=== PATIENT | female | born 1950 | race Caucasian/White ===

== ENCOUNTER 2020-01-26 09:17 | Emergency (ER) | payer MEDICARE, SELFPAY ==
[2020-01-26] VITALS (7 sets, daily range): BP systolic 154–182; BP diastolic 65–75; PULSE 58–67; RESP 16–18; TEMP 36.4–36.6; O2SAT 98; BMI 29.7
--- NOTE | 2020-01-26 09:57 | ED_ITS ---
HPI - Dizziness General Chief Complaint: Dizziness Stated Complaint: dizzy Time Seen by Provider: 01/26/20 09:57 Source: patient Mode of arrival: ambulatory Limitations: no limitations History of Present Illness MD elicited complaint: dizziness and lightheadedness Onset (ago): week(s) (2) Timing: gradual onset Severity: moderate Description: sense of movement and lightheadedness Context: other (occurs at work when wearing N95) Exacerbating factors: other (states happens at work with her N95) Relieving factors: remaining still and other (taking her mask off) Associated symptoms: nausea and weakness (all over) Related Data Allergies Allergy/AdvReac Type Severity Reaction Status Date / Time influenza virus vaccine, Allergy Severe DIFFICULTY Unverified 10/30/19 15:55 specific BREATHING [Influenza Virus Vacc,Specific] acetaminophen [Percocet] Allergy Unknown Verified 09/16/19 00:00 bee pollen [BEE STINGS] Allergy Unknown ANAPHYLAXIS Unverified 10/30/19 15:55 celecoxib [Celebrex] Allergy Unknown Verified 09/16/19 00:00 doxycycline [DOXYCYCLINE] Allergy Unknown RASH Unverified 10/30/19 15:55 Erythromycin Allergy Unknown Unverified 09/25/19 00:00 erythromycin base Allergy Unknown RASH Unverified 10/30/19 15:55 [ERYTHROMYCIN BASE] fentanyl [FENTANYL] Allergy Unknown NAUSEA & Unverified 10/30/19 15:55 VOMITING Iodinated Contrast Media Allergy Unknown RASH Unverified 10/30/19 15:55 [IV DYE, IODINE CONTAINING] ivp dye Allergy Unknown Unverified 09/25/19 00:00 lisinopril [LISINOPRIL] Allergy Unknown HIVES Unverified 10/30/19 15:55 naproxen [Naprosyn] Allergy Unknown Verified 09/16/19 00:00 oxycodone [Percocet] Allergy Unknown Verified 09/16/19 00:00 Sulfa (Sulfonamide Allergy Unknown Unverified 09/25/19 00:00 Antibiotics) sulfamethoxazole Allergy Unknown RASH Unverified 10/30/19 15:55 [From BACTRIM] trimethoprim [From BACTRIM] Allergy Unknown RASH Unverified 10/30/19 15:55 bee stings Allergy Unknown Uncoded 09/16/19 00:00 bees Allergy Unknown Uncoded 09/25/19 00:00 Doxycycline Calcium Allergy Unknown Uncoded 09/25/19 00:00 flu vaccine Allergy Unknown Uncoded 09/25/19 00:00 From PERCOCET Allergy Unknown HIVES Uncoded 10/30/19 15:55 From TALWIN Allergy Unknown HALLUCINATI Uncoded 10/30/19 15:55 ONS i Allergy Unknown Uncoded 09/16/19 00:00 Talwin Allergy Unknown Uncoded 09/25/19 00:00 Review of Systems Review of Systems: Constitutional : No Fever, No Chills, No Fatigue ENT/Mouth : No sore throat, No Rhinorrhea Eyes: No Eye Pain, No Swelling, No Redness Cardiovascular : No Chest Pain, No SOB, No Dyspnea on Exertion Respiratory : No Cough, No Sputum Gastrointestinal : No Nausea, No Vomiting, No Diarrhea, No abdominal Pain Genitourinary : No Dysuria, No Urinary Frequency, No Hematuria, Musculoskeletal : No joint pain, No Myalgias, No Joint Swelling Skin : No Skin Lesions, No rash Neuro : No Weakness, No Numbness, pos Dizziness, no Headache Psych : No Anxiety/Panic, No Depression Heme/Lymph: No Bruising, No Bleeding,No Lymphadenopathy Endocrine : No Polyuria, No Polydipsia All other systems reviewed and are negative [facility] Past Medical History Attestation statement: The following information was validated with the patient. Medical History Asthma Bladder cancer Blood clot in vein Cataract COPD (chronic obstructive pulmonary disease) Herniated vertebral disc High cholesterol Hypertension Pneumonia Social History Social History (Updated 01/26/20 @ 10:10 by Kacy Mahoney DO) Smoking Status: Current every day smoker Use of substances other than those prescribed or required for medical reasons: No Advance Directives: No Advance Directives Information Provided: Yes Physical Exam Vital Signs: Vital Signs: Last Vital Signs Temp 97.9 F 01/26/20 10:39 Pulse 64 01/26/20 11:14 Resp 16 01/26/20 11:14 BP 154/70 H 01/26/20 11:14 Pulse Ox 98 01/26/20 11:14 Body Mass Index 29.7 Appearance: Alert. Oriented X3. No acute distress. Eyes: Pupils equal, round and reactive to light. ENT: Pharynx normal. Neck: Normal inspection. Neck supple. CVS: Normal heart rate and rhythm. Pulses normal. Respiratory: No respiratory distress. Breath sounds normal. Abdomen: Soft and non-tender. Skin: Skin warm and dry. Normal skin color. Normal skin turgor. Extremities: No lower extremity edema. No calf ttp Neuro: Oriented X 3. No motor deficit. No sensory deficit. no deficits, steady gait Course Course Course Narrative: negative workup at this time stable for DC relates it to her N95 mask MDM - Dizziness MDM Narrative Medical decision making narrative: 69 yo female with HTN (elevated BP today due to not taking her BP medications - will dose now) c/o intermittent dizziness when she wears her N95 at work - unsure if this is related to low O2 or being sensitive to materials in mask - at this time will obtain labs and EKG, ortho VS, CT scan for mass, dispo per results and findings. Lab Data Result diagrams: 01/26/20 10:58 01/26/20 10:58 Labs: Lab Results 01/26/20 01/26/20 01/26/20 Range/Units 10:58 10:58 10:58 WBC 9.3 (4.8-10.8) X10*3/uL RBC 4.86 (4.20-5.50) X10*6/uL Hgb 15.3 (12.0-16.0) g/dl Hct 45.4 (37-47) % MCV 93.4 (80-98) fL MCH 31.5 (27.0-33.0) pg MCHC 33.7 (31.0-35.0) g/dl RDW 13.1 (11.0-16.0) % Plt Count 261 (160-400) X10*3/uL MPV 10.9 (9.4-12.3) fL Immature Gran % (Auto) 0.3 (0.0-0.4) % Neut % (Auto) 56.7 (45-73) % Lymph % (Auto) 30.4 (20-40) % [place] % (Auto) 9.9 (2-11) % Eos % (Auto) 1.5 (0-4) % Baso % (Auto) 1.2 (0-2) % Lymph # (Auto) 2.8 (1.2-4.9) X10*3/uL [place] # (Auto) 0.9 (0.1-1.2) X10*3/uL Eos # (Auto) 0.1 (0.0-0.4) X10*3/uL Baso # (Auto) 0.1 (0.0-0.2) X10*3/uL Abs Immat Gran (auto) 0.03 (0.00-0.03) X10*3/uL Absolute Neuts (auto) 5.3 (2.0-8.3) X10*3/uL Absolute Nucleated RBC 0.000 (0.0-0.012) X10*3/uL Nucleated RBC % (auto) 0.0 (0.0-0.2) /100WBC Hold Blue Top SEE NOTE Sodium 140 (135-145) mmol/L Potassium 4.4 (3.3-5.1) mmol/l Chloride 106 (96-108) mmol/L Carbon Dioxide 26 (22-29) mmol/L Anion Gap 12 (12-20) BUN 12 (9-16) mg/dL Creatinine 0.74 (0.5-1.4) mg/dL Estim Creat Clear Calc 75.5 Estimated GFR > 60 Random Glucose 103 (60-115) mg/dL Calcium 9.2 (8.4-10.2) mg/dL Magnesium 2.4 (1.6-2.6) mg/dL Total Bilirubin 0.6 (0.0-1.0) mg/dL Direct Bilirubin 0.3 (0.0-0.5) mg/dL AST 13 (5-31) U/L ALT 13 (0-31) U/L Alkaline Phosphatase 89 (39-117) U/L Troponin I High Sens (<3.5-17.0) ng/L Total Protein 6.8 (6.5-8.0) g/dL Albumin 3.9 (3.5-5.0) g/dL 01/26/20 Range/Units 10:58 WBC (4.8-10.8) X10*3/uL RBC (4.20-5.50) X10*6/uL Hgb (12.0-16.0) g/dl Hct (37-47) % MCV (80-98) fL MCH (27.0-33.0) pg MCHC (31.0-35.0) g/dl RDW (11.0-16.0) % Plt Count (160-400) X10*3/uL MPV (9.4-12.3) fL Immature Gran % (Auto) (0.0-0.4) % Neut % (Auto) (45-73) % Lymph % (Auto) (20-40) % [place] % (Auto) (2-11) % Eos % (Auto) (0-4) % Baso % (Auto) (0-2) % Lymph # (Auto) (1.2-4.9) X10*3/uL [place] # (Auto) (0.1-1.2) X10*3/uL Eos # (Auto) (0.0-0.4) X10*3/uL Baso # (Auto) (0.0-0.2) X10*3/uL Abs Immat Gran (auto) (0.00-0.03) X10*3/uL Absolute Neuts (auto) (2.0-8.3) X10*3/uL Absolute Nucleated RBC (0.0-0.012) X10*3/uL Nucleated RBC % (auto) (0.0-0.2) /100WBC Hold Blue Top Sodium (135-145) mmol/L Potassium (3.3-5.1) mmol/l Chloride (96-108) mmol/L Carbon Dioxide (22-29) mmol/L Anion Gap (12-20) BUN (9-16) mg/dL Creatinine (0.5-1.4) mg/dL Estim Creat Clear Calc Estimated GFR Random Glucose (60-115) mg/dL Calcium (8.4-10.2) mg/dL Magnesium (1.6-2.6) mg/dL Total Bilirubin (0.0-1.0) mg/dL Direct Bilirubin (0.0-0.5) mg/dL AST (5-31) U/L ALT (0-31) U/L Alkaline Phosphatase (39-117) U/L Troponin I High Sens < 3.5 (<3.5-17.0) ng/L Total Protein (6.5-8.0) g/dL Albumin (3.5-5.0) g/dL ECG Data Attestation: I personally reviewed and interpreted this ECG as follows: ECG interpretation date: 01/26/20 ECG interpretation time: 10:34 Interpretation: Rate: 60 Rhythm: NSR [place]: left Normal P waves. Normal DUTCH. incomplete RBBB ST T wave : normal no LINDA qTC: normal prior studies: no acute ischemia The study has been interpreted contemporaneously by me. . Discharge Plan Discharge Clinical Impression: Dizziness Patient Disposition: Home, Self-Care Instructions: Dizziness (ED) Additional Instructions: return to ED for any worsening symptoms or concerns Referrals: Kashmir Riggins MD [Primary Care Provider] - 2 days (if not better) Stand Alone Forms: Work/School Release
--- NOTE | 2020-01-26 10:04 | ECG_ITS ---
Test Reason : DIZZY Blood Pressure : / mmHG Vent. Rate : 060 BPM Atrial Rate : 060 BPM P-R Int : 142 ms QRS Dur : 092 ms QT Int : 458 ms P-R-T Axes : 063 -35 032 degrees QTc Int : 458 ms Normal sinus rhythm Possible Left atrial enlargement Left axis deviation Incomplete right bundle branch block Abnormal ECG When compared with ECG of 10-OCT-2002 23:56, Vent. rate has decreased BY 38 BPM Incomplete right bundle branch block is now Present QT has lengthened Referred By: Kacy Mahoney Electronically Signed By:Efrain Hood
--- NOTE | 2020-01-26 10:05 | CT_ITS ---
EXAMINATION: CT HEAD WITHOUT CONTRAST CLINICAL INFORMATION: Dizziness. COMPARISON: CT brain dated 04/10/2018. TECHNIQUE: Contiguous axial imaging was performed from the skull base to vertex without intravenous administration of contrast. Multiplanar reformatted images are submitted. This CT examination was performed using dose optimization techniques as appropriate, variously including the following: *Automated exposure control *Adjustment of mA and/or kV according to patient size (this includes techniques or standardized protocols for targeted exams where dose is matched to indication/reason for exam; i.e. extremities or head) *Use of iterative reconstruction technique DLP: 1271 mGy-cm FINDINGS: There is no evidence of acute intracranial hemorrhage or territorial infarction. No abnormal mass effect or midline shift is seen. [place] to white matter differentiation is well preserved. No extra-axial fluid collections are identified. The ventricles are normal in size. There is no abnormal attenuation within the brain parenchyma. The osseous structures and soft tissues are normal. The mastoid air cells and visualized portions of the paranasal sinuses are well aerated. CT/CT head/brain wo con IMPRESSION: No acute intracranial pathology.
--- NOTE | 2020-01-26 10:05 | XR_ITS ---
EXAMINATION: XR CHEST CLINICAL INFORMATION: Dizziness. COMPARISON: Chest 09/16/2019 TECHNIQUE: Frontal view of the chest was obtained. FINDINGS: Lungs are well-expanded with slight increased interstitial markings especially in both lower lobes but no confluent infiltrate or pleural effusion. Heart size and vascularity is normal. No gross bony abnormality. XR/XR chest 1V IMPRESSION: No acute pneumonic process. Minimal increased interstitial markings in both lungs without infiltrate.
[2020-01-26 11:02] LABS: MANUAL DIFF FLAG NO
[2020-01-26 11:06] LABS: Basophils Absolute Auto 0.1 X10*3/uL (0.0-0.2); Basophils Percent Auto 1.2 % (0-2); Eosinophils Absolute Auto 0.1 X10*3/uL (0.0-0.4); Eosinophils Percent Auto 1.5 % (0-4); Hematocrit 45.4 % (37-47); Hemoglobin 15.3 g/dl (12.0-16.0); Imm Gran Abs Auto 0.03 X10*3/uL (0.00-0.03); Imm Gran Pct Auto 0.3 % (0.0-0.4); Lymphocytes Absolute Auto 2.8 X10*3/uL (1.2-4.9); Lymphocytes Percent Auto 30.4 % (20-40); Mean Corpuscular HGB Conc 33.7 g/dl (31.0-35.0); Mean Corpuscular Hemoglobin 31.5 pg (27.0-33.0); Mean Corpuscular Volume 93.4 fL (80-98); Mean Platelet Volume 10.9 fL (9.4-12.3); Monocytes Absolute Auto 0.9 X10*3/uL (0.1-1.2); Monocytes Percent Auto 9.9 % (2-11); Neutrophils Absolute Auto 5.3 X10*3/uL (2.0-8.3); Neutrophils Percent Auto 56.7 % (45-73); Platelet Count 261 X10*3/uL (160-400); Red Blood Count 4.86 X10*6/uL (4.20-5.50); Red Cell Distribution Width 13.1 % (11.0-16.0); White Blood Count 9.3 X10*3/uL (4.8-10.8)
[2020-01-26] MEDS: Valsartan 80 MG TABLET PO (11:11)
[2020-01-26] MEDS: dilTIAZem HCL CD 240 MG CAP.ER.DEG PO (11:11)
[2020-01-26] MEDS: Metoprolol Succinate ER 50 MG TAB.ER.24H PO (11:11)
[2020-01-26 11:41] LABS: Alanine Aminotransferase 13 U/L (0-31); Albumin Level 3.9 g/dL (3.5-5.0); Alkaline Phosphatase 89 U/L (39-117); Anion Gap 12 (12-20); Aspartate Amino Transferase 13 U/L (5-31); Bilirubin Direct 0.3 mg/dL (0.0-0.5); Bilirubin Total 0.6 mg/dL (0.0-1.0); Blood Urea Nitrogen 12 mg/dL (9-16); Calcium 9.2 mg/dL (8.4-10.2); Carbon Dioxide 26 mmol/L (22-29); Chloride 106 mmol/L (96-108); Creatinine Clr Calc Pharmacy 75.5; Estimated Glomerular Filt Rate > 60; Glucose Random 103 mg/dL (60-115); Magnesium 2.4 mg/dL (1.6-2.6); Potassium 4.4 mmol/l (3.3-5.1); Sodium 140 mmol/L (135-145); Total Protein 6.8 g/dL (6.5-8.0)
[2020-01-26 11:48] LABS: Troponin-I High Sensitivity < 3.5 ng/L (<3.5-17.0)
== END 2020-01-26 12:15 | disposition home or self-care (01) ==
PROVIDERS: Emergency Provider Emergency Medicine; PCP Internal Medicine
DX: R42 Dizziness and giddiness (principal); I10 Essential (primary) hypertension; Z85.51 Personal history of malignant neoplasm of bladder; J45.909 Unspecified asthma, uncomplicated
CPT/HCPCS: 36415; 70450; 71045; 80048; 80076; 83735; 84484; 85025; 93005; 99284

== ENCOUNTER → 2020-02-27 10:03 | Outpatient (BNVA) | payer MEDICARE, SELFPAY | PROVIDERS: PCP Internal Medicine; Visit Provider Urology | DX: C67.9 Malignant neoplasm of bladder, unspecified (principal) | CPT/HCPCS: 52000; 81002; 99212 ==

== ENCOUNTER 2020-04-13 11:58 | Outpatient (REF) | payer MEDICARE, SELFPAY ==
--- NOTE | ~2020-04-13 | XR_ITS ---
EXAMINATION: XR HUMERUS, RIGHT CLINICAL INFORMATION: S46.219A - Strain of muscle, fascia and tendon of other part COMPARISON: None TECHNIQUE: AP and lateral views of the right humerus. FINDINGS: There is no fracture or dislocation. The acromioclavicular alignment is normal. There is normal bony mineralization. No destructive process or periostitis. There are mild degenerative changes acromioclavicular joint. Suspect calcific tendinosis adjacent to greater tuberosity partially overlying humeral head on the images. XR/XR humerus RT IMPRESSION: 1. No fracture, dislocation, or destructive process. 2. Probable calcific tendinosis distal superior rotator cuff. 3. Mild degenerative changes acromioclavicular joint.
== END 2020-04-13 11:59 | disposition home or self-care (01) ==
LOC: HO.HMGCX 11:58
PROVIDERS: Visit Provider Nurse Practitioner Family
DX: S46.219A Strain of muscle, fascia and tendon of other parts of biceps, unspecified arm, initial encounter (principal); W19.XXXA Unspecified fall, initial encounter
CPT/HCPCS: 73060

== ENCOUNTER 2020-05-27 09:41 | Outpatient (REF) | payer MEDICARE, SELFPAY ==
[2020-05-28 14:08] LABS: Urine Cytology See Pathology rpt
== END 2020-05-27 09:42 | disposition home or self-care (01) ==
LOC: HO.LNP 09:41
PROVIDERS: Visit Provider Urology
DX: C67.9 Malignant neoplasm of bladder, unspecified (principal)
CPT/HCPCS: 52000; 81002; 88112; 99212

== ENCOUNTER → 2020-09-22 08:55 | Outpatient (BNVA) | payer MEDICARE, SELFPAY | PROVIDERS: Visit Provider Urology | DX: C67.9 Malignant neoplasm of bladder, unspecified (principal) | CPT/HCPCS: 52000; 99212 ==

== ENCOUNTER 2020-11-06 17:01 | Emergency (ER) | payer MEDICARE, SELFPAY ==
[2020-11-06 17:26] VITALS: BP 126/60; PULSE 64; RESP 18; TEMP 36.4; O2SAT 96; BMI 30.2
[2020-11-06 18:03] LABS: Glucose Urine UA NEG (NEG); Leukocyte Esterase Urine NEG (NEG); Nitrite Urine NEG (NEG); Specific Gravity - Urine >= 1.030 (1.005-1.025); UACC Culture Trigger NO; Urine Blood 3+ (NEG); Urine Ketones 5 MG/DL (NEG); Urine Protein 3+ MG/DL (NEG-TRACE)
[2020-11-06 18:08] LABS: Appearance Urine CLOUDY; Color Urine RED
[2020-11-06 18:15] LABS: RBC Urine TNTC /HPF (0); Squamous Epithelial Cell Urine TRACE /LPF; UACC CULT YES
--- NOTE | 2020-11-06 20:04 | ED.FEMALEGU ---
HPI - Female Genitourinary General Chief complaint: Urogenital-Female Stated complaint: Blood in urine Time Seen by Provider: 11/06/20 19:54 Source: patient and old records reviewed Limitations: no limitations History of Present Illness HPI Narrative: Patient with a known history of bladder cancer for which he is due for a resection December 13 of this year, presents with hematuria. She states she had an episode this morning of lower suprapubic cramping followed by passing a clot when she urinated. Hematuria x2 episodes since then. No significant increased flank tenderness. No nausea vomiting. No fevers or chills. No recent history of similar hematuria. She states she did in the past when he was initially diagnosed 2 years ago. She had a cystoscopy earlier this year with her urologist. After that the further surgery was scheduled. She denies feeling weak or dizzy. She is here because she wants to know order H and H is.(patient is an [employer]) Related Data Home Medications Medication Instructions Recorded Confirmed diltiazem HCl 240 mg 240 mg PO DAILY 02/27/20 02/27/20 capsule,extended release 24 hr metoprolol succinate 50 mg 50 mg PO DAILY 02/27/20 02/27/20 tablet,extended release 24 hr valsartan 80 mg tablet 160 mg PO DAILY tab 04/13/20 simvastatin 20 mg tablet 40 mg PO BEDTIME tab 09/22/20 simvastatin 40 mg tablet 40 mg PO BEDTIME 09/22/20 valsartan 160 mg tablet 160 mg PO DAILY 09/22/20 Previous Rx's Medication Instructions Recorded prednisone 20 mg tablet 20 mg PO TID 2 Days #6 tab 09/28/20 amoxicillin 875 mg-potassium 1 tab PO BID #20 tab 09/30/20 clavulanate 125 mg tablet (Augmentin) prednisone 20 mg tablet 20 mg PO .COMPLEX #18 tab 09/30/20 Allergies Allergy/AdvReac Type Severity Reaction Status Date / Time bee pollen [BEE STINGS] Allergy Severe ANAPHYLAXIS Verified 11/06/20 17:26 influenza virus vaccine, Allergy Severe DIFFICULTY Verified 11/06/20 17:26 specific BREATHING [Influenza Virus Vacc,Specific] acetaminophen [Percocet] Allergy Unknown Unknown Verified 11/06/20 17:26 celecoxib [Celebrex] Allergy Unknown Unknown Verified 11/06/20 17:26 doxycycline [DOXYCYCLINE] Allergy Unknown RASH Verified 11/06/20 17:26 Erythromycin Allergy Unknown Unknown Verified 11/06/20 17:26 erythromycin base Allergy Unknown RASH Verified 11/06/20 17:26 [ERYTHROMYCIN BASE] fentanyl [FENTANYL] Allergy Unknown NAUSEA & Verified 11/06/20 17:26 VOMITING Iodinated Contrast Media Allergy Unknown RASH Verified 11/06/20 17:26 [IV DYE, IODINE CONTAINING] ivp dye Allergy Unknown Unknown Verified 11/06/20 17:26 lisinopril [LISINOPRIL] Allergy Unknown HIVES Verified 11/06/20 17:26 naproxen [Naprosyn] Allergy Unknown Unknown Verified 11/06/20 17:26 oxycodone [Percocet] Allergy Unknown Unknown Verified 11/06/20 17:26 Sulfa (Sulfonamide Allergy Unknown Unknown Verified 11/06/20 17:26 Antibiotics) sulfamethoxazole Allergy Unknown RASH Verified 11/06/20 17:26 [From BACTRIM] trimethoprim [From BACTRIM] Allergy Unknown RASH Verified 11/06/20 17:26 Doxycycline Calcium Allergy Unknown Unknown Uncoded 09/22/20 07:53 flu vaccine Allergy Unknown Unknown Uncoded 09/22/20 07:53 From PERCOCET Allergy Unknown HIVES Uncoded 10/30/19 15:55 From TALWIN Allergy Unknown HALLUCINATI Uncoded 10/30/19 15:55 ONS Talwin Allergy Unknown Unknown Uncoded 09/22/20 07:53 Review of Systems Constitutional: Comments: No fevers Cardiovascular: Comments: No chest pain Respiratory: Comments: No cough or dyspnea Gastrointestinal: Comments: Some low abdominal discomfort Genitourinary: Comments: Hematuria without dysuria PMFSH Past Medical History Medical History (Updated 11/06/20 @ 21:05 by Wayne Gómez MD) Asthma Bladder cancer Blood clot in vein Cataract COPD (chronic obstructive pulmonary disease) Herniated vertebral disc High cholesterol Hypertension Kidney stone Lesion of urinary bladder Pneumonia Surgical History History of surgery Social History Social History Patient Tobacco Use Status: Current someday Tobacco user Advance Directives: No Advance Directives Information Provided: Yes Physical Exam Vital Signs: Vital Signs: Last Vital Signs Temp 97.6 F 11/06/20 17:26 Pulse 64 11/06/20 17:26 Resp 18 11/06/20 17:26 BP 126/60 11/06/20 17:26 Pulse Ox 96 11/06/20 17:26 Body Mass Index 30.2 Const: Other: Awake alert no acute distress Resp: Other: Clear and equal bilaterally. Cardio: Other: Regular rate and rhythm without murmurs rubs or gallops GI: Other: Mild suprapubic tenderness Skin: Other: No lacerations, abrasions, ecchymosis Neuro: Other: Awake alert oriented Course Course Course Narrative: Hematuria in setting of known bladder cancer. Rule out UTI. Rule out anemia. 9:03 p.m.. Hemoglobin is stable. Urinalysis shows red cells but no obvious signs of infection MDM - Female Genitourinary Lab Data Result diagrams: 11/06/20 20:23 11/06/20 20:23 Labs: Lab Results 11/06/20 11/06/20 11/06/20 Range/Units 17:41 20:23 20:23 WBC 12.1 H (4.8-10.8) X10*3/uL RBC 4.61 (4.20-5.50) X10*6/uL Hgb 15.2 (12.0-16.0) g/dl Hct 44.2 (37-47) % MCV 95.9 (80-98) fL MCH 33.0 (27.0-33.0) pg MCHC 34.4 (31.0-35.0) g/dl RDW 13.3 (11.0-16.0) % Plt Count 297 (160-400) X10*3/uL MPV 11.0 (9.4-12.3) fL Immature Gran % (Auto) 0.4 (0.0-0.4) % Neut % (Auto) 54.5 (45-73) % Lymph % (Auto) 31.3 (20-40) % [place] % (Auto) 11.1 H (2-11) % Eos % (Auto) 2.0 (0-4) % Baso % (Auto) 0.7 (0-2) % Lymph # (Auto) 3.8 (1.2-4.9) X10*3/uL [place] # (Auto) 1.4 H (0.1-1.2) X10*3/uL Eos # (Auto) 0.2 (0.0-0.4) X10*3/uL Baso # (Auto) 0.1 (0.0-0.2) X10*3/uL Abs Immat Gran (auto) 0.05 H (0.00-0.03) X10*3/uL Absolute Neuts (auto) 6.6 (2.0-8.3) X10*3/uL Absolute Nucleated RBC 0.000 (0.0-0.012) X10*3/uL Nucleated RBC % (auto) 0.0 (0.0-0.2) /100WBC Sodium 143 (135-145) mmol/L Potassium 4.1 (3.3-5.1) mmol/L Chloride 108 (96-108) mmol/L Carbon Dioxide 26 (22-29) mmol/L Anion Gap 13 (12-20) BUN 12 (9-16) mg/dL Creatinine 0.78 (0.5-1.4) mg/dL Estim Creat Clear Calc 71.1 Estimated GFR > 60 Random Glucose 97 (60-115) mg/dL Calcium 9.6 (8.4-10.2) mg/dL Total Bilirubin 0.5 (0.0-1.0) mg/dL AST 16 (5-31) U/L ALT 18 (0-31) U/L Alkaline Phosphatase 91 (39-117) U/L Total Protein 7.0 (6.5-8.0) g/dL Albumin 4.0 (3.5-5.0) g/dL Urine Color RED Urine Appearance CLOUDY Urine pH 6.0 (5.0-8.0) Ur Specific [place] >= 1.030 H (1.005-1.025) Urine Protein 3+ H (NEG-TRACE) MG/DL Urine Glucose (UA) NEG (NEG) MG/DL Urine Ketones 5 (NEG) MG/DL Urine Blood 3+ H (NEG) Urine Nitrite NEG (NEG) Ur Leukocyte Esterase NEG (NEG) Urine RBC TNTC H (0) /HPF Urine WBC 1-4 (0-4) /HPF Ur Squamous Epith Cells TRACE /LPF Urine Bacteria NONE /LPF Discharge Plan Discharge Clinical Impression: Bladder cancer Qualifiers: Bladder location: unspecified site Qualified Code(s): C67.9 - Malignant neoplasm of bladder, unspecified Hematuria Qualifiers: Hematuria type: gross Qualified Code(s): R31.0 - Gross hematuria Patient Disposition: Home, Self-Care Instructions: Hematuria (ED), Bladder Cancer (DC) Additional Instructions: Your hemoglobin today is 15.2. Your hematocrit is 44.2 Urinalysis shows no obvious infection Follow-up with Dr. Reed as planned Prescriptions: No Action prednisone 20 mg tablet 20 mg PO .COMPLEX Qty: 18 RF: 0 amoxicillin-pot clavulanate [Augmentin] 875-125 mg tablet 1 tab PO BID Qty: 20 RF: 0 prednisone 20 mg tablet 20 mg PO TID 2 Days Qty: 6 RF: 0 metoprolol succinate 50 mg tablet extended release 24 hr 50 mg PO DAILY RF: 0 diltiazem HCl 240 mg capsule,extended release 24hr 240 mg PO DAILY RF: 0 valsartan 80 mg tablet 160 mg PO DAILY RF: 0 simvastatin 20 mg tablet 40 mg PO BEDTIME RF: 0 valsartan 160 mg tablet 160 mg PO DAILY RF: 0 simvastatin 40 mg tablet 40 mg PO BEDTIME RF: 0
[2020-11-06 20:29] LABS: MANUAL DIFF FLAG NO
[2020-11-06 20:37] LABS: Basophils Absolute Auto 0.1 X10*3/uL (0.0-0.2); Basophils Percent Auto 0.7 % (0-2); Eosinophils Absolute Auto 0.2 X10*3/uL (0.0-0.4); Hematocrit 44.2 % (37-47); Hemoglobin 15.2 g/dl (12.0-16.0); Imm Gran Abs Auto 0.05 X10*3/uL (0.00-0.03); Imm Gran Pct Auto 0.4 % (0.0-0.4); Lymphocytes Absolute Auto 3.8 X10*3/uL (1.2-4.9); Lymphocytes Percent Auto 31.3 % (20-40); Mean Corpuscular HGB Conc 34.4 g/dl (31.0-35.0); Mean Corpuscular Volume 95.9 fL (80-98); Monocytes Absolute Auto 1.4 X10*3/uL (0.1-1.2); Monocytes Percent Auto 11.1 % (2-11); Neutrophils Absolute Auto 6.6 X10*3/uL (2.0-8.3); Neutrophils Percent Auto 54.5 % (45-73); Platelet Count 297 X10*3/uL (160-400); Red Blood Count 4.61 X10*6/uL (4.20-5.50); Red Cell Distribution Width 13.3 % (11.0-16.0); White Blood Count 12.1 X10*3/uL (4.8-10.8)
[2020-11-06 20:50] LABS: Alanine Aminotransferase 18 U/L (0-31); Alkaline Phosphatase 91 U/L (39-117); Anion Gap 13 (12-20); Aspartate Amino Transferase 16 U/L (5-31); Bilirubin Total 0.5 mg/dL (0.0-1.0); Blood Urea Nitrogen 12 mg/dL (9-16); Calcium 9.6 mg/dL (8.4-10.2); Carbon Dioxide 26 mmol/L (22-29); Chloride 108 mmol/L (96-108); Creatinine Clr Calc Pharmacy 71.1; Estimated Glomerular Filt Rate > 60; Glucose Random 97 mg/dL (60-115); Potassium 4.1 mmol/L (3.3-5.1); Sodium 143 mmol/L (135-145)
== END 2020-11-06 21:25 | disposition home or self-care (01) ==
PROVIDERS: Emergency Provider Emergency Medicine
DX: R31.0 Gross hematuria (principal); C67.9 Malignant neoplasm of bladder, unspecified; F17.200 Nicotine dependence, unspecified, uncomplicated; Z71.6 Tobacco abuse counseling; Z79.899 Other long term (current) drug therapy
CPT/HCPCS: 36415; 80053; 81001; 85025; 87086; 99283

== ENCOUNTER 2020-12-13 08:11 | Day surgery (SDC) | payer MEDICARE, SELFPAY ==
[2020-12-06 15:11] VITALS: BMI 29.7
--- NOTE | 2020-12-10 09:41 | P.CONAN_ITS ---
Documented by User: Edilma Salazar NP 12/10/20 09:43 HPI - Anesthesia Eval Consult details Narrative: 70yo F for TUR Bladder Tumor with Gemcitabine Cardiac cleared at low risk *Multiple Med Allergies PMFSH Active Problems Active Problems: All Active Problems (Updated 12/06/20 @ 15:19 by Carlita Stevens RN) Biceps strain (Acute) Fall (Acute) Bartonella infection (Acute) Contact dermatitis (Acute) Insect bite (Acute) Bladder cancer (Acute) Past Medical History Medical History Asthma Blood clot in vein COPD (chronic obstructive pulmonary disease) COVID-19 vaccine series completed High cholesterol Hx of compression fracture of spine Hypertension Kidney stone Lesion of urinary bladder Lumbar disc herniation Positive PPD, treated Skin cancer Surgical History Surgical History H/O colonoscopy Hx of cataract extraction Hx of cholecystectomy Hx of cystoscopy Hx of dilation and curettage Social History Social History Are you a primary assurance services manager health care to a significant other at home: No Do you presently have visiting nurse or other home services: No Patient Tobacco Use Status: Current everyday Tobacco user Tobacco use type: Cigarette Years Smoked: 35 Use of substances other than those prescribed or required for medical reasons: No Have you been hit, kicked, punched, or otherwise hurt by someone within the past year? If so, by whom?: No Are you DNR?: No Advance Directives Information Provided: Yes (informational brochure mailed) Advance Directives on File: No Recently lost weight without trying: No Eating poorly because of decreased appetite: No Nutrition Risks: No Nutritional Risk Poor oral hygiene: No Meds Allergies Allergy/AdvReac Type Severity Reaction Status Date / Time bee pollen [BEE STINGS] Allergy Severe ANAPHYLAXIS Verified 11/06/20 17:26 influenza virus vaccine, Allergy Severe DIFFICULTY Verified 11/06/20 17:26 specific BREATHING [Influenza Virus Vacc,Specific] celecoxib [Celebrex] Allergy Intermediate vaginal Verified 12/06/20 14:59 bleeding doxycycline [DOXYCYCLINE] Allergy Intermediate RASH Verified 12/06/20 14:46 erythromycin base Allergy Intermediate RASH Verified 12/06/20 14:46 [ERYTHROMYCIN BASE] Iodinated Contrast Media Allergy Intermediate RASH Verified 12/06/20 14:46 [IV DYE, IODINE CONTAINING] lisinopril [LISINOPRIL] Allergy Intermediate HIVES Verified 12/06/20 14:46 pentazocine [From Talwin] Allergy Intermediate Hallucinati Verified 12/06/20 14:46 ons sulfamethoxazole Allergy Intermediate RASH Verified 12/06/20 14:46 [From BACTRIM] trimethoprim [From BACTRIM] Allergy Intermediate RASH Verified 12/06/20 14:46 fentanyl [FENTANYL] AdvReac Intermediate NAUSEA & Verified 12/06/20 14:46 VOMITING naproxen [Naprosyn] AdvReac Intermediate Gastrointestinal Verified 12/06/20 14:59 Upset oxycodone [Percocet] AdvReac Intermediate Gastrointestinal Verified 12/06/20 14:59 Upset Home Medications Medication Instructions Recorded Confirmed Last Taken Type diltiazem HCl 240 mg 240 mg PO DAILY 02/27/20 12/06/20 12/13/20 History capsule,extended release 24 hr metoprolol succinate 50 mg 50 mg PO DAILY 02/27/20 12/06/20 12/13/20 History tablet,extended release 24 hr simvastatin 40 mg tablet 40 mg PO BEDTIME 09/22/20 12/06/20 Unknown History valsartan 160 mg tablet 160 mg PO DAILY 09/22/20 12/06/20 Unknown History Exam Exam Date and Time: December 10, 2020 0941 Height,Weight and Vital Signs: Height 5 ft 5 in Weight 81.193 kg Pertinent Lab Results Pertinent Lab Results: Laboratory Tests 11/06/20 11/06/20 20:23 20:23 WBC 12.1 H Hgb 15.2 Hct 44.2 Plt Count 297 Sodium 143 Potassium 4.1 Chloride 108 Carbon Dioxide 26 BUN 12 Creatinine 0.78 Narrative Narrative: EKG 10/2020 NSR LAD RSR pattern V1 No change from 02/2020 Assessment and Plan Assessment Anesthesia Assessment: Chart Reviewed Documented by User: Della Mireles MD 12/13/20 10:09 [facility] Past Medical History Medical History Asthma Blood clot in vein COPD (chronic obstructive pulmonary disease) COVID-19 vaccine series completed High cholesterol Hx of compression fracture of spine Hypertension Kidney stone Lesion of urinary bladder Lumbar disc herniation Positive PPD, treated Skin cancer Surgical History Surgical History H/O colonoscopy Hx of cataract extraction Hx of cholecystectomy Hx of cystoscopy Hx of dilation and curettage History of Problems with Anesthesia: No Social History Social History Are you a primary assurance services manager health care to a significant other at home: No Do you presently have visiting nurse or other home services: No Patient Tobacco Use Status: Current everyday Tobacco user Tobacco use type: Cigarette Years Smoked: 35 Use of substances other than those prescribed or required for medical reasons: No Have you been hit, kicked, punched, or otherwise hurt by someone within the past year? If so, by whom?: No Are you DNR?: No Advance Directives Information Provided: Yes (informational brochure mailed) Advance Directives on File: No Recently lost weight without trying: No Eating poorly because of decreased appetite: No Nutrition Risks: No Nutritional Risk Poor oral hygiene: No Meds Allergies Allergy/AdvReac Type Severity Reaction Status Date / Time bee pollen [BEE STINGS] Allergy Severe ANAPHYLAXIS Verified 11/06/20 17:26 influenza virus vaccine, Allergy Severe DIFFICULTY Verified 11/06/20 17:26 specific BREATHING [Influenza Virus Vacc,Specific] celecoxib [Celebrex] Allergy Intermediate vaginal Verified 12/06/20 14:59 bleeding doxycycline [DOXYCYCLINE] Allergy Intermediate RASH Verified 12/06/20 14:46 erythromycin base Allergy Intermediate RASH Verified 12/06/20 14:46 [ERYTHROMYCIN BASE] Iodinated Contrast Media Allergy Intermediate RASH Verified 12/06/20 14:46 [IV DYE, IODINE CONTAINING] lisinopril [LISINOPRIL] Allergy Intermediate HIVES Verified 12/06/20 14:46 pentazocine [From Talwin] Allergy Intermediate Hallucinati Verified 12/06/20 14:46 ons sulfamethoxazole Allergy Intermediate RASH Verified 12/06/20 14:46 [From BACTRIM] trimethoprim [From BACTRIM] Allergy Intermediate RASH Verified 12/06/20 14:46 fentanyl [FENTANYL] AdvReac Intermediate NAUSEA & Verified 12/06/20 14:46 VOMITING naproxen [Naprosyn] AdvReac Intermediate Gastrointestinal Verified 12/06/20 14:59 Upset oxycodone [Percocet] AdvReac Intermediate Gastrointestinal Verified 12/06/20 14:59 Upset Home Medications Medication Instructions Recorded Confirmed Last Taken Type diltiazem HCl 240 mg 240 mg PO DAILY 02/27/20 12/06/20 12/13/20 History capsule,extended release 24 hr metoprolol succinate 50 mg 50 mg PO DAILY 02/27/20 12/06/20 12/13/20 History tablet,extended release 24 hr simvastatin 40 mg tablet 40 mg PO BEDTIME 09/22/20 12/06/20 Unknown History valsartan 160 mg tablet 160 mg PO DAILY 09/22/20 12/06/20 Unknown History Exam Airway Mallampati Class: II TM Dist: >3cm Neck ROM: Full Loose/Missing/Broken Teeth: No Heart: RRR Lungs: distant but clear Assessment and Plan Assessment Anesthesia Assessment: Anesthesia Plan Discussed Final Anesthetic Review History of Problems with Anesthesia: No NPO: Yes ASA Class: III Final Preanesthetic Review: Meds/Allgs Chart Reviewed, Consent Obtained/Reviewed and Anes Risks/Benef Reviewed Patient Risk: Intermediate Procedure Risk: Low Anesthetic Plan Anesthetic Plan: GA
[2020-12-13] VITALS (14 sets, daily range): BP systolic 143–210; BP diastolic 61–105; PULSE 59–73; RESP 16–22; TEMP 36.4–36.6; O2SAT 92–99
[2020-12-13] MEDS: Lactated Ringers 1,000 ML 100 ML IVCONT (09:37)
[2020-12-13] MEDS: levoFLOXacin/D5W 500 MG/100 ML PIGGYBACK 100 MG IV (09:44)
--- NOTE | 2020-12-13 10:39 | W.PM.OPN ---
Operative Note Operative Note Date of Service: 12/13/20 Narrative: PreOperative Diagnosis: bladder cancer Post Operative Diagnosis: bladder cancer Procedure: Medium TURBT and Gemcitabine installation Surgeon: Dr Phill Pulido Anesthesia: general Indications for procedure: Recurrent superficial bladder cancer. Seen at cystoscopy. Left bladder neck. Plan for resection and gemcitabine installation. Procedure: After informed consent was verified the patient was brought to the operating room and placed in a supine position. anesthesia was administered per protocol. the patient was placed in a modified dorsal lithotomy position and prepped and draped in a sterile fashion. Safety pause time-out was performed. Antibiotics were confirmed. A 26 Malagasy continuous flow resectoscope was inserted per urethra. The visual obturator was used in order to minimize potential for urethral damage. At entry to the bladder lesion at the left bladder neck was seen. This was resected using the bipolar resectoscope lesion approximately 2 cm. . Second lesion seen posterior midline wall. Small 1 cm lesion resected. Areas of mucosal change seen extending down to the left ureteric orifice. This was fulgurated with great care taken around the ureteric for orifice At the completion of the procedure the bladder was irrigated. The cystoscope was removed. A [address] Ibanez catheter was inserted into the bladder. 10 cc was placed in the balloon. 2 g of gemcitabine in 100 cc of normal saline was instilled into the bladder. The flow from the catheter was left clamped. The inflow to the catheter was attached to a 3 L normal saline bag. The patient Tolerated the procedure well. They were extubated in the operating room and transferred in stable condition to the recovery area. Gemcitabine will remain in the bladder for 1 hour. At the completion of 1 hour the clamp will be removed. The gemcitabine will be allowed to egress to the urine collection bag. The 3 L bag of normal saline will be run at maximum rate through the bladder in order to dilute any residual gemcitabine. The Ibanez catheter will then be removed. Pathology: Bladder tumor Drains: Ibanez catheter with installation
[2020-12-13] MEDS: Acetaminophen 325 MG TABLET 650 MG PO (12:35)
== END 2020-12-13 15:24 | disposition home or self-care (01) ==
PROVIDERS: Visit Provider Urology
PROC: 0TBB8ZZ Excision of Bladder, Via Natural or Artificial Opening Endoscopic (ICD-10-PCS; CPT 52235; principal; 2020-12-13 10:20)
DX: C67.5 Malignant neoplasm of bladder neck (principal); J44.9 Chronic obstructive pulmonary disease, unspecified; I10 Essential (primary) hypertension; Z79.899 Other long term (current) drug therapy; Z88.1 Allergy status to other antibiotic agents; Z88.2 Allergy status to sulfonamides; Z88.7 Allergy status to serum and vaccine; Z88.8 Allergy status to other drugs, medicaments and biological substances; Z91.041 Radiographic dye allergy status; Z90.49 Acquired absence of other specified parts of digestive tract; F17.210 Nicotine dependence, cigarettes, uncomplicated
CPT/HCPCS: 52235; 51720; 88307; J1100; J1956; J2405; J3010; J9201

== ENCOUNTER 2020-12-31 14:32 | Outpatient (REF) | payer MEDICARE, SELFPAY ==
[2020-12-31 16:52] LABS: Urine Cytology See Pathology rpt
== END 2020-12-31 14:33 | disposition home or self-care (01) ==
LOC: HO.LAB 14:32
PROVIDERS: Visit Provider Urology
DX: C67.9 Malignant neoplasm of bladder, unspecified (principal)
CPT/HCPCS: 88112; 99212

== ENCOUNTER 2021-04-06 09:57 | Outpatient (REF) | payer MEDICARE, SELFPAY ==
[2021-04-06 16:18] LABS: Urine Cytology See Pathology rpt
== END 2021-04-06 09:58 | disposition home or self-care (01) ==
LOC: HO.LAB 09:57
PROVIDERS: PCP Internal Medicine; Visit Provider Urology
DX: C67.9 Malignant neoplasm of bladder, unspecified (principal)
CPT/HCPCS: 52000; 88112

== ENCOUNTER → 2021-06-28 10:49 | Outpatient (BNVA) | payer MEDICARE, SELFPAY | PROVIDERS: PCP Internal Medicine; Visit Provider Urology | DX: C67.9 Malignant neoplasm of bladder, unspecified (principal) | CPT/HCPCS: 52000; 99212 ==

== ENCOUNTER 2021-09-29 11:13 | Outpatient (REF) | payer MEDICARE, SELFPAY | END 2021-09-29 11:14 | disposition home or self-care (01) | LOC: HO.LAB 11:13 | PROVIDERS: Visit Provider Urology | DX: C67.9 Malignant neoplasm of bladder, unspecified (principal) | CPT/HCPCS: 52000; 52310 ==

== ENCOUNTER 2022-01-10 15:01 | Outpatient (REF) | payer MEDICARE, SELFPAY ==
[2022-01-10 17:09] LABS: Urine Cytology See Pathology rpt
== END 2022-01-10 15:02 | disposition home or self-care (01) ==
LOC: HO.LAB 15:01
PROVIDERS: Visit Provider Urology
DX: C67.9 Malignant neoplasm of bladder, unspecified (principal)
CPT/HCPCS: 52000; 88112

== ENCOUNTER 2022-05-10 14:02 | Outpatient (REF) | payer MEDICARE, SELFPAY | END 2022-05-10 14:03 | disposition home or self-care (01) | LOC: HO.LAB 14:02 | PROVIDERS: PCP Internal Medicine; Visit Provider Urology | DX: C67.9 Malignant neoplasm of bladder, unspecified (principal); N32.89 Other specified disorders of bladder | CPT/HCPCS: 52000; 99212 ==

== ENCOUNTER 2022-08-18 11:28 | Outpatient (REF) | payer MEDICARE, SELFPAY | END 2022-08-18 11:29 | disposition home or self-care (01) | LOC: HO.HMGCX 11:28 | PROVIDERS: PCP Internal Medicine; Visit Provider Internal Medicine | DX: M25.531 Pain in right wrist (principal) | CPT/HCPCS: 73110 ==

== ENCOUNTER 2022-09-12 11:07 | Outpatient (REF) | payer MEDICARE, SELFPAY ==
[2022-09-12 19:43] LABS: Urine Cytology See Pathology rpt
== END 2022-09-12 11:08 | disposition home or self-care (01) ==
LOC: HO.LAB 11:07
PROVIDERS: Visit Provider Urology
DX: C67.9 Malignant neoplasm of bladder, unspecified (principal); Z13.9 Encounter for screening, unspecified
CPT/HCPCS: 52000; 88112

== ENCOUNTER 2022-09-12 11:07 | Outpatient (AMB) | payer MEDICARE, SELFPAY ==
--- NOTE | 2022-09-12 11:11 | MHC.OFFVIS ---
Intake Intake Visit Reasons: 4M Cysto Intake Note: Patient is present for Cystoscopy Urology Med: None Antibiotic Allergy: Doxycycline, Erythromycin, Sulfa antibiotics Blood Thinner: Aspirin [facility]: [facility] Cystoscope used during Procedure LOT#:[id number] EXP: 07/03/2024 Allergies bee pollen [BEE STINGS] Allergy (Severe, Verified 09/12/22 11:12) ANAPHYLAXIS influenza virus vaccine, specific [Influenza Virus Vacc,Specific] Allergy (Severe, Verified 09/12/22 11:12) DIFFICULTY BREATHING celecoxib [Celebrex] Allergy (Intermediate, Verified 09/12/22 11:12) vaginal bleeding doxycycline [DOXYCYCLINE] Allergy (Intermediate, Verified 09/12/22 11:12) RASH erythromycin base [ERYTHROMYCIN BASE] Allergy (Intermediate, Verified 09/12/22 11:12) RASH Iodinated Contrast Media [IV DYE, IODINE CONTAINING] Allergy (Intermediate, Verified 09/12/22 11:12) RASH lisinopril [LISINOPRIL] Allergy (Intermediate, Verified 09/12/22 11:12) HIVES pentazocine [From Talwin] Allergy (Intermediate, Verified 09/12/22 11:12) Hallucinations sulfamethoxazole [From BACTRIM] Allergy (Intermediate, Verified 09/12/22 11:12) RASH trimethoprim [From BACTRIM] Allergy (Intermediate, Verified 09/12/22 11:12) RASH fentanyl [FENTANYL] Adverse Reaction (Intermediate, Verified 09/12/22 11:12) NAUSEA & VOMITING naproxen [Naprosyn] Adverse Reaction (Intermediate, Verified 09/12/22 11:12) Gastrointestinal Upset oxycodone [Percocet] Adverse Reaction (Intermediate, Verified 09/12/22 11:12) Gastrointestinal Upset HPI HPI Comments History of Present Illness Details Barby is a very pleasant female. She is a patient of Dr. Yanes. She is seen for the following urologic conditions - bladder cancer - bladder trabeculations Four month cystoscopy follow-up Recurrent low-grade bladder cancer at left UO Recommend cystoscopy, bladder biopsy, fulguration with mitomycin-C Bladder cancer low-grade noninvasive June 2019 Diagnosis June 2019 Bladder interventions - TURBT August 2019 low-grade noninvasive, TURBT Dec 2019 low-grade noninvasive, 01/02 low-grade TA Longstanding smoking history 35 pack-years Cystoscopy - 06/02 NAD, 08/02 recurrent lesion, 2 NAD, 5 NAD, 8 NAD, 01/03 Cytology 1 NAD, 4/ atypical, 2/ NAD Adjuvant therapy - 02/01 6 week gemcitabine, 08/03 3 week, 01/03 3 week PFSH Medical History Asthma Blood clot in vein COPD (chronic obstructive pulmonary disease) COVID-19 vaccine series completed High cholesterol Hx of compression fracture of spine Hypertension Kidney stone Lesion of urinary bladder Lumbar disc herniation Positive PPD, treated Skin cancer Surgical History H/O colonoscopy Hx of cataract extraction Hx of cholecystectomy Hx of cystoscopy Hx of dilation and curettage Social History Are you a primary inspector health care facilities to a significant other at home: No Do you presently have visiting nurse or other home services: No Patient Tobacco Use Status: Current everyday Tobacco user Tobacco use type: Cigarette Years Smoked: 35 Review of Systems Const Denies chills and Denies fever(s) Card Reports no additional complaints and Denies syncope Resp Denies cough GI Denies abdominal pain and Denies heartburn Reports as per HPI and Denies change in libido Neuro Denies syncope Psych Denies change in libido Endo Denies change in libido Physical Exam Const General: cooperative, healthy appearing, comfortable and no acute distress Orientation/consciousness: patient oriented x3 HEENT Face and sinus: Yes normal facial exam Mouth: moist mucous membranes Neck Neck: Yes normal visual inspection, Yes full ROM and Yes trachea midline Chest Chest palpation & inspection: normal inspection of the chest Resp Effort & Inspection: normal respiratory effort, able to speak in complete sentences and no respiratory distress GI Inspection: Yes normal to inspection Back/Spine/Pelvis Cervical Spine: normal cervical lordosis Thoracic/Lumbar Spine: thoracic and lumbar spine normal to inspection Skin General skin exam: no rashes or lesions noted Neuro General: patient oriented x3, gait normal, tone normal and moves all extremities Extrem General: Yes normal to inspection and Yes capillary refill normal Office Procedures Cystoscopy Consent Discussed risk and benefit or proposed procedure with the patient. Information consent for procedure given to the patient. Discussed technical aspects, risks, benefits and alternatives in full. Addressed all of the patient's questions and concerns regarding the procedure. The patient demonstrated knowledge and understanding. They wish to proceed with this procedure. Preparation The patient was prepped in the usual manner. A shop service technician was present and in the room. Genitalia was prepped with betadine solution in a sterile manner. Lidocaine Jelly 2% was placed into the urethra and 16Fr flexible Olympus cystoscope was inserted into the meatus after adequate lubrication. Procedure Meatus retracted meatus Urethra normal Bladder examination with retroflexion of cystoscope Bladder Orifices normal shape and position Trigone normal Bladder Capacity medium Trabeculations grade 1/2 Cellule Formation - Diverticulum Formation - Mucosal Erythema - Bladder Tumor superficial recurrence left UO [id number] Procedure code (CPT) selection complete Office Meds lidocaine HCl Performing Provider: Phill Pulido MD Administered by: Charlene Acevedo RN on 09/12/22 11:22 Dose Route Admin Location Lot Number Expiration Date [place] Allergist/Immunologist 10 mL intra-urethral nitrofurantoin monohyd/m-cryst 100 mg Performing Provider: Phill Pulido MD Administered by: Charlene Acevedo RN on 09/12/22 11:22 Dose Route Admin Location Lot Number Expiration Date [facility] Allergist/Immunologist 100 mg PO Results AMB Urinalysis, Automated UA Leukoctes 0 Ally/uL Last Edit by EBEN Hartley on 09/12/22 11:20 UA Nitrite Negative Last Edit by Reina Hayes [facility] on 09/12/22 11:20 UA Urobilinogen 0.2 mg/dL Last Edit by Reina Hayes [facility] on 09/12/22 11:20 UA Protein 15 mg/dL Last Edit by Reina Hayes [facility] on 09/12/22 11:20 UA pH 6.0 Last Edit by Reina Hayes [facility] on 09/12/22 11:20 UA Blood 0 Luis/uL Last Edit by Reina Hayes [facility] on 09/12/22 11:20 UA Specific Reading 1.015 Last Edit by Riena Hayes [facility] on 09/12/22 11:20 UA Ketone Negative Last Edit by Reina Hayes [facility] on 09/12/22 11:20 UA Bilirubin 0 mg/dL Last Edit by EBEN Hartley on 09/12/22 11:20 UA Glucose 0 mg/dL Last Edit by EBEN Hartley on 09/12/22 11:20 Results Reviewed Results Reviewed: Laboratory Last Values Urine pH (Auto) 6.0 09/12/22 11:13 Specific Reading (Auto) 1.015 09/12/22 11:13 Urine Protein (Auto) 15 mg/dL 09/12/22 11:13 Glucose (UA)(Auto) 0 mg/dL 09/12/22 11:13 Urine Ketones (Auto) Negative 09/12/22 11:13 Urine Blood (Auto) 0 Luis/uL 09/12/22 11:13 Urine Nitrite (Auto) Negative 09/12/22 11:13 Urine Bilirubin (Auto) 0 mg/dL 09/12/22 11:13 Urine Urobilinogen (Auto) 0.2 mg/dL 09/12/22 11:13 Leukocyte Esterase (Auto) 0 Ally/uL 09/12/22 11:13 Assessment & Plan Assessment & Plan (1) Bladder cancer: Comment: recurrent superficial November 2019, December 2020 Code(s): C67.9 - Malignant neoplasm of bladder, unspecified Qualifiers: Bladder location: unspecified site Qualified Code(s): C67.9 - Malignant neoplasm of bladder, unspecified Plan Risks, benefits and alternatives to therapy were discussed. These include but are not limited to infection, bleeding, damage to local organs and tissues, need for further interventions. Anesthetic risks regarding cardiac arrhythmia, blood clots, and potential mortality were discussed. The patient understands the typical recovery time and the outpatient nature of the procedure. After consideration of these risks the patient gives full informed consent and they wish to move ahead with the procedure. - cystoscopy, biopsy, fulguration, mitomycin-C - left retrograde Orders: Orders Urine Cytology Today C67.9 - Malignant neoplasm of bladder, unspecified AMB Cystoscopy Today C67.9 - Malignant neoplasm of bladder, unspecified AMB Urinalysis Automated Today Z13.9 - Encounter for screening, unspecified Patient Instructions: Imaging studies, laboratory and physical exam results were discussed and reviewed in detail. No major barriers to patient understanding were identified. An opportunity to ask questions regarding the treatment plan was provided. All questions were answered. The patient expressed understanding and agreement with the above treatment plan. The patient is aware they should contact our office by phone for worsening of their current condition or the appearance of new urologic symptoms. Compliance is encouraged with any medications and followup testing that is ordered. It is a privilege to participate in the urologic care of your patient. If you have any questions or concerns regarding treatment for the above conditions, or other urologic issues, please do not hesitate to contact me. The office telephone contact is [phone]. This note is constructed using voice recognition software. While every effort has been made to ensure accuracy electrical inspector errors may have been included. Yours sincerely, Dr Phill Pulido MD, [facility] - Urology Providers of Expert, Compassionate Care for the Genitourinary System Coding Level of Care Code Est Pt Level 4 (34812) Diagnoses Bladder cancer C67.9 Bladder location: unspecified site CPT Codes Cystoscopy - CPT: [id number] ([id number])
== END 2022-09-12 11:55 | disposition home or self-care (01) ==
PROVIDERS: Visit Provider Urology
DX: C67.9 Malignant neoplasm of bladder, unspecified (principal)
CPT/HCPCS: 52000

== ENCOUNTER 2022-10-12 11:48 | Outpatient (AMB) | payer MEDICARE, SELFPAY ==
--- NOTE | 2022-10-12 11:49 | AM.OFFWIN_ITS ---
Intake Vital Signs 10/12/22 11:50 Height 5 ft 5 in Weight 183 lb BMI 30.4 BP 142/64 H Blood Pressure Location Lt brachial Position Sitting Pulse 80 Pulse Source Pulse Oximeter Temp 99.8 F Temp Source Temporal Artery Scan Pulse Oximetry (%) 95 Oxygen Delivery Method Room Air Intake Visit Reasons: EST/pneumonia?(masked lobby) Intake Note: Pt is here c/o possible pneumonia. Patient Tobacco Use Status: Current everyday Tobacco user Allergies bee pollen [BEE STINGS] Allergy (Severe, Verified 10/12/22 11:52) ANAPHYLAXIS influenza virus vaccine, specific [Influenza Virus Vacc,Specific] Allergy (Severe, Verified 10/12/22 11:52) DIFFICULTY BREATHING celecoxib [Celebrex] Allergy (Intermediate, Verified 10/12/22 11:52) vaginal bleeding doxycycline [DOXYCYCLINE] Allergy (Intermediate, Verified 10/12/22 11:52) RASH erythromycin base [ERYTHROMYCIN BASE] Allergy (Intermediate, Verified 10/12/22 11:52) RASH Iodinated Contrast Media [IV DYE, IODINE CONTAINING] Allergy (Intermediate, Verified 10/12/22 11:52) RASH lisinopril [LISINOPRIL] Allergy (Intermediate, Verified 10/12/22 11:52) HIVES pentazocine [From Talwin] Allergy (Intermediate, Verified 10/12/22 11:52) Hallucinations sulfamethoxazole [From BACTRIM] Allergy (Intermediate, Verified 10/12/22 11:52) RASH trimethoprim [From BACTRIM] Allergy (Intermediate, Verified 10/12/22 11:52) RASH fentanyl [FENTANYL] Adverse Reaction (Intermediate, Verified 10/12/22 11:52) NAUSEA & VOMITING naproxen [Naprosyn] Adverse Reaction (Intermediate, Verified 10/12/22 11:52) Gastrointestinal Upset oxycodone [Percocet] Adverse Reaction (Intermediate, Verified 10/12/22 11:52) Gastrointestinal Upset Do you need a note to return to daycare/school/sports/work: No HPI HPI Comments History of Present Illness Details 72-year-old female that presents for cough congestion fever runny nose. Patient states she was exposed to patient with COVID. She also takes was out at a concert in the rain soaking wet to which developed chest congestion and cough. Cough is nonproductive he has a history of pneumonia and wanted to be Evaluated. FORMERLY [facility], [facility] Medical History Asthma Blood clot in vein COPD (chronic obstructive pulmonary disease) COVID-19 vaccine series completed High cholesterol Hx of compression fracture of spine Hypertension Kidney stone Lesion of urinary bladder Lumbar disc herniation Positive PPD, treated Skin cancer Surgical History H/O colonoscopy Hx of cataract extraction Hx of cholecystectomy Hx of cystoscopy Hx of dilation and curettage Social History Are you a primary medication care manager to a significant other at home: No Do you presently have visiting nurse or other home services: No Patient Tobacco Use Status: Current everyday Tobacco user Tobacco use type: Cigarette Years Smoked: 35 Review of Systems Const All systems reviewed & are unremarkable except as noted in HPI and below Reports body aches, Reports chills, Reports fatigue, Reports fever(s), Denies headache(s) and Denies weakness Eyes Reports no additional complaints ENT Denies headache(s) and Reports nasal congestion Card Reports no additional complaints, Denies chest pain, Denies leg edema and Denies dyspnea Resp Reports chest congestion, Reports cough and Denies dyspnea GI Denies abdominal pain, Denies nausea and Denies vomiting Denies urinary frequency and Denies dysuria Musc Reports no additional complaints Neuro Denies headache(s) and Denies weakness Psych Reports no additional complaints Endo Reports fatigue Physical Exam Vital Signs: Last Vital Signs Temp 99.8 F 10/12/22 11:50 Pulse 80 10/12/22 11:50 BP 142/64 H 10/12/22 11:50 Pulse Ox 95 10/12/22 11:50 Oxygen Delivery Method Room Air 10/12/22 11:50 BMI result Body Mass Index 30.4 Const General: cooperative, no acute distress and alert Orientation/consciousness: patient oriented x3 Limitations: no limitations HEENT Head: Yes normal to inspection Ears: hearing grossly normal bilaterally and external ears normal General nose exam: Normal external nose present Eyes General: appearance normal, both eyes and all related structures Neck Neck: Yes normal visual inspection Chest Chest palpation & inspection: normal inspection of the chest Resp Other: Coarse breath sounds in the bases bilaterally Effort & Inspection: normal respiratory effort, able to speak in complete sentences and no audible wheezes Auscultation: clear to auscultation bilaterally Cardio Rate: regular rate Rhythm: regular rhythm GI Inspection: Yes normal to inspection Palpation (GI): Soft to palpation and nontender Skin General skin exam: no rashes or lesions noted Neuro General: patient oriented x3 Psych Appearance: grossly normal Mental Status: mental status grossly normal Speech and movement: Normal speech and movement present Affect: normal affect Attitude: cooperative Thought process: Normal thought process present Thought content: Normal thought content present Assessment & Plan Assessment & Plan (1) Upper respiratory infection: Code(s): J06.9 - Acute upper respiratory infection, unspecified (2) COVID-19: Code(s): U07.1 - COVID-19 Plan VSS. Exam notable for coarse breath sounds in the bases bilaterally. Exam otherwise unremarkable note above. Patient likely Betancourt COVID-19 versus upper respiratory tract infection. Given Adventitious lung sounds as well as fever will order chest x-rays to evaluate for pneumonia. Orders: Orders XR chest 2V Today R09.89 - Other specified symptoms and signs involving the circulatory and respiratory systems BinaxNOW Covid-19 Ag Today J06.9 - Acute upper respiratory infection, unspecified Coding Level of Care Code Est Pt Level 3 (49615) Diagnoses Upper respiratory infection J06.9 COVID-19 U07.1
[2022-10-12 11:50] VITALS: BP 142/64; PULSE 80; TEMP 37.7; O2SAT 95; BMI 30.4
== END 2022-10-12 12:06 | disposition home or self-care (01) ==
PROVIDERS: PCP Nurse Practitioner Family; Visit Provider Physician Assistant
DX: J06.9 Acute upper respiratory infection, unspecified (principal); U07.1 COVID-19
CPT/HCPCS: 99213

== ENCOUNTER 2022-10-12 12:02 | Outpatient (REF) | payer MEDICARE, SELFPAY ==
--- NOTE | ~2022-10-12 | XR_ITS ---
EXAMINATION: XR CHEST CLINICAL INFORMATION: Other specified symptoms and signs involving the circulatory system COMPARISON: 01/26/2020, 09/16/2019 TECHNIQUE: 2 views of the chest were obtained. FINDINGS: No significant abnormality is noted involving the heart, lungs, mediastinum, bony thorax or soft tissues. XR/XR chest 2V IMPRESSION: Unremarkable examination.
[2022-10-12 12:32] LABS: Binax Internal Control QC Valid; Binax Now Covid-19 Ag Positive (Negative); Binax Performed by: PAULP
== END 2022-10-12 12:03 | disposition home or self-care (01) ==
LOC: HO.HMGCX 12:02
PROVIDERS: PCP Nurse Practitioner Family; Visit Provider Physician Assistant
DX: J06.9 Acute upper respiratory infection, unspecified (principal); R09.89 Other specified symptoms and signs involving the circulatory and respiratory systems
CPT/HCPCS: 71046; 87811; C9803

== ENCOUNTER 2022-11-06 09:35 | Day surgery (SDC) | payer MEDICARE, SELFPAY ==
[2022-11-02 14:39] VITALS: BMI 31.6
--- NOTE | 2022-11-03 12:02 | P.CONAN_ITS ---
Documented by User: Edilma Salazar NP 11/03/22 13:10 HPI - Anesthesia Eval Consult details Narrative: 72yo F for Left Cystoscopy & Bladder Biopsy with mitomycin,with left retrograde Cardiac optimized PMFSH Active Problems Active Problems: All Active Problems (Updated 10/12/22 @ 14:29 by VERONICA Chung) COVID-19 (Acute) Pain in right wrist (Acute) Paronychia of finger (Acute) Bladder trabeculation (Acute) Insect bite (Acute) Contact dermatitis (Acute) Bartonella infection (Acute) Fall (Acute) Biceps strain (Acute) Bladder cancer (Acute) Past Medical History Medical History (Updated 10/12/22 @ 14:29 by VERONICA Chung) COVID-19 vaccine series completed Skin cancer Lumbar disc herniation Hx of compression fracture of spine Positive PPD, treated Kidney stone Lesion of urinary bladder Blood clot in vein COPD (chronic obstructive pulmonary disease) Asthma High cholesterol Hypertension Surgical History Surgical History (Updated 11/02/22 @ 13:58 by Carlita Stevens RN) Hx of dilation and curettage H/O colonoscopy Hx of cataract extraction Hx of cystoscopy Hx of cholecystectomy History of Problems with Anesthesia: No Social History Social History Are you a primary nursing care partner to a significant other at home: No Do you presently have visiting nurse or other home services: No Patient Tobacco Use Status: Current everyday Tobacco user Tobacco use type: Cigarette Cigarette Packs Per Day: 0.5 Cigarettes Per Day: 10.0 Years Smoked: 35 Smoked in Last 30 Days: Yes Use of substances other than those prescribed or required for medical reasons: No Are you DNR?: No Advance Directives: No Advance Directives Information Provided: Yes Meds Allergies Allergy/AdvReac Type Severity Reaction Status Date / Time bee pollen [BEE STINGS] Allergy Severe ANAPHYLAXIS Verified 10/12/22 11:52 influenza virus vaccine, Allergy Severe DIFFICULTY Verified 10/12/22 11:52 specific BREATHING [Influenza Virus Vacc,Specific] celecoxib [Celebrex] Allergy Intermediate vaginal Verified 10/12/22 11:52 bleeding doxycycline [DOXYCYCLINE] Allergy Intermediate RASH Verified 10/12/22 11:52 erythromycin base Allergy Intermediate RASH Verified 10/12/22 11:52 [ERYTHROMYCIN BASE] Iodinated Contrast Media Allergy Intermediate RASH Verified 10/12/22 11:52 [IV DYE, IODINE CONTAINING] lisinopril [LISINOPRIL] Allergy Intermediate HIVES Verified 10/12/22 11:52 pentazocine [From Talwin] Allergy Intermediate Hallucinati Verified 10/12/22 11:52 ons sulfamethoxazole Allergy Intermediate RASH Verified 10/12/22 11:52 [From BACTRIM] trimethoprim [From BACTRIM] Allergy Intermediate RASH Verified 10/12/22 11:52 fentanyl [FENTANYL] AdvReac Intermediate NAUSEA & Verified 10/12/22 11:52 VOMITING naproxen [Naprosyn] AdvReac Intermediate Gastrointestinal Verified 10/12/22 11:52 Upset oxycodone [Percocet] AdvReac Intermediate Gastrointestinal Verified 10/12/22 11:52 Upset Home Medications Medication Instructions Recorded Confirmed Last Taken Type diltiazem HCl 240 mg 240 mg PO DAILY 02/27/20 11/02/22 11/06/22 History capsule,extended release 24 hr metoprolol succinate 50 mg 50 mg PO DAILY 02/27/20 11/02/22 11/06/22 History tablet,extended release 24 hr valsartan 160 mg tablet 160 mg PO DAILY 09/22/20 11/02/22 Unknown History aspirin 81 mg tablet 81 mg PO DAILY 01/17/21 11/02/22 Unknown History cholecalciferol (vitamin D3) 25 25 mcg PO DAILY 01/17/21 11/02/22 Unknown History mcg (1,000 unit) tablet (Vitamin D3) albuterol sulfate 90 mcg/actuation 1 puff inhalation Q4H PRN 08/18/22 11/02/22 Unknown History aerosol inhaler Shortness Of Breath rosuvastatin 40 mg tablet 40 mg PO DAILY 08/18/22 11/02/22 Unknown History Exam Exam Date and Time: November 03, 2022 1202 Height,Weight and Vital Signs: Height 5 ft 4 in Weight 83.461 kg Narrative Narrative: EKG 10/2022 SB @56 Inc RBBB No change from previous ECHO 2021 LV grossly nml in size Mild LVH Nml LV regional wall motion. Nml LVEF 55-60% No significant valve disease PHarm nuc stress 08/2022 No areas of ischemia or infarction Nml LV function Carotid duplex Left 50-69% stenosis Right <50% Assessment and Plan Assessment Anesthesia Assessment: Chart Reviewed Final Anesthetic Review History of Problems with Anesthesia: No Documented by User: Stephon Herrera MD 11/06/22 12:04 PMF Past Medical History Medical History (Updated 10/12/22 @ 14:29 by VERONICA Chung) COVID-19 vaccine series completed Skin cancer Lumbar disc herniation Hx of compression fracture of spine Positive PPD, treated Kidney stone Lesion of urinary bladder Blood clot in vein COPD (chronic obstructive pulmonary disease) Asthma High cholesterol Hypertension Family History Family history of problems with anesthesia: No Surgical History Surgical History (Updated 11/02/22 @ 13:58 by Carlita Stevens RN) Hx of dilation and curettage H/O colonoscopy Hx of cataract extraction Hx of cystoscopy Hx of cholecystectomy History of Problems with Anesthesia: No Social History Social History Are you a primary nursing care partner to a significant other at home: No Do you presently have visiting nurse or other home services: No Patient Tobacco Use Status: Current everyday Tobacco user Tobacco use type: Cigarette Cigarette Packs Per Day: 0.5 Cigarettes Per Day: 10.0 Years Smoked: 35 Smoked in Last 30 Days: Yes Use of substances other than those prescribed or required for medical reasons: No Are you DNR?: No Advance Directives: No Advance Directives Information Provided: Yes Narrative Narrative: In regards to purported fentanyl allergy: The patient told me that she was once given fentanyl for a colonoscopy and had PONV, and was told that she was allergic to fentanyl. Since then she's had fentanyl with no problem. 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 I told her that a true fentanyl allergy has never been reported, and that I would give her a small dose of fentanyl as part of this anesthetic, and she was unlikely to have PONV. She was very OK with that. Meds Allergies Allergy/AdvReac Type Severity Reaction Status Date / Time bee pollen [BEE STINGS] Allergy Severe ANAPHYLAXIS Verified 10/12/22 11:52 influenza virus vaccine, Allergy Severe DIFFICULTY Verified 10/12/22 11:52 specific BREATHING [Influenza Virus Vacc,Specific] celecoxib [Celebrex] Allergy Intermediate vaginal Verified 10/12/22 11:52 bleeding doxycycline [DOXYCYCLINE] Allergy Intermediate RASH Verified 10/12/22 11:52 erythromycin base Allergy Intermediate RASH Verified 10/12/22 11:52 [ERYTHROMYCIN BASE] Iodinated Contrast Media Allergy Intermediate RASH Verified 10/12/22 11:52 [IV DYE, IODINE CONTAINING] lisinopril [LISINOPRIL] Allergy Intermediate HIVES Verified 10/12/22 11:52 pentazocine [From Talwin] Allergy Intermediate Hallucinati Verified 10/12/22 11:52 ons sulfamethoxazole Allergy Intermediate RASH Verified 10/12/22 11:52 [From BACTRIM] trimethoprim [From BACTRIM] Allergy Intermediate RASH Verified 10/12/22 11:52 fentanyl [FENTANYL] AdvReac Intermediate NAUSEA & Verified 10/12/22 11:52 VOMITING naproxen [Naprosyn] AdvReac Intermediate Gastrointestinal Verified 10/12/22 11:52 Upset oxycodone [Percocet] AdvReac Intermediate Gastrointestinal Verified 10/12/22 11:52 Upset Home Medications Medication Instructions Recorded Confirmed Last Taken Type diltiazem HCl 240 mg 240 mg PO DAILY 02/27/20 11/02/22 11/06/22 History capsule,extended release 24 hr metoprolol succinate 50 mg 50 mg PO DAILY 02/27/20 11/02/22 11/06/22 History tablet,extended release 24 hr valsartan 160 mg tablet 160 mg PO DAILY 09/22/20 11/02/22 Unknown History aspirin 81 mg tablet 81 mg PO DAILY 01/17/21 11/02/22 Unknown History cholecalciferol (vitamin D3) 25 25 mcg PO DAILY 01/17/21 11/02/22 Unknown Histo ry mcg (1,000 unit) tablet (Vitamin D3) albuterol sulfate 90 mcg/actuation 1 puff inhalation Q4H PRN 08/18/22 11/02/22 Unknown History aerosol inhaler Shortness Of Breath rosuvastatin 40 mg tablet 40 mg PO DAILY 08/18/22 11/02/22 Unknown History Exam Airway Mallampati Class: I TM Dist: >3cm Neck ROM: Full Loose/Missing/Broken Teeth: No Heart: ok Lungs: ok Assessment and Plan Assessment Anesthesia Assessment: Anesthesia Plan Discussed Final Anesthetic Review Family History of Problems with Anesthesia: No History of Problems with Anesthesia: No NPO: Yes ASA Class: III Final Preanesthetic Review: No Changes in Pt Med Stat, Meds/Allgs Chart Reviewed, Consent Obtained/Reviewed and Anes Risks/Benef Reviewed Patient Risk: Intermediate Procedure Risk: Low Anesthetic Plan Anesthetic Plan: GA and Agree w/ Assess. and Plan Disposition: Standard PACU
[2022-11-06] VITALS (11 sets, daily range): BP systolic 128–155; BP diastolic 54–74; PULSE 52–60; RESP 14–16; TEMP 36.2–36.8; O2SAT 95–97
--- NOTE | ~2022-11-06 | FL_ITS ---
EXAMINATION: XR FLUOROSCOPY WITH IMAGES CLINICAL INFORMATION: Cystoscopy retrograde, left. COMPARISON: CT of the abdomen and pelvis August 2018 TECHNIQUE: Fluoroscopy Supervised By: Dr. Phill Pulido. Fluoroscopy Time: 8.1 seconds. Cumulative Dose: 2.74 mGy. DAP: Not available. Images: 1. FINDINGS: Single image demonstrates contrast opacification of the left renal collecting system and proximal ureter. There is an oval-shaped filling defect in the left UPJ region. Differential would include air bubble and stone. FL/FL guidance in OR IMPRESSION: Fluoroscopy guidance for left retrograde exam
[2022-11-06] MEDS: Lactated Ringers 1,000 ML 100 ML IVCONT (10:27)
--- NOTE | 2022-11-06 11:56 | P.HPSUR_ITS ---
Pre-Procedural Eval Section A Date of Service: 11/06/22 The patient is an INPATIENT: No Changes since office visit: No Cold of Flu in the past 2 weeks, No New Medical Problems, No Changes in Medication and No Patient answered all questions The History & Physical has been completed within 30 days and I have reviewed it.: No Section B Chief Complaint: Malignant neoplasm of bladder, unspecified Details of Present Illness: Prostate with visual bladder cancer, small recurrence of left ureteric orifice Relevant Social History: Tobacco Use Present Medications: see Short Stay Collaborative assessment Medical History: No relevant PMH History of Previous Operations: Relevant previous surgery/procedure and date(s) Allergies: Allergies Allergy/AdvReac Type Severity Reaction Status Date / Time bee pollen [BEE STINGS] Allergy Severe ANAPHYLAXIS Verified 10/12/22 11:52 influenza virus vaccine, Allergy Severe DIFFICULTY Verified 10/12/22 11:52 specific BREATHING [Influenza Virus Vacc,Specific] celecoxib [Celebrex] Allergy Intermediate vaginal Verified 10/12/22 11:52 bleeding doxycycline [DOXYCYCLINE] Allergy Intermediate RASH Verified 10/12/22 11:52 erythromycin base Allergy Intermediate RASH Verified 10/12/22 11:52 [ERYTHROMYCIN BASE] Iodinated Contrast Media Allergy Intermediate RASH Verified 10/12/22 11:52 [IV DYE, IODINE CONTAINING] lisinopril [LISINOPRIL] Allergy Intermediate HIVES Verified 10/12/22 11:52 pentazocine [From Talwin] Allergy Intermediate Hallucinati Verified 10/12/22 11:52 ons sulfamethoxazole Allergy Intermediate RASH Verified 10/12/22 11:52 [From BACTRIM] trimethoprim [From BACTRIM] Allergy Intermediate RASH Verified 10/12/22 11:52 fentanyl [FENTANYL] AdvReac Intermediate NAUSEA & Verified 10/12/22 11:52 VOMITING naproxen [Naprosyn] AdvReac Intermediate Gastrointestinal Verified 10/12/22 11:52 Upset oxycodone [Percocet] AdvReac Intermediate Gastrointestinal Verified 10/12/22 11:52 Upset Review of Systems Sugical H&P ROS: Negative: Constitution, Cardiovascular, Respiratory, Neurological, Psychiatric, Hem-Onc, Allergic/Immunologic, Gastrointestinal, Genitourinary, Musculoskeletal, Integumentary, Endocrine and Eyes/Ears/Nose/Throat Exam Surgical H&P Exam: Normal: HEENT, Normal: Heart, Normal: Lungs, Normal: Ex tremities, Normal: Abdomen, Normal: Skin and Normal: Neurological Plan Diagnosis/Plan: Unchanged (Cystoscopy, left retrograde, left bladder biopsy with fulguration, gemcitabine insulation) I have reviewed the history and physical and performed a pertinent physical examination on my patient. No changes have occurred unless specified. Time Spent With Patient Time: Total time managing care of this patient today ____ minutes.
--- NOTE | 2022-11-06 12:42 | P.OP_ITS ---
Operative Note Operative Note Date of Service: 11/06/22 Narrative: PreOperative Diagnosis: bladder cancer Post Operative Diagnosis: bladder cancer Procedure: cystoscopy, bladder biopsy, fulguration, left retrograde, intrave sical therapy with gemcitabine Surgeon: Dr Phill Pulido Anesthesia: LMA Indications for procedure: Superficial bladder cancer recurrence close to left ureteric orifice. Here for cystoscopy, bladder biopsy. Evaluation. Procedure: After informed consent was verified the patient was brought to the operating room and placed in a supine position. Anesthesia was administered per protocol. The patient was placed in modified dorsal lithotomy position and prepped and draped in a sterile fashion. Safety pause time-out was performed. Antibiotics being given. Cystoscopy was performed. Left ureteric orifice is cannulated and retrograde examination performed. No filling defects seen. Using narrow band imaging the lesion could be seen proximally 1 cm toward the posterior sidewall and superior from the left ureteric orifice. There were some changes in the mucosa extending towards the left ureteric orifice. The lesion was biopsied. The area was fulgurated. Narrow band imaging was used to ensure the extent of operation. Intravesical therapy was performed using gemcitabine. Once the bladder was emptied an [address] Ibanez catheter was placed. 10 cc was placed in the balloon. 2 g of gemcitabine in 100 cc normal saline was placed in the bladder. Dwell time will be 1 hour. At that point bladder will be drained and irrigated with 3 L normal saline before Ibanez catheter removed. The patient tolerated the procedure well. They were extubated in operating room and transferred in stable conditions recovery area. Pathology: Bladder biopsies Drains: Ibanez catheter as above
[2022-11-06] MEDS: ondansetron HCL 4 MG/2 ML VIAL IVPUSH (14:18)
== END 2022-11-06 15:30 | disposition home or self-care (01) ==
PROVIDERS: PCP Nurse Practitioner Family; Visit Provider Urology
PROC: (CPT 52204; principal; 2022-11-06 12:00)
DX: C67.9 Malignant neoplasm of bladder, unspecified (principal); N20.0 Calculus of kidney; J44.9 Chronic obstructive pulmonary disease, unspecified; F17.210 Nicotine dependence, cigarettes, uncomplicated; Z85.828 Personal history of other malignant neoplasm of skin; I10 Essential (primary) hypertension; E78.00 Pure hypercholesterolemia, unspecified; Z79.899 Other long term (current) drug therapy; Z88.1 Allergy status to other antibiotic agents; Z88.2 Allergy status to sulfonamides; Z88.5 Allergy status to narcotic agent; Z88.7 Allergy status to serum and vaccine; Z88.8 Allergy status to other drugs, medicaments and biological substances
CPT/HCPCS: 52204; 51720; 88305; J1956; J2405; J3010; J9280; Q9967

== ENCOUNTER → 2022-11-06 09:35 | Outpatient (BNV) | payer MEDICARE, SELFPAY | PROVIDERS: PCP Nurse Practitioner Family; Visit Provider Urology | DX: C67.9 Malignant neoplasm of bladder, unspecified (principal) | CPT/HCPCS: 52204; 74420 ==

== ENCOUNTER 2022-11-23 11:42 | Outpatient (AMB) | payer MEDICARE, SELFPAY ==
--- NOTE | 2022-11-23 11:42 | A.OFFVIS_ITS ---
Intake Intake Visit Reasons: biopsy results Intake Note: Patient is present for Post Op Urology Med: None Antibiotic Allergy: Doxycycline, Erythromycin, Sulfa antibiotics Blood Thinner: Aspirin [facility]: [facility] Allergies bee pollen [BEE STINGS] Allergy (Severe, Verified 10/12/22 11:52) ANAPHYLAXIS influenza virus vaccine, specific [Influenza Virus Vacc,Specific] Allergy (Severe, Verified 10/12/22 11:52) DIFFICULTY BREATHING celecoxib [Celebrex] Allergy (Intermediate, Verified 10/12/22 11:52) vaginal bleeding doxycycline [DOXYCYCLINE] Allergy (Intermediate, Verified 10/12/22 11:52) RASH erythromycin base [ERYTHROMYCIN BASE] Allergy (Intermediate, Verified 10/12/22 11:52) RASH Iodinated Contrast Media [IV DYE, IODINE CONTAINING] Allergy (Intermediate, Verified 10/12/22 11:52) RASH lisinopril [LISINOPRIL] Allergy (Intermediate, Verified 10/12/22 11:52) HIVES pentazocine [From Talwin] Allergy (Intermediate, Verified 10/12/22 11:52) Hallucinations sulfamethoxazole [From BACTRIM] Allergy (Intermediate, Verified 10/12/22 11:52) RASH trimethoprim [From BACTRIM] Allergy (Intermediate, Verified 10/12/22 11:52) RASH fentanyl [FENTANYL] Adverse Reaction (Intermediate, Verified 10/12/22 11:52) NAUSEA & VOMITING naproxen [Naprosyn] Adverse Reaction (Intermediate, Verified 10/12/22 11:52) Gastrointestinal Upset oxycodone [Percocet] Adverse Reaction (Intermediate, Verified 10/12/22 11:52) Gastrointestinal Upset HPI HPI Comments History of Present Illness Details Barby is a very pleasant female. She is a patient of Dr. Yanes. She is seen for the following urologic conditions - bladder cancer - bladder trabeculations Recent bladder biopsy Confirmed low-grade bladder cancer Continue 3 month follow-up May benefit from 3 week immunotherapy boost at 3 month back Bladder cancer low-grade noninvasive June 2019 Diagnosis June 2019 Bladder interventions - TURBT August 2019 low-grade noninvasive, TURBT Dec 2019 low-grade noninvasive, 01/02 low-grade TA Longstanding smoking history 35 pack-years Cystoscopy - 06/02 NAD, 6 recurrent lesion, 04/05 NAD, 07/03 NAD, 10/03 NAD, 01/03 Cytology 03/04 NAD, 4 atypical, 222 NAD Adjuvant therapy - 02/01 6 week gemcitabine, 08/03 3 week, 01/03 3 week PFSH Medical History (Updated 10/12/22 @ 14:29 by VERONICA Chung) COVID-19 vaccine series completed Skin cancer Lumbar disc herniation Hx of compression fracture of spine Positive PPD, treated Kidney stone Lesion of urinary bladder Blood clot in vein COPD (chronic obstructive pulmonary disease) Asthma High cholesterol Hypertension Surgical History (Updated 11/02/22 @ 13:58 by Carlita Stevens RN) Hx of dilation and curettage H/O colonoscopy Hx of cataract extraction Hx of cystoscopy Hx of cholecystectomy Social History Are you a primary home health caregiver to a significant other at home: No Do you presently have visiting nurse or other home services: No Patient Tobacco Use Status: Current everyday Tobacco user Tobacco use type: Cigarette Cigarette Packs Per Day: 0.5 Cigarettes Per Day: 10.0 Years Smoked: 35 Review of Systems Const Denies chills and Denies fever(s) Card Reports no additional complaints and Denies syncope Resp Denies cough GI Denies abdominal pain and Denies heartburn Reports as per HPI and Denies change in libido Neuro Denies syncope Psych Denies change in libido Endo Denies change in libido Physical Exam Const General: cooperative, healthy appearing, comfortable and no acute distress Orientation/consciousness: patient oriented x3 HEENT Face and sinus: Yes normal facial exam Mouth: moist mucous membranes Neck Neck: Yes normal visual inspection, Yes full ROM and Yes trachea midline Chest Chest palpation & inspection: normal inspection of the chest Resp Effort & Inspection: normal respiratory effort, able to speak in complete sentences and no respiratory distress GI Inspection: Yes normal to inspection Back/Spine/Pelvis Cervical Spine: normal cervical lordosis Thoracic/Lumbar Spine: thoracic and lumbar spine normal to inspection Skin General skin exam: no rashes or lesions noted Neuro General: patient oriented x3, gait normal, tone normal and moves all extremities Extrem General: Yes normal to inspection and Yes capillary refill normal Assessment & Plan Assessment & Plan (1) Bladder cancer: Comment: recurrent superficial November 2019, December 2020 Code(s): C67.9 - Malignant neoplasm of bladder, unspecified Qualifiers: Bladder location: unspecified site Qualified Code(s): C67.9 - Malignant neoplasm of bladder, unspecified Plan Three month follow-up cystoscopy Patient Instructions: Imaging studies, laboratory and physical exam results were discussed and reviewed in detail. No major barriers to patient understanding were identified. An opportunity to ask questions regarding the treatment plan was provided. All questions were answered. The patient expressed understanding and agreement with the above treatment plan. The patient is aware they should contact our office by phone for worsening of their current condition or the appearance of new urologic symptoms. Compliance is encouraged with any medications and followup testing that is ordered. It is a privilege to participate in the urologic care of your patient. If you have any questions or concerns regarding treatment for the above conditions, or other urologic issues, please do not hesitate to contact me. The office telephone contact is [phone]. This note is constructed using voice recognition software. While every effort has been made to ensure accuracy light armored reconnaissance officer errors may have been included. Yours sincerely, Dr Phill Pulido MD, [facility] - Urology Providers of Expert, Compassionate Care for the Genitourinary System Coding Level of Care Code Est Pt Level 3 (81743) Diagnoses Bladder cancer C67.9 Bladder location: unspecified site
== END 2022-11-23 12:29 | disposition home or self-care (01) ==
PROVIDERS: PCP Nurse Practitioner Family; Visit Provider Urology
DX: C67.9 Malignant neoplasm of bladder, unspecified (principal)
CPT/HCPCS: 99213

== ENCOUNTER → 2022-11-23 11:42 | Outpatient (BNVA) | payer MEDICARE, SELFPAY | PROVIDERS: PCP Nurse Practitioner Family; Visit Provider Urology | DX: C67.9 Malignant neoplasm of bladder, unspecified (principal) | CPT/HCPCS: 99212 ==

== ENCOUNTER 2023-03-01 10:51 | Outpatient (AMB) | payer MEDICARE, SELFPAY ==
--- NOTE | 2023-03-01 11:07 | MHC.OFFVIS ---
Intake Intake Visit Reasons: 3m/cysto Intake Note: Patient is Present for Cystoscopy Urology Med: None Antibiotic Allergy: Doxycycline, Erythromycin, Sulfa,Trimethroprim Blood Thinner: Aspirin URO- G Disposable Cystoscope lot: [id number] exp: 06/25/2024 Allergies bee pollen [BEE STINGS] Allergy (Severe, Verified 03/01/23 11:09) ANAPHYLAXIS influenza virus vaccine, specific [Influenza Virus Vacc,Specific] Allergy (Severe, Verified 03/01/23 11:09) DIFFICULTY BREATHING celecoxib [Celebrex] Allergy (Intermediate, Verified 03/01/23 11:09) vaginal bleeding doxycycline [DOXYCYCLINE] Allergy (Intermediate, Verified 03/01/23 11:09) RASH erythromycin base [ERYTHROMYCIN BASE] Allergy (Intermediate, Verified 03/01/23 11:09) RASH Iodinated Contrast Media [IV DYE, IODINE CONTAINING] Allergy (Intermediate, Verified 03/01/23 11:09) RASH lisinopril [LISINOPRIL] Allergy (Intermediate, Verified 03/01/23 11:09) HIVES pentazocine [From Talwin] Allergy (Intermediate, Verified 03/01/23 11:09) Hallucinations sulfamethoxazole [From BACTRIM] Allergy (Intermediate, Verified 03/01/23 11:09) RASH trimethoprim [From BACTRIM] Allergy (Intermediate, Verified 03/01/23 11:09) RASH fentanyl [FENTANYL] Adverse Reaction (Intermediate, Verified 03/01/23 11:09) NAUSEA & VOMITING naproxen [Naprosyn] Adverse Reaction (Intermediate, Verified 03/01/23 11:09) Gastrointestinal Upset oxycodone [Percocet] Adverse Reaction (Intermediate, Verified 03/01/23 11:09) Gastrointestinal Upset HPI HPI Comments History of Present Illness Details Barby is a very pleasant female. She is a patient of Dr. Yanes. She is seen for the following urologic conditions - bladder cancer - bladder trabeculations Three-month follow-up Had mitomycin-C at time of low-grade bladder cancer lesion removal Cystoscopy with chemotherapy changes Three-month follow-up Bladder cancer low-grade noninvasive June 2019 Diagnosis June 2019 Bladder interventions - TURBT August 2019 low-grade noninvasive, TURBT Dec 2019 low-grade noninvasive, 01/02 low-grade TA, 11/04 low grade with [facility] Longstanding smoking history 35 pack-years Cystoscopy - 06/02 NAD, 08/02 recurrent lesion, 2 NAD, 5 NAD, 10/03 NAD, 01/03 Cytology 1 NAD, 4/ atypical, 2/ NAD Adjuvant therapy - 02/01 6 week gemcitabine, 08/03 3 week, 01/03 3 week PFSH Medical History (Updated 10/12/22 @ 14:29 by VERONICA Chung) COVID-19 vaccine series completed Skin cancer Lumbar disc herniation Hx of compression fracture of spine Positive PPD, treated Kidney stone Lesion of urinary bladder Blood clot in vein COPD (chronic obstructive pulmonary disease) Asthma High cholesterol Hypertension Surgical History (Updated 11/02/22 @ 13:58 by Carlita Stevens RN) Hx of dilation and curettage H/O colonoscopy Hx of cataract extraction Hx of cystoscopy Hx of cholecystectomy Social History Are you a primary healthcare administrative assistant to a significant other at home: No Do you presently have visiting nurse or other home services: No Patient Tobacco Use Status: Current everyday Tobacco user Tobacco use type: Cigarette Cigarette Packs Per Day: 0.5 Cigarettes Per Day: 10.0 Years Smoked: 35 Review of Systems Const Denies chills and Denies fever(s) Card Reports no additional complaints and Denies syncope Resp Denies cough GI Denies abdominal pain and Denies heartburn Reports as per HPI and Denies change in libido Neuro Denies syncope Psych Denies change in libido Endo Denies change in libido Physical Exam Const General: cooperative, healthy appearing, comfortable and no acute distress Orientation/consciousness: patient oriented x3 HEENT Face and sinus: Yes normal facial exam Mouth: moist mucous membranes Neck Neck: Yes normal visual inspection, Yes full ROM and Yes trachea midline Chest Chest palpation & inspection: normal inspection of the chest Resp Effort & Inspection: normal respiratory effort, able to speak in complete sentences and no respiratory distress GI Inspection: Yes normal to inspection Back/Spine/Pelvis Cervical Spine: normal cervical lordosis Thoracic/Lumbar Spine: thoracic and lumbar spine normal to inspection Skin General skin exam: no rashes or lesions noted Neuro General: patient oriented x3, gait normal, tone normal and moves all extremities Extrem General: Yes normal to inspection and Yes capillary refill normal Office Procedures Cystoscopy Consent Discussed risk and benefit or proposed procedure with the patient. Information consent for procedure given to the patient. Discussed technical aspects, risks, benefits and alternatives in full. Addressed all of the patient's questions and concerns regarding the procedure. The patient demonstrated knowledge and understanding. They wish to proceed with this procedure. Preparation The patient was prepped in the usual manner. A signalling and communications engineer was present and in the room. Genitalia was prepped with betadine solution in a sterile manner. Lidocaine Jelly 2% was placed into the urethra and 16Fr flexible Olympus cystoscope was inserted into the meatus after adequate lubrication. Procedure Meatus normal position Urethra normal Bladder examination with retroflexion of cystoscope Bladder Orifices normal shape and position Trigone normal Bladder Capacity normal Trabeculations grade 1 Cellule Formation none Diverticulum Formation Mucosal Erythema healing left side bladder Bladder Tumor - [id number] DISPOSABLE SCOPE URO-G FLEXIBLE SCOPE Procedure code (CPT) selection complete Office Meds lidocaine HCl 2 % mucosal jelly in applicator Performing Provider: Phill Pulido MD Performing Location: [facility] [place] [facility] Administered by: Charlene Tesfaye RN on 03/01/23 11:26 Dose Route Admin Location Dispensed Lot Number Expiration Date ND Water Sponger 10 mL intra-urethral 10 mL nitrofurantoin monohydrate/macrocrystals 100 mg capsule Performing Provider: Phill Pulido MD Performing Location: [facility] [place] [facility] Administered by: Charlene Tesfaye RN on 03/01/23 11:26 Dose Route Admin Location Dispensed Lot Number Expiration Date ND Water Sponger 100 mg PO 1 cap naproxen 500 mg tablet Performing Provider: Phill Pulido MD Performing Location: [facility] [place] [facility] Documented (not given) by: Charlene Tesfaye RN on 03/01/23 11:26 Reason Not Given: Patient is Allergic Results AMB Urinalysis, Automated UA Leukoctes 15 Ally/uL Last Edit by EBEN Hartley on 03/01/23 11:22 UA Nitrite Negative Last Edit by EBEN Hartley on 03/01/23 11:22 UA Urobilinogen 0.2 mg/dL Last Edit by EBEN Hartley on 03/01/23 11:22 UA Protein 30 mg/dL Last Edit by EBEN Hartley on 03/01/23 11:22 UA pH 6.0 Last Edit by Reina Hayes RMA on 03/01/23 11:22 UA Blood 10 Luis/uL Last Edit by Reina Hayes RMA on 03/01/23 11:22 UA Specific [place] 1.015 Last Edit by Reina Hayes, RMA on 03/01/23 11:22 UA Ketone Negative Last Edit by Reina Hayes A on 03/01/23 11:22 UA Bilirubin 0 mg/dL Last Edit by Reina Hayes, RMA on 03/01/23 11:22 UA Glucose 0 mg/dL Last Edit by Reina Hayes A on 03/01/23 11:22 Results Reviewed Results Reviewed: Laboratory Last Values Urine pH (Auto) 6.0 03/01/23 11:10 Specific [place] (Auto) 1.015 03/01/23 11:10 Urine Protein (Auto) 30 mg/dL 03/01/23 11:10 Glucose (UA)(Auto) 0 mg/dL 03/01/23 11:10 Urine Ketones (Auto) Negative 03/01/23 11:10 Urine Blood (Auto) 10 Luis/uL 03/01/23 11:10 Urine Nitrite (Auto) Negative 03/01/23 11:10 Urine Bilirubin (Auto) 0 mg/dL 03/01/23 11:10 Urine Urobilinogen (Auto) 0.2 mg/dL 03/01/23 11:10 Leukocyte Esterase (Auto) 15 Ally/uL 03/01/23 11:10 Assessment & Plan Assessment & Plan (1) Bladder cancer: Comment: recurrent superficial November 2019, December 2020 Code(s): C67.9 - Malignant neoplasm of bladder, unspecified Qualifiers: Bladder location: unspecified site Qualified Code(s): C67.9 - Malignant neoplasm of bladder, unspecified Plan Three month follow-up cystoscopy Orders: Orders AMB Urinalysis Automated Today Z13.9 - Encounter for screening, unspecified AMB Cystoscopy Today C67.9 - Malignant neoplasm of bladder, unspecified Urine Cytology Today C67.9 - Malignant neoplasm of bladder, unspecified Patient Instructions: Imaging studies, laboratory and physical exam results were discussed and reviewed in detail. No major barriers to patient understanding were identified. An opportunity to ask questions regarding the treatment plan was provided. All questions were answered. The patient expressed understanding and agreement with the above treatment plan. The patient is aware they should contact our office by phone for worsening of their current condition or the appearance of new urologic symptoms. Compliance is encouraged with any medications and followup testing that is ordered. It is a privilege to participate in the urologic care of your patient. If you have any questions or concerns regarding treatment for the above conditions, or other urologic issues, please do not hesitate to contact me. The office telephone contact is [phone]. This note is constructed using voice recognition software. While every effort has been made to ensure accuracy nursing director errors may have been included. Yours sincerely, Dr Phill Pulido MD, [facility] - Urology Providers of Expert, Compassionate Care for the Genitourinary System Coding Level of Care Code Est Pt Level 3 (13940) Diagnoses Bladder cancer C67.9 Bladder location: unspecified site CPT Codes Cystoscopy - CPT: 04008-[id number] ([id number])
== END 2023-03-01 11:56 | disposition home or self-care (01) ==
PROVIDERS: PCP Nurse Practitioner Family; Visit Provider Urology
DX: C67.9 Malignant neoplasm of bladder, unspecified (principal); Z13.9 Encounter for screening, unspecified
CPT/HCPCS: 52000; 99213

== ENCOUNTER 2023-03-01 10:51 | Outpatient (REF) | payer MEDICARE, SELFPAY ==
[2023-03-01 18:06] LABS: Urine Cytology See Pathology rpt
== END 2023-03-01 10:52 | disposition home or self-care (01) ==
LOC: HO.LAB 10:51
PROVIDERS: PCP Nurse Practitioner Family; Visit Provider Urology
DX: C67.9 Malignant neoplasm of bladder, unspecified (principal)
CPT/HCPCS: 52000; 81003; 88112; 99212

== ENCOUNTER 2023-06-01 10:53 | Outpatient (AMB) | payer MEDICARE, SELFPAY ==
--- NOTE | 2023-06-01 11:01 | MHC.OFFVIS ---
Intake Visit Reasons: Cysto(Confirmed) Intake Note: Patient is Present for Cystoscopy Urology Med: None Antibiotic Allergy: Doxycycline, Erthromycin, Sulfa, Trimethroprime Blood Thinner: Aspirin URO- G Disposable Cystoscope lot: [id number] exp:12/21/2025 Allergies bee pollen [BEE STINGS] Allergy (Severe, Verified 06/01/23 11:05) ANAPHYLAXIS influenza virus vaccine, specific [Influenza Virus Vacc,Specific] Allergy (Severe, Verified 06/01/23 11:05) DIFFICULTY BREATHING celecoxib [Celebrex] Allergy (Intermediate, Verified 06/01/23 11:05) vaginal bleeding doxycycline [DOXYCYCLINE] Allergy (Intermediate, Verified 06/01/23 11:05) RASH erythromycin base [ERYTHROMYCIN BASE] Allergy (Intermediate, Verified 06/01/23 11:05) RASH Iodinated Contrast Media [IV DYE, IODINE CONTAINING] Allergy (Intermediate, Verified 06/01/23 11:05) RASH lisinopril [LISINOPRIL] Allergy (Intermediate, Verified 06/01/23 11:05) HIVES pentazocine [From Talwin] Allergy (Intermediate, Verified 06/01/23 11:05) Hallucinations sulfamethoxazole [From BACTRIM] Allergy (Intermediate, Verified 06/01/23 11:05) RASH trimethoprim [From BACTRIM] Allergy (Intermediate, Verified 06/01/23 11:05) RASH fentanyl [FENTANYL] Adverse Reaction (Intermediate, Verified 06/01/23 11:05) NAUSEA & VOMITING naproxen [Naprosyn] Adverse Reaction (Intermediate, Verified 06/01/23 11:05) Gastrointestinal Upset oxycodone [Percocet] Adverse Reaction (Intermediate, Verified 06/01/23 11:05) Gastrointestinal Upset HPI Comments Details: Barby is a very pleasant female. She is a patient of Dr. Yanes. She is seen for the following urologic conditions - bladder cancer - bladder trabeculations Six-month follow-up Had mitomycin-C at time of low-grade bladder cancer lesion removal Cystoscopy clear Plan three-week boost mitomycin-C with cytarabine Bladder cancer low-grade noninvasive June 2019 Diagnosis June 2019 Bladder interventions - TURBT August 2019 low-grade noninvasive, TURBT Dec 2019 low-grade noninvasive, 01/02 low-grade TA, 11/04 low grade with [facility]MC Longstanding smoking history 35 pack-years Cystoscopy - 06/02 NAD, 6/21 recurrent lesion, 04/05 NAD, 07/03 NAD, 10/03 NAD, 01/03 Cytology 03/04 NAD, 4 atypical, 2 NAD Adjuvant therapy - 02/01 6 week gemcitabine, 08/03 3 week, 01/03 3 week PFSH Medical History (Updated 10/12/22 @ 14:29 by VERONICA Chung) COVID-19 vaccine series completed Skin cancer Lumbar disc herniation Hx of compression fracture of spine Positive PPD, treated Kidney stone Lesion of urinary bladder Blood clot in vein COPD (chronic obstructive pulmonary disease) Asthma High cholesterol Hypertension Surgical History (Updated 11/02/22 @ 13:58 by Carlita Stevens RN) Hx of dilation and curettage H/O colonoscopy Hx of cataract extraction Hx of cystoscopy Hx of cholecystectomy Social History Are you a primary career guidance technician to a significant other at home: No Do you presently have visiting nurse or other home services: No Patient Tobacco Use Status: Current everyday Tobacco user Tobacco use type: Cigarette Cigarette Packs Per Day: 0.5 Cigarettes Per Day: 10.0 Years Smoked: 35 Review of Systems Const Denies chills and Denies fever(s) Card Reports no additional complaints and Denies syncope Resp Denies cough GI Denies abdominal pain and Denies heartburn Reports as per HPI and Denies change in libido Neuro Denies syncope Psych Denies change in libido Endo Denies change in libido Physical Exam Const General: cooperative, healthy appearing, comfortable and no acute distress Orientation/consciousness: patient oriented x3 HEENT Face and sinus: Yes normal facial exam Mouth: moist mucous membranes Neck Neck: Yes normal visual inspection, Yes full ROM and Yes trachea midline Chest Chest palpation & inspection: normal inspection of the chest Resp Effort & Inspection: normal respiratory effort, able to speak in complete sentences and no respiratory distress GI Inspection: Yes normal to inspection Back/Spine/Pelvis Cervical Spine: normal cervical lordosis Thoracic/Lumbar Spine: thoracic and lumbar spine normal to inspection Skin General skin exam: no rashes or lesions noted Neuro General: patient oriented x3, gait normal, tone normal and moves all extremities Extrem General: Yes normal to inspection and Yes capillary refill normal Office Procedures Cystoscopy Consent Discussed risk and benefit or proposed procedure with the patient. Information consent for procedure given to the patient. Discussed technical aspects, risks, benefits and alternatives in full. Addressed all of the patient's questions and concerns regarding the procedure. The patient demonstrated knowledge and understanding. They wish to proceed with this procedure. Preparation The patient was prepped in the usual manner. A delicatessen goods stock clerk was present and in the room. Genitalia was prepped with betadine solution in a sterile manner. Lidocaine Jelly 2% was placed into the urethra and 16Fr flexible Olympus cystoscope was inserted into the meatus after adequate lubrication. Procedure Cystoscopy performed using a disposable Urovue digital 16 Tamazight cystoscope. Meatus small cortical Urethra normal Bladder examination with retroflexion of cystoscope Bladder Orifices normal shape and position Trigone normal Bladder Capacity normal Trabeculations grade 1/2 Cellule Formation none Diverticulum Formation Mucosal Erythema changes from immunotherapy Bladder Tumor scarring [id number] DISPOSABLE SCOPE URO-G FLEXIBLE SCOPE Procedure code (CPT) selection complete Office Meds lidocaine HCl 2 % mucosal jelly in applicator Performing Provider: Phill Pulido MD Performing Location: [facility] Administered by: Charlene Tesfaye RN on 06/01/23 11:22 Dose Route Admin Location Dispensed Lot Number Expiration Date ND Radiation Control Technician 10 mL intra-urethral 10 mL nitrofurantoin monohydrate/macrocrystals 100 mg capsule Performing Provider: Phill Pulido MD Performing Location: [facility] Administered by: Charlene Tesfaye RN on 06/01/23 11:22 Dose Route Admin Location Dispensed Lot Number Expiration Date ND Radiation Control Technician 100 mg PO 1 cap Results AMB Urinalysis, Automated UA Leukoctes 0 Ally/uL Last Edit by EBEN Hartley on 06/01/23 11:19 UA Nitrite Negative Last Edit by EBEN Hartley on 06/01/23 11:19 UA Urobilinogen 0.2 mg/dL Last Edit by EBEN Hartley on 06/01/23 11:19 UA Protein 100 mg/dL Last Edit by EBEN Hartley on 06/01/23 11:19 UA pH 6.0 Last Edit by EBEN Hartley on 06/01/23 11:19 UA Blood 0 Luis/uL Last Edit by EBEN Hartley on 06/01/23 11:19 UA Specific [place] 1.015 Last Edit by JOSELO HartleyA on 06/01/23 11:19 UA Ketone Negative Last Edit by EBEN Hartley on 06/01/23 11:19 UA Bilirubin 0 mg/dL Last Edit by JOSELO HartleyA on 06/01/23 11:19 UA Glucose 0 mg/dL Last Edit by EBEN Hartley on 06/01/23 11:19 Results Reviewed Results Reviewed: Laboratory Last Values Urine pH (Auto) 6.0 06/01/23 11:15 Specific [place] (Auto) 1.015 06/01/23 11:15 Urine Protein (Auto) 100 mg/dL 06/01/23 11:15 Glucose (UA)(Auto) 0 mg/dL 06/01/23 11:15 Urine Ketones (Auto) Negative 06/01/23 11:15 Urine Blood (Auto) 0 Luis/uL 06/01/23 11:15 Urine Nitrite (Auto) Negative 06/01/23 11:15 Urine Bilirubin (Auto) 0 mg/dL 06/01/23 11:15 Urine Urobilinogen (Auto) 0.2 mg/dL 06/01/23 11:15 Leukocyte Esterase (Auto) 0 Ally/uL 06/01/23 11:15 Assessment & Plan Assessment & Plan (1) Bladder trabeculation: Code(s): N32.89 - Other specified disorders of bladder Category: Medical (2) Bladder cancer: Comment: recurrent superficial November 2019, December 2020 Code(s): C67.9 - Malignant neoplasm of bladder, unspecified Category: Medical Qualifiers: Bladder location: unspecified site Qualified Code(s): C67.9 - Malignant neoplasm of bladder, unspecified Plan Plan mitomycin-C with cytarabine 3 boost dose Has had prior therapies and is aware of process Patient Instructions: Imaging studies, laboratory and physical exam results were discussed and reviewed in detail. No major barriers to patient understanding were identified. An opportunity to ask questions regarding the treatment plan was provided. All questions were answered. The patient expressed understanding and agreement with the above treatment plan. The patient is aware they should contact our office by phone for worsening of their current condition or the appearance of new urologic symptoms. Compliance is encouraged with any medications and followup testing that is ordered. It is a privilege to participate in the urologic care of your patient. If you have any questions or concerns regarding treatment for the above conditions, or other urologic issues, please do not hesitate to contact me. The office telephone contact is [phone]. This note is constructed using voice recognition software. While every effort has been made to ensure accuracy store shopper errors may have been included. Yours sincerely, Dr Phill Pulido MD, [facility] - Urology Providers of Expert, Compassionate Care for the Genitourinary System
== END 2023-06-01 11:40 | disposition home or self-care (01) ==
PROVIDERS: PCP Nurse Practitioner Family; Visit Provider Urology
DX: N32.89 Other specified disorders of bladder (principal); C67.9 Malignant neoplasm of bladder, unspecified; Z13.9 Encounter for screening, unspecified
CPT/HCPCS: 52000; 99213

== ENCOUNTER 2023-06-01 10:53 | Outpatient (REF) | payer MEDICARE, SELFPAY ==
[2023-06-01 17:34] LABS: Urine Cytology See Pathology rpt
== END 2023-06-01 10:54 | disposition home or self-care (01) ==
LOC: HO.LAB 10:53
PROVIDERS: PCP Nurse Practitioner Family; Visit Provider Urology
DX: C67.9 Malignant neoplasm of bladder, unspecified (principal); N32.89 Other specified disorders of bladder
CPT/HCPCS: 52000; 81003; 88112; 99212

== ENCOUNTER 2023-06-21 10:52 | Outpatient (AMB) | payer MEDICARE, SELFPAY ==
[2023-06-21 10:56] VITALS: BP 150/90; PULSE 72; TEMP 36.2; O2SAT 97; BMI 33.3
--- NOTE | 2023-06-21 10:56 | AM.OFFWIN_ITS ---
Intake Vital Signs 06/21/23 10:56 Height 5 ft 4 in Weight 194 lb BMI 33.3 BP 150/90 H Blood Pressure Location Lt brachial Position Sitting Pulse 72 Pulse Source Pulse Oximeter Temp 97.1 F Temp Source Temporal Artery Scan Pulse Oximetry (%) 97 Oxygen Delivery Method Room Air Intake Visit Reasons: EST/ sore throat and runny nose(lobby) Intake Note: pt is here today for sore throat and runny nose started sunday Patient Tobacco Use Status: Current everyday Tobacco user Allergies bee pollen [BEE STINGS] Allergy (Severe, Verified 06/21/23 10:59) ANAPHYLAXIS influenza virus vaccine, specific [Influenza Virus Vacc,Specific] Allergy (Severe, Verified 06/21/23 10:59) DIFFICULTY BREATHING celecoxib [Celebrex] Allergy (Intermediate, Verified 06/21/23 10:59) vaginal bleeding doxycycline [DOXYCYCLINE] Allergy (Intermediate, Verified 06/21/23 10:59) RASH erythromycin base [ERYTHROMYCIN BASE] Allergy (Intermediate, Verified 06/21/23 10:59) RASH Iodinated Contrast Media [IV DYE, IODINE CONTAINING] Allergy (Intermediate, Verified 06/21/23 10:59) RASH lisinopril [LISINOPRIL] Allergy (Intermediate, Verified 06/21/23 10:59) HIVES pentazocine [From Talwin] Allergy (Intermediate, Verified 06/21/23 10:59) Hallucinations sulfamethoxazole [From BACTRIM] Allergy (Intermediate, Verified 06/21/23 10:59) RASH trimethoprim [From BACTRIM] Allergy (Intermediate, Verified 06/21/23 10:59) RASH fentanyl [FENTANYL] Adverse Reaction (Intermediate, Verified 06/21/23 10:59) NAUSEA & VOMITING naproxen [Naprosyn] Adverse Reaction (Intermediate, Verified 06/21/23 10:59) Gastrointestinal Upset oxycodone [Percocet] Adverse Reaction (Intermediate, Verified 06/21/23 10:59) Gastrointestinal Upset Do you need a note to return to daycare/school/sports/work: No HPI HPI Comments History of Present Illness Details 73 y/o female patient who presents to [facility] in clinic with c/o URI symptoms x 4 days. Reports coughing at night, body chills and fatigue. [facility] Medical History (Updated 10/12/22 @ 14:29 by VERONICA Chung) COVID-19 vaccine series completed Skin cancer Lumbar disc herniation Hx of compression fracture of spine Positive PPD, treated Kidney stone Lesion of urinary bladder Blood clot in vein COPD (chronic obstructive pulmonary disease) Asthma High cholesterol Hypertension Surgical History (Updated 11/02/22 @ 13:58 by Carlita Stevens, MARTA) Hx of dilation and curettage H/O colonoscopy Hx of cataract extraction Hx of cystoscopy Hx of cholecystectomy Social History Are you a primary client care consultant to a significant other at home: No Do you presently have visiting nurse or other home services: No Patient Tobacco Use Status: Current everyday Tobacco user Tobacco use type: Cigarette Cigarette Packs Per Day: 0.5 Cigarettes Per Day: 10.0 Years Smoked: 35 Review of Systems Const All systems reviewed & are unremarkable except as noted in HPI and below Physical Exam Vital Signs: Last Vital Signs Temp 97.1 F 06/21/23 10:56 Pulse 72 06/21/23 10:56 BP 150/90 H 06/21/23 10:56 Pulse Ox 97 06/21/23 10:56 Oxygen Delivery Method Room Air 06/21/23 10:56 BMI result Body Mass Index 33.3 Const General: comfortable and no acute distress Nutritional Appearance: obese Orientation/consciousness: patient oriented x3 HEENT Head: Yes normocephalic Ears: external ears normal and TM abnormal bulging, erythematous and with fluid behind the TM bilateral; not with effusion, not perforated and not retracted General nose exam: Abnormal mucous membranes and turbinates present boggy and erythematous and Nasal discharge present Face and sinus: Yes sinuses nontender Mouth: moist mucous membranes Throat: Yes posterior oropharynx normal Resp Effort & Inspection: normal respiratory effort, able to speak in complete sentences, no audible wheezes and Actively coughing Auscultation: clear to auscultation bilaterally, no crackles, no rales, no rhonchi and no wheezes Cardio Rate: regular rate Rhythm: regular rhythm Neuro General: patient oriented x3 Results AMB Rapid Strep AMB Rapid Strep Negative Last Edit by Edgar Vargas MA on 06/21/23 11:19 Results Reviewed Results Reviewed: Laboratory Last Values Strep Scn Rapid Clinic Negative 06/21/23 11:18 Assessment & Plan Assessment & Plan (1) Cough in adult: Code(s): R05.9 - Cough, unspecified Plan: - OTC cough remedies - SARs - Chest Xray - Acetaminophen for pain relief. - Rest Orders: Orders XR chest 2V Today R05.9 - Cough, unspecified SARS-CoV2/FLU/RSV Today R05.9 - Cough, unspecified, R09.89 - Other specified symptoms and signs involving the circulatory and respiratory systems Medications: New amoxicillin 500 mg PO BID 20 caps 0RF cough 10 days R05.9 - Cough, unspecified Coding Level of Care Code Est Pt Level 4 (20020) Diagnoses Cough in adult R05.9 Time Spent (min) 20
== END 2023-06-21 12:43 | disposition home or self-care (01) ==
PROVIDERS: PCP Nurse Practitioner Family; Visit Provider Nurse Practitioner Family
DX: R05.9 Cough, unspecified (principal)
CPT/HCPCS: 99214

== ENCOUNTER 2023-06-21 11:16 | Outpatient (REF) | payer MEDICARE, SELFPAY ==
--- NOTE | ~2023-06-21 | XR_ITS ---
EXAMINATION: XR CHEST CLINICAL INFORMATION: Cough, unspecified History of COPD, smoker COMPARISON: Chest 10/12/2022 TECHNIQUE: 2 views of the chest were obtained. 11:25 AM FINDINGS: No significant abnormality is noted involving the heart, lungs, mediastinum, bony thorax or soft tissues. Calcification of the thoracic aorta is indicative of atherosclerotic disease. XR/XR chest 2V IMPRESSION: No acute cardiopulmonary disease.
[2023-06-21 14:05] LABS: Influenza A PCR NEGATIVE (Negative); Influenza B PCR NEGATIVE (Negative); Resp Syncy Virus RNA Qual PCR NEGATIVE (Negative); SARS COV2 PCR INHOUSE NEGATIVE (Negative)
== END 2023-06-21 11:17 | disposition home or self-care (01) ==
LOC: HO.HMGCX 11:16
PROVIDERS: PCP Internal Medicine; Visit Provider Nurse Practitioner Family
DX: R05.9 Cough, unspecified (principal); R09.89 Other specified symptoms and signs involving the circulatory and respiratory systems
CPT/HCPCS: 0241U; 71046

== ENCOUNTER 2023-06-21 11:19 | Outpatient (REF) | payer MEDICARE, SELFPAY | END 2023-06-21 11:20 | disposition home or self-care (01) | LOC: HO.LAB 11:19 | PROVIDERS: Visit Provider Nurse Practitioner Family | DX: Z13.89 Encounter for screening for other disorder (principal) ==

== ENCOUNTER 2023-10-02 10:57 | Outpatient (AMB) | payer MEDICARE, SELFPAY ==
--- NOTE | 2023-10-02 11:22 | A.OFFVIS_ITS ---
Intake Visit Reasons: 4M Cystoscopy(Bladder Ca) Intake Note: Patient is Present for Cystoscopy Urology Med: None Antibiotic Allergy: Doxycycline, Erythromycin,Sulfa, Trimethroprim, Blood Thinner: Aspirin Patient has allergy to Naprosyn URO- G Disposable Cystoscope lot: [id number] exp: 03/29/2026 Last Accompanied by: Self / Same As Patient Allergies bee pollen [BEE STINGS] Allergy (Severe, Verified 10/02/23 11:40) ANAPHYLAXIS influenza virus vaccine, specific [Influenza Virus Vacc,Specific] Allergy (Severe, Verified 10/02/23 11:40) DIFFICULTY BREATHING celecoxib [Celebrex] Allergy (Intermediate, Verified 10/02/23 11:40) vaginal bleeding doxycycline [DOXYCYCLINE] Allergy (Intermediate, Verified 10/02/23 11:40) RASH erythromycin base [ERYTHROMYCIN BASE] Allergy (Intermediate, Verified 10/02/23 11:40) RASH Iodinated Contrast Media [IV DYE, IODINE CONTAINING] Allergy (Intermediate, Verified 10/02/23 11:40) RASH lisinopril [LISINOPRIL] Allergy (Intermediate, Verified 10/02/23 11:40) HIVES pentazocine [From Talwin] Allergy (Intermediate, Verified 10/02/23 11:40) Hallucinations sulfamethoxazole [From BACTRIM] Allergy (Intermediate, Verified 10/02/23 11:40) RASH trimethoprim [From BACTRIM] Allergy (Intermediate, Verified 10/02/23 11:40) RASH fentanyl [FENTANYL] Adverse Reaction (Intermediate, Verified 10/02/23 11:40) NAUSEA & VOMITING naproxen [Naprosyn] Adverse Reaction (Intermediate, Verified 10/02/23 11:40) Gastrointestinal Upset oxycodone [Percocet] Adverse Reaction (Intermediate, Verified 10/02/23 11:40) Gastrointestinal Upset HPI Comments Details: Barby is a very pleasant female. She is a patient of Dr. Yanes. She is seen for the following urologic conditions - bladder cancer - bladder trabeculations Six-month follow-up cystoscopy Completed three-week boost mitomycin with cytarabine Cystoscopy today. Nonhealing area left lower bladder wall. Will review in 4 months. Bladder cancer low-grade noninvasive June 2019 Diagnosis June 2019 Bladder interventions - TURBT August 2019 low-grade noninvasive, TURBT Dec 2019 low-grade noninvasive, 01/02 low-grade TA, 11/04 low grade with [facility]MC Longstanding smoking history 35 pack-years Cystoscopy - 06/02 NAD, 08/02 recurrent lesion, 2 NAD, 07/03 NAD, 10/03 NAD, 01/03 Cytology 1 NAD, 4/ atypical, 2/ NAD Adjuvant therapy - 02/01 6 week gemcitabine, 08/03 3 week, 01/03 3 week, 06/05 3 week boost mitomycin with cytarabine PFSH Medical History COVID-19 vaccine series completed Skin cancer Lumbar disc herniation Hx of compression fracture of spine Positive PPD, treated Kidney stone Lesion of urinary bladder Blood clot in vein COPD (chronic obstructive pulmonary disease) Asthma High cholesterol Hypertension Surgical History Hx of dilation and curettage H/O colonoscopy Hx of cataract extraction Hx of cystoscopy Hx of cholecystectomy Social History Are you a primary medicare compliance auditor to a significant other at home: No Do you presently have visiting nurse or other home services: No Patient Tobacco Use Status: Current everyday Tobacco user Tobacco use type: Cigarette Cigarette Packs Per Day: 0.5 Cigarettes Per Day: 10.0 Years Smoked: 35 Review of Systems Const Denies chills and Denies fever(s) Card Reports no additional complaints and Denies syncope Resp Denies cough GI Denies abdominal pain and Denies heartburn Reports as per HPI and Denies change in libido Neuro Denies syncope Psych Denies change in libido Endo Denies change in libido Physical Exam Const General: cooperative, healthy appearing, comfortable and no acute distress Orientation/consciousness: patient oriented x3 HEENT Face and sinus: Yes normal facial exam Mouth: moist mucous membranes Neck Neck: Yes normal visual inspection, Yes full ROM and Yes trachea midline Chest Chest palpation & inspection: normal inspection of the chest Resp Effort & Inspection: normal respiratory effort, able to speak in complete sentences and no respiratory distress GI Inspection: Yes normal to inspection Back/Spine/Pelvis Cervical Spine: normal cervical lordosis Thoracic/Lumbar Spine: thoracic and lumbar spine normal to inspection Skin General skin exam: no rashes or lesions noted Neuro General: patient oriented x3, gait normal, tone normal and moves all extremities Extrem General: Yes normal to inspection and Yes capillary refill normal Office Procedures Cystoscopy Consent Discussed risk and benefit or proposed procedure with the patient. Information consent for procedure given to the patient. Discussed technical aspects, risks, benefits and alternatives in full. Addressed all of the patient's questions and concerns regarding the procedure. The patient demonstrated knowledge and understanding. They wish to proceed with this procedure. Preparation The patient was prepped in the usual manner. A crushing machine operator was present and in the room. Genitalia was prepped with betadine solution in a sterile manner. Lidocaine Jelly 2% was placed into the urethra and 16Fr flexible Olympus cystoscope was inserted into the meatus after adequate lubrication. Procedure Meatus normal Urethra normal Bladder examination with retroflexion of cystoscope Bladder Orifices normal shape and position Trigone normal Bladder Capacity median Trabeculations grade 1 Cellule Formation none Diverticulum Formation - Mucosal Erythema - Bladder Tumor question of left bladder wall nonhealing area with possible recurrence [id number] DISPOSABLE SCOPE URO-G FLEXIBLE SCOPE Procedure code (CPT) selection complete Office Meds lidocaine HCl 2 % mucosal jelly in applicator Performing Provider: Phill Pulido MD Performing Location: [facility] [place] [facility] Administered by: Sam Santiago LPN on 10/02/23 11:44 Dose Route Admin Location Dispensed Lot Number Expiration Date ND Pack Worker 10 mL intra-urethral 10 mL nitrofurantoin monohydrate/macrocrystals 100 mg capsule Performing Provider: Phill Pulido MD Performing Location: [facility] Administered by: Sam Santiago LPN on 10/02/23 11:44 Dose Route Admin Location Dispensed Lot Number Expiration Date ND Pack Worker 100 mg PO 1 cap Results AMB Urinalysis, Automated UA Leukoctes 70 Ally/uL Last Edit by ESDRAS Beyer on 10/02/23 11:45 UA Nitrite Negative Last Edit by ESDRAS Beyer on 10/02/23 11:45 UA Urobilinogen 0.2 mg/dL Last Edit by ESDRAS Beyer on 10/02/23 11:4 5 UA Protein 30 mg/dL Last Edit by ESDRAS Beyer on 10/02/23 11:45 UA pH 6.0 Last Edit by ESDRAS Beyer on 10/02/23 11:45 UA Blood 25 Luis/uL Last Edit by ESDRAS Beyer on 10/02/23 11:45 UA Specific [place] 1.010 Last Edit by ESDRAS Beyer on 10/02/23 11: 45 UA Ketone Negative Last Edit by ESDRAS Beyer on 10/02/23 11:45 UA Bilirubin 0 mg/dL Last Edit by ESDRAS Beyer on 10/02/23 11:45 UA Glucose 0 mg/dL Last Edit by ESDRAS Beyer on 10/02/23 11:45 Results Reviewed Results Reviewed: Laboratory Last Values Urine pH (Auto) 6.0 10/02/23 11:42 Specific [place] (Auto) 1.010 10/02/23 11:42 Urine Protein (Auto) 30 mg/dL 10/02/23 11:42 Glucose (UA)(Auto) 0 mg/dL 10/02/23 11:42 Urine Ketones (Auto) Negative 10/02/23 11:42 Urine Blood (Auto) 25 Luis/uL 10/02/23 11:42 Urine Nitrite (Auto) Negative 10/02/23 11:42 Urine Bilirubin (Auto) 0 mg/dL 10/02/23 11:42 Urine Urobilinogen (Auto) 0.2 mg/dL 10/02/23 11:42 Leukocyte Esterase (Auto) 70 Ally/uL 10/02/23 11:42 Assessment & Plan Assessment & Plan (1) Bladder trabeculation: Code(s): N32.89 - Other specified disorders of bladder Category: Medical (2) Bladder cancer: Comment: recurrent superficial November 2019, December 2020 Code(s): C67.9 - Malignant neoplasm of bladder, unspecified Category: Medical Qualifiers: Bladder location: unspecified site Qualified Code(s): C67.9 - Malignant neoplasm of bladder, unspecified Plan Four month follow-up cystoscopy Orders: Orders Urine Cytology Today C67.9 - Malignant neoplasm of bladder, unspecified AMB Urinalysis Automated Today Z13.9 - Encounter for screening, unspecified AMB Cystoscopy Today C67.9 - Malignant neoplasm of bladder, unspecified Patient Instructions: Imaging studies, laboratory and physical exam results were discussed and reviewed in detail. No major barriers to patient understanding were identified. An opportunity to ask questions regarding the treatment plan was provided. All questions were answered. The patient expressed understanding and agreement with the above treatment plan. The patient is aware they should contact our office by phone for worsening of their current condition or the appearance of new urologic symptoms. Compliance is encouraged with any medications and followup testing that is ordered. It is a privilege to participate in the urologic care of your patient. If you have any questions or concerns regarding treatment for the above conditions, or other urologic issues, please do not hesitate to contact me. The office telephone contact is [phone]. This note is constructed using voice recognition software. While every effort has been made to ensure accuracy body worker errors may have been included. Yours sincerely, Dr Phill Pulido MD, [facility] - Urology Providers of Expert, Compassionate Care for the Genitourinary System Coding Level of Care Code Est Pt Level 3 (80123) Diagnoses Bladder trabeculation N32.89 Bladder cancer C67.9 Bladder location: unspecified site CPT Codes Cystoscopy - CPT: 38409-[id number] ([id number])
== END 2023-10-02 12:11 | disposition home or self-care (01) ==
PROVIDERS: PCP Nurse Practitioner Family; Visit Provider Urology
DX: N32.89 Other specified disorders of bladder (principal); C67.9 Malignant neoplasm of bladder, unspecified; Z13.9 Encounter for screening, unspecified
CPT/HCPCS: 52000; 99213

== ENCOUNTER 2023-10-02 10:57 | Outpatient (REF) | payer MEDICARE, SELFPAY ==
[2023-10-02 16:38] LABS: Urine Cytology See Pathology rpt
== END 2023-10-02 10:58 | disposition home or self-care (01) ==
LOC: HO.LAB 10:57
PROVIDERS: PCP Nurse Practitioner Family; Visit Provider Urology
DX: C67.9 Malignant neoplasm of bladder, unspecified (principal); N32.89 Other specified disorders of bladder
CPT/HCPCS: 52000; 81003; 88112; 99212

== ENCOUNTER 2023-10-22 15:09 | Outpatient (AMB) | payer MEDICARE, SELFPAY ==
[2023-10-22 15:48] VITALS: BP 152/70; PULSE 63; O2SAT 99; BMI 31.4
--- NOTE | 2023-10-22 15:48 | MHC.OFFVIS ---
Vital Signs 10/22/23 15:48 Height 5 ft 5 in Weight 188 lb 7.924 oz BMI 31.4 BP 152/70 H Blood Pressure Location Rt brachial Position Sitting Pulse 63 Pulse Source Pulse Oximeter Pulse Oximetry (%) 99 Oxygen Delivery Method Room Air Intake Visit Reasons: Abnormal LDCT/SWARTZ Allergies bee pollen [BEE STINGS] Allergy (Severe, Verified 10/22/23 15:52) ANAPHYLAXIS influenza virus vaccine, specific [Influenza Virus Vacc,Specific] Allergy (Severe, Verified 10/22/23 15:52) DIFFICULTY BREATHING celecoxib [Celebrex] Allergy (Intermediate, Verified 10/22/23 15:52) vaginal bleeding doxycycline [DOXYCYCLINE] Allergy (Intermediate, Verified 10/22/23 15:52) RASH erythromycin base [ERYTHROMYCIN BASE] Allergy (Intermediate, Verified 10/22/23 15:52) RASH Iodinated Contrast Media [IV DYE, IODINE CONTAINING] Allergy (Intermediate, Verified 10/22/23 15:52) RASH lisinopril [LISINOPRIL] Allergy (Intermediate, Verified 10/22/23 15:52) HIVES pentazocine [From Talwin] Allergy (Intermediate, Verified 10/22/23 15:52) Hallucinations sulfamethoxazole [From BACTRIM] Allergy (Intermediate, Verified 10/22/23 15:52) RASH trimethoprim [From BACTRIM] Allergy (Intermediate, Verified 10/22/23 15:52) RASH fentanyl [FENTANYL] Adverse Reaction (Intermediate, Verified 10/22/23 15:52) NAUSEA & VOMITING naproxen [Naprosyn] Adverse Reaction (Intermediate, Verified 10/22/23 15:52) Gastrointestinal Upset oxycodone [Percocet] Adverse Reaction (Intermediate, Verified 10/22/23 15:52) Gastrointestinal Upset HPI HPI Abnormal LDCT/SWARTZ: Details: Barby is a pleasant 73 year old female, current smoker 1/2 - 1 ppd smoker, with approximately 30 pack year history, with underlying asthma, emphysema, COPD and h/o bladder cancer, dx 2020, under the care of Dr. Pulido. She was referred for PCP for pulmonary evaluation after LDCT. Patient is a part of lung screening program through [employer] [facility] and last CT 05/05, RADS 2 however revealed traction bronchiectasis and PCP suspicious for evolving ILD/early fibrosis. No images to review today. She reports dyspnea on moderate exertion and occasional productive cough with clear sputum. She denies wheezing or chest tightness. She has been prescribed albuterol however has not used in quite some time. She reports prior h/o TB in the 70s, treated with INH and complete resolution of symptoms. She denies recurrent respiratory infections, although did report having moderate COVID 19 infection last year, recovering at home. She reports paternal aunt, smoker, with h/o lung cancer. 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 [facility] Medical History (Updated 10/22/23 @ 21:30 by Emily Becker NP) COVID-19 vaccine series completed Skin cancer Lumbar disc herniation Hx of compression fracture of spine Positive PPD, treated Kidney stone Lesion of urinary bladder Blood clot in vein COPD (chronic obstructive pulmonary disease) Asthma High cholesterol Hypertension Surgical History Hx of dilation and curettage H/O colonoscopy Hx of cataract extraction Hx of cystoscopy Hx of cholecystectomy Social History Are you a primary pharmacy care coordinator to a significant other at home: No Do you presently have visiting nurse or other home services: No Patient Tobacco Use Status: Current everyday Tobacco user Tobacco use type: Cigarette Cigarette Packs Per Day: 0.5 Cigarettes Per Day: 10.0 Years Smoked: 35 Review of Systems Const Denies chills, Denies excessive sweating, Denies fever(s), Denies headache(s) and Denies night sweats Eyes Denies dry eyes, Denies irritation and Denies itchy eyes ENT Reports Normal hearing present, Denies headache(s), Denies nasal congestion, Denies nasal discharge, Denies post nasal drip and Denies sore throat Card Denies chest pain, Denies chest pain at rest, Denies chest pain with activity, Denies claudication, Denies leg edema, Denies orthopnea and Denies paroxysmal nocturnal dyspnea Resp Denies chest congestion, Denies excessive phlegm production, Denies pain on inspiration, Denies pain with cough, Denies stridor and Denies wheezing Musc Denies myalgias Neuro Reports Normal hearing present and Denies headache(s) Endo Denies excessive sweating Robbin/Lymph Denies lymphadenopathy Aller/Immun Denies itchy eyes, Denies seasonal rhinorrhea and Denies wheezing Physical Exam Vital Signs: Last Vital Signs Pulse 63 10/22/23 15:48 BP 152/70 H 10/22/23 15:48 Pulse Ox 99 10/22/23 15:48 Oxygen Delivery Method Room Air 10/22/23 15:48 BMI result Body Mass Index 31.4 Const General: cooperative, healthy appearing, comfortable, no acute distress, well developed and alert Nutritional Appearance: obese Orientation/consciousness: patient oriented x3 Limitations: no limitations HEENT Head: Yes normal to inspection, Yes normocephalic and Yes atraumatic Ears: hearing grossly normal bilaterally and external ears normal Eyes General: appearance normal, both eyes and all related structures Eyelids: Yes eyelids normal Sclerae: sclerae normal EOM: EOMs intact bilaterally Neck Neck: Yes normal visual inspection and Yes no lymphadenopathy Lymphatic: no lymphadenopathy noted Chest Chest palpation & inspection: normal inspection of the chest Resp Effort & Inspection: normal respiratory effort, able to speak in complete sentences, no audible wheezes, no cough, no stridor, not tachypneic, no tripod positioning and no use of accessory muscles Auscultation: clear to auscultation bilaterally Cardio Jugular venous distension: no JVD Rate: regular rate Rhythm: regular rhythm Skin Other: warm, dry General skin exam: no rashes or lesions noted Neuro General: patient oriented x3 Cranial nerves: Yes Normal hearing present Cognition (Neuro): normal cognition Gait exam (Neuro): Normal gait present Extrem General: Yes normal to inspection, Yes capillary refill normal, Yes no clubbing, cyanosis or edema and Yes no pedal edema Psych Appearance: grossly normal and well kempt Speech and movement: Normal speech and movement present and Clear speech present Affect: normal affect Attitude: cooperative Thought process: Normal thought process present Thought content: Normal thought content present Insight: Good insight present (Psych) Judgement: Good judgement present (Psych) Results Reviewed Results Reviewed: Assessment & Plan Assessment & Plan (1) COPD (chronic obstructive pulmonary disease): Comment: no inhalers or nebulizers Code(s): J44.9 - Chronic obstructive pulmonary disease, unspecified Category: Medical (2) Asthma: Comment: no inhalers or nebulizers Code(s): J45.909 - Unspecified asthma, uncomplicated Category: Medical (3) Bronchiectasis: Code(s): J47.9 - Bronchiectasis, uncomplicated Category: Medical (4) Multiple pulmonary nodules: Code(s): R91.8 - Other nonspecific abnormal finding of lung field Category: Medical (5) Nicotine dependence, cigarettes, uncomplicated: Code(s): F17.210 - Nicotine dependence, cigarettes, uncomplicated Category: Medical Plan Barby presents for pulmonary evaluation after LDCT revealed multiple stable pulmonary nodules and traction bronchiectasis suspicious for ILD. She reports respiratory symptoms are minimal and is not interested in a daily inhaler. Patient with asthma/COPD unclear severity, will send for PFT to assess for degree of obstructive defect and for any restrictive defect suggestive of ILD. Will attempt to obtain prior images of chest CT to assess progression of bronchiectasis and possible fibrosis. Discussed smoking cessation, however patient not interested in quitting at this time. All questions were answered and patient is in agreement of plan. Will follow up to review results or sooner if needed. Orders: Orders PFT pulmonary function test Today J44.9 - Chronic obstructive pulmonary disease, unspecified, J45.909 - Unspecified asthma, uncomplicated Coding Level of Care Code New Pt Level 4 (68271) Diagnoses COPD (chronic obstructive pulmonary disease) J44.9 Asthma J45.909 Bronchiectasis J47.9 Multiple pulmonary nodules R91.8 Nicotine dependence, cigarettes, uncomplicated F17.210
== END 2023-10-22 16:41 | disposition home or self-care (01) ==
PROVIDERS: PCP Nurse Practitioner Family; Referring Provider Nurse Practitioner Family; Visit Provider Nurse Practitioner Family
DX: J44.9 Chronic obstructive pulmonary disease, unspecified (principal); J45.909 Unspecified asthma, uncomplicated; J47.9 Bronchiectasis, uncomplicated; R91.8 Other nonspecific abnormal finding of lung field; F17.210 Nicotine dependence, cigarettes, uncomplicated
CPT/HCPCS: 99204

== ENCOUNTER → 2023-10-22 15:09 | Outpatient (BNVA) | payer MEDICARE, SELFPAY | PROVIDERS: PCP Nurse Practitioner Family; Referring Provider Nurse Practitioner Family; Visit Provider Nurse Practitioner Family | DX: J43.9 Emphysema, unspecified (principal); J47.9 Bronchiectasis, uncomplicated; R91.8 Other nonspecific abnormal finding of lung field; F17.210 Nicotine dependence, cigarettes, uncomplicated | CPT/HCPCS: 99202 ==

== ENCOUNTER 2023-12-04 10:51 | Outpatient (REF) | payer MEDICARE, SELFPAY ==
--- NOTE | 2019-12-04 11:00 | PFT_ITS ---
Flows: FEV1: 86 % of predicted at 1.81 L FVC: 93 % of predicted at 2.74 L FEV1/FVC: 71 % Bronchodilator response: Absent Volumes: Total lung capacity: 99 % of predicted at 4.87 L Residual volume: 110 % of predicted at 2.23 L Slow vital capacity: 93 % of predicted at 2.64 L Expiratory reserve volume: 29 % of predicted at 0.20 L Diffusion capacity: Mildly decreased. Impression: No obstructive or restrictive ventilatory defect. No bronchodilator response. Decreased expiratory reserve volume suggests extrathoracic restriction likely secondary to abdominal obesity. Decreased diffusion capacity suggests emphysema. MTDD
[2023-12-04 11:20] VITALS: PULSE 78; RESP 16; O2SAT 96
== END 2023-12-04 10:52 | disposition home or self-care (01) ==
LOC: HO.RESP 10:51
PROVIDERS: PCP Nurse Practitioner Family; Visit Provider Nurse Practitioner Family
DX: J44.9 Chronic obstructive pulmonary disease, unspecified (principal)
CPT/HCPCS: 94010; 94640; 94727; 94729

== ENCOUNTER 2023-12-24 14:46 | Outpatient (AMB) | payer MEDICARE, SELFPAY ==
[2023-12-24 14:59] VITALS: BP 158/64; PULSE 60; O2SAT 97; BMI 31.5
--- NOTE | 2023-12-24 14:59 | A.OFFVIS_ITS ---
Vital Signs 12/24/23 14:59 Height 5 ft 5 in Weight 189 lb 9.561 oz BMI 31.5 BP 158/64 H Blood Pressure Location Rt brachial Position Sitting Pulse 60 Pulse Source Pulse Oximeter Pulse Oximetry (%) 97 Oxygen Delivery Method Room Air Intake Visit Reasons: Abnormal LDCT/SWARTZ Allergies bee pollen [BEE STINGS] Allergy (Severe, Verified 12/24/23 15:02) ANAPHYLAXIS influenza virus vaccine, specific [Influenza Virus Vacc,Specific] Allergy (Severe, Verified 12/24/23 15:02) DIFFICULTY BREATHING celecoxib [Celebrex] Allergy (Intermediate, Verified 12/24/23 15:02) vaginal bleeding doxycycline [DOXYCYCLINE] Allergy (Intermediate, Verified 12/24/23 15:02) RASH erythromycin base [ERYTHROMYCIN BASE] Allergy (Intermediate, Verified 12/24/23 15:02) RASH Iodinated Contrast Media [IV DYE, IODINE CONTAINING] Allergy (Intermediate, Verified 12/24/23 15:02) RASH lisinopril [LISINOPRIL] Allergy (Intermediate, Verified 12/24/23 15:02) HIVES pentazocine [From Talwin] Allergy (Intermediate, Verified 12/24/23 15:02) Hallucinations sulfamethoxazole [From BACTRIM] Allergy (Intermediate, Verified 12/24/23 15:02) RASH trimethoprim [From BACTRIM] Allergy (Intermediate, Verified 12/24/23 15:02) RASH fentanyl [FENTANYL] Adverse Reaction (Intermediate, Verified 12/24/23 15:02) NAUSEA & VOMITING naproxen [Naprosyn] Adverse Reaction (Intermediate, Verified 12/24/23 15:02) Gastrointestinal Upset oxycodone [Percocet] Adverse Reaction (Intermediate, Verified 12/24/23 15:02) Gastrointestinal Upset HPI HPI Abnormal LDCT/SWARTZ: Details: Barby is a pleasant 73 year old female, current smoker 1/2 - 1 ppd smoker, with approximately 30 pack year history, with underlying asthma, emphysema, COPD and h/o bladder cancer, dx 2019, under the care of Dr. Pulido. She was referred for PCP for pulmonary evaluation after LDCT. Patient is a part of lung screening program through [facility] and last CT 05/05, RADS 2 however revealed traction bronchiectasis and PCP suspicious for evolving ILD/early fibrosis. She will have repeat chest CT scheduled in 04/2024. Today she presents to review PFT results. Since the last visit, she reports minimal dyspnea on exertion. wheezing or cough. She has been infrequently using albuterol MDI. [facility] Medical History (Updated 12/24/23 @ 16:54 by Emily Becker NP) COVID-19 vaccine series completed Skin cancer Lumbar disc herniation Hx of compression fracture of spine Positive PPD, treated Kidney stone Lesion of urinary bladder Blood clot in vein COPD (chronic obstructive pulmonary disease) Asthma High cholesterol Hypertension Surgical History Hx of dilation and curettage H/O colonoscopy Hx of cataract extraction Hx of cystoscopy Hx of cholecystectomy Social History Are you a primary wound care nurse to a significant other at home: No Do you presently have visiting nurse or other home services: No Patient Tobacco Use Status: Current everyday Tobacco user Tobacco use type: Cigarette Cigarette Packs Per Day: 0.5 Cigarettes Per Day: 10.0 Years Smoked: 35 Review of Systems Const Denies chills, Denies excessive sweating, Denies fever(s), Denies headache(s) and Denies night sweats Eyes Denies dry eyes, Denies irritation and Denies itchy eyes ENT Reports Normal hearing present, Denies headache(s), Denies nasal congestion, Denies nasal discharge, Denies post nasal drip and Denies sore throat Card Denies chest pain, Denies chest pain at rest, Denies chest pain with activity, Denies claudication, Denies leg edema, Denies orthopnea and Denies paroxysmal nocturnal dyspnea Resp Denies chest congestion, Denies excessive phlegm production, Denies pain on inspiration, Denies pain with cough, Denies stridor and Denies wheezing Musc Denies myalgias Neuro Reports Normal hearing present and Denies headache(s) Endo Denies excessive sweating Robbin/Lymph Denies lymphadenopathy Aller/Immun Denies itchy eyes, Denies seasonal rhinorrhea and Denies wheezing Physical Exam Vital Signs: Last Vital Signs Pulse 60 12/24/23 14:59 BP 158/64 H 12/24/23 14:59 Pulse Ox 97 12/24/23 14:59 Oxygen Delivery Method Room Air 12/24/23 14:59 BMI result Body Mass Index 31.5 Const General: cooperative, healthy appearing, comfortable, no acute distress, well developed and alert Nutritional Appearance: obese Orientation/consciousness: patient oriented x3 Limitations: no limitations HEENT Head: Yes normal to inspection, Yes normocephalic and Yes atraumatic Ears: hearing grossly normal bilaterally and external ears normal Eyes General: appearance normal, both eyes and all related structures Eyelids: Yes eyelids normal Sclerae: sclerae normal EOM: EOMs intact bilaterally Neck Neck: Yes normal visual inspection and Yes no lymphadenopathy Lymphatic: no lymphadenopathy noted Chest Chest palpation & inspection: normal inspection of the chest Resp Effort & Inspection: normal respiratory effort, able to speak in complete sentences, no audible wheezes, no cough, no stridor, not tachypneic, no tripod positioning and no use of accessory muscles Auscultation: clear to auscultation bilaterally Cardio Jugular venous distension: no JVD Rate: regular rate Rhythm: regular rhythm Skin Other: warm, dry General skin exam: no rashes or lesions noted Neuro General: patient oriented x3 Cranial nerves: Yes Normal hearing present Cognition (Neuro): normal cognition Gait exam (Neuro): Normal gait present Extrem General: Yes normal to inspection, Yes capillary refill normal, Yes no clubbing, cyanosis or edema and Yes no pedal edema Psych Appearance: grossly normal and well kempt Speech and movement: Normal speech and movement present and Clear speech present Affect: normal affect Attitude: cooperative Thought process: Normal thought process present Thought content: Normal thought content present Insight: Good insight present (Psych) Judgement: Good judgement present (Psych) Assessment & Plan Assessment & Plan (1) Asthma: Comment: no inhalers or nebulizers Code(s): J45.909 - Unspecified asthma, uncomplicated Category: Medical (2) Bronchiectasis: Code(s): J47.9 - Bronchiectasis, uncomplicated Category: Medical (3) Multiple pulmonary nodules: Code(s): R91.8 - Other nonspecific abnormal finding of lung field Category: Medical (4) Nicotine dependence, cigarettes, uncomplicated: Code(s): F17.210 - Nicotine dependence, cigarettes, uncomplicated Category: Medical Plan Reviewed PFT which revealed normal spirometry without significant response to bronchodilators. Lung volumes normal. DLCO mildly reduced at 77% suggestive of emphysema. Discussed smoking cessation however patient not ready to quit at this time. She continues to report minimal respiratory symptoms, using albuterol MDI infrequently. Will send refill as prior prescription likely . Will follow up with patient after chest CT in April or sooner if needed. All questions were answered and patient is in agreement of plan. Medications: New albuterol sulfate 90 mcg/actuation 1 puff inhalation Q4H PRN 1 ea 0RF Shortness Of Breath Coding Level of Care Code Est Pt Level 4 (55340) Diagnoses Asthma J45.909 Bronchiectasis J47.9 Multiple pulmonary nodules R91.8 Nicotine dependence, cigarettes, uncomplicated F17.210
== END 2023-12-24 15:39 | disposition home or self-care (01) ==
PROVIDERS: PCP Nurse Practitioner Family; Visit Provider Nurse Practitioner Family
DX: J45.909 Unspecified asthma, uncomplicated (principal); J47.9 Bronchiectasis, uncomplicated; R91.8 Other nonspecific abnormal finding of lung field; F17.210 Nicotine dependence, cigarettes, uncomplicated
CPT/HCPCS: 99214

== ENCOUNTER → 2023-12-24 14:46 | Outpatient (BNVA) | payer MEDICARE, SELFPAY | PROVIDERS: PCP Nurse Practitioner Family; Visit Provider Nurse Practitioner Family | DX: J47.9 Bronchiectasis, uncomplicated (principal); J45.909 Unspecified asthma, uncomplicated; R91.8 Other nonspecific abnormal finding of lung field; F17.210 Nicotine dependence, cigarettes, uncomplicated | CPT/HCPCS: 99212 ==

== ENCOUNTER 2024-02-01 10:48 | Outpatient (AMB) | payer MEDICARE, SELFPAY ==
--- NOTE | 2024-02-01 10:52 | MHC.OFFVIS ---
Intake Visit Reasons: cysto Intake Note: Patient is present for Cystoscopy Urology Medication:NONE Antibiotic Allergy:DOXYCYCLINE,ERYTHROMYCIN,SULFA,BACTRIM,NAPROXEN Blood Thinner:ASPIRIN Lot:[id number] Exp:12/16/26 Osteology Teacher Required: No Allergies bee pollen [BEE STINGS] Allergy (Severe, Verified 02/01/24 10:55) ANAPHYLAXIS influenza virus vaccine, specific [Influenza Virus Vacc,Specific] Allergy (Severe, Verified 02/01/24 10:55) DIFFICULTY BREATHING celecoxib [Celebrex] Allergy (Intermediate, Verified 02/01/24 10:55) vaginal bleeding doxycycline [DOXYCYCLINE] Allergy (Intermediate, Verified 02/01/24 10:55) RASH erythromycin base [ERYTHROMYCIN BASE] Allergy (Intermediate, Verified 02/01/24 10:55) RASH Iodinated Contrast Media [IV DYE, IODINE CONTAINING] Allergy (Intermediate, Verified 02/01/24 10:55) RASH lisinopril [LISINOPRIL] Allergy (Intermediate, Verified 02/01/24 10:55) HIVES pentazocine [From Talwin] Allergy (Intermediate, Verified 02/01/24 10:55) Hallucinations sulfamethoxazole [From BACTRIM] Allergy (Intermediate, Verified 02/01/24 10:55) RASH trimethoprim [From BACTRIM] Allergy (Intermediate, Verified 02/01/24 10:55) RASH fentanyl [FENTANYL] Adverse Reaction (Intermediate, Verified 02/01/24 10:55) NAUSEA & VOMITING naproxen [Naprosyn] Adverse Reaction (Intermediate, Verified 02/01/24 10:55) Gastrointestinal Upset oxycodone [Percocet] Adverse Reaction (Intermediate, Verified 02/01/24 10:55) Gastrointestinal Upset HPI Comments Details: Barby is a very pleasant female. She is a patient of Dr. Yanes. She is seen for the following urologic conditions - bladder cancer - bladder trabeculations Six-month follow-up cystoscopy Cystoscopy today. Fully healed bladder No evidence of lesions Begin regular surveillance Bladder cancer low-grade noninvasive June 2019 Diagnosis June 2019 Bladder interventions - TURBT August 2019 low-grade noninvasive, TURBT Dec 2019 low-grade noninvasive, 11 low-grade TA, 11/04 low grade with MMC Longstanding smoking history 35 pack-years Cystoscopy - 4 NAD, 6 recurrent lesion, 2/ NAD, 5 NAD, 822 NAD, 01/03 Cytology 03/04 NAD, 06/02 atypical, 04/05 NAD Adjuvant therapy - 02/01 6 week gemcitabine, 08/03 3 week, 01/03 3 week, 06/05 3 week boost mitomycin with cytarabine PFSH Medical History (Updated 12/24/23 @ 16:54 by Emily Becker NP) COVID-19 vaccine series completed Skin cancer Lumbar disc herniation Hx of compression fracture of spine Positive PPD, treated Kidney stone Lesion of urinary bladder Blood clot in vein COPD (chronic obstructive pulmonary disease) Asthma High cholesterol Hypertension Surgical History Hx of dilation and curettage H/O colonoscopy Hx of cataract extraction Hx of cystoscopy Hx of cholecystectomy Social History Are you a primary child care assistant to a significant other at home: No Do you presently have visiting nurse or other home services: No Patient Tobacco Use Status: Current everyday Tobacco user Tobacco use type: Cigarette Cigarette Packs Per Day: 0.5 Cigarettes Per Day: 10.0 Years Smoked: 35 Review of Systems Const Denies chills and Denies fever(s) Card Reports no additional complaints and Denies syncope Resp Denies cough GI Denies abdominal pain and Denies heartburn Reports as per HPI and Denies change in libido Neuro Denies syncope Psych Denies change in libido Endo Denies change in libido Physical Exam Const General: cooperative, healthy appearing, comfortable and no acute distress Orientation/consciousness: patient oriented x3 HEENT Face and sinus: Yes normal facial exam Mouth: moist mucous membranes Neck Neck: Yes normal visual inspection, Yes full ROM and Yes trachea midline Chest Chest palpation & inspection: normal inspection of the chest Resp Effort & Inspection: normal respiratory effort, able to speak in complete sentences and no respiratory distress GI Inspection: Yes normal to inspection Back/Spine/Pelvis Cervical Spine: normal cervical lordosis Thoracic/Lumbar Spine: thoracic and lumbar spine normal to inspection Skin General skin exam: no rashes or lesions noted Neuro General: patient oriented x3, gait normal, tone normal and moves all extremities Extrem General: Yes normal to inspection and Yes capillary refill normal Office Procedures Cystoscopy Consent Discussed risk and benefit or proposed procedure with the patient. Information consent for procedure given to the patient. Discussed technical aspects, risks, benefits and alternatives in full. Addressed all of the patient's questions and concerns regarding the procedure. The patient demonstrated knowledge and understanding. They wish to proceed with this procedure. Preparation The patient was prepped in the usual manner. A regulatory affairs consultant was present and in the room. Genitalia was prepped with betadine solution in a sterile manner. Lidocaine Jelly 2% was placed into the urethra and 16Fr flexible Olympus cystoscope was inserted into the meatus after adequate lubrication. Procedure Meatus retraction with vaginal atrophy Urethra normal Bladder examination with retroflexion of cystoscope Bladder Orifices normal shape and position Trigone normal Bladder Capacity medium Trabeculations - Cellule Formation - Diverticulum Formation - Mucosal Erythema - Bladder Tumor - 08610-[id number] DISPOSABLE SCOPE URO-G FLEXIBLE SCOPE Procedure code (CPT) selection complete Office Meds lidocaine HCl 2 % mucosal jelly in applicator Performing Provider: Phill Pulido MD Performing Location: [facility] [place] [facility] Administered by: Phill Pulido MD on 02/01/24 11:32 Dose Route Admin Location Dispensed Lot Number Expiration Date [facility] [employer] Home Delivery Specialist 10 mL intra-urethral 10 mL Results AMB Urinalysis, Automated UA Leukoctes 0 Ally/uL Last Edit by ESDRAS Beyer on 02/01/24 11:06 UA Nitrite Negative Last Edit by ESDRAS Beyer on 02/01/24 11:06 UA Urobilinogen 0.2 mg/dL Last Edit by ESDRAS Beyer on 02/01/24 11:06 UA Protein 30 mg/dL Last Edit by ESDRAS Beyer on 02/01/24 11:06 UA pH 6.0 Last Edit by ESDRAS Beyer on 02/01/24 11:06 UA Blood 25 Luis/uL Last Edit by ESDRAS Beyer on 02/01/24 11:06 UA Specific [place] 1.015 Last Edit by ESDRAS Beyer on 02/01/24 11:06 UA Ketone Negative Last Edit by ESDRAS Beyer on 02/01/24 11:06 UA Bilirubin 0 mg/dL Last Edit by ESDRAS Beyer on 02/01/24 11:06 UA Glucose 0 mg/dL Last Edit by ESDRAS Beyer on 02/01/24 11:06 Results Reviewed Results Reviewed: Laboratory Last Values Urine pH (Auto) 6.0 02/01/24 11:06 Specific [place] (Auto) 1.015 02/01/24 11:06 Urine Protein (Auto) 30 mg/dL 02/01/24 11:06 Glucose (UA)(Auto) 0 mg/dL 02/01/24 11:06 Urine Ketones (Auto) Negative 02/01/24 11:06 Urine Blood (Auto) 25 Luis/uL 02/01/24 11:06 Urine Nitrite (Auto) Negative 02/01/24 11:06 Urine Bilirubin (Auto) 0 mg/dL 02/01/24 11:06 Urine Urobilinogen (Auto) 0.2 mg/dL 02/01/24 11:06 Leukocyte Esterase (Auto) 0 Ally/uL 02/01/24 11:06 Assessment & Plan Assessment & Plan (1) Bladder cancer: Comment: recurrent superficial November 2019, December 2020 Code(s): C67.9 - Malignant neoplasm of bladder, unspecified Category: Medical Qualifiers: Bladder location: unspecified site Qualified Code(s): C67.9 - Malignant neoplasm of bladder, unspecified Plan Four month follow-up check cysto office Orders: Orders AMB Cystoscopy Today C67.9 - Malignant neoplasm of bladder, unspecified AMB Urinalysis Automated Today Z13.9 - Encounter for screening, unspecified Medications: New lidocaine HCl 2% 10 mL intra-urethral ONCE 10 mL 0RF C67.9 - Malignant neoplasm of bladder, unspecified Patient Instructions: Imaging studies, laboratory and physical exam results were discussed and reviewed in detail. No major barriers to patient understanding were identified. An opportunity to ask questions regarding the treatment plan was provided. All questions were answered. The patient expressed understanding and agreement with the above treatment plan. The patient is aware they should contact our office by phone for worsening of their current condition or the appearance of new urologic symptoms. Compliance is encouraged with any medications and followup testing that is ordered. It is a privilege to participate in the urologic care of your patient. If you have any questions or concerns regarding treatment for the above conditions, or other urologic issues, please do not hesitate to contact me. The office telephone contact is [phone]. This note is constructed using voice recognition software. While every effort has been made to ensure accuracy employee benefits specialist errors may have been included. Yours sincerely, Dr Phill Pulido MD, [facility] - Urology Providers of Expert, Compassionate Care for the Genitourinary System Coding Level of Care Code Est Pt Level 3 (24272) Diagnoses Bladder cancer C67.9 Bladder location: unspecified site CPT Codes Cystoscopy - CPT: 32878-[id number] ([id number])
== END 2024-02-01 11:39 | disposition home or self-care (01) ==
PROVIDERS: PCP Nurse Practitioner Family; Visit Provider Urology
DX: C67.9 Malignant neoplasm of bladder, unspecified (principal); Z13.9 Encounter for screening, unspecified
CPT/HCPCS: 52000; 99213

== ENCOUNTER → 2024-02-01 10:48 | Outpatient (BNVA) | payer MEDICARE, SELFPAY | PROVIDERS: PCP Nurse Practitioner Family; Visit Provider Urology | DX: C67.9 Malignant neoplasm of bladder, unspecified (principal) | CPT/HCPCS: 52000; 81003; 99212 ==

== ENCOUNTER 2024-05-26 13:53 | Outpatient (AMB) | payer MEDICARE, SELFPAY ==
--- NOTE | 2024-05-26 12:37 | MHC.OFFVIS ---
Vital Signs 05/26/24 13:58 Height 5 ft 5 in Weight 181 lb 14.102 oz BMI 30.3 BP 136/70 Blood Pressure Location Lt brachial Position Sitting Pulse 68 Pulse Source Pulse Oximeter Pulse Oximetry (%) 95 Oxygen Delivery Method Room Air Intake Visit Reasons: Asthma Basting Puller Required: No Chairman And Chief Executive Officer: Chairman And Chief Executive Officer offered & declined Accompanied by: Self / Same As Patient Allergies bee pollen [BEE STINGS] Allergy (Severe, Verified 05/26/24 14:05) ANAPHYLAXIS influenza virus vaccine, specific [Influenza Virus Vacc,Specific] Allergy (Severe, Verified 05/26/24 14:05) DIFFICULTY BREATHING celecoxib [Celebrex] Allergy (Intermediate, Verified 05/26/24 14:05) vaginal bleeding doxycycline [DOXYCYCLINE] Allergy (Intermediate, Verified 05/26/24 14:05) RASH erythromycin base [ERYTHROMYCIN BASE] Allergy (Intermediate, Verified 05/26/24 14:05) RASH Iodinated Contrast Media [IV DYE, IODINE CONTAINING] Allergy (Intermediate, Verified 05/26/24 14:05) RASH lisinopril [LISINOPRIL] Allergy (Intermediate, Verified 05/26/24 14:05) HIVES pentazocine [From Talwin] Allergy (Intermediate, Verified 05/26/24 14:05) Hallucinations sulfamethoxazole [From BACTRIM] Allergy (Intermediate, Verified 05/26/24 14:05) RASH trimethoprim [From BACTRIM] Allergy (Intermediate, Verified 05/26/24 14:05) RASH fentanyl [FENTANYL] Adverse Reaction (Intermediate, Verified 05/26/24 14:05) NAUSEA & VOMITING naproxen [Naprosyn] Adverse Reaction (Intermediate, Verified 05/26/24 14:05) Gastrointestinal Upset oxycodone [Percocet] Adverse Reaction (Intermediate, Verified 05/26/24 14:05) Gastrointestinal Upset Medication List - Last Reconciled 05/26/24 by Sarah Metz LPN albuterol sulfate 90 mcg/actuation 1 puff inhalation Q4H PRN aspirin 81 mg PO DAILY cholecalciferol (vitamin D3) (Vitamin D3) 25 mcg PO DAILY diltiazem HCl CD 240 mg PO DAILY metformin 1,000 mg PO DAILY metoprolol succinate ER 50 mg PO DAILY rosuvastatin 40 mg PO DAILY valsartan 160 mg PO BID HPI HPI Asthma: Details: Barby is a pleasant 73 year old female, current smoker, with approximately 30 pack year history, with underlying asthma, emphysema, COPD and h/o bladder cancer dx 2019, under the care of Dr. Pulido. Patient is a part of lung screening program through [facility] and chest CT 04/2023, RADS 2 however revealed traction bronchiectasis and PCP suspicious for evolving ILD/early fibrosis. She presents today to review repeat chest CT which was performed at [facility] last month. Unfortunately report and images are not available. Per patient will have repeat CT in one year. She continues to report minimal respiratory symptoms, continues with occasional dyspnea on exertion and intermittent wet cough, infrequently using albuterol MDI. She denies any visits to urgent care or hospitalizations related to respiratort distress. [facility] Medical History (Updated 05/26/24 @ 12:44 by Emily Becker NP) COVID-19 vaccine series completed Skin cancer Lumbar disc herniation Hx of compression fracture of spine Positive PPD, treated Kidney stone Lesion of urinary bladder Blood clot in vein COPD (chronic obstructive pulmonary disease) Asthma High cholesterol Hypertension Surgical History Hx of dilation and curettage H/O colonoscopy Hx of cataract extraction Hx of cystoscopy Hx of cholecystectomy Social History Are you a primary animal caretaker to a significant other at home: No Do you presently have visiting nurse or other home services: No Patient Tobacco Use Status: Current everyday Tobacco user Tobacco use type: Cigarette Cigarette Packs Per Day: 0.5 Cigarettes Per Day: 10.0 Years Smoked: 35 Review of Systems Const Denies chills, Denies excessive sweating, Denies fever(s), Denies headache(s) and Denies night sweats Eyes Denies dry eyes, Denies irritation and Denies itchy eyes ENT Reports Normal hearing present and Denies headache(s) Card Denies chest pain, Denies chest pain at rest, Denies chest pain with activity, Denies claudication, Denies leg edema, Denies orthopnea and Denies paroxysmal nocturnal dyspnea Resp Denies chest congestion, Denies excessive phlegm production, Denies pain on inspiration, Denies pain with cough, Denies stridor and Denies wheezing Musc Denies myalgias Neuro Reports Normal hearing present and Denies headache(s) Endo Denies excessive sweating Robbin/Lymph Denies lymphadenopathy Aller/Immun Denies itchy eyes, Denies seasonal rhinorrhea and Denies wheezing Physical Exam Vital Signs: Last Vital Signs Pulse 68 05/26/24 13:58 BP 136/70 05/26/24 13:58 Pulse Ox 95 05/26/24 13:58 Oxygen Delivery Method Room Air 05/26/24 13:58 BMI result Body Mass Index 30.3 Const General: cooperative, healthy appearing, comfortable, no acute distress, well developed and alert Nutritional Appearance: obese Orientation/consciousness: patient oriented x3 Limitations: no limitations HEENT Head: Yes normal to inspection, Yes normocephalic and Yes atraumatic Ears: hearing grossly normal bilaterally and external ears normal Eyes General: appearance normal, both eyes and all related structures Eyelids: Yes eyelids normal Sclerae: sclerae normal EOM: EOMs intact bilaterally Neck Neck: Yes normal visual inspection and Yes no lymphadenopathy Lymphatic: no lymphadenopathy noted Chest Chest palpation & inspection: normal inspection of the chest Resp Effort & Inspection: normal respiratory effort, able to speak in complete sentences, no audible wheezes, no cough, no stridor, not tachypneic, no tripod positioning and no use of accessory muscles Auscultation: diminished lung sounds Cardio Jugular venous distension: no JVD Rate: regular rate Rhythm: regular rhythm Skin Other: warm, dry General skin exam: no rashes or lesions noted Neuro General: patient oriented x3 Cranial nerves: Yes Normal hearing present Cognition (Neuro): normal cognition Gait exam (Neuro): Normal gait present Extrem General: Yes normal to inspection, Yes capillary refill normal, Yes no clubbing, cyanosis or edema and Yes no pedal edema Psych Appearance: grossly normal and well kempt Speech and movement: Normal speech and movement present and Clear speech present Affect: normal affect Attitude: cooperative Thought process: Normal thought process present Thought content: Normal thought content present Insight: Good insight present (Psych) Judgement: Good judgement present (Psych) Results Reviewed Results Reviewed: Assessment & Plan Assessment & Plan (1) Asthma: Code(s): J45.909 - Unspecified asthma, uncomplicated Category: Medical (2) Bronchiectasis: Code(s): J47.9 - Bronchiectasis, uncomplicated Category: Medical (3) Multiple pulmonary nodules: Code(s): R91.8 - Other nonspecific abnormal finding of lung field Category: Medical (4) Nicotine dependence, cigarettes, uncomplicated: Code(s): F17.210 - Nicotine dependence, cigarettes, uncomplicated Category: Medical Plan Will request images and report from recent chest CT through [facility] lung screening program. At this time, patient feels respiratory symptoms are well controlled and not interested in trialing a daily inhaler. She is aware to call if symptoms worsen. Will follow up with patient after chest CT next year or sooner if needed. All questions were answered and patient is in agreement of plan. Coding Level of Care Code Est Pt Level 3 (51421) Diagnoses Asthma J45.909 Bronchiectasis J47.9 Multiple pulmonary nodules R91.8 Nicotine dependence, cigarettes, uncomplicated F17.210
[2024-05-26 13:58] VITALS: BP 136/70; PULSE 68; O2SAT 95; BMI 30.3
--- OUTSIDE RECORDS SUMMARY | 2024-05-26 16:06 | XMS_ITS ---
Author Organization [address] [place] [address] [place] [phone] Phone Care Team Providers Care See Wheeler Name Role Phone Gabi Plasencia Alfreda BOW MAKER CUSTOM Primary Care Provide r Active Problems Problem Noted Date Diagnosed Date Dyspnea 06/28/2022 Overview (11/08/2023): Last Assessment & Plan: The patient has been experiencing symptoms of exertional dyspnea. She has multiple risk factors for coronary artery disease including: Hypertension, current smoker, hyperlipidemia, and carotid artery stenosis. As such, we need to consider the possibility that her exertional dyspnea is an anginal equivalent. Therefore, further testing is indicated with a stress test. Given the patient's history of osteoarthritis, she will be unlikely to be able to tolerate an exercise protocol. As such, we will refer the patient for a pharmacological nuclear stress test. Venous insufficiency 06/29/2021 Bilateral carotid artery disease (CMS/HCC V24) 0 07/08/2020 Overview (11/08/2023): Last Assessment & Plan: Patient has a history of bilateral carotid artery stenosis. She continues to follow with vascular surgery service and is scheduled for repeat carotid artery duplex prior to her next appointment with vascular surgery in December. She will continue on aspirin and statin as prescribed. Bladder cancer (CMS/HCC V24, CMS/HCC V28) 2020 Overview (11/08/2023): Being followed by [facility] urologist Dr. Sai Castellanos, s/p transurethral resection, papillary urothelial carcinoma COPD (chronic obstructive pu lmonary disease) ([facility] V24, [facility] V28) 03/01/2020 Dizziness 03/01/2020 Overview (11/08/2023): Last Assessment & Plan: The patient has been complaining of episodes of dizziness. She correlates her symptoms to use of a certain mask and face shield while at work. Nevertheless, today she was noted to have a right carotid bruit on the physical examination. As such, will order a carotid artery duplex to evaluate for any significant extracranial carotid artery stenosis that may have contributed to her symptoms. Essential hypertension 03/01/2020 Overview (11/08/2023): Last Assessment & Plan: Patient's blood pressure continues to be elevated. Will increase valsartan to 160 mg BID. She will also continue her current dose of metoprolol and diltiazem. She will continue to monitor her blood pressures at home and notify me of any consistently elevated blood pressures after this change. BMP in 1 week. We also discussed if her blood pressures are not under control, we may need to initiate another antihypertensive medication like hydrochlorothiazide. In the meantime, I will refer her for a renal artery duplex to rule out secondary causes. We discussed that reducing the amount that she is smoking and heart healthy diet can also help her blood pressures. She will continue to work on these lifestyle modifications. I have reviewed with the patient the importance of a heart healthy lifestyle which includes eating a low-fat low-salt diet, getting regular exercise, maintaining a healthy weight, not smoking, and following up with routine medical care. Hematuria 03/01/2020 Low back pain 03/01/2020 Mild intermittent asthma 03/01/2020 Mixed hyperlipidemia 03/01/2020 Overview (11/08/2023): Last Assessment & Plan: Will update a new fasting lipid panel to reassess her lipid control. Her goal LDL is less than 70 given her history. I have reviewed with the patient the importance of a heart healthy lifestyle which includes eating a low-fat low-salt diet, getting regular exercise, maintaining a healthy weight, not smoking, and following up with routine medical care. Osteopenia 03/01/2020 Vitamin D deficiency 03/01/2020 Current Oncology Plans No current plan information found. Past Plans No past plan information found. Radiation Treatments * No radiation treatments are documented for this patient in [facility]. Treatments may have been administered in another system. Lifetime Dose Tracking * Chemical Lifetime Dose Automatic Entry Manual Entr y Radiation (DLP) 173.71 mGy-cm 173.71 mGy-cm 0 mGy-cm CTDIvol 4.83 mGy 4.83 mGy 0 mGy
--- OUTSIDE RECORDS SUMMARY | 2024-05-26 16:06 | XMS_ITS | Continuity of Care Document ---
Author Organization [facility] Address [address] [place] [phone] Phone Care Team Providers Care Test Rider Name Role Phone Peewee COLLINS FACS RVT [...] Providers Copied on Encounter [facility], [address], [place], [id number], [place] tel:[phone] R [facility] No Information 4 Peewee COLLINS FACS MARKT DOROTHY Duenas. [address], [facility] [address], [place]. tel:[phone] Office/Outpt E&M Established 15 Mins [facility], [address] [place] [address] [address], [place], [id number], [place] tel:[phone] CVR - [place] Venous insufficiency (chronic) (peripheral)Ly mphedema, not elsewhere classified 4 Rahul COLLINS, RVT, [facility] [place]. [address], [place] [facility] [place] [place], [id number] , [place]. tel:[phone] Referring Provider: Qamar Vides MD FACS T [facility], [address], [place], [address]. tel:[phone] Office/Outpt E&M Established 15 Mins [facility], [address] [place] [address] [address], [place], [id number], [place] tel:[phone] CVR - [place] Venous insufficiency (chronic) (peripheral)Ly mphedema, not elsewhere classified 3 Peewee COLLINS FACS T [facility] Qamar Duenas. [address], [address], [place], [address], [place]. tel:[phone] Referring Provider: Qamar Vides MD FACS T [facility], [facility], [place], [address]. tel:[phone] Office/Outpt E&M Established 25 Mins [facility], [address] [place] [address] [address], [place], [id number], [place] tel:[phone] CVR - [place] Venous insufficiency (chronic) (peripheral)Lo calized edema 3 Peewee COLLINS FACS T [facility] Qamar Duenas. [address], [address], [place], [address], [place]. tel:[phone] Referring Provider: Qamar Vides MD FACS T [facility], [address], [place], [address]. tel:[phone] Family History Family Member Type Diagnosis Age At Onset No Information Payers Payer name Insurance type Covered constitution party ID Samir gruber(s) [facility] [id number] Social History Type Description Quantity Date Captured [...]
--- OUTSIDE RECORDS SUMMARY | 2024-05-26 16:06 | XMS_ITS | Patient Health Record ---
Author Organization [facility] ([facility] [place] Address [address] [place] [address] Care Team Providers Care Appliance Assembler Name Role Phone Cole Yanes MD Primary Care Provider Nancy Keane Unavailable [phone] Allergies Allergen (clinical drug ingredient) Drug/Non Drug Allergy documented on EMR Reaction Allergy Type Onset Date Status meperidine Demerol vomiting Drug Allergy Active benzalkonium Merthiolate rash Drug Allergy Ac tive Bee Sting Unknown Allergy Active erythromycin Erythromycin rash Drug Allergy A ctive Iodine rash Drug Allergy Active Shellfish (FN) Shellfish-derived Products rash Drug Allergy Active Substance with sulfonamide structure and antibacterial mechanism of action (substance) Sulfa Antibiotics rash Drug Allergy Active Reason For Referral No Information Medications Medication SIG (Take, Route, Frequency, Duration) Notes Start Date End Date Status Simvastatin 40 MG 1 tablet in the even ing Orally Once a day for 30 day(s) Active Valsartan 160 MG 1 tablet Orally Once a day for 30 day(s) Active Cardizem CD 240 MG 1 capsule Orally Onc e a day for 30 day(s) Active Metoprolol Succinate ER 50 MG 1 tablet Orally Once a day for 30 day(s) Active ASA 81 mg Active Vitamin D Active Immunizations Vaccine Route Administration Date Status Comme nts COVID-19 Pfizer BioNTech Vaccine Unknown 12/05/2020 Administered 1st 05/18/2020 2nd 06/08/2020 Social History Tobacco Use: Social History Observation Description Date Details (start date - stop date) Current Smoker 03/15/1986 - NA Tobacco Use/Smoking Question Answer Notes Are you a: current smoker When did you start smoking? 03/15/1986 Additional Findings: Tobacco User Moderate cigar ette smoker (10-19 cigs/day) Alcohol Screen Question Answer Notes Did you have a drink containing alcohol in the p ast year? No Points 0 Interpretation Negative Tobacco use other than smoking: Question Answer Notes Are you an other tobacco user? No Plan Of Treatment No Information Insurance Providers Payer Name Payer Address Payer Phone Subscriber Number Group Number Insured Name Patient Relationship to Insured Coverage Start Date Coverage End Date [employer] [place] [employer] [address] [facility] [address] [place] [address] [id number] Barby Simpson Self - patient is the insured Medical (General) History Medical History History ICD Code Arthritis asthma Back,Hip,and Knee pain CAD (Cholesterol) Cancer Cataracts Gall bladder problems Headaches/Migraines Heart disease High blood pressure Lung disease Poor circulation Sciatica chronic sinusitis Vascular phlebitis (clots) Warts Measles Mumps Chicken pox Shingles 4 herniated discs in back Osteopenia Basal cell carcinoma facial Surgical History Surgery Date(Month/Year) bilateral cataract surgery CA bladder surgery 2x 2018, 12/2020 gall bladder 2012 laser surgery 2014 Hospitalization History Reason Date(Month/Year) six weeks of chimo completed 2020
--- OUTSIDE RECORDS SUMMARY | 2024-05-26 16:06 | XMS_ITS | Clinical Summary ---
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 Name Role Phone Andresshirley Gabi Gant NP Primary Care Provide r Allergies Active Allergy Reactions Criticality Noted Date Comments Sky Inhibitors Swelling High 03/21/2010 Atorvastatin 07/01/2018 Bee Pollen Wheezing 03/15/2018 Benzalkonium Rash Low 07/20/2023 Other reaction(s): Rash Celecoxib Low 03/15/2018 Other Reaction(s): Rash/Dermatitis Doxycycline Hyclate Low 03/15/2018 Other Reaction(s): Rash/Dermatitis Erythromycin 12/23/2008 Fentanyl Low 03/15/2018 Other Reaction(s): Rash/Dermatitis Influenza Virus Vaccines 03/21/2010 Iodinated Contrast Media Low 03/15/2018 Other Reaction(s): Rash/Dermatitis Naproxen Other 03/15/2018 Oxycodone-Acetaminophen Low 03/15/2018 Other Reaction(s): Rash/Dermatitis Pentazocine High 10/13/2022 Other reaction(s): Hallucinations Pentazocine Lactate Hallucinations High 10/13/2022 Rifampin Other 06/23/2020 orange urine and all the side effects Shellfish Containing Products Rash Low 07/20/2023 Sulfamethoxazole-Trimet hoprim Low 12/23/2008 Other Reaction(s): Rash/Dermatitis Medications aspirin 81 mg chewable tablet Take 81 mg by mouth daily. 1 Active cholecalciferol (VITAMIN D-3) 25 mcg (1,000 unit) tablet Take 1,000 Units by mouth daily. 09/14/201 8 Active dilTIAZem CD (CARDIZEM CD) 240 mg 24 hr capsule Take 240 mg by mouth. 3 Active metoprolol succinate (TOPROL-XL) 50 mg 24 hr tablet TAKE ONE TABLET BY MOUTH EVERY DAY 1 Active rosuvastatin (CRESTOR) 40 mg tablet TAKE ONE TABLET BY MOUTH EVERY DAY 3 Active valsartan (DIOVAN) 160 mg tablet Take 1 Tablet by mouth 2 times daily. Active albuterol-budes onide 90-80 mcg/actuation HFA aerosol inhaler Inhale into the lungs. Active polyethylene glycol (Golytely) 236-22.74-6.74 -5.86 gram solution Take 4L by mouth once for one dose. May substitue any PEG. Starting at 6PM the night before your procedure drink 1 8oz glasses at your own pace until you complete half of the gallon. Finish 2nd half of the gallon 5 hours before your procedure. 4000 mL 5 Active bisacodyL (DULCOLAX) 5 mg EC tablet Take 2 tablets by mouth right before beginning bowel prep. See instructions provided by the office 2 tablet 5 Active metFORMIN XR (GLUCOPHAGE-XR) 500 mg 24 hr tablet TAKE 1 TABLET BY MOUTH DAILY WITH DINNER FOR 14 DAYS THEN TAKE 2 TABLETS DAILY WITH DINNER FOR 14 DAYS 5 Active nystatin (MYCOSTATIN) cream APPLY TOPICALLY TWICE DAILY TO TRUNK 3 Active Active Problems Problem Noted Date Diagnosed Date [...] aspirin and statin as prescribed. Bladder cancer ([facility] V24, [facility] V28) 2020 Overview (11/08/2023): Being followed by [facility] urologist Dr. Sai Castellanos, s/p transurethral resection, papillary urothelial carcinoma COPD (chronic obstructive pu lmonary disease) ([facility] V24, [facility] V28) 03/01/2020 Dizziness 03/01/2020 Overview (11/08/2023): Last [...] care. Osteopenia 03/01/2020 Vitamin D deficiency 03/01/2020 Encounters Date Type Department Care Team Description 05/21/2024 Telephone [facility] - [address] [place] [phone] Sheron Vizcaino NP Prior Auth (Valsartan 160MG tablets) 04/21/2024 2:10 PM EDT - 04/21/2024 11:59 PM EDT Hospital Encounter [facility] CT Scan [address] [place] [phone] Encounter for screening for malignant neoplasm of respiratory organs; Nicotine dependence, cigarettes, uncomplicated Discharge Disposition: Home or Self Care 04/01/2024 Telephone Lung Screening Program - [place] [address] [facility] [address] [place] [phone] Manju Corado [place] Appointment 03/17/2024 12:15 PM EST Anesthesia Event [facility] Endoscopy [address] [place] [phone] Jarad Alba DO Gomes, Sheldon B, MD 03/17/2024 11:12 AM EST - 03/17/2024 11:59 PM EST Hospital Encounter [facility] Endoscopy [address] [place] [phone] Greg Anaya DO Korobkov, Vitaliy, DO Special screening for malignant neoplasms, colon Discharge Disposition: Home or Self Care from Last 3 Months Immunizations Name Administration Dates Next Due Pfizer SARS-CoV-2 COVID-19, mRNA, LNP-S, preservative free 06/08/2020,05/18/2020 Surgical History Surgery Date Site/Laterality Comments BLADDER SURGERY PROCEDURE: HISTORICAL BLADDER SURGERY CHOLECYSTECTOMY PROCEDURE: HISTORICAL CHOLECYSTECTOMY Medical History Medical History Date Comments Dizziness 03/01/2020 DX:Dizziness COPD (chronic obstructive pu lmonary disease) ([facility] V24, [facility] V28) 03/01/2020 DX:COPD (chronic o bstructive pulmonary disease) (HCC) Bladder cancer ([facility] V24, [facility] V28) 03/01/2020 DX:Bladder cancer (HCC); COM MENT: Being followed by [facility] urologist Dr. Sai Castellanos, s/p transurethral resection, papillary urothelial carcinoma History of DVT (deep vein thrombosis) 03/01/2020 DX:History of DVT (deep vein thrombosis); COMMENT: Had DVT in her 20s Hematuria 03/01/2020 DX:Hematuria Hyperlipidemia 03/01/2020 DX:Hyperlipidemi a Hypertension 03/01/2020 DX:Hypertension Low back pain 03/01/2020 DX:Low back pain Osteopenia 03/01/2020 DX:Osteopenia Vitamin D deficiency 03/01/2020 DX:Vitamin D deficiency Mild intermittent asthma 03/01/2020 DX:Mild intermittent asthma Family History Medical History Relation Name Comments CABG Father Diabetes Father Hypertension Father Other: Heart Disease Father Dementia Mother Other: AFIB Mother Other: Heart Disease Mother Hypertension Sister Other: Heart Disease Sister Relation Name Status Comments Father Mother Sister Social History Tobacco Use Types Packs/Day Years Used Date Smoking Tobacco: Every Day Cigarettes Smokeless Tobacco: Current Tobacco Cessation:Ready to Q uit: Not Asked; Counseling Given: Not Answered Alcohol Use Standard Drinks/Week Comments No 0 (1 standard drink = 0.6 oz pur e alcohol) Interpersonal Safety Answer Date Record ed Physical Abuse 03/17/2024 Verbal Abuse 03/17/2024 Comments No Sex and Gender Information Value Date Recorded Sex Assigned at Female 03/17/2024 11:08 AM EST Legal Sex Female 11:26 AM EST Gender Identity Female 03/17/2024 11:08 AM EST Sexual Orientation Straight 03/17/2024 11 :08 AM EST Obstetrics History Last Filed Vital Signs Vital Sign Reading Time Taken Comments Blood Pressure 131/58 03/17/2024 12:54 PM EST Pulse 52 03/17/2024 12:54 PM EST Temperature 37.3 ??C (99.1 ??F) 03/17/2024 12:[address] Respiratory Rate 20 03/17/2024 12:54 PM EST Oxygen Saturation 96% 03/17/2024 12:54 PM EST Inhaled Oxygen Concentration - - Weight 82.1 kg (181 lb) 03/07/2024 10:00 AM EST Height 165.1 cm (5' 5 ) 03/07/2024 10:00 AM EST Body Mass Index 30.12 03/07/2024 10:00 AM EST Plan of Treatment Upcoming Encounters Date Type Department Care Team (Late st Contact Info) Description 11/17/2024 9:15 AM EDT Ancillary Procedure [facility] [address] [place] [address] 11/20/2024 10:50 AM EDT Office Visit [facility] [address] [place] [address] [address] [place] [phone] Mamadou Springer MD [address] [place] [address] [address] [place] [address] 01/02/2025 10:30 AM EST Office Visit V[facility] - [place] [address] [place] [address] Ladarius Muro MD [address] [place] [address] Health Maintenance Due Date Last Done Comments Breast Cancer Screening 1950 Diabetes: Annual Foot Exam 1960 Diabetes: Annual Retina Eye Exam 1960 Zoster Vaccines (1 of 2) 1969 Hepatitis B Vaccines (2 of 3 - 19+ 3-dose series) 04/18/2010 03/21/2010 RSV Immunization Adult Patients (1 - Risk 60-74 years 1-dose series) 2010 Depression Screening 01/21/2022 Medicare Annual Wellness Visit 01/21/2022 Osteoporosis Screening (Bone Density Screening) 01/21/2022 Social Influencers of Health Screening 01/21/2022 Diabetes: Annual GFR (Glomerular Filtration Rate) 01/02/2023 01/02/2022, 01/02/2022, 03/16/2021, Additional history exists Hypertension/CHF/CAD Annual BMP Blood Test 01/02/2023 01/02/2022, 01/02/2022, 03/16/2021, Additional history exists Diabetes: Annual Urine Albumin-Creatinine Ratio (uACR) 03/17/2024 Diabetes: Blood Sugar Control Test (HGBA1C) 03/17/2024 01/02/2022 Influenza Vaccine (Season Ended) 2024 Falls Risk Assessment 03/17/2025 03/17/2024 Lung Cancer Screening (Low Dose CT) 04/21/2025 04/21/2024, 04/20/2023, 04/18/2022, Additional history exists Cholesterol Screening (Lipid Panel) 06/07/2026 06/07/2021 DTaP,Tdap,and Td Vaccines (4 - Td or Tdap) 11/29/2032 11/29/2022, 08/15/2007, 03/25/2007 Colorectal Cancer Screening: Colonoscopy 03/17/2034 03/17/2024 Hepatitis C Screening Completed 09/12/2019 Pneumococcal Vaccine: 50+ Years Completed 06/13/2021, 12/03/2019, 10/23/2011 COVID-19 Vaccine Completed 12/28/2023, , 12/05/2020, Additional history exists HIB Vaccines Aged Out No longer eligi ble based on patient's age to complete this topic HPV Vaccines Aged Out No longer eligi ble based on patient's age to complete this topic Hepatitis A Vaccines Aged Out No long er eligible based on patient's age to complete this topic IPV Vaccines Aged Out No longer eligi ble based on patient's age to complete this topic MMR Vaccines Aged Out No longer eligi ble based on patient's age to complete this topic Meningococcal ACWY Vaccine Aged Out N o longer eligible based on patient's age to complete this topic Meningococcal B Vaccine Aged Out No l onger eligible based on patient's age to complete this topic RSV Immunization Patients Under 20 months Aged Out No longer eligible based on patient's age to complete this topic Varicella Vaccines Aged Out No longer eligible based on patient's age to complete this topic Procedures Procedure Name Priority Date/Time Associated Diagnosis Comments CT LUNG SCREENING Routine 04/21/2024 2:2 0 PM EDT Encounter for screening for malignant neoplasm of respiratory organs Nicotine dependence, cigarettes, uncomplicated COLONOSCOPY Routine 03/17/2024 12:33 PM EST Special screening for malignant neoplasms, colon TISSUE EXAM Routine 03/17/2024 12:29 PM EST Special screening for malignant neoplasms, colon HM ANNUAL BMP BLOOD TEST Routine 01/02/2022 HEMOGLOBIN A1C Routine 01/02/2022 LIPID PANEL Routine 06/07/2021 from Last 3 Months or Most Recently Relevant to Health Maintenance Results * CT Lung Screening (04/21/2024 2:20 PM EDT) Anatomical Region Laterality Modality Chest Computed Tomogra phy 04/22/2024 9:37 AM EDT Impressions 04/22/2024 9:50 AM EDT No suspicious mass or nodule. Scattered micronodules can be reexamined at the time of screening in one year. ?? LUNG RADS: Lung-RADS 2: BENIGN S Modifier (Significant or Potentially Significant Findings): None present No suspicious nonpulmonary findings. RECOMMENDATIONS: 12 month screening low dose CT -------- FINAL REPORT -------- Dictated By: Srinivas Devine Dictated Date: 04/22/2024 09:37 ET Assigned Physician: Srinivas Devine Reviewed and Electronically Signed By: Srinivas Devine Signed Date: 04/22/2024 09:50 ET Workstation ID: [id number] Transcribed By: Self Edit Transcribed Date: 04/22/2024 09:37 ET Narrative 04/22/2024 9:50 AM EDT EXAMINATION: CT CHEST WITHOUT CONTRAST LUNG CANCER SCREENING, LOW DOSE CLINICAL INFORMATION: Lung cancer screening. ??Current smoker COMPARISON: Portions of previous 04/19/2023 ?? TECHNIQUE: Multidetector CT. Examination of the chest. Examination of the chest without IV contrast. Reformatting in the coronal and sagittal planes. Device: Lightspeed VCT DLP: 174 mGy-cm CTDI: 4.83 Dose optimization was performed including the use of low-dose iterative reconstruction technique with automatic exposure control based on patient size. Type of contrast: None Volume of IV contrast: None Volume of contrast discarded: 0 mL FINDINGS: LUNG: No abnormality of the trachea or mainstem bronchi. No focal pneumonia. ?? LUNG NODULES: There are no suspicious nodules or masses. There are scattered micronodules. The largest in the posterior left costophrenic sulcus region measures 0.4 cm and is unchanged (211/262). OTHER PULMONARY: ??There are scattered areas of air trapping. MEDIASTINUM: ??There are no enlarged mediastinal or hilar lymph nodes. No suspicious abnormalities of the esophagus. CARDIAC: The heart is not enlarged. No pericardial fluid or thickening ?? There are moderate coronary calcifications. VASCULAR: There is no thoracic aortic aneurysm. The main pulmonary artery is normal caliber. 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 ?? PLEURA: There is no pleural fluid or pneumothorax ?? AXILLA/CHEST WALL: There are no enlarged axillary lymph nodes. No chest wall mass demonstrated ?? VISUALIZED UPPER ABDOMEN: ??No suspicious abnormality on limited assessment of the visualized upper abdomen MUSCULOSKELETAL: No suspicious focal bony lesion demonstrated. Procedure Note Srinivas Devine MD - 04/22/2024 EXAMINATION: CT CHEST WITHOUT CONTRAST LUNG CANCER SCREENING, LOW DOSE CLINICAL INFORMATION: Lung cancer screening. Current smoker COMPARISON: Portions of previous 04/19/2023 TECHNIQUE: Multidetector CT. Examination of the chest. Examination of the chest without IV contrast. Reformatting in the coronal and sagittal planes. Device: Lightspeed VCT DLP: 174 mGy-cm CTDI: 4.83 Dose optimization was performed including the use of low-dose iterativereconstruction technique with automatic exposure control based on patientsize. Type of contrast: None Volume of IV contrast: None Volume of contrast discarded: 0 mL FINDINGS: LUNG: No abnormality of the trachea or mainstem bronchi. No focalpneumonia. LUNG NODULES: There are no suspicious nodules or masses. There are scattered micronodules. The largest in the posterior leftcostophrenic sulcus region measures 0.4 cm and is unchanged (211/262). OTHER PULMONARY: There are scattered areas of air trapping. MEDIASTINUM: There are no enlarged mediastinal or hilar lymph nodes. Nosuspicious abnormalities of the esophagus. CARDIAC: The heart is not enlarged. No pericardial fluid or thickening There are moderate coronary calcifications. VASCULAR: There is no thoracic aortic aneurysm. The main pulmonary arteryis normal caliber. There is a normal variant aberrant right subclavianartery. PLEURA: There is no pleural fluid or pneumothorax AXILLA/CHEST WALL: There are no enlarged axillary lymph nodes. No chestwall mass demonstrated VISUALIZED UPPER ABDOMEN: No suspicious abnormality on limited assessmentof the visualized upper abdomen MUSCULOSKELETAL: No suspicious focal bony lesion demonstrated. IMPRESSION: No suspicious mass or nodule. Scattered micronodules can be reexamined at the time of screening in oneyear. LUNG RADS: Lung-RADS 2: BENIGN S Modifier (Significant or Potentially Significant Findings): Nonepresent No suspicious nonpulmonary findings. RECOMMENDATIONS: 12 month screening low dose [address] -------- FINAL REPORT -------- Dictated By: Srinivas Devine Dictated Date: 04/22/2024 09:37 ET Assigned Physician: Srinivas Devine Reviewed and Electronically Signed By: Srinivas Devine Signed Date: 04/22/2024 09:50 ET Workstation ID: [id number] Transcribed By: Self Edit Transcribed Date: 04/22/2024 09:37 ET Mercy Davis MD [facility] CT PROCEDURES Final Result * COLONOSCOPY Anesthesia - MAC; [facility] ENDOSCOPY (03/17/2024 12:33 PM EST) Anatomical Region Laterality Modality Endoscopy 03/17/2024 12:1 0 PM EST Impressions 03/17/2024 12:35 PM EST - Hemorrhoids found on perianal exam. ? - One 7 mm polyp in the sigmoid colon, removed with a ? cold snare. Resected and retrieved. ? - The examination was otherwise normal on direct and ? retroflexion views. Recommendation: ?- - Discharge patient to home. ? - High fiber diet. ? - Continue present medications. ? - Await pathology results. ? - Repeat colonoscopy for surveillance based on ? pathology results. Narrative 03/17/2024 12:[address] [facility] Patient Name: Barby Simpson Procedure Date: 03/17/2024 12:10 PM Date of : 1950 Age: 73 Gender: Female Note Status: Finalized Attending MD: Greg Anaya DO, [id number] Procedure Date No Time: 03/17/2024 Procedure: ? Colonoscopy Indications: ? Screening for colorectal malignant neoplasm Providers: ? Greg Anaya DO Referring MD: ?Gabi Plasencia NP Medicines: ? Monitored Anesthesia Care Complications: ? No immediate complications. Estimated blood loss: ? Minimal. Estimated Blood Loss: ? Estimated blood loss was minimal. Procedure: ? Pre-Anesthesia Assessment: ? - - Prior to the procedure, a History and Physical was ? performed, and patient medications and allergies were ? reviewed. The patient is competent. The risks and ? benefits of the procedure and the sedation options and ? risks were discussed with the patient. All questions ? were answered and informed consent was obtained. ? Patient identification and proposed procedure were ? verified by the physician, the nurse, the ? anesthesiologist, the paste worker and the lab technician ? in the pre-procedure area in the endoscopy suite. ? Mental Status Examination: alert and oriented. Airway ? Examination: normal oropharyngeal airway and neck ? mobility. Respiratory Examination: clear to ? auscultation. CV Examination: normal. Prophylactic ? Antibiotics: The patient does not require prophylactic ? antibiotics. Prior Anticoagulants: The patient has ? taken no anticoagulant or antiplatelet agents. ASA ? Grade Assessment: II - A patient with severe systemic ? disease. After reviewing the risks and benefits, the ? patient was deemed in satisfactory condition to ? undergo the procedure. The anesthesia plan was to use ? monitored anesthesia care (MAC). Immediately prior to ? administration of medications, the patient was ? re-assessed for adequacy to receive sedatives. The ? heart rate, respiratory rate, oxygen saturations, ? blood pressure, adequacy of pulmonary ventilation, and ? response to care were monitored throughout the ? procedure. The physical status of the patient was ? re-assessed after the procedure. ? After I obtained informed consent, the scope was ? passed under direct vision. Throughout the procedure, ? the patient's blood pressure, pulse, and oxygen ? saturations were monitored continuously. The ? Colonoscope was introduced through the anus and ? advanced to the cecum, identified by appendiceal ? orifice and ileocecal valve. The colonoscopy was ? performed without difficulty. The patient tolerated ? the procedure well. The quality of the bowel ? preparation was good. Findings: ?Hemorrhoids were found on perianal exam. ? A 7 mm polyp was found in the sigmoid colon. The polyp ? was sessile. The polyp was removed with a cold snare. ? Resection and retrieval were complete. Estimated blood ? loss was minimal. ? The exam was otherwise without abnormality on direct ? and retroflexion views. Procedure Code(s): ? --- Professional --- ? 99029, Colonoscopy, flexible; with removal of ? tumor(s), polyp(s), or other lesion(s) by snare ? technique Diagnosis Code(s): ? --- Professional --- ? Z12.11, Encounter for screening for malignant neoplasm ? of colon ? K64.9, Unspecified hemorrhoids ? D12.5, Benign neoplasm of sigmoid colon CPT copyright 2020 [employer]. All rights reserved. The codes documented in this report are preliminary and upon consumer loan specialist review may be revised to meet current compliance requirements. GREG Anaya DO 03/17/2024 12:35:25 PM This report has been signed electronically.Greg Anaya DO Number of Addenda: 0 Note Initiated On: 03/17/2024 12:10 PM Scope Withdrawal Time: 0 hours 8 minutes 21 seconds Scope In: 12:20:23 PM Scope Out: 12:32:43 PM ? Endoscopy Department at [facility] - [address] [place] [address], ? [place] [address] Procedure Note Greg Anaya DO - 03/17/2024 [facility] Patient Name: Barby Simpson Procedure Date: 03/17/2024 12:10 PM Date of : 1950 Age: 73 Gender: Female Note Status: Finalized Attending MD: Greg Anaya DO, [id number] Procedure Date No Time: 03/17/2024 Procedure: Colonoscopy Indications: Screening for colorectal malignant neoplasm Providers: Greg Anaya DO Referring MD: Gabi Plasencia NP Medicines: Monitored Anesthesia Care Complications: No immediate complications. Estimated blood loss: Minimal. Estimated Blood Loss: Estimated blood loss was minimal. Procedure: Pre-Anesthesia Assessment: - - Prior to the procedure, a History and Physicalwas performed, and patient medications and allergieswere reviewed. The patient is competent. The risks and benefits of the procedure and the sedation optionsand risks were discussed with the patient. Allquestions were answered and informed consent was obtained. Patient identification and proposed procedure were verified by the physician, the nurse, the anesthesiologist, the paste worker and thetechnician in the pre-procedure area in the endoscopy suite. Mental Status Examination: alert and oriented.Airway Examination: normal oropharyngeal airway and neck mobility. Respiratory Examination: clear to auscultation. CV Examination: normal. Prophylactic Antibiotics: The patient does not requireprophylactic antibiotics. Prior Anticoagulants: The patient has taken no anticoagulant or antiplatelet agents. ASA Grade Assessment: II - A patient with severesystemic disease. After reviewing the risks and benefits,the patient was deemed in satisfactory condition to undergo the procedure. The anesthesia plan was touse monitored anesthesia care (MAC). Immediately priorto administration of medications, the patient was re-assessed for adequacy to receive sedatives. The heart rate, respiratory rate, oxygen saturations, blood pressure, adequacy of pulmonary ventilation,and response to care were monitored throughout the procedure. The physical status of the patient was re-assessed after the procedure. After I obtained informed consent, the scope was passed under direct vision. Throughout theprocedure, the patient's blood pressure, pulse, and oxygen saturations were monitored continuously. The Colonoscope was introduced through the anus and advanced to the cecum, identified by appendiceal orifice and ileocecal valve. The colonoscopy was performed without difficulty. The patient tolerated the procedure well. The quality of the bowel preparation was good. Findings: Hemorrhoids were found on perianal exam. A 7 mm polyp was found in the sigmoid colon. Thepolyp was sessile. The polyp was removed with a coldsnare. Resection and retrieval were complete. Estimatedblood loss was minimal. The exam was otherwise without abnormality ondirect and retroflexion views. Procedure Code(s): --- Professional --- 42572, Colonoscopy, flexible; with removal of tumor(s), polyp(s), or other lesion(s) by snare technique Diagnosis Code(s): --- Professional --- Z12.11, Encounter for screening for malignantneoplasm of colon K64.9, Unspecified hemorrhoids D12.5, Benign neoplasm of sigmoid colon CPT copyright 2020 [employer]. All rights reserved. The codes documented in this report are preliminary and upon consumer loan specialist reviewmay be revised to meet current compliance requirements. GREG Anaya DO 03/17/2024 12:35:25 PM This report has been signed electronically.Greg Anaya DO Number of Addenda: 0 Note Initiated On: 03/17/2024 12:10 PM Scope Withdrawal Time: 0 hours 8 minutes 21 seconds Scope In: 12:20:23 PM Scope Out: 12:32:43 PM Endoscopy Department at [facility] - [address] [place] [phone] IMPRESSION: - Hemorrhoids found on perianal exam. - One 7 mm polyp in the sigmoid colon, removed witha cold snare. Resected and retrieved. - The examination was otherwise normal on directand retroflexion views. Recommendation: - - Discharge patient to home. - High fiber diet. - Continue present medications. - Await pathology results. - Repeat colonoscopy for surveillance based on pathology results. us Greg Anaya DO GI~PROCEDURE ORDERABLES Final Re sult * Tissue exam (03/17/2024 12:29 PM EST) Final Diagnosis A. Large Intestine, Sigmoid Colon, polyp x1: - Colonic mucosa with hyperplastic changes. - Negative for dysplasia. Note: Additional deeper levels were examined. 03/19/2024 9:18 AM [facility] Gross Description A. Large Intestine, Sigmoid Colon, polyp x1: Labeled polyp x 1 Sig colon . Received in formalin is a soft, plasencia-red, 0.5 cm in greatest diameter polypoid tissue with minimal attached fecal/food debris, which is inked black, wrapped in paper and submitted in toto in one cassette, one piece, one + multiple pieces, multiple levels. TS 03/19/2024 9:18 AM [facility] Disclaimer Unless otherwise specified, all tissue is 10% NB formalin fixed and paraffin embedded. 03/19/2024 9:18 AM [facility] Tissue Sigmoid colon structure / Unknown 03/17/2024 12:29 PM EST 03/17/2024 1:03 PM EST us Greg Anaya DO LAB PATHOLOGY ORDERABLES Final R esult [facility] [address] [place] [address], * Annual BMP Blood Test (01/02/2022) Annual BMP Blood Test Abstracted Historical Provider MD HEALTH MAINTENANCE Final Result * Hemoglobin A1c (01/02/2022) Hemoglobin A1C 0.0 % Comment:No Interpretation Blood Venous blood specimen / Unknown Historical Provider LAB BLOOD ORDERABLES Ce l Result * Lipid panel (06/07/2021) LDL/HDL Ratio 0 Comment:No Interpretation Triglycerides 0 mg/dL Comment:No Interpretation Cholesterol 0 mg/dL Comment:No Interpretation HDL 0 mg/dL Comment:No Interpretation LDL Cholesterol 0 mg/dL Comment:No Interpretation Blood Venous blood specimen / Unknown Historical Provider LAB BLOOD ORDERABLES Ce l Result from Last 3 Months or Most Recently Relevant to Health Maintenance Insurance [facility] MEDICARE ADVANTAGE Care Teams Color Drum Worker Relationship Specialty Start Date End Date Gabi Plasencia NP NPI: [id number] [place] [id number] PCP - General 10/26/22
--- OUTSIDE RECORDS SUMMARY | 2024-05-26 16:06 | XMS_ITS | Data Portability ---
Author Organization [facility] Isaac [facility] [id number] Address [address] [place] [address] Assessment No assessment recorded. Plan of Treatment Reminders Order Date Submit Date Provider Last Modified By Organization Details Last Modified Time Details Appointments None recorded. Lab None recorded. Referral None recorded. Procedures None recorded. Surgeries None recorded. Imaging None recorded. Medication Orders Augmentin 875 mg-125 mg tablet 2022 023 [id number], [address] [place], [address], 13:53:26 Patient TargetsNo targets recorded. Patient Instructions Encounter Date Encounter Id Patient Instructions Last Modified By Organization Details Last Modified Time 03/07/2022 [id number] tooth and gum pain: care instructions [email or web address] Not available 03/07/2022 13:53:41 Reason for Referral None Reported. Problems Name Problem SNOMED Code Status Onset Date Resolution Date Notes Provider Name and Address Organization Details Recorded Time Hyperlipide tyrone 30039060 Active 2022 CHENG us, PA - [facility] 13:13:20 Hypertensiv e disorder 70871588 Active 2022 CHENG CLARK null, PA - [facility] 13:13:44 Chronic obstructive pulmonary disease 33789878 Active 2022 CHENG CLARK null, PA - [facility] 13:13:57 Asthma 835045513 Active 2022 CHENG CLARK null, PA - [facility] 13:14:04 Malignant neoplasm of urinary bladder 763780409 Active 2022 CHENG CLARK null, PA - [facility] 13:14:37 Peripheral vascular disease 679071407 Active 2022 CHENG CLARK null, PA - [facility] 13:14:50 Arthritis 5417269 Active 2022 CHENG CLARK null, PA - [facility] 13:14:55 Tuberculosi s 20507552 Completed 196902/12/1969 CHENG CLARK null, PA - [facility] 13:15:24 Problem Notes None recorded. Procedures Surgical History Date Name Laterality Status Provider Name and Address Organization Details Recorded Time 11/13/19 21 transurethral excision of neoplasm of urinary bladder completed CHENG CLARK PA - [facility] 03/07/2022 13:17:51 cholecystectomy completed CHENG CLARK PA - [facility] 03/07/2022 13:18:05 extraction of cataract completed CHENG CLARK PA - [facility] 03/07/2022 13:18:30 Imaging Results None recorded. Procedure Notes None recorded. Medical Equipment None Reported. Allergies Allergen ID Allergen Name Allergen Category Reaction Reaction Severity Criticality Documentation Date Start Date Code Code System Note Provider Name and Address Organization Details Recorded Time 511267 doxycycli ne Not available rash Not available Not available 03/07/2022 3640 RxNorm CHENG CALRK null, PA - [facility] 13:09:50 859720 erythromy augustine medicatio n rash Not available Not available 03/07/2022 4053 RxNorm CHENG DANGELOEY null, PA - [facility] 13:10:00 691806 Bactrim medicatio n rash Not available Not available 03/07/2022 92527 9 RxNorm CHENG DANGELOEY null, PA - [facility] 13:10:06 344426 lisinopri l medicatio n other Not available Not available 03/07/2022 06993 RxNorm Back pain CHENG DANGELOEY null, PA - [facility] 13:10:23 458611 Celebrex medicatio n other Not available Not available 03/07/2022 33609 7 RxNorm vagin al bleed ing CHENG CLARK null, PA - [facility] 13:10:41 017732 fentanyl medicatio n nausea Not available Not available 03/07/2022 4337 RxNorm CHENG CLARK null, PA - [facility] 13:10:49 650463 oxycodone medicatio n vomiting Not available Not available 03/07/2022 7804 RxNorm CHENG CLARK null, PA - [facility] 13:10:56 373730 honey bee venom medicatio n swelling wheezing Not available Not available Not available 03/07/2022 74733 7 RxNorm CHENG CLARK null, PA - [facility] 13:11:38 040878 Iodinated contrast media (substanc e) medicatio n rash Not available Not available 03/07/2022 16184 2004 SNOMED IVP dye CHENG CLARK null, PA - [facility] 13:12:10 134040 influenza virus vaccine, specific Not available wheezing Not available Not available 03/07/2022 62199 UNK CHENG CLARK null, PA - [facility] 13:12:20 Medications Name Sig Start Date Stop Date Status Note LastModified by Organization Details LastModified Time amoxicillin 500 mg capsule active Not Available Not Available Not Available Augmentin 875 mg-125 mg tablet Take 1 tablet every 12 hours by oral route for 10 days. 2022 active Not Available Not Available Not Avai lable metoprolol succinate ER 50 mg tablet,exte nded release 24 hr TAKE ONE TABLET BY MOUTH EVERY DAY active Not Available Not Available No t Available hydrocodone 5 mg-acetamin ophen 325 mg tablet active Not Available Not Available No t Available diltiazem CD 240 mg capsule,ext ended release 24 hr TAKE ONE CAPSULE BY MOUTH EVERY DAY active Not Available Not Available No t Available prednisone 20 mg tablet 03/07 completed Not Available Not Available Not Available simvastatin 40 mg tablet TAKE ONE TABLET BY MOUTH EVERY DAY AT BEDTIME active Not Available Not Available No t Available nystatin 100,000 unit/gram topical cream APPLY TOPICALLY TWICE DAILY TO TRUNK active Not Available Not Available No t Available levofloxaci n 500 mg tablet 03/07 completed Not Available Not Available Not Available albuterol sulfate HFA 90 mcg/actuati on aerosol inhaler active Not Available Not Available Not Available valsartan 160 mg tablet TAKE ONE TABLET BY MOUTH EVERY DAY active Not Available Not Available No t Available aspirin active Not Available Not Avail able Not Available Vitamin D3 active Not Available Not Av ailable Not Available diclofenac 1 % topical gel APPLY 4 GRAMS TOPICALLY FOUR TIMES A DAY TO LEFT SHOULDER 03/07 completed Not Available Not Available Not Available Vitals Date Recorded Body height Body mass index (BMI) Body weight Pain severity - 0-10 verbal numeric rating [Score] - Reported Respiratory rate Oxygen saturation Oxygen saturation in Arterial blood by Pulse oximetry Heart rate Body temperature Systolic blood pressure Diastolic blood pressure Provider Name and Address Organization Details Last Updated DateTime 162.56 cm 31.6 kg/m2 39574 g 9 18 /min 98 % 98 % 57 /min 97.7 [degF] 144 mm[Hg] 83 mm[Hg] CHENG [facility] 13:19:13 Social History Question Answer Notes LastModified by Organizat ion Details LastModified Time Tobacco Smoking Status Current Every Day Smoker states she quit one week ago [facility] [place] [facility] 03/07/2022 13:16:05 What Is Your Level Of Alcohol Consumption? None Information not available 03/07/2022 How Much Tobacco Do You Smoke? 1 PPD Information not available 03/07/2022 Do You Use Any Illicit Or Recreational Drugs? No [email or web address] Information not available 03/07/2022 Have You Recently Traveled Abroad? No [email or web address] Information not available 03/07/2022 Do You Or Have You Ever Used Any Other Forms Of Tobacco Or Nicotine? No [email or web address] Information not available 03/07/2022 Sex: Unknown Functional Status None recorded. Mental Status None recorded. Family History Relationship Description Onset Age of this Age Resolved Age Notes LastModified by Organization Details LastModified Time Father No current problems or disability Not available 03/07 13:14:42 Mother No current problems or disability [email or web address] Not available 03/07 13:14:42 Medical History No medical history recorded. Gynecological HistoryNo gynecological history recorded. Obstetrics History GPAL:G 0 P 0 0 0 0 Past Encounters Encounter ID Performer Location Encounter Start Date Encounter Closed Date Diagnosis/Indication Diagnosis SNOMED-CT Code Diagnosis ICD10 Code Diagnosis Note [id number] [address] [place] [address] 07/29/2016 12:54:00 07/29/2016 14:05:27 [id number] [address] [place] [address] 12/03/2016 17:29:38 12/03/2016 18:17:30 [id number] [address] [place] [address] 10/14/2015 16:58:58 10/14/2015 17:35:12 [id number] [address] [place] [address] 01/18/2018 15:15:21 01/18/2018 16:22:10 [id number] [address] [place] [address] 11/14/2016 18:30:39 11/14/2016 19:15:48 [id number] [address] [place] [address] 11/25/2016 12:38:26 11/25/2016 13:20:32 [id number] [address] [place] [address] 04/10/2018 13:29:03 04/10/2018 14:26:08 [id number] [address] [place] [address] 11/14/2019 18:51:13 11/14/2019 19:56:47 [id number] [address] [place] [address] 07/18/2016 08:38:29 07/18/2016 09:45:33 [id number] [address] [place] [address] 07/15/2021 17:49:42 07/15/2021 19:43:51 [id number] [address] [place] [address] 11/20/2017 14:31:15 11/20/2017 17:24:50 [id number] [address] [place] [address] 06/20/2016 18:29:51 06/20/2016 19:42:33 [id number] [address] [place] [address] 04/24/2018 09:56:37 04/24/2018 10:32:59 [id number] [address] [place] [address] 12/02/2021 13:07:16 12/02/2021 15:17:01 [id number] [address] [place] [address] 04/03/2015 10:57:23 04/03/2015 12:32:36 [id number] [address] [facility] [place] [address] 07/18/2018 18:08:14 07/18/2018 18:57:09 [id number] [address] [facility] [place] [address] 12/20/2014 13:42:57 12/20/2014 14:47:10 [id number] Bernard Harvey MD [address] [place] [address] 03/07/2022 12:23:43 03/07/2022 14:06:03 Dental abscess 987965479 K04.7 Pain where tooth pulled with swelling. Needs dental follow up. Health Concerns Section Related Observation LastModified by Organization Detai ls LastModified Time None Recorded Concern Status LastModified by Organization Details LastModified Time None Recorded Advance Directives Directive None Recorded Payers Encounter Date Sequence Insurance Name Policy Number Policy Coe Covered Member ID Coe Member ID Guarantor Name 07/18/2018 1 [employer] MED[employer] ADVANTAGE PLAN (MEDICARE REPLACEMENT HMO) [id number] Barby A A Calvin [id number] Barby A Calvin 11/14/2019 1 [employer] MED[employer]VANTAGE PLAN (MEDICARE REPLACEMENT HMO) [id number] 01 Barby A A Calvin [id number] Barby A Calvin 07/15/2021 1 [employer] MED[employer]VANTAGE PLAN (MEDICARE REPLACEMENT HMO) [id number] 01 Barby A A Calvin [id number] Barby A Calvin 12/02/2021 1 [employer] MED[employer] ADVANTAGE PLAN (MEDICARE REPLACEMENT HMO) [id number] 01 Barby A A Calvin [id number] Barby A Calvin 03/07/2022 1 [employer] MED[employer]VANTAGE PLAN (MEDICARE REPLACEMENT HMO) [id number] 01 Barby A A Calvin [id number] Barby A Calvin Notes Date Note Type Note Provider Name and Address Organization Details Recorded Time 03/07/2022 text/html Had tooth pulled , an was put on Amoxicillin pre and post op. Follow up [facility] Dentist Sunday and restarted Amoxicillin which is not making any difference. Pain worsening, facial pain on the left Bernard Harvey MD [address] [place] [address] [place], [address], [place] - [facility] 03/07/2022 13:57:22 OBGyn Episode No OBEpisode recorded.
--- OUTSIDE RECORDS SUMMARY | 2024-05-26 16:06 | XMS_ITS | Encounter Summary ---
Author Organization [facility] Address [address] [place] [address] Care Team Providers Care User Experience Team Lead Name Role Phone Andresshirley Gabijesus Gant ENGINEERING WRITER Primary Care Provide r Reason for Visit * Reason Onset Date Comments Prior Auth 05/21/2024 Valsartan 160MG tablets Encounter Details Date Type Department Care Team (Late st Contact Info) Description 05/21/2024 Telephone [facility] [address] [place] [phone] Sheron Vizcaino NP [address] [place] [address] [address] [place] [address] Prior Auth (Valsartan 160MG tablets) Social History Tobacco Use Types Packs/Day Years Used Date Smoking Tobacco: Every Day Cigarettes Smokeless Tobacco: Current Alcohol Use Standard Drinks/Week Comments No 0 [...] Orientation Straight 03/17/2024 11 :08 AM EST documented as of this encounter Progress Notes * Pamela Tristan - 05/21/2024 12:36 PM EDT Images from the original note were not included. Valsartan 160MG tablets-APPROVED PA Rx #: [id number] Effective Date: 05/21/2024-02/11/2025 * Pamela Tristan - 05/21/2024 10:39 AM EDT Valsartan 160MG tablets-submitted on covermymeds [facility] Rx #: [id number] documented in this encounter Plan of Treatment Upcoming Encounters Date Type Department Care Team (Late st Contact Info) Description 11/17/2024 9:15 AM EDT Ancillary Procedure [facility]iology [facility] [address] [facility] [address] [place] [address] 11/20/2024 10:50 AM EDT Office Visit [facility] [address] [place] [address] [place] [address] GeoMamadou Lorenzana MD [address] [place] [address] [address] [place] [address] 01/02/2025 10:30 AM EST Office Visit Vascular Surgery - [place] [address] [facility] [address] [place] [address] Ladarius Muro MD [address] [facility] [address] [place] [address] documented as of this encounter Visit Diagnoses Not on filedocumented in this encounter Care Teams User Experience Team Lead Relationship Specialty Start Date End Date Gabi Plasencia NP [address] [place] [address] PCP - General 10/26/22 documented as of this encounter
== END 2024-05-26 14:44 | disposition home or self-care (01) ==
LOC: HO.HPS 13:53
PROVIDERS: PCP Nurse Practitioner Family; Visit Provider Nurse Practitioner Family
DX: J45.909 Unspecified asthma, uncomplicated (principal); J47.9 Bronchiectasis, uncomplicated; R91.8 Other nonspecific abnormal finding of lung field; F17.210 Nicotine dependence, cigarettes, uncomplicated
CPT/HCPCS: 99213

== ENCOUNTER → 2024-05-26 13:53 | Outpatient (BNVA) | payer MEDICARE, SELFPAY | PROVIDERS: PCP Nurse Practitioner Family; Visit Provider Nurse Practitioner Family | DX: J45.909 Unspecified asthma, uncomplicated (principal); J47.9 Bronchiectasis, uncomplicated; R91.8 Other nonspecific abnormal finding of lung field; F17.210 Nicotine dependence, cigarettes, uncomplicated | CPT/HCPCS: 99212 ==

== ENCOUNTER 2024-05-31 17:19 | Emergency (ER) | payer MEDICARE, SELFPAY ==
--- NOTE | ~2024-05-31 | CT_ITS ---
CLINICAL HISTORY: dizziness, off balance, mild BAIN CT head without contrast Comparison: None Findings: No intra-axial mass, midline shift, hydrocephalus, or acute hemorrhage. Mild cortical atrophy. Mild nonspecific bilateral supratentorial white matter hypodensities most suggestive of chronic small-vessel ischemic changes. Very small nonacute lacunar infarct in the lateral aspect of the head of the left caudate nucleus. Atherosclerotic vascular disease. There is no sinus or mastoid fluid. The orbits are within normal limits. No acute skull fracture. IMPRESSION: 1. No acute intracranial findings. 2. Nonacute findings as described. This document has been electronically signed by: Daksha Howard MD on 05/31/2024 18:25:36
--- NOTE | ~2024-05-31 | XR_ITS ---
CLINICAL HISTORY: dizziness 1 view chest x-ray Comparison: None Findings: The heart is borderline enlarged. Atherosclerotic vascular disease of aortic arch. No consolidation, significant pleural effusion or pneumothorax. No acute fracture. IMPRESSION: 1. No acute findings. This document has been electronically signed by: Daksha Howard MD on 05/31/2024 18:27:57
--- NOTE | 2024-05-31 17:38 | ECG_ITS ---
Test Reason : DIZY Blood Pressure : */* mmHG Vent. Rate : 58 BPM Atrial Rate : 58 BPM P-R Int : 116 ms QRS Dur : 88 ms QT Int : 464 ms P-R-T Axes : 56 -43 4 degrees QTcB Int : 455 ms Sinus bradycardia Left axis deviation Nonspecific ST abnormality Abnormal ECG When compared with ECG of 26-Jan-2020 10:28, No significant change was found Referred By: Cathy López Electronically Signed By: LYNN SAMANO MD
--- NOTE | 2024-05-31 17:39 | ED_ITS ---
HPI - Dizziness General Chief Complaint: Dizziness Stated Complaint: dizzyness x1week bilateral ear ringing, no sleep Time Seen by Provider: 05/31/24 17:27 Source: patient, RN notes reviewed and old records reviewed Mode of arrival: ambulatory History of Present Illness ED Provider: Cathy López PA-C HPI Narrative: 73-year-old female with a past medical history of skin CA, COPD, asthma, HLD, HTN, presenting to the ED via EMS complaining of intermittent room spinning dizziness x2 weeks worse with position changes and lying flat. Admits to associated bilateral ear ringing, and mild headache. Admits dizziness resolves with sitting still. Denies vision change or loss, blurry/double vision, nausea/vomiting, weakness, numbness, tingling, CP/SOB Related Data Home Medications ?Medication ?Instructions ?Recorded ?Confirmed diltiazem HCl 240 mg 240 mg PO DAILY 02/27/20 05/26/24 capsule,extended release 24 hr metoprolol succinate 50 mg 50 mg PO DAILY 02/27/20 05/26/24 tablet,extended release 24 hr aspirin 81 mg tablet 81 mg PO DAILY 01/17/21 05/26/24 cholecalciferol (vitamin D3) 25 25 mcg PO DAILY 01/17/21 05/26/24 mcg (1,000 unit) tablet (Vitamin D3) rosuvastatin 40 mg tablet 40 mg PO DAILY 08/18/22 05/26/24 valsartan 320 mg tablet 160 mg PO BID 10/22/23 05/26/24 metformin 1,000 mg tablet 1,000 mg PO DAILY 05/26/24 05/26/24 Previous Rx's ?Medication ?Instructions ?Recorded albuterol sulfate 90 mcg/actuation 1 puff inhalation Q4H PRN 12/24/23 aerosol inhaler Shortness Of Breath #1 ea Allergies Allergy/AdvReac Type Severity Reaction Status Date / Time bee pollen [BEE STINGS] Allergy Severe ANAPHYLAXIS Verified 05/31/24 17:46 influenza virus vaccine, Allergy Severe DIFFICULTY Verified 05/31/24 17:46 specific BREATHING [Influenza Virus Vacc,Specific] celecoxib [Celebrex] Allergy Intermediate vaginal Verified 05/31/24 17:46 bleeding doxycycline [DOXYCYCLINE] Allergy Intermediate RASH Verified 05/31/24 17:46 erythromycin base Allergy Intermediate RASH Verified 05/31/24 17:46 [ERYTHROMYCIN BASE] Iodinated Contrast Media Allergy Intermediate RASH Verified 05/31/24 17:46 [IV DYE, IODINE CONTAINING] lisinopril [LISINOPRIL] Allergy Intermediate HIVES Verified 05/31/24 17:46 pentazocine [From Talwin] Allergy Intermediate Hallucinati Verified 05/31/24 17:46 ons sulfamethoxazole Allergy Intermediate RASH Verified 05/31/24 17:46 [From BACTRIM] trimethoprim [From BACTRIM] Allergy Intermediate RASH Verified 05/31/24 17:46 fentanyl [FENTANYL] AdvReac Intermediate NAUSEA & Verified 05/31/24 17:46 VOMITING naproxen [Naprosyn] AdvReac Intermediate Gastrointestinal Verified 05/31/24 17:46 Upset oxycodone [Percocet] AdvReac Intermediate Gastrointestinal Verified 05/31/24 17:46 Upset Review of Systems 2 Review of Systems: Yes all other systems are reviewed and are negative Constitutional: Constitutional: Reports as per HPI Neurologic: Denies Abnormal speech present [facility] Past Medical History Attestation statement: The following information was validated with the patient. Source: old records reviewed Medical History COVID-19 vaccine series completed Skin cancer Lumbar disc herniation Hx of compression fracture of spine Positive PPD, treated Kidney stone Lesion of urinary bladder Blood clot in vein COPD (chronic obstructive pulmonary disease) Asthma High cholesterol Hypertension Surgical History Hx of dilation and curettage H/O colonoscopy Hx of cataract extraction Hx of cystoscopy Hx of cholecystectomy Social History Social History Are you a primary wound care coordinator to a significant other at home: No Do you presently have visiting nurse or other home services: No Patient Tobacco Use Status: Current everyday Tobacco user Tobacco use type: Cigarette Cigarette Packs Per Day: 0.5 Cigarettes Per Day: 10.0 Years Smoked: 35 Smoked in Last 30 Days: Yes Use of substances other than those prescribed or required for medical reasons: No Advance Directives: No Advance Directives Information Provided: No Do you have a plan to hurt others: No Plan Physical Exam 2 Vital Signs: Vital Signs: Last Vital Signs Temp 97.9 F 05/31/24 17:49 Pulse 60 05/31/24 19:09 Resp 18 05/31/24 17:49 BP 165/85 H 05/31/24 19:09 Pulse Ox 97 05/31/24 17:49 O2 Del Method Room Air 05/31/24 17:49 BMI result Body Mass Index 31.9 Const: General: cooperative, healthy appearing, no acute distress, alert and awake Orientation/consciousness: patient oriented x3 Limitations: no limitations HEENT: Head: Yes normal to inspection and Yes atraumatic Ears: hearing grossly normal bilaterally General nose exam: Normal external nose present Face and sinus: Yes normal facial exam Eyes: General: appearance normal, both eyes and all related structures P upils: Equal, round and reactive pupils present EOM: EOMs intact bilaterally Neck: Neck: Yes normal visual inspection and Yes no meningeal signs Resp: Effort & Inspection: normal respiratory effort and no respiratory distress Auscultation: clear to auscultation bilaterally Cardio: Rate: regular rate Heart sounds: S1 normal heart sound present and S2 normal heart sound present GI: Inspection: Yes normal to inspection Palpation (GI): Soft to palpation, nontender, no guarding and not rigid Skin: Rashes: no rashes Wounds: no wounds Neuro: General: patient oriented x3, tone normal, moves all extremities, no meningeal signs, no focal motor deficits and CN's II-XI intact bilaterally C ranial nerves: Yes CN's II-XII intact bilaterally, Yes Equal, round and reactive pupils present and Yes Bilaterally intact EOM present Cognition (Neuro): n ormal cognition Speech: No Abnormal speech present Gait exam (Neuro): O ther gait observations present (Slow steady gait, no ataxia) Motor exam (neuro): 5/5 motor strength present throughout, Pronator motor function not present and no tremor noted Extrem: Other: +bilateral LE edema NIH Stroke Scale Internal: Initial- Upon Arrival Level of Consciousness: Alert Level of Consciousness Questions: Answers both questions correctly Level of Consciousness Commands: Performs both tasks correctly Best Gaze: Normal Visual: No visual loss Facial Palsy: Normal Motor Arm (Right): No drift Motor Arm (Left): No drift Motor Leg (Right): No drift Motor Leg (Left): No drift Limb Ataxia: Absent Sensory: Normal Best Language: No aphasia Dysarthia: Normal Extinction and Inattention: No abnormality Score: 0 Course Course Course Narrative: 1830-- CT head/brain wo IV con IMPRESSION: 1. No acute intracranial findings. 2. Nonacute findings as described. XR chest 1V IMPRESSION: 1. No acute findings >1900--ED care transferred to VERONICA Evans pending remaining labs, UA, SARs, orthostatics and re-evaluation Reevaluation(s) Reevaluation #1: Patient received in sign-out at change of shift pending orthostatics and re- evaluation. The patient's urinalysis does show moderate esterase but no bacteria the patient does not have any urinary symptoms, we will defer to culture. Labs without any concerning findings to explain her symptoms. The patient reports feeling much better after receiving Ativan. Orthostatics negative, we will discharge the patient to follow up with her PCP. She reports that she has an appointment this coming Sunday, 2 days from now Time: 20:39 Medications Administered Discontinued Medications Generic Name Dose Route Start Last Admin Trade Name Freq PRN Reason Stop Dose Admin Lorazepam 1 mg 05/31/24 18:36 05/31/24 19:04 Lorazepam 1 Mg Tablet PO 05/31/24 18:37 1 mg ONCE ONE Administration Meclizine HCl 25 mg 05/31/24 17:37 05/31/24 18:01 Meclizine Hcl 25 Mg Tablet PO 05/31/24 17:38 25 mg ONCE ONE Administration Medical Decision Making Medical Decision Making [facility] Narrative: 73-year-old female with a past medical history of skin CA, COPD, asthma, HLD, HTN, presenting to the ED via EMS complaining of intermittent room spinning dizziness x2 weeks worse with position changes and lying flat. Admits to associated bilateral ear ringing, and mild headache. On exam vital signs stable, NAD, nontoxic appearing, no focal neuro deficits. No ataxia. Ambulating with slow, steady gait. Concern for BPPV vs vertigo vs subacute CVA vs ? mass vs electrolyte abnormalities. Lower suspicion for meningitis/encephalitis, ACS Plan: EKG, labs, UA, CXR, head CT, meclizine, re-evaluate Please refer to course for remaining clinical decision making, interpretation of labs/imaging results, and discussions with consultants and/or family members. Differential Diagnosis Differential Diagnoses: The differential diagnosis associated with the presentation includes As above Admission/Observation Consideration of admission/observation: Escalation of care including admission/observation considered Lab Data [facility] Lab Attestation statement: I reviewed the patient's lab results. 05/31/24 18:15 05/31/24 18:15 Labs: Lab Results 05/31/24 05/31/24 Range/Units 18:15 19:20 WBC 11.7 H (4.8-10.8) X10*3/uL RBC 4.58 (4.20-5.50) X10*6/uL Hgb 14.4 (12.0-16.0) g/dl Hct 41.4 (37.0-47.0) % MCV 90.4 (80.0-98.0) fL MCH 31.4 (27.0-33.0) pg MCHC 34.8 (31.0-35.0) g/dl RDW 14.4 (11.0-16.0) % Plt Count 259 (160-400) X10*3/uL MPV 11.1 (9.4-12.3) fL Immature Gran % (Auto) 0.3 (0.0-0.4) % Neut % (Auto) 50.9 (45-73) % Lymph % (Auto) 35.6 (20-40) % [place] % (Auto) 9.8 (2-11) % Eos % (Auto) 2.5 (0-4) % Baso % (Auto) 0.9 (0-2) % Lymph # (Auto) 4.2 (1.2-4.9) X10*3/uL [place] # (Auto) 1.1 (0.1-1.2) X10*3/uL Eos # (Auto) 0.3 (0.0-0.4) X10*3/uL Baso # (Auto) 0.1 (0.0-0.2) X10*3/uL Abs Immat Gran (auto) 0.03 (0.00-0.03) X10*3/uL Absolute Neuts (auto) 5.9 (2.0-8.3) x10*3/uL Absolute Nucleated RBC 0.000 (0.0-0.012) X10*3/uL Nucleated RBC % (auto) 0.0 (0.0-0.2) /100WBC Sodium 142 (135-145) mmol/L Potassium 3.7 (3.3-5.1) mmol/L Chloride 109 H (96-108) mmol/L Carbon Dioxide 25 (22-29) mmol/L Anion Gap 12 (12-20) BUN 15 (9-16) mg/dL Creatinine 0.78 (0.5-1.4) mg/dL Estim Creat Clear Calc 67.4 Estimated GFR > 60 Random Glucose 86 (60-115) mg/dL Calcium 9.6 (8.4-10.2) mg/dL Magnesium 2.3 (1.6-2.6) mg/dL Total Bilirubin 0.5 (0.0-1.0) mg/dL Direct Bilirubin 0.2 (0.0-0.5) mg/dL AST 29 (5-31) U/L ALT 52 H (0-31) U/L Alkaline Phosphatase 120 H (39-117) U/L Troponin I High Sens 4.2 (<3.5-17.0) ng/L Total Protein 6.7 (6.5-8.0) g/dL Albumin 3.9 (3.5-5.0) g/dL Urine Color Yellow Urine Appearance Clear Urine pH 7.0 (5.0-9.0) Ur Specific [place] 1.010 (1.005-1.025) Urine Protein 30 (1+) H (Neg-Trace) mg/dL Urine Glucose (UA) Negative (Negative) mg/dL Urine Ketones Negative (Negative) mg/dL Urine Blood Trace H (Negative) Urine Nitrite Negative (Negative) Ur Leukocyte Esterase Moderate (2+) H (Negative) Urine RBC 0-2 (0-2) /HPF Urine WBC 21-50 H (0-5) /HPF Ur Squamous Epith Cells 3-5 (0-2) /HPF Urine Bacteria None Seen (None Seen) Hyaline Casts 0-2 (0-2) /LPF Influenza Type A (PCR) NEGATIVE (Negative) Influenza Type B (PCR) NEGATIVE (Negative) RSV RNA Qual (PCR) NEGATIVE (Negative) SARS-CoV-2 RNA (RT-PCR) NEGATIVE (Negative) Independent Interpretation I performed an independent interpretation of an: EKG, Plain X-Ray and CT Scan Radiology Impression Discussion of test interpretation with radiology: I have reviewed the radiologist's reading. Independent Historian Clinical information obtained from an independent historian. History obtained from or confirmed by: EMS External Record Review External record reviewed: Inpatient record, Office record, Outpatient record, Prior outpatient labs, Prior outpatient radiology, Primary care record and Outside ED record Tests considered The following testing was considered but not selected: As above Prescription Management I considered prescription management with: Other Chronic Conditions Patient?s care impacted by: Hypertension and Cancer Social Determinants Patient?s care significantly limited by Social Determinants of Health including: Other Social Determinant of Health Discharge Plan Discharge Clinical Impression: Dizziness Patient Disposition: Home, Self-Care Additional Instructions: Your head CT and chest x-ray are unremarkable Please have close follow up with your primary care doctor You may benefit from an outpatient MRI In addition follow up with Neurology If her symptoms persist or worsen, dizziness becomes more constant, you have chest pain, shortness breath, headache, vision change or loss, or weakness return to the ED Prescriptions: No Action aspirin 81 mg Tablet 81 mg PO DAILY cholecalciferol (vitamin D3) [Vitamin D3] 25 mcg (1,000 unit) Tablet 25 mcg PO DAILY rosuvastatin 40 mg tablet 40 mg PO DAILY metoprolol succinate 50 mg tablet extended release 24 hr 50 mg PO DAILY diltiazem HCl 240 mg capsule,extended release 24hr 240 mg PO DAILY valsartan 320 mg tablet 160 mg PO BID albuterol sulfate 90 mcg/actuation HFA aerosol inhaler 1 puff inhalation Q4H PRN (Reason: Shortness Of Breath) Qty: 1 0RF metformin 1,000 mg tablet 1,000 mg PO DAILY Referrals: [facility] Neuro/Sleep [Provider Group] Marissa Garcia MD [Primary Care Provider] - 5 days Print Language: Tanzanian
[2024-05-31 17:43] VITALS: BP 177/84; BP 181/54; PULSE 60; PULSE 64; RESP 18; TEMP 36.6; O2SAT 100; O2SAT 97; BMI 31.9
[2024-05-31 17:49] VITALS: BP 181/54; PULSE 64; RESP 18; TEMP 36.6; O2SAT 97
--- OUTSIDE RECORDS SUMMARY | 2024-05-31 18:00 | XMS_ITS | Clinical Summary ---
Author Organization [address] [place] [address] [place] [phone] Phone Care Team Providers Care Harvesting Supervisor Name Role Phone Andresshirley Gabi Gant NP [...] aspirin and statin as prescribed. Bladder cancer ([facility] V24, [facility] V28) 2020 Overview (11/08/2023): Being followed by [facility] urologist Dr. Sai Castellanos, s/p transurethral resection, papillary urothelial carcinoma COPD (chronic obstructive pu lmonary disease) ([facility] V24, [facility] V28) 03/01/2020 Dizziness 03/01/2020 Overview [...] Type Department Care Team Description 05/21/2024 Telephone [facility] - [address] [place] [phone] Sheron Vizcaino NP Prior Auth (Valsartan 160MG tablets) 04/21/2024 2:10 PM EDT - 04/21/2024 11:59 PM EDT Hospital Encounter [facility] CT Scan [address] [place] [phone] Encounter for screening for malignant neoplasm of respiratory organs; Nicotine dependence, cigarettes, uncomplicated Discharge Disposition: Home or Self Care 04/01/2024 Telephone Lung Screening Program - [place] [address] [facility] [address] [place] [phone] Manju oCrado [place] Appointment 03/17/2024 12:15 PM EST Anesthesia Event [facility] Endoscopy [address] [place] [phone] Jarad Alba DO Gomes, Sheldon B, MD 03/17/2024 11:12 AM EST - 03/17/2024 11:59 PM EST Hospital Encounter [facility] Endoscopy [address] [place] [phone] Greg Anaya DO Korobkov, Vitaliy, DO Special [...] DX:Dizziness COPD (chronic obstructive pu lmonary disease) ([facility] V[facility], [facility] V28) 03/01/2020 DX:COPD (chronic o bstructive pulmonary disease) (HCC) Bladder cancer ([facility] V24, [facility] V28) 03/01/2020 DX:Bladder cancer (HCC); COM MENT: Being followed by [facility] urologist Dr. Sai Castellanos, s/p transurethral resection, [...] Description 11/17/2024 9:15 AM EDT Ancillary Procedure [facility] Cardiology [facility] [address] [place] [address] 11/20/2024 10:50 AM EDT Office Visit [facility] Cardiology [facility] [address] [place] [address] [address] [place] [address] Mamadou Springer MD [address] [place] [address] [address] [place] [address] 01/02/2025 10:30 AM EST Office Visit Vascular Surgery - [place] [address] [place] [address] Ladarius Muro MD [address] [place] [address] Health Maintenance Due Date Last Done Comments [...] Signed Date: 04/22/2024 09:50 ET Workstation ID: [id number] Transcribed By: Self Edit Transcribed Date: 04/22/2024 [...] Signed Date: 04/22/2024 09:50 ET Workstation ID: [id number] Transcribed By: Self Edit Transcribed Date: 04/22/2024 09:37 ET Mercy Davis MD [facility] [place]ED[place] Final Result * COLONOSCOPY Anesthesia - MAC; [facility] ENDOSCOPY (03/17/2024 12:33 PM EST) Anatomical Region [...] pathology results. Narrative 03/17/2024 12:35 PM EST [facility] GI Patient Name: Barby Simpson Procedure Date: 03/17/2024 12:10 PM Date of : 1950 Age: 73 Gender: Female Note Status: Finalized Attending MD: Greg Anaya DO, [id number] Procedure Date No Time: 03/17/2024 Procedure: ? [...] physician, the nurse, the ? anesthesiologist, the art psychotherapist and the coroner forensic technician ? in the pre-procedure area in [...] Procedure Code(s): ? --- Professional --- ? 71766, Colonoscopy, flexible; with removal of ? tumor(s), polyp(s), or other lesion(s) by snare ? technique Diagnosis Code(s): ? --- Professional --- ? Z12.11, Encounter for screening for malignant neoplasm ? of colon ? K64.9, Unspecified hemorrhoids ? D12.5, Benign neoplasm of sigmoid colon CPT copyright 2020 [employer]. All rights reserved. The codes documented in this report are preliminary and upon restaurant front manager review may be revised to meet current compliance requirements. GREG Anaya DO 03/17/2024 12:35:25 PM This report has been signed electronically.Greg Anaya DO Number of Addenda: 0 Note Initiated On: 03/17/2024 12:10 PM Scope Withdrawal Time: 0 hours 8 minutes 21 seconds Scope In: 12:20:23 PM Scope Out: 12:32:43 PM ? Endoscopy Department at [facility] - [address] [place] [address], ? [place] [address] Procedure Note Greg Anaya DO - 03/17/2024 [facility] GI Patient Name: Barby Simpson Procedure Date: 03/17/2024 12:10 PM Date of : 1950 Age: 73 Gender: Female Note Status: Finalized Attending MD: Greg Anaya DO, [id number] Procedure Date No Time: 03/17/2024 Procedure: Colonoscopy [...] the physician, the nurse, the anesthesiologist, the art psychotherapist and thetechnician in the pre-procedure area in [...] retroflexion views. Procedure Code(s): --- Professional --- 14152, Colonoscopy, flexible; with removal of tumor(s), polyp(s), or other lesion(s) by snare technique Diagnosis Code(s): --- Professional --- Z12.11, Encounter for screening for malignantneoplasm of colon K64.9, Unspecified hemorrhoids D12.5, Benign neoplasm of sigmoid colon CPT copyright 2020 [employer]. All rights reserved. The codes documented in this report are preliminary and upon restaurant front manager reviewmay be revised to meet current compliance requirements. GREG Anaya DO 03/17/2024 12:35:25 PM This report has been signed electronically.Greg Anaya DO Number of Addenda: 0 Note Initiated On: 03/17/2024 12:10 PM Scope Withdrawal Time: 0 hours 8 minutes 21 seconds Scope In: 12:20:23 PM Scope Out: 12:32:43 PM Endoscopy Department at [facility] - [address] [place] [phone] IMPRESSION: - Hemorrhoids found on perianal exam. [...] deeper levels were examined. 03/19/2024 9:18 AM [facility] Gross Description A. Large Intestine, Sigmoid Colon, polyp x1: Labeled polyp x 1 Sig colon . Received in formalin is a soft, plasencia-red, 0.5 cm in greatest diameter polypoid tissue with minimal attached fecal/food debris, which is inked black, wrapped in paper and submitted in toto in one cassette, one piece, one + multiple pieces, multiple levels. TS 03/19/2024 9:18 AM [facility] Disclaimer Unless otherwise specified, all tissue is 10% NB formalin fixed and paraffin embedded. 03/19/2024 9:18 AM [facility] Tissue Sigmoid colon structure / Unknown 03/17/2024 12:29 PM EST 03/17/2024 1:03 PM EST us Greg Anaya DO LAB PATHOLOGY ORDERABLES Final R esult [facility] [address] [place] [address], * Annual BMP Blood Test (01/02/2022) Annual [...] Most Recently Relevant to Health Maintenance Insurance [facility] MEDICARE ADVANTAGE Care Teams Harvesting Supervisor Relationship Specialty Start Date End Date Gabi Plasencia NP NPI: [id number] [place] [id number] PCP - General 10/26/22
--- OUTSIDE RECORDS SUMMARY | 2024-05-31 18:00 | XMS_ITS | Patient Health Record ---
[facility] Address [address] [place] [address] Care Team Providers Care Nurse Name Role Phone Cole Yanes MD Primary Care Provider Nancy Keane Unavailable [phone] Allergies Allergen (clinical drug ingredient) Drug/Non Drug [...] Date [employer] [place] Medicare Advantage [address] [facility] [address] [place] [id number] Barby Simpson Self - patient is the [...]
--- OUTSIDE RECORDS SUMMARY | 2024-05-31 18:00 | XMS_ITS | Data Portability ---
Author Organization VERONICA Isaac [address]ake [address] Address [address] [place] [address] Assessment No assessment recorded. Plan of Treatment Reminders Order Date Submit Date Provider Last Modified By Organization Details Last Modified Time Details Appointments None recorded. Lab None recorded. Referral None recorded. Procedures None recorded. Surgeries None recorded. Imaging None recorded. Medication Orders Augmentin 875 mg-125 mg tablet 2022 023 [facility], [address] [place], [address], 13:53:26 Patient TargetsNo targets recorded. Patient Instructions Encounter Date Encounter Id Patient Instructions Last Modified By Organization Details Last Modified Time 03/07/2022 [id number] tooth and gum pain: care instructions [email or web address] Not available 03/07/2022 13:53:41 Reason for Referral None Reported. Problems Name Problem SNOMED Code Status Onset Date Resolution Date Notes Provider Name and Address Organization Details Recorded Time Hyperlipide tyrone 84222417 Active 2022 CHENG us, PA - [facility] 13:13:20 Hypertensiv e disorder 84291580 Active 2022 CHENG CLARK null, PA - [facility] 13:13:44 Chronic obstructive pulmonary disease 39537410 Active 2022 CHENG CLARK null, PA - [facility] 13:13:57 Asthma 532189799 Active 2022 CEHNG CLARK null, PA - [facility] 13:14:04 Malignant neoplasm of urinary bladder 903780881 Active 2022 CHENG CLARK null, PA - [facility] 13:14:37 Peripheral vascular disease 271058381 Active 2022 CHENG CLARK null, PA - [facility] 13:14:50 Arthritis 7506842 Active 2022 CHENG CLARK null, PA - [facility] 13:14:55 Tuberculosi s 96427529 Completed 196902/12/1969 CHENG CLARK null, PA - [...] Name and Address Organization Details Recorded Time 899618 doxycycli ne Not available rash Not available Not available 03/07/2022 3640 RxNorm CHENG CLARK null, PA - [facility] 13:09:50 729321 erythromy augustine medicatio n rash Not available Not available 03/07/2022 4053 RxNorm CHENG DANGELOEY null, PA - [facility] 13:10:00 067291 Bactrim medicatio n rash Not available Not available 03/07/2022 59419 9 RxNorm CHENG DANGELOEY null, PA - [facility] 13:10:06 046146 lisinopri l medicatio n other Not available Not available 03/07/2022 55890 RxNorm Back pain CHENG DANGELOEY null, PA - [facility] 13:10:23 087732 Celebrex medicatio n other Not available Not available 03/07/2022 13573 7 RxNorm vagin al bleed ing CHENG CLARK null, PA - [facility] 13:10:41 906146 fentanyl medicatio n nausea Not available Not available 03/07/2022 4337 RxNorm CHENG CLARK null, PA - [facility] 13:10:49 426184 oxycodone medicatio n vomiting Not available Not available 03/07/2022 7804 RxNorm CHENG CLARK null, PA - [facility] 13:10:56 173028 honey bee venom medicatio n swelling wheezing Not available Not available Not available 03/07/2022 11483 7 RxNorm CHENG CLARK null, PA - [facility] 13:11:38 514401 Iodinated contrast media (substanc e) medicatio n rash Not available Not available 03/07/2022 06934 2004 SNOMED IVP dye CHENG CLARK null, PA - [facility] 13:12:10 506828 influenza virus vaccine, specific Not available wheezing Not available Not available 03/07/2022 69051 UNK CHENG CLARK null, [facility] - [facility] [...] Last Updated DateTime 162.56 cm 31.6 kg/m2 37562 g 9 18 /min 98 % 98 % 57 /min 97.7 [degF] 144 mm[Hg] 83 mm[Hg] CHENG V[employer] [employer] 13:19:13 Social History Question Answer Notes LastModified by Organizat ion Details LastModified Time Tobacco Smoking Status Current Every Day Smoker states she quit one week ago VERONICA [facility] [email or web address] 03/07/2022 13:16:05 What Is Your Level Of Alcohol Consumption? None [email or web address] Information not available 03/07/2022 How Much Tobacco Do You Smoke? 1 PPD [email or web address] Information not available 03/07/2022 Do You Use Any Illicit Or Recreational Drugs? No [email or web address] Information not available 03/07/2022 Have You Recently Traveled Abroad? No Information not available 03/07/2022 Do You Or Have You Ever Used Any Other Forms Of Tobacco Or Nicotine? No [email or web address] Information not available 03/07/2022 Sex: Unknown Functional Status None recorded. Mental Status None recorded. Family History Relationship Description Onset Age of this Age Resolved Age Notes LastModified by Organization Details LastModified Time Father No current problems or disability [email or web address] Not available 03/07 13:14:42 Mother No current problems or disability [email or web address] Not available 03/07 13:14:42 Medical History No medical history recorded. Gynecological HistoryNo gynecological history recorded. Obstetrics History GPAL:G 0 P 0 0 0 0 Past Encounters Encounter ID Performer Location Encounter Start Date Encounter Closed Date Diagnosis/Indication Diagnosis SNOMED-CT Code Diagnosis ICD10 Code Diagnosis Note [id number] [address] [facility] [place] [address] 07/29/2016 12:54:00 07/29/2016 14:05:27 [id number] [address] [place] [address] 12/03/2016 17:29:38 12/03/2016 18:17:30 [id number] [address] [place] [address] 10/14/2015 16:58:58 10/14/2015 17:35:12 [id number] [address] [place] [address] 01/18/2018 15:15:21 01/18/2018 16:22:10 [id number] [address] [place] [address] 11/14/2016 18:30:39 11/14/2016 19:15:48 [id number] [address] [place] [address] 11/25/2016 12:38:26 11/25/2016 13:20:32 [id number] [address] [place] [address] 04/10/2018 13:29:03 04/10/2018 14:26:08 [id number] [address] [place] [address] 11/14/2019 18:51:13 11/14/2019 19:56:47 [id number] [address] [place] [address] 07/18/2016 08:38:29 07/18/2016 09:45:33 [id number] [address] [facility] [place] [address] 07/15/2021 17:49:42 07/15/2021 19:43:51 [id number] [address] [place] [address] 11/20/2017 14:31:15 11/20/2017 17:24:50 [id number] [address] [facility] [place] [address] 06/20/2016 18:29:51 06/20/2016 19:42:33 [id number] [address] [place] [address] 04/24/2018 09:56:37 04/24/2018 10:32:59 [id number] [address] [place] [address] 12/02/2021 13:07:16 12/02/2021 15:17:01 [id number] [address] [place] [address] 04/03/2015 10:57:23 04/03/2015 12:32:36 [id number] [address] [facility] [place] [address] 07/18/2018 18:08:14 07/18/2018 18:57:09 [id number] [address] [facility] [place] [address] 12/20/2014 13:42:57 12/20/2014 14:47:10 [id number] Bernard Harvey [place] [address] [facility] [place] [address] 03/07/2022 12:23:43 03/07/2022 14:06:03 Dental abscess [id number] K04.7 Pain where tooth pulled with swelling. [...] - MEDICARE ADVANTAGE PLAN (MEDICARE REPLACEMENT HMO) [id number] 01 Barby A A Calvin [id number] Barby A Calvin 11/14/2019 1 [employer] [place] - MEDICARE ADVANTAGE PLAN (MEDICARE REPLACEMENT HMO) [id number] 01 Barby A A Calvin [id number] Barby A Calvin 07/15/2021 1 [facility] [place] - MEDICARE ADVANTAGE PLAN (MEDICARE REPLACEMENT HMO) [id number] 01 Barby A A Calvin [id number] Barby A Aclvin 12/02/2021 1 [facility] [place] - MEDICARE ADVANTAGE PLAN (MEDICARE REPLACEMENT HMO) [id number] 01 Barby A A Calvin [id number] Barby A Calvin 03/07/2022 1 [facility] [place] - MEDICARE ADVANTAGE PLAN (MEDICARE REPLACEMENT HMO) [id number] 01 Barby A A Calvin [id number] Barby A Calvin Notes Date Note Type Note Provider Name and Address Organization Details Recorded Time 03/07/2022 text/html Had tooth pulled , an was put on Amoxicillin pre and post op. Follow [facility] Dentist Sunday and restarted Amoxicillin which is not making any difference. Pain worsening, facial pain on the left Bernard Harvey MD [address] [place] [address] [place], [address], [place] - [facility] 03/07/2022 13:57:22 OBGyn Episode No OBEpisode recorded.
--- OUTSIDE RECORDS SUMMARY | 2024-05-31 18:00 | XMS_ITS | Continuity of Care Document ---
Author Organization [facility] Address [address] [place] [address] Phone Care Team Providers Care Java J2Ee Software Engineer Name Role Phone Peewee COLLINS FACS RVT [...] Providers Copied on Encounter [facility], [address], [place], [id number], [place] tel:[phone] R [facility] No Information 4 Peewee COLLINS FACS MARKT DOROTHY Duenas. [address] [facility] [address] [facility] [address], [facility] [address], [place]. tel:[phone] Office/Outpt E&M Established 15 Mins [facility], [address] [place] [address] [address], [place], [id number], [place] tel:[phone] CV[place] - [place] - [place] Venous insufficiency (chronic) (peripheral)Ly mphedema, not elsewhere classified 4 Rahul COLLINS, RVT, [facility] Hern[place]. [address], [address], [facility] [place] [place], [id number] , [place]. tel:[phone] Referring Provider: Qamar Vides MD FACS T [facility], [address], [place], [address]. tel:[phone] Office/Outpt E&M Established 15 Mins [facility], [address] [place] [address] [address], [place], [id number], [place] tel:[phone] CVR - [place] Venous insufficiency (chronic) (peripheral)Ly mphedema, not elsewhere classified 3 Peewee COLLINS FACS T [facility] Qamar Duenas. [address], [address], [place], [address], [place]. tel:[phone] Referring Provider: Qamar Vides MD FACS T [facility], [facility] [address], [place], [address]. tel:[phone] Office/Outpt E&M Established 25 Mins [facility], [address] [place] [address] [address], [place], [id number], [place] tel:[phone] CVR - [place] - [place] Venous insufficiency (chronic) (peripheral)Lo calized edema 3 Peewee COLLINS FACS T [facility] Qamar Duenas. [address], [address], [place], [address], [place]. tel:[phone] Referring Provider: Qamar Vides MD FACS T [facility], [address], [place], [address]. tel:[phone] Family History Family Member Type Diagnosis Age At Onset No Information Payers Payer name Insurance type Covered republican ID Samir gruber(s) [facility] [id number] Social History Type Description Quantity Date Captured Comments Sex Female Smoking Status No Information Chief Complaint And Reason For Visit No Information Reason For Referral Reason For Referral No Information Plan Of Treatment Date Type Action Status Goal Diet education completed Goal Tobacco cessation counseling completed Goal Tobacco cessation counseling completed Goal Tobacco cessation counseling completed Referral Ordered: Weight management: Referral to physician timeframe: 3 Months (related to Body mass index (BMI) 31.0-31.9, adult) ordered History Of Present Illness Encounter Date Complaint History Of Prese nt Illness No Information Functional Status Date Functional Assessmen t No Information Instructions Date Instruction Additional Infor mation Lifestyle education Related to B radha mass index (BMI) 31.0-31.9, adult Giving Encouragement to exercise Related to Body mass index (BMI) 31.0-31.9, adult Diet education Related to Body mass index (BMI) 31.0-31.9, adult Patient education booklet given Related to Venous insufficiency (chronic) (peripheral) Compression stocking usage as conservative measure Related to Venous insufficiency (chronic) (peripheral) Patient education booklet given Related to Venous Insufficiency (Chronic / Peripheral) Continue compression stocking us e Related to Venous Insufficiency (Chronic / Peripheral) Assessments Type Assessment Date No Information Patient Care Teams Name Effective Dates (start - stop) Status Members No Information
--- OUTSIDE RECORDS SUMMARY | 2024-05-31 18:00 | XMS_ITS ---
Author Organization [address] [place] [address] [place] [address] Phone Care Team Providers Care Drop Forge Hand Name Role Phone Gabi Plasencia Alfreda [facility] Primary Care Provide r Active Problems Problem [...] V28) 2020 Overview (11/08/2023): Being followed by [facility] urologist Dr. Sai Castellanos, s/p transurethral resection, papillary urothelial carcinoma COPD (chronic obstructive pu lmonary disease) ([facility] V24, [facility] V28) 03/01/2020 Dizziness 03/01/2020 Overview [...] treatments are documented for this patient in [facility]. Treatments may have been administered in another system. Lifetime Dose Tracking * Chemical Lifetime Dose Automatic Entry Manual Entr y Radiation (DLP) 173.71 mGy-cm 173.71 mGy-cm 0 mGy-cm CTDIvol 4.83 mGy 4.83 mGy 0 mGy
[2024-05-31] MEDS: Meclizine HCl 25 MG TABLET PO (18:01)
[2024-05-31 18:28] LABS: MANUAL DIFF FLAG NO
[2024-05-31 18:29] LABS: Basophils Absolute Auto 0.1 X10*3/uL (0.0-0.2); Basophils Percent Auto 0.9 % (0-2); Eosinophils Absolute Auto 0.3 X10*3/uL (0.0-0.4); Eosinophils Percent Auto 2.5 % (0-4); Hematocrit 41.4 % (37.0-47.0); Hemoglobin 14.4 g/dl (12.0-16.0); Imm Gran Abs Auto 0.03 X10*3/uL (0.00-0.03); Imm Gran Pct Auto 0.3 % (0.0-0.4); Lymphocytes Absolute Auto 4.2 X10*3/uL (1.2-4.9); Lymphocytes Percent Auto 35.6 % (20-40); Mean Corpuscular HGB Conc 34.8 g/dl (31.0-35.0); Mean Corpuscular Hemoglobin 31.4 pg (27.0-33.0); Mean Corpuscular Volume 90.4 fL (80.0-98.0); Mean Platelet Volume 11.1 fL (9.4-12.3); Monocytes Absolute Auto 1.1 X10*3/uL (0.1-1.2); Monocytes Percent Auto 9.8 % (2-11); Neutrophils Absolute Auto 5.9 x10*3/uL (2.0-8.3); Neutrophils Percent Auto 50.9 % (45-73); Platelet Count 259 X10*3/uL (160-400); Red Blood Count 4.58 X10*6/uL (4.20-5.50); Red Cell Distribution Width 14.4 % (11.0-16.0); White Blood Count 11.7 X10*3/uL (4.8-10.8)
[2024-05-31 18:45] LABS: Alanine Aminotransferase 52 U/L (0-31); Albumin Level 3.9 g/dL (3.5-5.0); Alkaline Phosphatase 120 U/L (39-117); Anion Gap 12 (12-20); Aspartate Amino Transferase 29 U/L (5-31); Bilirubin Direct 0.2 mg/dL (0.0-0.5); Bilirubin Total 0.5 mg/dL (0.0-1.0); Blood Urea Nitrogen 15 mg/dL (9-16); Calcium 9.6 mg/dL (8.4-10.2); Carbon Dioxide 25 mmol/L (22-29); Chloride 109 mmol/L (96-108); Creatinine Clr Calc Pharmacy 67.4; Estimated Glomerular Filt Rate > 60; Glucose Random 86 mg/dL (60-115); Magnesium 2.3 mg/dL (1.6-2.6); Potassium 3.7 mmol/L (3.3-5.1); Sodium 142 mmol/L (135-145); Total Protein 6.7 g/dL (6.5-8.0)
[2024-05-31 18:54] LABS: Troponin-I High Sensitivity 4.2 ng/L (<3.5-17.0)
[2024-05-31] MEDS: LORazepam 1 MG TABLET PO (19:04)
[2024-05-31 19:06] VITALS: BP 151/64; PULSE 57
[2024-05-31 19:07] VITALS: BP 166/64; PULSE 59
[2024-05-31 19:09] VITALS: BP 165/85; PULSE 60
[2024-05-31 19:09] LABS: Influenza A PCR NEGATIVE (Negative); Influenza B PCR NEGATIVE (Negative); Resp Syncy Virus RNA Qual PCR NEGATIVE (Negative); SARS COV2 PCR INHOUSE NEGATIVE (Negative)
[2024-05-31 19:35] LABS: Appearance Urine Clear; Color Urine Yellow; Glucose Urine UA Negative (Negative); Leukocyte Esterase Urine Moderate (2+) (Negative); Nitrite Urine Negative (Negative); UMIC TRIGGER UACC YES; Urine Blood Trace (Negative); Urine Ketones Negative (Negative); Urine Protein 30 (1+) mg/dL (Neg-Trace)
[2024-05-31 19:37] LABS: Bacteria Urine None Seen (None Seen); Hyaline Casts Urine 0-2 /LPF (0-2); RBC Urine 0-2 /HPF (0-2); UACC Culture Trigger YES; WBC Urine 21-50 /HPF (0-5)
[2024-05-31 20:41] VITALS: BP 139/61; PULSE 60; RESP 14; TEMP 36.8; O2SAT 95
== END 2024-05-31 20:51 | disposition home or self-care (01) ==
PROVIDERS: Physician Assistant; Emergency Provider Internal Medicine; PCP Internal Medicine
DX: R42 Dizziness and giddiness (principal); R51.9 Headache, unspecified; J44.9 Chronic obstructive pulmonary disease, unspecified; I10 Essential (primary) hypertension; Z79.899 Other long term (current) drug therapy; Z03.818 Encounter for observation for suspected exposure to other biological agents ruled out
CPT/HCPCS: 0241U; 70450; 71045; 80048; 80076; 81001; 83735; 84484; 85025; 87086; 93005; 99284; 99285

== ENCOUNTER → 2024-05-31 17:37 | Outpatient (BNV) | payer MEDICARE, SELFPAY | PROVIDERS: Emergency Provider Internal Medicine; PCP Internal Medicine; Visit Provider Specialist | DX: R42 Dizziness and giddiness (principal) | CPT/HCPCS: 70450; 71045 ==

== ENCOUNTER → 2024-05-31 17:38 | Outpatient (BNV) | payer MEDICARE, SELFPAY | PROVIDERS: Emergency Provider Internal Medicine; PCP Internal Medicine; Visit Provider Internal Medicine Cardiovascular Disease | DX: R00.1 Bradycardia, unspecified (principal) | CPT/HCPCS: 93010 ==

== ENCOUNTER 2024-06-03 10:48 | Outpatient (AMB) | payer MEDICARE, SELFPAY ==
--- NOTE | 2024-06-03 11:02 | MHC.OFFVIS ---
Intake Visit Reasons: cysto Intake Note: Barby 74 yr old female presents today for a cystoscopy exam. Allergies bee pollen [BEE STINGS] Allergy (Severe, Verified 06/03/24 11:04) ANAPHYLAXIS influenza virus vaccine, specific [Influenza Virus Vacc,Specific] Allergy (Severe, Verified 06/03/24 11:04) DIFFICULTY BREATHING celecoxib [Celebrex] Allergy (Intermediate, Verified 06/03/24 11:04) vaginal bleeding doxycycline [DOXYCYCLINE] Allergy (Intermediate, Verified 06/03/24 11:04) RASH erythromycin base [ERYTHROMYCIN BASE] Allergy (Intermediate, Verified 06/03/24 11:04) RASH Iodinated Contrast Media [IV DYE, IODINE CONTAINING] Allergy (Intermediate, Verified 06/03/24 11:04) RASH lisinopril [LISINOPRIL] Allergy (Intermediate, Verified 06/03/24 11:04) HIVES pentazocine [From Talwin] Allergy (Intermediate, Verified 06/03/24 11:04) Hallucinations sulfamethoxazole [From BACTRIM] Allergy (Intermediate, Verified 06/03/24 11:04) RASH trimethoprim [From BACTRIM] Allergy (Intermediate, Verified 06/03/24 11:04) RASH fentanyl [FENTANYL] Adverse Reaction (Intermediate, Verified 06/03/24 11:04) NAUSEA & VOMITING naproxen [Naprosyn] Adverse Reaction (Intermediate, Verified 06/03/24 11:04) Gastrointestinal Upset oxycodone [Percocet] Adverse Reaction (Intermediate, Verified 06/03/24 11:04) Gastrointestinal Upset HPI Comments Details: Barby is a very pleasant female. She is a patient of Dr. Yanes. She is seen for the following urologic conditions - bladder cancer - bladder trabeculations Six-month follow-up cystoscopy Will continue for 5 years Recent diagnosis with diabetes Failed to tolerate metformin Bladder cancer low-grade noninvasive June 2019, December 2019, December 2020, October 2022 Diagnosis June 2019 Bladder interventions - TURBT August 2019 low-grade noninvasive, TURBT Dec 2019 low-grade noninvasive, 01/02 low-grade TA, 11/04 low grade with [facility] Longstanding smoking history 35 pack-years Cystoscopy - 4 NAD, 6 recurrent lesion, 2 NAD, 5 NAD, 10/03 NAD, 01/03 Cytology 1 NAD, 4/21 atypical, 04/05 NAD, 824 NAD Adjuvant therapy - 02/01 6 week gemcitabine, 08/03 3 week, 01/03 3 week, 08/05 3 week boost mitomycin with cytarabine PFSH Medical History COVID-19 vaccine series completed Skin cancer Lumbar disc herniation Hx of compression fracture of spine Positive PPD, treated Kidney stone Lesion of urinary bladder Blood clot in vein COPD (chronic obstructive pulmonary disease) Asthma High cholesterol Hypertension Surgical History Hx of dilation and curettage H/O colonoscopy Hx of cataract extraction Hx of cystoscopy Hx of cholecystectomy Social History Are you a primary child care centre manager to a significant other at home: No Do you presently have visiting nurse or other home services: No Patient Tobacco Use Status: Current everyday Tobacco user Tobacco use type: Cigarette Cigarette Packs Per Day: 0.5 Cigarettes Per Day: 10.0 Years Smoked: 35 Review of Systems Const Denies chills and Denies fever(s) Card Reports no additional complaints and Denies syncope Resp Denies cough GI Denies abdominal pain and Denies heartburn Reports as per HPI and Denies change in libido Neuro Denies syncope Psych Denies change in libido Endo Denies change in libido Physical Exam Const General: cooperative, healthy appearing, comfortable and no acute distress Orientation/consciousness: patient oriented x3 HEENT Face and sinus: Yes normal facial exam Mouth: moist mucous membranes Neck Neck: Yes normal visual inspection, Yes full ROM and Yes trachea midline Chest Chest palpation & inspection: normal inspection of the chest Resp Effort & Inspection: normal respiratory effort, able to speak in complete sentences and no respiratory distress GI Inspection: Yes normal to inspection Back/Spine/Pelvis Cervical Spine: normal cervical lordosis Thoracic/Lumbar Spine: thoracic and lumbar spine normal to inspection Skin General skin exam: no rashes or lesions noted Neuro General: patient oriented x3, gait normal, tone normal and moves all extremities Extrem General: Yes normal to inspection and Yes capillary refill normal Office Procedures Cystoscopy Consent Discussed risk and benefit or proposed procedure with the patient. Information consent for procedure given to the patient. Discussed technical aspects, risks, benefits and alternatives in full. Addressed all of the patient's questions and concerns regarding the procedure. The patient demonstrated knowledge and understanding. They wish to proceed with this procedure. Preparation The patient was prepped in the usual manner. A business analytics faculty member was present and in the room. Genitalia was prepped with betadine solution in a sterile manner. Lidocaine Jelly 2% was placed into the urethra and 16Fr flexible Olympus cystoscope was inserted into the meatus after adequate lubrication. Procedure Meatus normal Urethra normal Bladder examination with retroflexion of cystoscope Bladder Orifices normal shape and position Trigone mild metaplasia Bladder Capacity normal Trabeculations grade 1 Cellule Formation - Diverticulum Formation - Mucosal Erythema changes consistent topical therapy Bladder Tumor - 73699-Tnczsvncwm DISPOSABLE SCOPE URO-G FLEXIBLE SCOPE Procedure code (CPT) selection complete Office Meds lidocaine HCl 2 % mucosal jelly in applicator Performing Provider: Phill Pulido MD Performing Location: [facility] Administered by: Sam Santiago LPN on 06/03/24 11:43 Dose Route Admin Location Dispensed Lot Number Expiration Date [facility] [employer] 10 mL intra-urethral 10 mL nitrofurantoin monohydrate/macrocrystals 100 mg capsule Performing Provider: Phill Pulido MD Performing Location: [facility] Administered by: Sam Santiago LPN on 06/03/24 11:43 Dose Route Admin Location Dispensed Lot Number Expiration Date [facility] [employer] 100 mg PO 1 cap Results AMB Urinalysis, Automated UA Leukoctes 0 Ally/uL Last Edit by ESDRAS Cohen on 06/03/24 11:26 UA Nitrite Negative Last Edit by ESDRAS Cohen on 06/03/24 11:26 UA Urobilinogen 0.2 mg/dL Last Edit by ESDRAS Cohen on 06/03/24 11:26 UA Protein 300 mg/dL Last Edit by ESDRAS Cohen on 06/03/24 11:26 UA pH 6.0 Last Edit by ESDRAS Cohen on 06/03/24 11:26 UA Blood 80 Luis/uL Last Edit by ESDRAS Cohen on 06/03/24 11:26 UA Specific [place] 1.025 Last Edit by ESDRAS Cohen on 06/03/24 11:26 UA Ketone Last Edit by ESDRAS Cohen on 06/03/24 11:26 UA Bilirubin 0 mg/dL Last Edit by ESDRAS Cohen on 06/03/24 11:26 UA Glucose 0 mg/dL Last Edit by ESDRAS Cohen on 06/03/24 11:26 Results Reviewed Results Reviewed: Laboratory Last Values Urine pH (Auto) 6.0 06/03/24 11:23 Specific [place] (Auto) 1.025 06/03/24 11:23 Urine Protein (Auto) 300 mg/dL 06/03/24 11:23 Glucose (UA)(Auto) 0 mg/dL 06/03/24 11:23 Urine Blood (Auto) 80 Luis/uL 06/03/24 11:23 Urine Nitrite (Auto) Negative 06/03/24 11:23 Urine Bilirubin (Auto) 0 mg/dL 06/03/24 11:23 Urine Urobilinogen (Auto) 0.2 mg/dL 06/03/24 11:23 Leukocyte Esterase (Auto) 0 Ally/uL 06/03/24 11:23 Assessment & Plan Assessment & Plan (1) Bladder cancer: Comment: recurrent superficial November 2019, December 2020 Code(s): C67.9 - Malignant neoplasm of bladder, unspecified Category: Medical Qualifiers: Bladder location: unspecified site Qualified Code(s): C67.9 - Malignant neoplasm of bladder, unspecified Plan Six-month check cysto Orders: Orders AMB Urinalysis Automated Today C67.9 - Malignant neoplasm of bladder, unspecified AMB Cystoscopy Today C67.9 - Malignant neoplasm of bladder, unspecified Patient Instructions: This note is constructed using voice recognition software. While every effort has been made to ensure accuracy screw down errors may have been included. Imaging studies, laboratory and physical exam results were discussed and reviewed in detail. No major barriers to patient understanding were identified. An opportunity to ask questions regarding the treatment plan was provided. All questions were answered. The patient expressed understanding and agreement with the above treatment plan. The patient is aware they should contact our office by phone for worsening of their current condition or the appearance of new urologic symptoms. Compliance is encouraged with any medications and followup testing that is ordered. It is a privilege to participate in the urologic care of your patient. If you have any questions or concerns regarding treatment for the above conditions, or other urologic issues, please do not hesitate to contact me. The office telephone contact is [phone]. Sincerely, Dr Phill Pulido MD, [facility] Compassionate Specialist Care for the Genitourinary System Coding Level of Care Code Est Pt Level 3 (28381) Complex EM visit Add On G2211 Diagnoses Bladder cancer C67.9 Bladder location: unspecified site CPT Codes Cystoscopy - CPT: 95828-Tzzpcjiqtl ([id number])
--- OUTSIDE RECORDS SUMMARY | 2024-06-03 12:48 | XMS_ITS ---
Author Organization [address] [place] [address] [place] [phone] Phone Care Team Providers Care Diaper Folder Name Role Phone Gabi Plasencia Alfreda SYSTEM CONSULTANT Primary Care Provide r Active Problems Problem [...] V28) 2020 Overview (11/08/2023): Being followed by [facility] urologist Dr. Sai Castellanos, s/p transurethral resection, papillary urothelial carcinoma COPD (chronic obstructive pu lmonary disease) ([facility] V24, [facility] V28) 03/01/2020 Dizziness 03/01/2020 Overview [...] treatments are documented for this patient in [facility]. Treatments may have been administered in another system. Lifetime Dose Tracking * Chemical Lifetime Dose Automatic Entry Manual Entr y Radiation (DLP) 173.71 mGy-cm 173.71 mGy-cm 0 mGy-cm CTDIvol 4.83 mGy 4.83 mGy 0 mGy
--- OUTSIDE RECORDS SUMMARY | 2024-06-03 12:48 | XMS_ITS | Data Portability ---
Author Organization VERONICA Isaac jake [address] Address [address] [place] [address] Assessment No assessment recorded. Plan of Treatment Reminders Order Date Submit Date Provider Last Modified By Organization Details Last Modified Time Details Appointments None recorded. Lab None recorded. Referral None recorded. Procedures None recorded. Surgeries None recorded. Imaging None recorded. Medication Orders Augmentin 875 mg-125 mg tablet 2022 023 [facility], [address] [place], [address], 13:53:26 Patient TargetsNo targets recorded. Patient Instructions Encounter Date Encounter Id Patient Instructions Last Modified By Organization Details Last Modified Time 03/07/2022 [id number] tooth and gum pain: care instructions [email or web address] Not available 03/07/2022 13:53:41 Reason for Referral None Reported. Problems Name Problem SNOMED Code Status Onset Date Resolution Date Notes Provider Name and Address Organization Details Recorded Time Hyperlipide tyrone 09057699 Active 2022 CHENG us, PA - [facility] 13:13:20 Hypertensiv e disorder 17736918 Active 2022 CHENG CLARK null, PA - [facility] 13:13:44 Chronic obstructive pulmonary disease 33035663 Active 2022 CHENG CLARK null, PA - [facility] 13:13:57 Asthma 108143073 Active 2022 CHENG CLARK null, PA - [facility] 13:14:04 Malignant neoplasm of urinary bladder 683861553 Active 2022 CHENG CLARK null, PA - [facility] 13:14:37 Peripheral vascular disease 404633049 Active 2022 CHENG CLARK null, PA - [facility] 13:14:50 Arthritis 6239027 Active 2022 CHENG CLARK null, PA - [facility] 13:14:55 Tuberculosi s 66197629 Completed 196902/12/1969 CHENG CLARK null, PA - [...] Name and Address Organization Details Recorded Time 074209 doxycycli ne Not available rash Not available Not available 03/07/2022 3640 RxNorm CHENG CLARK null, PA - [facility] 13:09:50 689031 erythromy augustine medicatio n rash Not available Not available 03/07/2022 4053 RxNorm CHENG DANGELOEY null, PA - [facility] 3 13:10:00 303463 Bactrim medicatio n rash Not available Not available 03/07/2022 47957 9 RxNorm CHENG DANGELOEY null, PA - [facility] 13:10:06 061632 lisinopri l medicatio n other Not available Not available 03/07/2022 61168 RxNorm Back pain CHENG DANGELOEY null, PA - [facility] 13:10:23 321070 Celebrex medicatio n other Not available Not available 03/07/2022 14092 7 RxNorm vagin al bleed ing CHENG CLARK null, PA - [facility] 13:10:41 873423 fentanyl medicatio n nausea Not available Not available 03/07/2022 4337 RxNorm CHENG CLARK null, PA - [facility] 13:10:49 338406 oxycodone medicatio n vomiting Not available Not available 03/07/2022 7804 RxNorm CHENG CLARK null, PA - [facility] 13:10:56 779194 honey bee venom medicatio n swelling wheezing Not available Not available Not available 03/07/2022 76382 7 RxNorm CHENG CLARK null, PA - [facility] 3 13:11:38 233727 Iodinated contrast media (substanc e) medicatio n rash Not available Not available 03/07/2022 06013 2004 SNOMED IVP dye CHENG CLARK null, PA - [facility] 13:12:10 839025 influenza virus vaccine, specific Not available wheezing Not available Not available 03/07/2022 20631 UNK CHENG CLARK null, [facility] - [facility] [...] Last Updated DateTime 162.56 cm 31.6 kg/m2 47045 g 9 18 /min 98 % 98 % 57 /min 97.7 [degF] 144 mm[Hg] 83 mm[Hg] CHENG [employer] 13:19:13 Social History Question Answer Notes LastModified by Organizat ion Details LastModified Time Tobacco Smoking Status Current Every Day Smoker states she quit one week ago VERONICA Hannon [employer] 03/07/2022 13:16:05 What Is Your Level Of Alcohol Consumption? None [email or web address] Information not available 03/07/2022 How Much Tobacco Do You Smoke? 1 PPD [email or web address] Information not available 03/07/2022 Do You Use Any Illicit Or Recreational Drugs? No [email or web address] Information not available 03/07/2022 Have You Recently Traveled Abroad? No Information not available 03/07/2022 Do You Or Have You Ever Used Any Other Forms Of Tobacco Or Nicotine? No [email or web address] Information not available 03/07/2022 Sex: Unknown Functional Status None recorded. Mental Status None recorded. Family History Relationship Description Onset Age of this Age Resolved Age Notes LastModified by Organization Details LastModified Time Father No current problems or disability [email or web address] Not available 03/07 13:14:42 Mother No current problems or disability [email or web address] Not available 03/07 13:14:42 Medical History No medical history recorded. Gynecological HistoryNo gynecological history recorded. Obstetrics History GPAL:G 0 P 0 0 0 0 Past Encounters Encounter ID Performer Location Encounter Start Date Encounter Closed Date Diagnosis/Indication Diagnosis SNOMED-CT Code Diagnosis ICD10 Code Diagnosis Note [id number] [address] [facility] [place] [address] 07/29/2016 12:54:00 07/29/2016 14:05:27 [id number] [address] [place] [address] 12/03/2016 17:29:38 12/03/2016 18:17:30 [id number] [address] [place] [address] 10/14/2015 16:58:58 10/14/2015 17:35:12 [id number] [address] [place] [address] 01/18/2018 15:15:21 01/18/2018 16:22:10 [id number] [address] [place] [address] 11/14/2016 18:30:39 11/14/2016 19:15:48 [id number] [address] [place] [address] 11/25/2016 12:38:26 11/25/2016 13:20:32 [id number] [address] [place] [address] 04/10/2018 13:29:03 04/10/2018 14:26:08 [id number] [address] [place] [address] 11/14/2019 18:51:13 11/14/2019 19:56:47 [id number] [address] [place] [address] 07/18/2016 08:38:29 07/18/2016 09:45:33 [id number] [address] [facility] [place] [address] 07/15/2021 17:49:42 07/15/2021 19:43:51 [id number] [address] [place] [address] 11/20/2017 14:31:15 11/20/2017 17:24:50 [id number] [address] [facility] [place] [address] 06/20/2016 18:29:51 06/20/2016 19:42:33 [id number] [address] [place] [address] 04/24/2018 09:56:37 04/24/2018 10:32:59 [id number] [address] [place] [address] 12/02/2021 13:07:16 12/02/2021 15:17:01 [id number] [address] [place] [address] 04/03/2015 10:57:23 04/03/2015 12:32:36 [id number] [address] [facility] [place] [address] 07/18/2018 18:08:14 07/18/2018 18:57:09 [id number] [address] [facility] [place] [address] 12/20/2014 13:42:57 12/20/2014 14:47:10 [id number] Bernard Harvey [place] [address] [facility] [place] [address] 03/07/2022 12:23:43 03/07/2022 14:06:03 Dental abscess [id number] K04.7 Pain where tooth pulled with swelling. [...] - MEDICARE ADVANTAGE PLAN (MEDICARE REPLACEMENT HMO) [id number] 01 Barby A A Calvin [id number] Barby A Calvin 11/14/2019 1 [employer] [place] - MEDICARE ADVANTAGE PLAN (MEDICARE REPLACEMENT HMO) [id number] 01 Barby A A Calvin [id number] Barby A Calvin 07/15/2021 1 [employer] [place] - MEDICARE ADVANTAGE PLAN (MEDICARE REPLACEMENT HMO) [id number] 01 Barby A A Calvin [id number] Barby A Calvin 12/02/2021 1 [employer] [place] - MEDICARE ADVANTAGE PLAN (MEDICARE REPLACEMENT HMO) [id number] 01 Barby A A Calvin [id number] Barby A Calvin 03/07/2022 1 [employer] [place] - MEDICARE ADVANTAGE PLAN (MEDICARE REPLACEMENT HMO) [id number] 01 Barby A A Calvin [id number] Barby A Calvin Notes Date Note Type Note Provider Name and Address Organization Details Recorded Time 03/07/2022 text/html Had tooth pulled , an was put on Amoxicillin pre and post op. Follow up [facility] Dentist Sunday and restarted Amoxicillin which is not making any difference. Pain worsening, facial pain on the left Bernard Harvey MD [address] [place] [address] [place], [address], PA - [facility] 03/07/2022 13:57:22 OBGyn Episode No OBEpisode recorded.
--- OUTSIDE RECORDS SUMMARY | 2024-06-03 12:49 | XMS_ITS | Continuity of Care Document ---
Author Organization [facility] Address [address] [place] [address] Phone Care Team Providers Care Marine Steward Name Role Phone Peewee COLLINS FACS RVT [...] Providers Copied on Encounter [facility], [address], [place], [id number], [place] tel:[phone] R [facility] No Information 4 Peewee COLLINS FACS MARKT DOROTHY Duenas. [address], [facility] [address], [place]. tel:[phone] Office/Outpt E&M Established 15 Mins [facility], [address] [place] [address] [address], [place], [id number], [place] tel:[phone] CV[place] - [place] Venous insufficiency (chronic) (peripheral)Ly mphedema, not elsewhere classified 4 Rahul COLLINS, RVT, [facility] [place]. [address], [address], [facility] [place], [id number] , [place]. tel:[phone] Referring Provider: Qamar Vides MD FACS T [facility], [address], [place], [address]. tel:[phone] Office/Outpt E&M Established 15 Mins [facility], [address] [place] [address] [address], [place], [id number], [place] tel:[phone] CVR - [place] Venous insufficiency (chronic) (peripheral)Ly mphedema, not elsewhere classified 3 Peewee COLLINS FACS T [facility] Qamar Duenas. [address], [address], [place], [address], [place]. tel:[phone] Referring Provider: Qamar Vides MD FACS T [facility], [facility] [facility] [address], [place], [address]. tel:[phone] Office/Outpt E&M Established 25 Mins [facility], [address] [place] [address] [address], [place], [id number], [place] tel:[phone] CVR - [place] Venous insufficiency (chronic) (peripheral)Lo calized edema 3 Peewee COLLINS FACS T [facility] Qamar Duenas. [address], [address], [place], [address], [place]. tel:[phone] Referring Provider: Qamar Vides MD FACS T [facility], [address], [place], [address]. tel:[phone] Family History Family Member Type Diagnosis Age At Onset No Information Payers Payer name Insurance type Covered alliance party ID Samir gruber(s) [facility] [id number] Social History Type Description Quantity Date Captured [...]
--- OUTSIDE RECORDS SUMMARY | 2024-06-03 12:49 | XMS_ITS | Clinical Summary ---
Author Organization [address] [place] [address] [place] [phone] Phone Care Team Providers Care Voltage Regulator Assembler Name Role Phone Andresshirley Gabi Gant NP [...] aspirin and statin as prescribed. Bladder cancer ([facility] V24, [facility] V28) 2020 Overview (11/08/2023): Being followed by [facility] urologist Dr. Sai Castellanos, s/p transurethral resection, papillary urothelial carcinoma COPD (chronic obstructive pu lmonary disease) ([facility] V24, [facility] V28) 03/01/2020 Dizziness 03/01/2020 Overview (11/08/2023): [...] Type Department Care Team Description 05/21/2024 Telephone [facility] - [address] [place] [phone] Sheron Vizcaino NP Prior Auth (Valsartan 160MG tablets) 04/21/2024 2:10 PM EDT - 04/21/2024 11:59 PM EDT Hospital Encounter [facility] CT Scan [address] [place] [address] Encounter for screening for malignant neoplasm of respiratory organs; Nicotine dependence, cigarettes, uncomplicated Discharge Disposition: Home or Self Care 04/01/2024 Telephone Lung Screening Program - [place] [address] [address] [place] [address] Manju Corado [place] Appointment 03/17/2024 12:15 PM EST Anesthesia Event [facility] Endoscopy [address] [place] [phone] Jarad Alba DO Gomes, Sheldon B, MD 03/17/2024 11:12 AM EST - 03/17/2024 11:59 PM EST Hospital Encounter [facility] Endoscopy [address] [place] [phone] Greg Anaya DO Korobkov, Vitaliy, DO Special [...] DX:Dizziness COPD (chronic obstructive pu lmonary disease) ([facility] V24, [facility] V28) 03/01/2020 DX:COPD (chronic o bstructive pulmonary disease) (HCC) Bladder cancer ([facility] V24, [facility] V28) 03/01/2020 DX:Bladder cancer (HCC); COM MENT: Being followed by [facility] urologist Dr. Sai Castellanos, s/p transurethral [...] Description 11/17/2024 9:15 AM EDT Ancillary Procedure [facility] Cardiology [facility] [address] [place] [address] 11/20/2024 10:50 AM EDT Office Visit [facility] Cardiology [facility] [address] [place] [address] [address] [place] [address] Mamadou Springer MD [address] [place] [address] [address] [place] [address] 01/02/2025 10:30 AM EST Office Visit Vascular Surgery - [place] [address] [place] [address] Ladarius Muro MD [address] [place] [address] Health Maintenance Due Date Last Done Comments [...] Blood Sugar Control Test (HGBA1C) 03/17/2024 01/02/2022 COVID-19 Vaccine (6 - Pfizer risk season) 2024 12/28/2023, 05/08/2022, 12/05/2020, Additional history exists Influenza Vaccine (Season Ended) 2024 Falls Risk Assessment 03/17/2025 03/17/2024 Lung Cancer Screening (Low Dose CT) 04/21/2025 04/21/2024, 04/20/2023, 04/18/2022, Additional history exists Cholesterol Screening (Lipid Panel) 06/07/2026 06/07/2021 DTaP,Tdap,and Td Vaccines (4 - Td or Tdap) 11/29/2032 11/29/2022, 08/15/2007, 03/25/2007 Colorectal Cancer Screening: Colonoscopy 03/17/2034 03/17/2024 Hepatitis C Screening Completed 09/12/2019 Pneumococcal Vaccine: 50+ Years Completed 06/13/2021, 12/03/2019, 10/23/2011 HIB Vaccines Aged Out No longer eligi [...] Signed Date: 04/22/2024 09:50 ET Workstation ID: [id number] Transcribed By: Self Edit Transcribed Date: 04/22/2024 [...] Signed Date: 04/22/2024 09:50 ET Workstation ID: [id number] Transcribed By: Self Edit Transcribed Date: 04/22/2024 09:37 ET Mercy Davis MD [facility] CT PROCEDURES Final Result * COLONOSCOPY Anesthesia - MAC; [facility] ENDOSCOPY (03/17/2024 12:33 PM EST) [...] pathology results. Narrative 03/17/2024 12:35 PM EST [facility] GI Patient Name: Barby Simpson Procedure Date: 03/17/2024 12:10 PM Date of : 1950 Age: 73 Gender: Female Note Status: Finalized Attending MD: Greg Anaya DO, [id number] Procedure Date No Time: 03/17/2024 Procedure: ? [...] physician, the nurse, the ? anesthesiologist, the customer sales specialist and the on call pharmacy technician ? in the pre-procedure area in [...] Procedure Code(s): ? --- Professional --- ? 67312, Colonoscopy, flexible; with removal of ? tumor(s), polyp(s), or other lesion(s) by snare ? technique Diagnosis Code(s): ? --- Professional --- ? Z12.11, Encounter for screening for malignant neoplasm ? of colon ? K64.9, Unspecified hemorrhoids ? D12.5, Benign neoplasm of sigmoid colon CPT copyright 2020 [employer]. All rights reserved. The codes documented in this report are preliminary and upon garage laborer review may be revised to meet current compliance requirements. GREG Anaya DO 03/17/2024 12:35:25 PM This report has been signed electronically.Greg Anaya DO Number of Addenda: 0 Note Initiated On: 03/17/2024 12:10 PM Scope Withdrawal Time: 0 hours 8 minutes 21 seconds Scope In: 12:20:23 PM Scope Out: 12:32:43 PM ? Endoscopy Department at [facility] - [address] [place] [address], ? [place] [address] Procedure Note Greg Anaya DO - 03/17/2024 [facility] GI Patient Name: Barby Simpson Procedure Date: 03/17/2024 12:10 PM Date of : 1950 Age: 73 Gender: Female Note Status: Finalized Attending MD: Greg Anaya DO, [id number] Procedure Date No Time: 03/17/2024 Procedure: Colonoscopy [...] the physician, the nurse, the anesthesiologist, the customer sales specialist and thetechnician in the pre-procedure area in [...] retroflexion views. Procedure Code(s): --- Professional --- 68491, Colonoscopy, flexible; with removal of tumor(s), polyp(s), or other lesion(s) by snare technique Diagnosis Code(s): --- Professional --- Z12.11, Encounter for screening for malignantneoplasm of colon K64.9, Unspecified hemorrhoids D12.5, Benign neoplasm of sigmoid colon CPT copyright 2020 [employer]. All rights reserved. The codes documented in this report are preliminary and upon garage laborer reviewmay be revised to meet current compliance requirements. GREG Anaya DO 03/17/2024 12:35:25 PM This report has been signed electronically.Greg Anaya DO Number of Addenda: 0 Note Initiated On: 03/17/2024 12:10 PM Scope Withdrawal Time: 0 hours 8 minutes 21 seconds Scope In: 12:20:23 PM Scope Out: 12:32:43 PM Endoscopy Department at [facility] - [address] [place] [address] IMPRESSION: - Hemorrhoids found on perianal exam. - One 7 mm polyp in the sigmoid colon, removed witha cold snare. Resected and retrieved. - The examination was otherwise normal on directand retroflexion views. Recommendation: - - Discharge patient to home. - High fiber diet. - Continue present medications. - Await pathology results. - Repeat colonoscopy for surveillance based on pathology results. Greg Anaya DO GI~PROCEDURE ORDERABLES Final Re sult * Tissue exam (03/17/2024 12:29 PM EST) Final Diagnosis A. Large Intestine, Sigmoid Colon, polyp x1: - Colonic mucosa with hyperplastic changes. - Negative for dysplasia. Note: Additional deeper levels were examined. 03/19/2024 9:[address] [facility] Gross Description A. Large Intestine, Sigmoid Colon, polyp x1: Labeled polyp x 1 Sig colon . Received in formalin is a soft, plasencia-red, 0.5 cm in greatest diameter polypoid tissue with minimal attached fecal/food debris, which is inked black, wrapped in paper and submitted in toto in one cassette, one piece, one + multiple pieces, multiple levels. TS 03/19/2024 9:[address] [facility] Disclaimer Unless otherwise specified, all tissue is 10% NB formalin fixed and paraffin embedded. 03/19/2024 9:[address] [facility] Tissue Sigmoid colon structure / Unknown 03/17/2024 12:29 PM EST 03/17/2024 1:03 PM EST Greg Anaya DO LAB PATHOLOGY ORDERABLES Final R esult [facility] [address] [place] [address], * Annual BMP Blood Test (01/02/2022) Annual BMP Blood Test Abstracted Historical Provider MD HEALTH MAINTENANCE Final Result * Hemoglobin A1c (01/02/2022) Hemoglobin A1C 0.0 % Comment:No Interpretation Blood Venous blood specimen / Unknown Historical Provider MD LAB BLOOD ORDERABLES Ce l Result * Lipid panel (06/07/2021) LDL/HDL Ratio 0 Comment:No Interpretation Triglycerides 0 mg/dL Comment:No Interpretation Cholesterol 0 mg/dL Comment:No Interpretation HDL 0 mg/dL Comment:No Interpretation LDL Cholesterol 0 mg/dL Comment:No Interpretation Blood Venous blood specimen / Unknown Historical Provider MD LAB BLOOD ORDERABLES Ce l Result from Last 3 Months or Most Recently Relevant to Health Maintenance Insurance [facility] MEDICARE ADVANTAGE Care Teams Voltage Regulator Assembler Relationship Specialty Start Date End Date Gabi Plasencia NP [address] [place] [id number] PCP - General 10/26/22
--- OUTSIDE RECORDS SUMMARY | 2024-06-03 12:49 | XMS_ITS | Patient Health Record ---
Author Organization [facility] [place] Address [address] [place] [address] Care Team Providers Care Manager Presentation Name Role Phone Cole Yanes MD Primary Care Provider Nancy Keane Unavailable [phone] Allergies Allergen (clinical drug ingredient) Drug/Non Drug [...] Date [place] Medicare Advantage [address] [facility] [address] [place] [id number] Barby Simpson Self - patient is the [...]
== END 2024-06-03 11:57 | disposition home or self-care (01) ==
LOC: HO.HUSH 10:49
PROVIDERS: PCP Nurse Practitioner Family; Visit Provider Urology
DX: C67.9 Malignant neoplasm of bladder, unspecified (principal)
CPT/HCPCS: 52000; 99213; G2211

== ENCOUNTER → 2024-06-03 10:48 | Outpatient (BNVA) | payer MEDICARE, SELFPAY | PROVIDERS: PCP Nurse Practitioner Family; Visit Provider Urology | DX: C67.9 Malignant neoplasm of bladder, unspecified (principal) | CPT/HCPCS: 52000; 81003; 99212 ==

== ENCOUNTER 2024-08-06 09:47 | Outpatient (AMB) | payer MEDICARE, SELFPAY ==
--- NOTE | 2024-08-06 09:49 | MHC.OFFVIS ---
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: No Accompanied by: Self / Same As Patient Allergies bee pollen (BEE STINGS) Allergy (Severe, Verified 08/06/24 09:53) ANAPHYLAXIS influenza virus vaccine, specific (Influenza Virus Vacc,Specific) Allergy (Severe, Verified 08/06/24 09:53) DIFFICULTY BREATHING celecoxib (Celebrex) Allergy (Intermediate, Verified 08/06/24 09:53) vaginal bleeding doxycycline (DOXYCYCLINE) Allergy (Intermediate, Verified 08/06/24 09:53) RASH erythromycin base (ERYTHROMYCIN BASE) Allergy (Intermediate, Verified 08/06/24 09:53) RASH Iodinated Contrast Media (IV DYE, IODINE CONTAINING) Allergy (Intermediate, Verified 08/06/24 09:53) RASH lisinopril (LISINOPRIL) Allergy (Intermediate, Verified 08/06/24 09:53) HIVES pentazocine (From Talwin) Allergy (Intermediate, Verified 08/06/24 09:53) Hallucinations sulfamethoxazole (From BACTRIM) Allergy (Intermediate, Verified 08/06/24 09:53) RASH trimethoprim (From BACTRIM) Allergy (Intermediate, Verified 08/06/24 09:53) RASH fentanyl (FENTANYL) Adverse Reaction (Intermediate, Verified 08/06/24 09:53) NAUSEA & VOMITING naproxen (Naprosyn) Adverse Reaction (Intermediate, Verified 08/06/24 09:53) Gastrointestinal Upset oxycodone (Percocet) Adverse Reaction (Intermediate, Verified 08/06/24 09:53) Gastrointestinal Upset HPI Comments Details: 08/06/2024 the patient is here for sick visit. The patient is a 74 year woman with a known history of COPD who apparently was in her usual state health until the beginning of July when she was exposed to sick contact during the consult. She started developing a fever fatigue cough and body aches. Although she decided to stay home and rest. She opted on not seeking medical advice at that point. However, her symptoms have been getting worse. She had been getting more chest tightness and coughing. Moderate severity. Feels like she has a headache and sinus congestion as well. She has been using her respiratory inhalers on home with only minimal response. Today she has significant rhonchi and wheezing on exam. The patient was given a nebulizer. She will start levofloxacin since she has multiple allergies and also start a low prednisone taper since she has adverse reactions to high doses of prednisone. She should follow-up with Pulmonary the next few weeks. If he is no better she also go for an x-ray. I did put the order in. [facility] Medical History COVID-19 vaccine series completed Skin cancer Lumbar disc herniation Hx of compression fracture of spine Positive PPD, treated Kidney stone Lesion of urinary bladder Blood clot in vein COPD (chronic obstructive pulmonary disease) Asthma High cholesterol Hypertension Surgical History Hx of dilation and curettage H/O colonoscopy Hx of cataract extraction Hx of cystoscopy Hx of cholecystectomy Social History Are you a primary managed care coordinator to a significant other at home: No Do you presently have visiting nurse or other home services: No Patient Tobacco Use Status: Current everyday Tobacco user Tobacco use type: Cigarette Cigarette Packs Per Day: 0.5 Cigarettes Per Day: 10.0 Years Smoked: 35 Review of Systems Const Denies chills, Denies excessive sweating, Reports fatigue, Denies fever(s), Denies headache(s) and Denies night sweats Eyes Denies dry eyes, Denies irritation and Denies itchy eyes ENT Reports Normal hearing present and Denies headache(s) Card Denies chest pain, Denies chest pain at rest, Denies chest pain with activity, Denies claudication, Denies leg edema, Reports dyspnea on exertion, Denies orthopnea and Denies paroxysmal nocturnal dyspnea Resp Reports chest congestion, Reports cough, Denies excessive phlegm production, Denies pain on inspiration, Denies pain with cough, Reports dyspnea on exertion, Denies stridor and Reports wheezing Musc Denies myalgias Neuro Reports Normal hearing present and Denies headache(s) Endo Denies excessive sweating and Reports fatigue Robbin/Lymph Denies lymphadenopathy Aller/Immun Denies itchy eyes, Denies seasonal rhinorrhea and Reports wheezing Physical Exam Vital Signs: Last Vital Signs Pulse 68 08/06/24 09:50 BP 132/60 08/06/24 09:50 Pulse Ox 94 08/06/24 09:50 Oxygen Delivery Method Room Air 08/06/24 09:50 BMI result Body Mass Index 30.6 Const General: comfortable Orientation/consciousness: patient oriented x3 HEENT Head: Yes normal to inspection, Yes normocephalic and Yes atraumatic Eyes General: appearance normal, both eyes and all related structures Neck Neck: Yes normal visual inspection and Yes no lymphadenopathy Lymphatic: no lymphadenopathy noted Chest Chest palpation & inspection: normal inspection of the chest Resp Effort & Inspection: normal respiratory effort and prolonged expiratory phase Auscultation: rhonchi, wheezes and diminished lung sounds Cardio Jugular venous distension: no JVD Rate: regular rate Rhythm: regular rhythm Skin Other: warm, dry General skin exam: no rashes or lesions noted Neuro General: patient oriented x3 Cranial nerves: Yes Normal hearing present Cognition (Neuro): normal cognition Gait exam (Neuro): Normal gait present Extrem General: Yes normal to inspection, Yes capillary refill normal, Yes no clubbing, cyanosis or edema and Yes no pedal edema Psych Appearance: grossly normal and well kempt Speech and movement: Normal speech and movement present and Clear speech present Affect: normal affect Attitude: cooperative Thought process: Normal thought process present Thought content: Normal thought content present Insight: Good insight present (Psych) Judgement: Good judgement present (Psych) Assessment & Plan Assessment & Plan (1) COPD (chronic obstructive pulmonary disease): Code(s): J44.9 - Chronic obstructive pulmonary disease, unspecified Category: Medical Qualifiers: COPD type: COPD with acute lower respiratory infection Qualified Code(s): J44.0 - Chronic obstructive pulmonary disease with (acute) lower respiratory infection Plan provided a nebulizer for albuterol BID start Levaquin start low dose prednisone PASHA as needed CXR if no better F/U 2-3 weeks Orders: Orders XR chest 2V Today J44.9 - Chronic obstructive pulmonary disease, unspecified Medications: New levofloxacin 500 mg PO DAILY 7 tabs 0RF 7 days albuterol sulfate 2.5 mg (3 mL) inhalation BID 180 mL 11RF 30 days prednisone PO daily; Take 2 tabs daily x 5 days, then 1 tab daily x 5 days 15 tabs 0RF 10 days Coding Level of Care Code Est Pt Level 4 (40272) Diagnoses Chronic obstructive pulmonary disease with acute lower respiratory infection J44.0 COPD type: COPD with acute lower respiratory infection Time Spent (min) 16
[2024-08-06 09:50] VITALS: BP 132/60; PULSE 68; O2SAT 94; BMI 30.6
== END 2024-08-06 10:15 | disposition home or self-care (01) ==
LOC: HO.HPS 09:47
PROVIDERS: PCP Nurse Practitioner Family; Visit Provider Hospitalist
DX: J44.0 Chronic obstructive pulmonary disease with (acute) lower respiratory infection (principal)
CPT/HCPCS: 99214

== ENCOUNTER → 2024-08-06 09:47 | Outpatient (BNVA) | payer MEDICARE, SELFPAY | PROVIDERS: PCP Nurse Practitioner Family; Visit Provider Hospitalist | DX: R05.3 Chronic cough (principal); R06.2 Wheezing; J44.0 Chronic obstructive pulmonary disease with (acute) lower respiratory infection; F17.210 Nicotine dependence, cigarettes, uncomplicated | CPT/HCPCS: 99212 ==

== ENCOUNTER 2024-08-18 13:55 | Outpatient (AMB) | payer MEDICARE, SELFPAY ==
--- OUTSIDE RECORDS SUMMARY | 2023-03-23 11:51 | XMS_ITS | Continuity of Care Document ---
Author Organization [facility] Address [address] [place] [address] Phone Care Team Providers Care Skull Chopper Name Role Phone Peewee COLLINS FACS RVT Qamar DE LA CRUZ Unavailable Unavailable Allergies, Adverse Reactions, Alerts Substance Reaction Status Criticality OXYCODONE HCL Active No Information acetaminophen Active No Information trimethoprim Active No Information sulfamethoxazole Active No Informat ion Medications Medication Instructions Dosage Effective Dates (start - stop) Status Comments amlodipine besylate (bulk) 100 % powder - Active diltiazem ER 240 mg capsule,24 hr,extended release - Active simvastatin 40 mg tablet - A ctive Procedures Procedure Date Office/Outpt E&M Established 15 Mins Feb Surgical Stockings CVR Reveal Knee High 20-30 Office/Outpt E&M Established 15 Mins Aug Office/Outpt E&M Established 25 Mins Feb Advance Directives Directive Yes / No Effective Date File Name No Information Encounters Encounter Description Practice Location Reason(s) For Visit Diagnoses Date Provider Providers Copied on Encounter [facility], [address], [place], [id number], [place] tel:[phone] R [facility] No Information 4 Peewee COLLINS FACS MARKT DOROTHY Duenas. [address], [facility] [address], [place]. tel:[phone] Office/Outpt E&M Established 15 Mins [facility], [address] [place] [address] [address], [place], [id number], [place] tel:[phone] CVR - [place] Venous insufficiency (chronic) (peripheral)Ly mphedema, not elsewhere classified 4 Rahul COLLINS, RVT, [facility] Hernan. [address], [facility] [place], [id number] , [place]. tel:[phone] Referring Provider: Qamar Vides MD FACS T [facility], [address], [facility] [place], [address]. tel:[phone] Office/Outpt E&M Established 15 Mins [facility], [address] [place] [address] [address], [place], [id number], [place] tel:[phone] CVR - [place] Venous insufficiency (chronic) (peripheral)Ly mphedema, not elsewhere classified 3 Peewee COLLINS FACS T [facility] Qamar Duenas. [address], [address], [place], [address], [place]. tel:[phone] Referring Provider: Qamar Vides MD FACS T [facility], [facility], [place], [address]. tel:[phone] Office/Outpt E&M Established 25 Mins [facility], [address] [place] [address] [address], [place], [id number], [place] tel:[phone] CVR - [place] Venous insufficiency (chronic) (peripheral)Lo calized edema 3 Peewee COLLINS FACS T [facility] Qamar Duenas. [address], [address], [place], [address], [place]. tel:[phone] Referring Provider: Qamar Vides MD FACS T [facility], [address], [place], [address]. tel:[phone] Family History Family Member Type Diagnosis Age At Onset No Information Payers Payer name Insurance type Covered libertarian ID Samir gruber(s) [facility] [id number] Social History Type Description Quantity Date Captured Comments Sex Female Smoking Status No Information Chief Complaint And Reason For Visit No Information Reason For Referral Reason For Referral No Information Plan Of Treatment Date Type Action Status Goal Tobacco cessation counseling completed Goal Diet education completed Goal Tobacco cessation counseling completed Goal Tobacco cessation counseling completed Referral Ordered: Weight management: Referral to physician timeframe: 3 Months (related to Body mass index (BMI) 31.0-31.9, adult) ordered History Of Present Illness Encounter Date Complaint History Of Prese nt Illness No Information Functional Status Date Functional Assessmen t No Information Instructions Date Instruction Additional Infor mation Compression stocking usage as conservative measure Related to Venous insufficiency (chronic) (peripheral) Patient education booklet given Related to Venous insufficiency (chronic) (peripheral) Diet education Related to Body mass index (BMI) 31.0-31.9, adult Giving Encouragement to exercise Related to Body mass index (BMI) 31.0-31.9, adult Lifestyle education Related to B radha mass index (BMI) 31.0-31.9, adult Continue compression stocking us e Related to Venous Insufficiency (Chronic / Peripheral) Patient education booklet given Related to Venous Insufficiency (Chronic / Peripheral) Assessments Type Assessment Date No Information Patient Care Teams Name Effective Dates (start - stop) Status Members No Information
--- NOTE | 2024-08-18 14:03 | A.OFFVIS_ITS ---
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: No Allergies bee pollen (BEE STINGS) Allergy (Severe, Verified 08/18/24 14:08) ANAPHYLAXIS influenza virus vaccine, specific (Influenza Virus Vacc,Specific) Allergy (Severe, Verified 08/18/24 14:08) DIFFICULTY BREATHING celecoxib (Celebrex) Allergy (Intermediate, Verified 08/18/24 14:08) vaginal bleeding doxycycline (DOXYCYCLINE) Allergy (Intermediate, Verified 08/18/24 14:08) RASH erythromycin base (ERYTHROMYCIN BASE) Allergy (Intermediate, Verified 08/18/24 14:08) RASH Iodinated Contrast Media (IV DYE, IODINE CONTAINING) Allergy (Intermediate, Verified 08/18/24 14:08) RASH lisinopril (LISINOPRIL) Allergy (Intermediate, Verified 08/18/24 14:08) HIVES pentazocine (From Talwin) Allergy (Intermediate, Verified 08/18/24 14:08) Hallucinations sulfamethoxazole (From BACTRIM) Allergy (Intermediate, Verified 08/18/24 14:08) RASH trimethoprim (From BACTRIM) Allergy (Intermediate, Verified 08/18/24 14:08) RASH fentanyl (FENTANYL) Adverse Reaction (Intermediate, Verified 08/18/24 14:08) NAUSEA & VOMITING naproxen (Naprosyn) Adverse Reaction (Intermediate, Verified 08/18/24 14:08) Gastrointestinal Upset oxycodone (Percocet) Adverse Reaction (Intermediate, Verified 08/18/24 14:08) Gastrointestinal Upset HPI HPI Asthma/Follow Up Sick Visit (08/06): Details: Barby is a pleasant 74 year old female, current smoker, with approximately 30 pack year history, with underlying asthma, emphysema, COPD and h/o bladder cancer dx 2019, under the care of Dr. Pulido. Patient is a part of lung screening program through [facility] and chest CT 04/2023, RADS 2 however revealed traction bronchiectasis and PCP suspicious for evolving ILD/early fibrosis. Repeat chest CT 04/2024 reportedly unremarkable, with annual LDCT to be scheduled 04/2025. Since the last visit, she was seen by Dr. Waller for an acute visit treated with prednisone and Levaquin with complete resolution of symptoms. Today she presents for close follow-up. She currently denies any respiratory symptoms and has been doing quite well since completing antibiotics and prednisone. She did know only taking prednisone 20 mg x 5 days, prescription was for 20 mg x 5 days 10 mg x 5 days. [facility] Medical History COVID-19 vaccine series completed Skin cancer Lumbar disc herniation Hx of compression fracture of spine Positive PPD, treated Kidney stone Lesion of urinary bladder Blood clot in vein COPD (chronic obstructive pulmonary disease) Asthma High cholesterol Hypertension Surgical History Hx of dilation and curettage H/O colonoscopy Hx of cataract extraction Hx of cystoscopy Hx of cholecystectomy Social History Are you a primary managed care analyst to a significant other at home: No Do you presently have visiting nurse or other home services: No Patient Tobacco Use Status: Current everyday Tobacco user Tobacco use type: Cigarette Cigarette Packs Per Day: 0.5 Cigarettes Per Day: 10.0 Years Smoked: 35 Review of Systems Const Denies chills, Denies excessive sweating, Denies fever(s), Denies headache(s) and Denies night sweats Eyes Denies dry eyes, Denies irritation and Denies itchy eyes ENT Reports Normal hearing present and Denies headache(s) Card Denies chest pain, Denies chest pain at rest, Denies chest pain with activity, Denies claudication, Denies leg edema, Denies orthopnea and Denies paroxysmal nocturnal dyspnea Resp Denies chest congestion, Denies excessive phlegm production, Denies pain on inspiration, Denies pain with cough, Denies stridor and Denies wheezing Musc Denies myalgias Neuro Reports Normal hearing present and Denies headache(s) Endo Denies excessive sweating Robbin/Lymph Denies lymphadenopathy Aller/Immun Denies itchy eyes, Denies seasonal rhinorrhea and Denies wheezing Physical Exam Vital Signs: Last Vital Signs Pulse 70 08/18/24 14:04 BP 130/68 08/18/24 14:04 Pulse Ox 96 08/18/24 14:04 Oxygen Delivery Method Room Air 08/18/24 14:04 BMI result Body Mass Index 30.8 Const General: cooperative, healthy appearing, comfortable, no acute distress, well developed and alert Nutritional Appearance: obese Orientation/consciousness: patient oriented x3 Limitations: no limitations HEENT Head: Yes normal to inspection, Yes normocephalic and Yes atraumatic Ears: hearing grossly normal bilaterally and external ears normal Eyes General: appearance normal, both eyes and all related structures Eyelids: Yes eyelids normal Sclerae: sclerae normal EOM: EOMs intact bilaterally Neck Neck: Yes normal visual inspection and Yes no lymphadenopathy Lymphatic: no lymphadenopathy noted Chest Chest palpation & inspection: normal inspection of the chest Resp Effort & Inspection: normal respiratory effort, able to speak in complete sentences, no audible wheezes, no cough, no stridor, not tachypneic, no tripod positioning and no use of accessory muscles Auscultation: diminished lung sounds Cardio Jugular venous distension: no JVD Rate: regular rate Rhythm: regular rhythm Skin Other: warm, dry General skin exam: no rashes or lesions noted Neuro General: patient oriented x3 Cranial nerves: Yes Normal hearing present Cognition (Neuro): normal cognition Gait exam (Neuro): Normal gait present Extrem General: Yes normal to inspection, Yes capillary refill normal, Yes no clubbing, cyanosis or edema and Yes no pedal edema Psych Appearance: grossly normal and well kempt Speech and movement: Normal speech and movement present and Clear speech present Affect: normal affect Attitude: cooperative Thought process: Normal thought process present Thought content: Normal thought content present Insight: Good insight present (Psych) Judgement: Good judgement present (Psych) Assessment & Plan Assessment & Plan (1) Asthma: Code(s): J45.909 - Unspecified asthma, uncomplicated Category: Medical (2) Bronchiectasis: Code(s): J47.9 - Bronchiectasis, uncomplicated Category: Medical (3) Multiple pulmonary nodules: Code(s): R91.8 - Other nonspecific abnormal finding of lung field Category: Medical (4) Nicotine dependence, cigarettes, uncomplicated: Code(s): F17.210 - Nicotine dependence, cigarettes, uncomplicated Category: Medical Plan At this time Barby reports complete resolution of bronchitic symptoms after being treated with Levaquin and prednisone. She is aware to call if new symptoms develop. Will follow-up after she has low-dose CT scan through [facility] which is to be scheduled for April 2025. All questions were answered and patient is in agreement of plan. Coding Level of Care Code Est Pt Level 3 (09011) Diagnoses Asthma J45.909 Bronchiectasis J47.9 Multiple pulmonary nodules R91.8 Nicotine dependence, cigarettes, uncomplicated F17.210
[2024-08-18 14:04] VITALS: BP 130/68; PULSE 70; O2SAT 96; BMI 30.8
--- OUTSIDE RECORDS SUMMARY | 2024-08-18 14:22 | XMS_ITS | Data Portability ---
Author Organization VERONICA Isaac [facility] [id number] Address [address] [place] [address] Assessment No assessment recorded. Plan of Treatment Reminders Order Date Submit Date Provider Last Modified By Organization Details Last Modified Time Details Appointments None recorded. Lab None recorded. Referral None recorded. Procedures None recorded. Surgeries None recorded. Imaging None recorded. Medication Orders Augmentin 875 mg-125 mg tablet 2022 023 [facility] [id number], [address] [place], [address], 13:53:26 Patient TargetsNo targets recorded. Patient Instructions Encounter Date Encounter Id Patient Instructions Last Modified By Organization Details Last Modified Time 03/07/2022 [id number] tooth and gum pain: care instructions [email or web address] Not available 03/07/2022 13:53:41 Reason for Referral None Reported. Problems Name Problem SNOMED Code Status Onset Date Resolution Date Notes Provider Name and Address Organization Details Recorded Time Hyperlipide tyrone 34468411 Active 2022 CHENG us, PA - [facility] 13:13:20 Hypertensiv e disorder 72778854 Active 2022 CHENG CLARK null, PA - [facility] 13:13:44 Chronic obstructive pulmonary disease 33752017 Active 2022 CHENG us, PA - [facility] 13:13:57 Asthma 423091201 Active 2022 CHENG us, PA - [facility] 13:14:04 Malignant neoplasm of urinary bladder 119657788 Active 2022 CHENG DANGELOEY null, PA - [facility] 3 13:14:37 Peripheral vascular disease 208987885 Active 2022 CHENGJULITA CLARK null, PA - [facility] 3 13:14:50 Arthritis 3846325 Active 2022 CHENGJULITA CLARK null, PA - [facility] 3 13:14:55 Tuberculosi s 11006856 Completed 196902/12/1969 CHENG CLARK null, PA - [facility] 3 13:15:24 Problem Notes None recorded. Procedures Surgical History Date Name Laterality Status Provider Name and Address Organization Details Recorded Time 11/13/19 21 transurethral excision of neoplasm of urinary bladder completed CHENG CLARK PA - [facility] 03/07/2022 13:17:51 cholecystectomy completed [facility] - [facility] 03/07/2022 13:18:05 extraction of cataract completed [facility] - [facility] 03/07/2022 13:18:30 Imaging Results None recorded. Procedure Notes None recorded. Medical Equipment None Reported. Allergies Allergen ID Allergen Name Allergen Category Reaction Reaction Severity Criticality Documentation Date Start Date Code Code System Note Provider Name and Address Organization Details Recorded Time 527872 doxycycli ne Not available rash Not available Not available 03/07/2022 3640 RxNorm CHENG CLARK null, PA - [facility] 3 13:09:50 725095 erythromy augustine medicatio n rash Not available Not available 03/07/2022 4053 RxNorm CHENG CLARK null, PA - [facility] 3 13:10:00 170479 Bactrim medicatio n rash Not available Not available 03/07/2022 81773 9 RxNorm CHENG CLARK null, PA - [facility] 3 13:10:06 910218 lisinopri l medicatio n other Not available Not available 03/07/2022 56152 RxNorm Back pain CHENG CLARK null, PA - [facility] 13:10:23 773340 Celebrex medicatio n other Not available Not available 03/07/2022 76689 7 RxNorm vagin al bleed ing CHENG CLARK null, PA - [facility] 3 13:10:41 797927 fentanyl medicatio n nausea Not available Not available 03/07/2022 4337 RxNorm CHENG CLARK null, PA - [facility] 13:10:49 435372 oxycodone medicatio n vomiting Not available Not available 03/07/2022 7804 RxNorm CHENG CLARK null, PA - [facility] 3 13:10:56 496418 honey bee venom medicatio n swelling wheezing Not available Not available Not available 03/07/2022 49266 7 RxNorm CHENG CLARK null, PA - [facility] 3 13:11:38 892193 Iodinated contrast media (substanc e) medicatio n rash Not available Not available 03/07/2022 57430 2004 SNOMED IVP dye CHENG CLARK null, PA - [facility] 3 13:12:10 930524 influenza virus vaccine, specific Not available wheezing Not available Not available 03/07/2022 51784 UNK [facility]ENG CLARK null, [facility] - [facility] [...] height Body mass index (BMI) Body weight Respiratory rate Oxygen saturation Oxygen saturation in Arterial blood by Pulse oximetry Heart rate Body temperature Systolic And Diastolic Provider Name and Address Organization Details Last Updated DateTime 162.56 cm 31.6 kg/m2 41278 g 18 /min 98 % 98 % 57 /min 97.7 [degF] 144/83 mm[Hg] CHENG [facility] 13:19:13 Social History Question Answer Notes LastModified by [employer] Details LastModified Time Tobacco Smoking Status Current Every Day Smoker states she quit one week ago VERONICA [facility] [employer] [facility] 03/07/2022 13:16:05 How Much Tobacco Do You Smoke? 1 PPD [email or web address] Information not available 03/07/2022 Have You Recently Traveled Abroad? No [email or web address] Information not available 03/07/2022 Sex: Unknown Functional Status Question Answer Note LastModified by [employer] Details LastModified Time Do you use any illicit or recreational drugs? No [email or web address] Information not available 03/07/2022 Do you or have you ever used any other forms of tobacco or nicotine? No [email or web address] Information not available 03/07/2022 What is your level of alcohol consumption? None Information not available 03/07/2022 Mental Status None recorded. Family History Relationship Description Onset Age of this Age Resolved Age Notes LastModified by Organization Details LastModified Time Father No current problems or disability [email or web address] Not available 03/07 13:14:42 Mother No current problems or disability [email or web address] Not available 03/07 13:14:42 Medical History No medical history recorded. Gynecological HistoryNo gynecological history recorded. Obstetrics History GPAL:G 0 P 0 0 0 0 Past Encounters Encounter ID Performer Location Encounter Start Date Encounter Closed Date Diagnosis/Indication Diagnosis SNOMED-CT Code Diagnosis ICD10 Code Diagnosis Note [id number] [address] [place] [address] 07/29/2016 12:54:00 07/29/2016 14:05:27 [id number] [address] [place] [address] 12/03/2016 17:29:38 12/03/2016 18:17:30 [id number] [address] [place] [address] 10/14/2015 16:58:58 10/14/2015 17:35:12 [id number] [address] [place] [address] 01/18/2018 15:15:21 01/18/2018 16:22:10 [id number] [address] [place] [address] 11/14/2016 18:30:39 11/14/2016 19:15:48 [id number] [address] [place] [address] 11/25/2016 12:38:26 11/25/2016 13:20:32 [id number] [address] [place] [address] 04/10/2018 13:29:03 04/10/2018 14:26:08 [id number] [address] [place] [address] 11/14/2019 18:51:13 11/14/2019 19:56:47 [id number] [address] [place] [address] 07/18/2016 08:38:29 07/18/2016 09:45:33 [id number] [address] [place] [address] 07/15/2021 17:49:42 07/15/2021 19:43:51 [id number] [address] [place] [address] 11/20/2017 14:31:15 11/20/2017 17:24:50 [id number] [address] [place] [address] 06/20/2016 18:29:51 06/20/2016 19:42:33 [id number] [address] [place] [address] 04/24/2018 09:56:37 04/24/2018 10:32:59 [id number] [address] [place] [address] 12/02/2021 13:07:16 12/02/2021 15:17:01 [id number] [address] [place] [address] 04/03/2015 10:57:23 04/03/2015 12:32:36 [id number] [address] [place] [address] 07/18/2018 18:08:14 07/18/2018 18:57:09 [id number] [address] [place] [address] 12/20/2014 13:42:57 12/20/2014 14:47:10 [id number] Bernard Harvey MD [address] [place] [address] 03/07/2022 12:23:43 03/07/2022 14:06:03 Dental abscess [id number] K04.7 Pain where tooth pulled with swelling. Needs dental follow up. Health Concerns Section Related Observation LastModified by Organization Detai ls LastModified Time None Recorded Concern Status LastModified by Organization Details LastModified Time None Recorded Advance Directives Directive None Recorded Payers Insurance Date Sequence Insurance Name Policy Number Policy Coe Covered Member ID Coe Member ID Guarantor Name 03/30/[address] [facility] - MEDICARE ADVANTAGE PLAN (MEDICARE REPLACEMENT HMO) [id number] Barby Simpson [id number] Barby Garcia Calvin 03/07/2022 [facility] - SPECIALITY CLAIMS (MEDICARE DME REGION A) Barby Garcia Calvin [id number] Barby Gracia Calvin Notes Date Note Type Note Provider Name and Address Organization Details Recorded Time 03/07/2022 text/html Had tooth pulled , an was put on Amoxicillin pre and post op. Follow up wt Dentist Sunday and restarted Amoxicillin which is not making any difference. Pain worsening, facial pain on the left Bernard Harvey MD [facility] [place], [address], [place] - [facility] 03/07/2022 13:57:22 OBGyn Episode No OBEpisode recorded.
--- OUTSIDE RECORDS SUMMARY | 2024-08-18 14:22 | XMS_ITS | Patient Health Record ---
[facility] [place] Address [address] [address] Care Team Providers Care Body Sander Name Role Phone Cole Yanes MD Primary Care Provider Nancy Keane Unavailable [phone] Allergies Allergen (clinical drug ingredient) Drug/Non Drug Allergy documented on EMR Reaction Allergy Type Onset Date Status meperidine Demerol vomiting Drug Allergy Active Merthiolate rash Drug Allergy Activ e Bee Sting Unknown Allergy Active erythromycin Erythromycin [...] in the even ing Orally Once a day; Duration: 30 day(s) Active Valsartan 160 MG 1 tablet Orally Once a day; Duration: 30 day(s) Active Cardizem CD 240 MG 1 capsule Orally Onc e a day; Duration: 30 day(s) Active Metoprolol Succinate ER 50 MG 1 tablet Orally Once a day; Duration: 30 day(s) Active ASA 81 mg Active [...] Date [employer] [place] [employer] [address] [facility] [address] [place] [address] [phone] Barby Simpson Self - patient is the [...]
--- OUTSIDE RECORDS SUMMARY | 2024-08-18 14:22 | XMS_ITS ---
Author Organization [address] [place] [address] [place] [phone] Phone Care Team Providers Care Management Accountant Name Role Phone Gabi Plasencia Alfreda SPANISH MEDICAL INTERPRETER Primary Care Provide r Active Problems Problem [...] V28) 2020 Overview (11/08/2023): Being followed by [facility] urologist Dr. Sai Castellanos, s/p transurethral resection, papillary urothelial carcinoma COPD (chronic obstructive pu lmonary disease) ([facility] V24, [facility] V28) 03/01/2020 Dizziness 03/01/2020 Overview (11/08/2023): [...] treatments are documented for this patient in [facility]. Treatments may have been administered in another system. Lifetime Dose Tracking * Chemical Lifetime Dose Automatic Entry Manual Entr y Radiation (DLP) 173.71 mGy-cm 173.71 mGy-cm 0 mGy-cm CTDIvol 4.83 mGy 4.83 mGy 0 mGy
== END 2024-08-18 14:26 | disposition home or self-care (01) ==
PROVIDERS: PCP Nurse Practitioner Family; Visit Provider Nurse Practitioner Family
DX: J45.909 Unspecified asthma, uncomplicated (principal); J47.9 Bronchiectasis, uncomplicated; R91.8 Other nonspecific abnormal finding of lung field; F17.210 Nicotine dependence, cigarettes, uncomplicated
CPT/HCPCS: 99213

== ENCOUNTER → 2024-08-18 13:55 | Outpatient (BNVA) | payer MEDICARE, SELFPAY | PROVIDERS: PCP Nurse Practitioner Family; Visit Provider Nurse Practitioner Family | DX: J45.909 Unspecified asthma, uncomplicated (principal); J47.9 Bronchiectasis, uncomplicated; R91.8 Other nonspecific abnormal finding of lung field; F17.210 Nicotine dependence, cigarettes, uncomplicated | CPT/HCPCS: 99212 ==

== ENCOUNTER 2024-09-01 14:30 | Outpatient (AMB) | payer MEDICARE, SELFPAY ==
--- OUTSIDE RECORDS SUMMARY | 2023-03-23 11:51 | XMS_ITS | Continuity of Care Document ---
Author Organization [facility] Address [address] [place] [address] Phone Care Team Providers Care Manager Of Procurement Name Role Phone Peewee COLLINS FACS RVT [...] Providers Copied on Encounter [facility], [address], [place], [id number], [place] tel:[phone] R [facility] No Information 4 Peewee COLLINS FACS MARKT DOROTHY Duenas. [address], [facility] [address], [place]. tel:[phone] Office/Outpt E&M Established 15 Mins [facility], [address] [place] [address] [address], [place], [id number], [place] tel:[phone] CVR - [place] Venous insufficiency (chronic) (peripheral)Ly mphedema, not elsewhere classified 4 Rahul COLLINS, RVT, [facility] Hernan. [address], [facility] [place], [id number] , [place]. tel:[phone] Referring Provider: Qamar Vides MD FACS T [facility], [address], [place], [address]. tel:[phone] Office/Outpt E&M Established 15 Mins [facility], [address] [place] [address] [address], [place], [id number], [place] tel:[phone] CVR - [place] Venous insufficiency (chronic) (peripheral)Ly mphedema, not elsewhere classified 3 Peewee COLLINS FACS T [facility] Qamar Duenas. [address], [address], [place], [address], [place]. tel:[phone] Referring Provider: Qamar Vides MD FACS T [facility], [facility], [place], [address]. tel:[phone] Office/Outpt E&M Established 25 Mins [facility], [address] [place] [address] [address], [place], [id number], [place] tel:[phone] CVR - [place] Venous insufficiency (chronic) (peripheral)Lo calized edema 3 Peewee COLLINS FACS T [facility] Qamar Duenas. [address], [place], [address], [place]. tel:[phone] Referring Provider: Qamar Vides MD FACS T [facility], [address], [place], [address]. tel:[phone] Family History Family Member Type Diagnosis Age At Onset No Information Payers Payer name Insurance type Covered alliance party ID Samir gruber(s) [facility] [id number] Social History Type Description Quantity Date Captured [...]
[2024-09-01 15:19] VITALS: BP 152/64; PULSE 56; TEMP 36.8; O2SAT 96; BMI 30.7
--- NOTE | 2024-09-01 15:19 | MHC.OFFWIV ---
Intake Vital Signs 09/01/24 15:19 Height 5 ft 4 in Weight 179 lb BMI 30.7 BP 152/64 H Blood Pressure Location Lt brachial Position Sitting Pulse 56 Pulse Source Pulse Oximeter Temp 98.2 F Temp Source Oral Pulse Oximetry (%) 96 Oxygen Delivery Method Room Air Intake Visit Reasons: EP ? pneumonia Patient Tobacco Use Status: Current everyday Tobacco user Claims Configuration Analyst Required: No Allergies bee pollen (BEE STINGS) Allergy (Severe, Verified 09/01/24 15:25) ANAPHYLAXIS influenza virus vaccine, specific (Influenza Virus Vacc,Specific) Allergy (Severe, Verified 09/01/24 15:25) DIFFICULTY BREATHING celecoxib (Celebrex) Allergy (Intermediate, Verified 09/01/24 15:25) vaginal bleeding doxycycline (DOXYCYCLINE) Allergy (Intermediate, Verified 09/01/24 15:25) RASH erythromycin base (ERYTHROMYCIN BASE) Allergy (Intermediate, Verified 09/01/24 15:25) RASH Iodinated Contrast Media (IV DYE, IODINE CONTAINING) Allergy (Intermediate, Verified 09/01/24 15:25) RASH lisinopril (LISINOPRIL) Allergy (Intermediate, Verified 09/01/24 15:25) HIVES pentazocine (From Talwin) Allergy (Intermediate, Verified 09/01/24 15:25) Hallucinations sulfamethoxazole (From BACTRIM) Allergy (Intermediate, Verified 09/01/24 15:25) RASH trimethoprim (From BACTRIM) Allergy (Intermediate, Verified 09/01/24 15:25) RASH fentanyl (FENTANYL) Adverse Reaction (Intermediate, Verified 09/01/24 15:25) NAUSEA & VOMITING naproxen (Naprosyn) Adverse Reaction (Intermediate, Verified 09/01/24 15:25) Gastrointestinal Upset oxycodone (Percocet) Adverse Reaction (Intermediate, Verified 09/01/24 15:25) Gastrointestinal Upset Do you need a note to return to daycare/school/sports/work: No HPI HPI Comments History of Present Illness Details History - The patient is a 74-year-old female presenting with a recurrence of respiratory symptoms including cough and sinus issues, suspecting unresolved bronchitis or sinusitis. - In July, she contracted COVID-19, followed by influenza, and developed bronchitis, treated with Levaquin, prednisone, and nebulizer treatments. - Symptoms have recurred recently, including a nagging cough and sinus drainage, with clear sputum from the chest and yellowish-green nasal discharge. - She reports sinus tenderness and wheezing when lying down, but no fever or shortness of breath. - Concerned about possible walking pneumonia or sinus infection due to weather changes. - She denies fever or chills, CP, SOB, abd pain, n/v/d. - She continues to have congestion and yellow drainage. She has sinus pressure in the face. - She was wondering if she needed a chest x-ray. Physical Exam General: Cooperative, healthy appearing, comfortable and no acute distress Orientation/consciousness: Patient oriented x3 Limitations: No limitations Head: Normal to inspection Ears: Hearing grossly normal bilaterally, external ears normal and TM's normal bilaterally Nose: Normal external nose present, normal nares present, and no nasal discharge present. Face and sinus: Sinuses tender to palpation. Mouth: Normal oral and palatal mucosa present and moist mucous membranes noted. Throat: Tonsils normal. Uvula is midline. Posterior oropharynx with erythema and no exudates. Eyes: Appearance normal, both eyes and all related structures Neck: Normal visual inspection, full ROM. No lymphadenopathy noted. Respiratory: Clear to auscultation bilaterally. Normal respiratory effort, able to speak in complete sentences. No respiratory distress, not tachypneic, no tripod positioning and no use of accessory muscles. Wheezing noted when lying down. Cardiovascular: Regular rate and rhythm. Normal S1 and S2 Skin: No rashes or lesions noted Patient was informed and verbally consented to the use of an ambient scribe for clinic note documentation during this visit [facility] Medical History COVID-19 vaccine series completed Skin cancer Lumbar disc herniation Hx of compression fracture of spine Positive PPD, treated Kidney stone Lesion of urinary bladder Blood clot in vein COPD (chronic obstructive pulmonary disease) Asthma High cholesterol Hypertension Surgical History Hx of dilation and curettage H/O colonoscopy Hx of cataract extraction Hx of cystoscopy Hx of cholecystectomy Social History Are you a primary ambulatory care coordinator to a significant other at home: No Do you presently have visiting nurse or other home services: No Patient Tobacco Use Status: Current everyday Tobacco user Tobacco use type: Cigarette Cigarette Packs Per Day: 0.5 Cigarettes Per Day: 10.0 Years Smoked: 35 Review of Systems Const All systems reviewed & are unremarkable except as noted in HPI and below Physical Exam Vital Signs: Last Vital Signs Temp 98.2 F 09/01/24 15:19 Pulse 56 09/01/24 15:19 BP 152/64 H 09/01/24 15:19 Pulse Ox 96 09/01/24 15:19 Oxygen Delivery Method Room Air 09/01/24 15:19 BMI result Body Mass Index 30.7 Assessment & Plan Assessment & Plan (1) Cough with congestion of paranasal sinus: Code(s): R05.8 - Other specified cough; R09.81 - Nasal congestion Plan Most likely sinusitis vs URI vs bronchitis vs viral illness Plan - Steam showers - tylenol or motrin as needed - Tessalon perles as needed for cough - Start Augmentin for 7 days for suspected sinusitis. - Use cough medicine to manage symptoms. - Monitor symptoms and consider further evaluation if no improvement, including potential imaging if necessary. - VSS, pt well appearing Medications: New amoxicillin-pot clavulanate 875-125 mg 1 tab PO Q12H 14 tabs 0RF benzonatate 100 mg PO bid-tid PRN 21 caps 0RF Cough 7 days Coding Level of Care Code Est Pt Level 3 (62930) Diagnoses Cough with congestion of paranasal sinus R05.8; R09.81
--- OUTSIDE RECORDS SUMMARY | 2024-09-01 15:21 | XMS_ITS | Patient Health Record ---
Author Organization [facility] [place] Address [address] [place] [address] Care Team Providers Care Sample Carrier Name Role Phone Cole Yanes MD Primary Care Provider Nancy Keane Unavailable [phone] Allergies Allergen (clinical drug ingredient) Drug/Non Drug [...] Date [employer] [place] [employer] [address] [facility] [address] [place] [address] [phone] Barby Simpson Self - patient is the [...]
--- OUTSIDE RECORDS SUMMARY | 2024-09-01 15:21 | XMS_ITS ---
Author Organization [address] [place] [address] [place] [phone] Phone Care Team Providers Care Museum Guide Name Role Phone Gabi Plasencia Alfreda MOTORIZED SQUAD CAPTAIN Primary Care Provide r Active Problems Problem [...] V28) 2020 Overview (11/08/2023): Being followed by [facility] urologist Dr. Sai Castellanos, s/p transurethral resection, papillary urothelial carcinoma COPD (chronic obstructive pu lmonary disease) ([facility] V24, [facility] V28) 03/01/2020 Dizziness 03/01/2020 Overview (11/08/2023): [...] treatments are documented for this patient in [facility]. Treatments may have been administered in another system. Lifetime Dose Tracking * Chemical Lifetime Dose Automatic Entry Manual Entr y Radiation (DLP) 173.71 mGy-cm 173.71 mGy-cm 0 mGy-cm CTDIvol 4.83 mGy 4.83 mGy 0 mGy
--- OUTSIDE RECORDS SUMMARY | 2024-09-01 15:21 | XMS_ITS | Clinical Summary ---
Author Organization [facility] Address [address] [place] [id number] Phone Care Team Providers Care Panel Sewer Name Role Phone Teddy Kebede MD Unavailable Mamadou Springer MD Unavailable [phone] Phill Pulido MD Unavailable [phone] Gabi Plasencia [facility] Primary Care Provid er Patel Galvan Unavailable [phone] Emily Becker NP Unavailable [phone] Marvel Levine MD Unavailable Allergies Active Allergy Reactions Criticality Noted Date Comments Sulfamethoxazole-Tri methoprim Rash Low 03/15/2018 Bee Pollen Unknown 07/20/2023 Bee Pollens Anaphylaxis,Wheezing High 03/15/2018 Benzalkonium Rash Low 07/20/2023 Celecoxib Rash,Bleeding High 03/15/2018 Vaginal bleeding Doxycycline Hyclate Rash Low 03/15/2018 Erythromycin Rash Low 10/13/2022 Fentanyl Rash,Nausea and/or Vomiting Low 03/15/2018 Influenza Virus Vaccines Shortness Of Breath High 03/15/2018 Iodinated Contrast Media Rash Low 03/15/2018 Iodine Rash Low 07/20/2023 Atorvastatin 07/01/2018 Lisinopril Hives 03/15/2018 Metformin Dizziness 06/30/2024 Naproxen GI Upset 03/15/2018 Oxycodone Vomiting 06/02/2024 Pentazocine High 10/13/2022 Other reaction(s): Hallucinations Oxycodone-Acetaminop hen Rash,GI Upset Low 03/15/2018 Rifampin Other (See Comments) 06/23/2020 orange urine and all the side effects Shellfish Containing Products Rash Low 07/20/2023 Sulfa (Sulfonamide Antibiotics) Rash Low 07/20/2023 Pentazocine Lactate Hallucinations High 10/13/2022 Medications aspirin 81 MG EC tablet Take 81 mg by mouth daily. Active cholecalciferol (VITAMIN D3) 1,000 unit tablet Take 1 tablet (1,000 Units total) by mouth daily. 360 tablet 9 Active albuterol 90 mcg/actuation inhaler Inhale 2 puffs into the lungs every 6 (six) hours as needed for wheezing or shortness of breath/dyspnea . 1 Inhaler 9 Active rosuvastatin (CRESTOR) 40 MG tablet Take 1 tablet by mouth every morning. 3 Active metoprolol succinate (TOPROL-XL) 50 MG 24 hr tabletIndications :Primary hypertension take one tablet by mouth every day 90 tablet 3 4 Active dilTIAZem (CARDIZEM CD) 240 MG 24 hr capsuleIndication s:Benign essential hypertension TAKE ONE CAPSULE BY MOUTH EVERY MORNING 90 capsule 3 4 Active valsartan (DIOVAN) 160 MG tablet Take 1 tablet by mouth 2 (two) times a day. Active nystatin (NYSTOP) powderIndications :Candidal intertrigo Apply topically 2 (two) times a day as needed (for rash in abdominal and/or breast folds). 60 g 2 5 Active Active Problems Problem Noted Date Diagnosed Date Bradycardia 2024 Assessment & Plan (2024 7:55 AM EDT): Mildly bradycardic w/ HR 50-60bpm in-office today. Recent dizziness/lightheadedness reported. - If sx persist, mobile telemetry/Holter monitor may be considered to further assess heart rate fluctuations. - Recently with some weight loss, dosage of metoprolol may ultimately need to be decreased, no changes made today. Dizziness 06/02/2024 Assessment & Plan (2024 7:41 AM EDT): [place] [facility] [place]/o dizziness. Head CT and chest x-ray were negative. She describes continued lightheadedness and balance impairment, sometimes having to hold onto the marshall to avoid falling. - The cause of her dizziness remains unclear but a medication side effect is suspected as the onset was shortly after beginning metformin for her T2DM. Prior to that her BP medication was also increased and she has also lost some weight (~10lbs) so hypotension or bradycardia also seem possible. - Metformin will be discontinued today and she will complete labs to re-assess her blood sugar as well as r/o low B12 and anemia. If blood work results are normal and there is no change in symptoms, a brain MRI will be considered. - If no improvement in symptoms within a week, patient will schedule an appointment with her second class welder to discuss changes to her antihypertensive regimen. Tinnitus of both ears 06/02/2024 Assessment & Plan (2024 7:59 AM EDT): Tinnitus could be a result of underlying hearing loss, although no significant changes have been reported. - Patient will monitor symptoms and report any changes in hearing. Hair loss 06/02/2024 Assessment & Plan (2024 7:47 AM EDT): C/o general hair thinning/excessive shedding. Hair loss could be related to recent weight loss or stress, but may also be indicative of low B12 levels, possibly caused by new rx metformin. - Labs ordered to screen for anemia and thyroid dysfunction. Low vitamin B12 level 06/02/2024 Assessment & Plan (2024 7:48 AM EDT): B12 level was slightly below the ideal range in 2021, but not severely deficient. Recent dizziness and hair loss. - A B12 test and CBC will be ordered today to rule out deficiencies or anemia. - Patient will monitor symptoms and report any changes. Left leg pain 06/02/2024 Assessment & Plan (2024 7:58 AM EDT): C/o redness, pain and tenderness isolated to the left calf. Redness has moved from the front to the back of the leg. Not warm, no current evidence infection/cellulitis. Underlying venous insufficiency. - An ultrasound of the leg will be ordered r/o DVT. Traction bronchiectasis 07/20/2023 Assessment & Plan (08/01/2023 6:47 PM EDT): Recent LDCT also noted a stable subtle region of groundglass opacity in the RUL and traction bronchiectasis and mucus plugging in the RML.These are consistent with her extensive smoking history and known emphysema but are also suggestive of early/mild pulmonary fibrosis or interstitial lung disease. She minimizes the severity but her partner reports she has been becoming increasingly SOB with activity. Will refer to pulmonology for consideration of bronchoscopy and other management. Pain in joint of right shoulder 01/18/2023 Assessment & Plan (01/23/2024 12:58 PM EST): She plans to schedule an appointment for a cortisone shot in her right shoulder, as she can feel her 2-year rosey is up and she is starting to feel pain. She did see them last year but had a cortisone injection in her thumb/wrist area as that was more pressing than her shoulder at the time. She will follow up with [facility] for this treatment. Assessment & Plan (02/18/2023 9:50 PM EST): Chronic right shoulder pain. Followed by orthopedics, has an apt next week for a cortisone injection in her right shoulder. Arthritis tends to be worse in the cold weather. History of COVID-19 11/29/2022 Assessment & Plan (11/29/2022 1:44 PM EDT): Hx of COVID in Nov 2021 and again in Sep 2022. No residual symptoms. Class 1 obesity with body ma ss index (BMI) of 30.0 to 30.9 in adult 11/29/2022 Assessment & Plan (02/18/2023 9:47 PM EST): Weight stable, BMI 30.36. Continue efforts re: healthy, balanced diet and regular exercise. Assessment & Plan (12/20/2022 9:05 PM EST): BMI 31.75, continue efforts re: healthy, balanced diet and regular exercise. Dyspnea 06/28/2022 Overview (01/23/2024): Last Assessment & Plan: The patient has [...] patient for a pharmacological nuclear stress test. Peripheral vascular disease 03/07/2022 Type 2 diabetes mellitus 01/09/2022 Assessment & Plan (2024 7:57 AM EDT): Borderline controlled T2DM, A1c 7.0. Previously diet controlled, started metformin in Feb 2024. She has not felt well since increasing to 1000mg dose. C/o adverse effects including headache, dizziness, and bowel irregularities. - Patient will discontinue metformin for now and monitor symptoms. If blood sugar remains elevated, re-starting 500mg dose only or alternative medication may be considered. - Continue dietary efforts, limit simple carbs and avoid concentrated sweets. Assessment & Plan (08/01/2023 6:11 PM EDT): Her A1c level was recorded as 6.1, placing her in the prediabetic range. Laboratory tests, including cholesterol, A1c, vitamin D, and metabolic panel, will be conducted before her well visit in 6 months. Continue dietary efforts, limit simple carbs and avoid concentrated sweets. Assessment & Plan (02/18/2023 9:43 PM EST): Stable, A1c 6.1 w/ random glucose 157. Continue dietary efforts, limit simple carbs and avoid concentrated sweets. Assessment & Plan (01/09/2022 8:54 PM EST): A1c decreased over last year. Continue healthy diet and regular physical activity Venous insufficiency 06/29/2021 Bilateral carotid artery disease 07/08/2020 11/29/2022 Hiatal hernia 06/27/2020 Overview (06/27/2020): Seen on 2020 screening LDCT [facility] Multiple nodules of lung 06/27/2020 Overview (06/27/2020): Stable on 2020 LDCT [facility] Assessment & Plan (01/23/2024 1:02 PM EST): Most recent LDCT screening reviewed (04/19/2023): LungRads2. Stable small pulmonary nodules bilaterally. Repeat screening recommended in 1 year. Assessment & Plan (08/01/2023 6:32 PM EDT): Most recent LDCT screening reviewed (04/19/2023): LungRads2. Stable small pulmonary nodules bilaterally. Repeat screening recommended in 1 year. Osteopenia 03/01/2020 Overview (11/29/2022): DXA 01/2020 [place] Assessment & Plan (01/23/2024 12:57 PM EST): Stable osteopenia in the hip/femoral neck per most recent bone density scan. Given her low risk of fracture, pharmacological intervention is not deemed necessary at this juncture. A follow-up bone density test will be considered in approximately 2 to 3 years. Continue regular weightbearing activity, good dietary intake of calcium and vitamin d supplements. Assessment & Plan (08/01/2023 6:05 PM EDT): Recent bone density scan reviewed, normal bone density in the lumbar spine but osteopenia in the hip/femoral neck. Given her low risk of fracture, pharmacological intervention is not deemed necessary at this juncture. A follow-up bone density test will be considered in approximately 2 to 3 years. Continue regular weightbearing activity, good dietary intake of calcium and vitamin d supplements. Assessment & Plan (02/18/2023 9:38 PM EST): Hx osteopenia, has D[place] done [place]/2020 [place] [facility] Discussed repeat bone density scan, pt in agreement. Continue regular weightbearing activity, good dietary intake of calcium and vitamin d supplements. Assessment & Plan (12/20/2022 9:05 PM EST): Per DXA 01/2020 [place]. Continue regular weightbearing activity. Malignant neoplasm of urinary bladder 03/01/2020 Overview (11/29/2022): Dr. Phill Pulido, cystoscopy clear March 2021 Being followed by [facility] urologist Dr. Sai Castellanos, s/p transurethral resection, papillary urothelial carcinoma Assessment & Plan (08/01/2023 5:58 PM EDT): Dx June 2019. S/p TURBT August and Dec 2019 which revealed low-grade noninvasive. Had a recurrent lesion July 2020 then s/p TURBT Dec 2020 revealed low-grade Ta. Treated with 3 rounds of chemotherapy (gemcitabine) 01/2021 - 12/2021. Monitoring cystoscopies since then have been negative until recently per pt report - now bladder with boggy appearance. Bladder trabeculation has been noted on previous screenings. Plan for 3 more rounds of chemotherapy. Most recent urology records not available for review. Followed by [facility] [place] (Dr Pulido). Chronic obstructive pulmonary disease 03/01/2020 11/29/2022 Overview (08/01/2023): >>OVERVIEW FOR PULMONARY EMPHYSEMA WRITTEN ON 06/27/2020 7:53 PM BY VICK ROY CNP Seen on 2020 LDCT [facility] Assessment & Plan (01/23/2024 1:01 PM EST): COPD w/ asthma overlap. Does have some chronic mild SWARTZ but denies any recent changes in her activity tolerance. Followed by [facility] [place], she does report completing updated LFT's recently. LDCT screens UTD. Assessment & Plan (08/01/2023 6:31 PM EDT): >>ASSESSMENT AND PLAN FOR PULMONARY EMPHYSEMA WRITTEN ON 01/09/2022 8:55 PM BY VICK ROY CNP Await LDCT. Lung function improved with recover from Covid infection Assessment & Plan (08/01/2023 6:16 PM EDT): Her partner is reporting increased activity intolerance/needing to stop and rest climbing the stairs etc. She was advised to utilize her albuterol inhaler as needed. If requiring her rescue inhaler often, a maintenance inhaler may be considered. Red flags/ED precautions discussed. Assessment & Plan (08/01/2023 6:31 PM EDT): >>ASSESSMENT AND PLAN FOR COPD (CHRONIC OBSTRUCTIVE PULMONARY DISEASE) WRITTEN ON 02/18/2023 9:47 PM BY GABI PLASENCIA CNP COPD w/ asthma overlap, continues to smoke. >>ASSESSMENT AND PLAN FOR PULMONARY EMPHYSEMA WRITTEN ON 02/18/2023 9:48 PM BY GABI PLASENCIA CNP Continues smoking. LDCT yearly, last study 04/18/2022 showing emphysematous changes and unchanged small pulmonary nodules. Assessment & Plan (08/01/2023 6:31 PM EDT): >>ASSESSMENT AND PLAN FOR COPD (CHRONIC OBSTRUCTIVE PULMONARY DISEASE) WRITTEN ON 12/20/2022 9:02 PM BY GABI PLASENCIA CNP COPD w/ asthma overlap, continues to smoke. >>ASSESSMENT AND PLAN FOR PULMONARY EMPHYSEMA WRITTEN ON 12/20/2022 9:04 PM BY GABI PLASENCIA CNP Continues smoking. LDCT yearly, last study 04/18/2022 showing emphysematous changes and unchanged small pulmonary nodules. Low back pain 03/01/2020 11/29/2022 History of DVT (deep vein thrombosis) 03/01/2020 11/29/2022 Overview (11/29/2022): Had DVT in her 20s Cigarette smoker 08/14/2019 Assessment & Plan (01/23/2024 12:59 PM EST): She continues to smoke, consuming up to a pack and a half per day, which she attributes to stress and anxiety. She was made aware of potential health risks associated with smoking as well as options for aiding in smoking cessation. NRT is helpful but not covered by insurance and cost prohibitive. Will continue to follow up regarding this at subsequent visits. Continue annual LDCT screening. Total of between 3-10 minutes spent on smoking cessation counseling. She expresses a desire to reduce her smoking habit but feels overwhelmed by various concerns. She is advised to take slow, deep breaths before lighting a cigarette to manage stress. Assessment & Plan (08/01/2023 6:03 PM EDT): Current 1 PPD smoker. Trying to cut back but has not had lasting success. She was made aware of potential health risks associated with smoking as well as options for aiding in smoking cessation. NRT is helpful but not covered by insurance and cost prohibitive. Will continue to follow up regarding this at subsequent visits. Continue annual LDCT screening. Total of between 3-10 minutes spent on smoking cessation counseling. Assessment & Plan (01/18/2023 12:04 PM EST): Current 1 PPD smoker. Trying to cut back but not doing well - under increased stress recently with her sister. She was made aware of potential health risks associated with smoking as well as options for aiding in smoking cessation. Will continue to follow up regarding this at subsequent visits. Continue annual LDCT screening. Total of between 3-10 minutes spent on smoking cessation counseling. Assessment & Plan (12/20/2022 9:06 PM EST): Current 1 PPD smoker. Patient is pre-contemplative about smoking cessation. She was made aware of potential health risks associated with smoking as well as options for aiding in smoking cessation. Will continue to follow up regarding this at subsequent visits. Continue annual LDCT screening. Total of between 3-10 minutes spent on smoking cessation counseling. Assessment & Plan (01/09/2022 8:53 PM EST): Not ready to quit. Plan LDCT. Mild intermittent asthma 07/01/2018 Assessment & Plan (01/23/2024 12:57 PM EST): COPD w/ asthma overlap, continues to smoke. Triggered by URI and allergies, known sensitivity to mold. Denies any recent flares/exacerbations. Not on any maintenance inhalers, has not needed her rescue inhaler. Followed [place] [facility] [place]. Assessment & Plan (08/01/2023 6:16 PM EDT): COPD w/ asthma overlap, continues to smoke. Triggered by URI and allergies, known sensitivity to mold. Assessment & Plan (02/18/2023 9:48 PM EST): Stable, well controlled with rare use of rescue inhaler only. Triggered by URI and allergies, known sensitivity to mold. Assessment & Plan (11/29/2022 1:36 PM EDT): Stable, well controlled with rare use of rescue inhaler only. Triggered by URI and allergies, known sensitivity to mold. Essential hypertension 03/15/2018 Overview (01/23/2024): Last Assessment & Plan: The patient has a history of hypertension. Blood pressure today was noted to be elevated. We will increase the valsartan to 160 mg orally daily. Last Assessment & Plan: Patient's blood pressure [...] and following up with routine medical care. Assessment & Plan (2024 7:52 AM EDT): Stable, BP at goal <130/80. Continues on valsartan, diltiazem and metoprolol. Mildly bradycardic today and c/o dizziness. - Medication doses were last adjusted about 6 months ago. Followed by [facility] cardiology. - If no improvement with d/c metformin and normal lab results, she will schedule sooner f/u with cardiology. Assessment & Plan (08/01/2023 6:17 PM EDT): Stable, BP near goal <130/80. Continues on valsartan, diltiazem and metoprolol. Doses recently adjusted by cardiology. Tolerating well w/o dizziness or cough. Recent BMP w/ normal electrolytes and stable kidney fx (Cr 1.0 and GFR 64).DM visit q6 mos. Assessment & Plan (02/18/2023 9:51 PM EST): Stable, BP just at goal <130/80. Continues on valsartan, diltiazem and metoprolol. Tolerating well w/o dizziness or cough. Recent BMP w/ normal electrolytes and stable kidney fx (Cr 1.0 and GFR 64). Followed by cardiology annually. DM visit q6 mos, f/u sooner PRN. Assessment & Plan (12/20/2022 9:01 PM EST): Stable, BP at goal <130/80. Managed on valsartan and diltiazem. Followed by [facility] cardiology Assessment & Plan (01/09/2022 8:56 PM EST): Well-managed on current medication regimen Mixed hyperlipidemia 03/15/2018 Overview (01/23/2024): Last Assessment & Plan: The patient has a history of hyperlipidemia. The patient is currently on simvastatin 20 mg orally daily. We will order a new lipid panel to evaluate the patient's current lipid control and determine if any adjustment are needed in the lipid lowering therapy. Last Assessment & Plan: Will update a new fasting lipid panel to reassess her lipid control. Her goal LDL is less than 70 given her history. I have reviewed with the patient the importance of a heart healthy lifestyle which includes eating a low-fat low-salt diet, getting regular exercise, maintaining a healthy weight, not smoking, and following up with routine medical care. Assessment & Plan (01/23/2024 12:56 PM EST): Stable, LDL has been at goal <100. She was switched from simvastatin to rosuvastatin (Crestor) some time ago. She will continue with her current medication regimen. Assessment & Plan (08/01/2023 6:17 PM EDT): Stable, managed on simvastatin. Continues ASA 81 mg daily. Most recent LDL has been at goal <100. Assessment & Plan (02/18/2023 9:46 PM EST): Stable, managed on simvastatin. Continues ASA 81 mg daily. Most recent LDL earlier this year 67, at goal <100. Assessment & Plan (12/20/2022 9:01 PM EST): Stable, managed on simvastatin. Continues ASA 81 mg daily. Assessment & Plan (01/09/2022 8:55 PM EST): Continue simvastatin. Vitamin D deficiency 03/15/2018 Assessment & Plan (01/23/2024 1:01 PM EST): Osteopenic, on vitamin d supplement which is adequate. Continue regular weightbearing exercise and intake of at least 1200mg of calcium daily. Assessment & Plan (02/18/2023 9:41 PM EST): Osteopenic, on vitamin d supplement which is adequate - recent vitamin d level 39.1. Assessment & Plan (12/20/2022 9:05 PM EST): Osteopenic, on vitamin d supplement. Resolved Problems Problem Noted Date Diagnosed Date Resolved Date Preop cardiovascular exam 10/26/2022 Overview (01/23/2024): Last Assessment & Plan: Patient's cardiac problems are optimized on current medical therapy. Patient's activity level represents greater than 4 METS. Patient does not require any further testing at this time. Using the CONTEH cardiac risk assessment patient is at a 0.2% risk for perioperative myocardial infarction or cardiac arrest. Patient is at acceptable risk for the proposed surgical procedure. He recently completed a pharmacological nuclear stress test in August 2022 which showed no areas of ischemia or infarction. For most patients taking aspirin monotherapy, we recommend that they hold such therapy five to seven days before surgery and that aspirin not be started before noncardiac surgery in those not taking aspirin. Patients with an indication for long-term aspirin usage who have their aspirin held prior to surgery should have their aspirin re-started when the perioperative risk of major bleeding has passed. History of bladder cancer 09/06/2018 Overview (07/12/2020): Resected 2019 Encounters Date Type Department Care Team Description 08/21/2024 Orders Only [facility] [address] [place] [address] Provider, MD Jennifer 06/30/2024 11:30 AM EDT Office Visit [facility] [address] [place] [address] Gabi Plasencia CNP Type 2 diabetes mellitus without complication, without long-term current use of insulin (Primary Dx); Low vitamin B12 level; Candidal intertrigo 06/02/2024 9:59 AM EDT - 06/02/2024 11:59 PM EDT Hospital Encounter [facility] [address] [place] [address] [address] [place] [address] Gabi Plasencia CNP Discharge Disposition: Home or Self Care 06/02/2024 9:58 AM EDT Hospital Encounter [facility] - [address] [place] [address] Gabi Plasencia CNP Discharge Disposition: Home or Self Care 06/02/2024 9:30 AM EDT Office Visit [facility] [address] [place] [address] [place] [address] Gabi Plasencia CNP Dizziness (Primary Dx); Type 2 diabetes mellitus with hyperglycemia, without long-term current use of insulin; Hair loss; Tinnitus of both ears; Low vitamin B12 level; Essential hypertension; Left leg pain; Bradycardia 06/02/2024 Orders Only [facility] [address] [place] [address] Provider, MD Jennifer from Last 3 Months Immunizations Immunization Administration Dates Next Due COVID-19 (Pre-12/04) Pfizer Vaccine, mRNA, PF ,05/18/2020 DTaP 03/25/2007 Hepatitis B Adult 03/21/2010 Pneumococcal conjugate PCV13 12/03/2019 Pneumococcal conjugate, PCV 7 10/23/2011 Pneumococcal polysaccharide PPSV23 06/13/2021, Td (adult),2 Lf Tetanus Toxoid, PF, Adsorbed ,08/15/2007 Family History Medical History Relation Comments Diabetes Father Heart disease Father Dementia Mother Heart disease Mother Heart disease Sister Relation Status Comments Father Mother Sister Social History Tobacco Use Types Packs/Day Years Used Date Smoking Tobacco: Every Day Cigarettes 1 55.5 Started: 03/15/1969 Smokeless Tobacco: Never Tobacco Cessation:Ready to Q uit: Not Asked; Counseling Given: Not Answered Comments:1 PPD, sometimes more Alcohol Use Standard Drinks/Week Comments No 0 (1 standard drink = 0.6 oz pur e alcohol) Child or Family Care Answer Date Record ed Do you have problems with on e of the following making it difficult for you to work, study, or receive health care? No 01/23/2024 Education Answer Date Recorded Are you interested in more education? Not on molly e 06/09/2022 Are you concerned about learning? Not on file 06/09/2022 No 06/09/2022 No 06/09/2022 Food Answer Date Recorded Within the past 6 months we worried whether our food would run out before we got money to buy more. Never True 01/23/2024 Within the past 6 months the food we bought just didn't last and we didn't have enough money to get more. Never True Residential Stability Answer Date Recor ded What is your housing situation today? I have siri arora 01/23/2024 How many times have you move d in the past 12 months? Zero (I did not move) 01/23/2024 Paying for Meds Answer Date Recorded Do you have trouble paying for medicines? No 01/23/2024 Paying Utility Bills Answer Date Record ed Do you have trouble paying your heating or elect ricity bill? No 01/23/2024 Transportation Answer Date Recorded Has the lack of transportati on kept you from medical appointments or from getting medications? No 01/23/2024 Digital Access Answer Date Recorded Yes 01/23/2024 Yes 01/23/2024 Do you have reliable internet access at home? No 01/23/2024 Do you have a device (e.g., phone, tablet, computer) with a working camera? Yes 01/23/2024 Intimate Partner Violence Answer Date R ecorded Denied Basic Needs Not on file 01/23/2024 In the past 12 months have y ou been in a relationship with a person who hurts, threatens, or tries to control you? No 01/23/2024 Worried food would run out Not on file 01/22 In the past 12 months have y ou been in a relationship with a person who hurts, threatens, or tries to control you? No 01/23/2024 Comments No Sex and Gender Information Value Date Recorded Sex Assigned at Female 06/23/2021 7:14 PM EDT Legal Sex Female 11:26 AM EST Gender Identity Female 06/23/2021 7:14 PM EDT Sexual Orientation Straight 06/23/2021 7: 14 PM EDT Last Filed Vital Signs Vital Sign Reading Time Taken Comments Blood Pressure 128/80 06/30/2024 11:56 AM EDT Pulse 55 06/30/2024 11:56 AM EDT Temperature 37 C (98.6 F) 07/20/2023 10:58 AM EDT Respiratory Rate 16 01/09/2022 9:50 AM EST Oxygen Saturation 100% 06/30/2024 11:56 AM EDT Inhaled Oxygen Concentration - - Weight 83 kg (183 lb) 06/30/2024 11:56 AM EDT Height 164 cm (5' 4.57 ) 01/18/2023 11:05 AM EST Body Mass Index 30.86 01/18/2023 11:05 AM EST Plan of Treatment Upcoming Encounters Date Type Department Care Team (Late st Contact Info) Description 01/29/2025 8:30 AM EST Office Visit [facility] [address] [place] [address] Gabi Plasencia, ENVIRONMENTAL HEALTH AND SAFETY LEADER [address] [place], [place] [address] [email or web address] Health Maintenance Due Date Last Done Comments ZOSTER VACCINES (1 of 2) 1969 COLOGUARD 06/04/1995 FIT TEST 06/04/1995 FOBT 06/04/1995 SIGMOIDOSCOPY 06/04/1995 VIRTUAL COLONOSCOPY 06/04/1995 RSV VACCINE (1 - Risk 60-74 years 1-dose series) 2010 DIABETIC EYE EXAM 02/27/2024 COVID-19 VACCINE ( season) 2024 12/28/2023, 05/08/2022, 12/05/2020, Additional history exists HEMOGLOBIN A1C 12/02/2024 06/02/2024, 04/2023, 01/11/2023, Additional history exists BLOOD PRESSURE 12/31/2024 06/30/2024 DEPRESSION SCREENING 01/22/2025 01/23/2024 FOLLOW UP BONE DENSITY TESTING 04/09/2025 04/09/2023, 02/05/2020, 01/01/2017 LUNG CANCER SCREENING (LDCT Only) 04/21/2025 04/21/2024, 04/19/2023, 04/17/2022, Additional history exists CREATININE LEVEL 06/02/2025 06/02/2024, 04/2023, 01/11/2023, Additional history exists POTASSIUM LEVEL 06/02/2025 06/02/2024, 1204/2023, 01/11/2023, Additional history exists SMOKING Hx and SMOKELESS TOBACCO SCREENING 2025 2024 MAMMOGRAM 08/20/2026 08/20/2024, 01/12, 07/24/2023, Additional history exists Adult Td,Tdap Booster 11/29/2032 11/29/2022, 008 COLONOSCOPY 03/17/2034 03/17/2024, 07/14, 08/01/2013 COLORECTAL CANCER SCREENING 03/17/2034 HEPATITIS C SCREENING Completed 09/12/2019 PNEUMOCOCCAL VACCINES (50+ years) Completed 06/13/2021, 12/03/2019, 10/23/2011 OSTEOPOROSIS SCREENING INITIAL (ONE-TIME) Completed 04/09/2023, 02/05/2020, 01/01/2017 HEPATITIS A VACCINES Aged Out No long er eligible based on patient's age to complete this topic HIB VACCINES Aged Out No longer eligi ble based on patient's age to complete this topic MENINGOCOCCAL VACCINES (ACWY) Aged Out No longer eligible based on patient's age to complete this topic MENINGOCOCCAL VACCINES (B) Aged Out N o longer eligible based on patient's age to complete this topic Medical Devices Not on file Procedures Procedure Name Priority Date/Time Associated Diagnosis Comments HM MAMMOGRAPHY Routine 08/20/2024 1:34 PM EDT US LOWER EXTREMITY VEINS DUPLEX (LEFT) Urgent/patient waiting 06/02/2024 11:11 AM EDT Left leg pain 25-OH VITAMIN D Routine 06/02/2024 10:01 AM EDT Osteopenia of neck of femur, unspecified laterality LIPID PANEL Routine 06/02/2024 10:01 AM EDT Mixed hyperlipidemia COMPREHENSIVE METABOLIC PANEL Routine 06/02/2024 10:01 AM EDT Primary hypertension Mixed hyperlipidemia Prediabetes C-PEPTIDE Routine 06/02/2024 10:01 AM EDT Type 2 diabetes mellitus without complication, without long-term current use of insulin VITAMIN B12 Routine 06/02/2024 10:01 AM EDT Dizziness HEMOGLOBIN A1C Routine 06/02/2024 10:01 AM EDT Type 2 diabetes mellitus with hyperglycemia, without long-term current use of insulin TSH WITH REFLEX Routine 06/02/2024 10:01 AM EDT Dizziness Hair loss CBC Routine 06/02/2024 10:01 AM EDT Hair loss COLONOSCOPY FOR RESULT ENTRY ONLY Routine 03/17/2024 LDCT PROCEDURE FOR RESULT ENTRY ONLY Routine 04/19/2023 3:36 PM EST BD DXA SCREENING Routine 04/09/2023 10:31 AM EST Osteopenia, unspecified location HEPATITIS C ANTIBODY, QUALITATIVE Routine 09/12/2019 8:21 AM EDT Exposure to blood or body fluid from Last 3 Months or Most Recently Relevant to Health Maintenance Results * MAMMOGRAPHY FOR RESULT ENTRY ONLY (08/20/2024 1:34 PM EDT) us Historical Provider HEALTH MAINTENANCE Edited Result - Final * US Lower Extremity Veins Duplex (Left) (06/02/2024 11:11 AM EDT) Anatomical Region Laterality Modality Hip Left, Thigh Left, Knee L eft, Leg Left, Ankle Left, Foot Left Ultrasound 06/02/2024 11:2 7 AM EDT Impressions 06/02/2024 11:28 AM EDT * No evidence of deep or superficial venous thrombosis in the visualized veins of the left lower extremity. Narrative 06/02/2024 11:28 AM EDT US LOWER EXTREMITY VEINS DUPLEX (LEFT) Referring clinician's provided indication for this examination in Epic: Left Leg Pain TECHNIQUE: Lower extremity venous ultrasound with color and spectral Doppler. COMPARISON: FINDINGS: Exam Quality: Technically adequate exam demonstrates: Left lower extremity: Common femoral vein: Normal compressibility and flow characteristics. Femoral vein: Normal compressibility and flow characteristics. Proximal profunda femoral vein: Normal compressibility. Popliteal vein: Normal compressibility and flow characteristics. Posterior tibial veins: Normal compressibility. Peroneal veins: Normal compressibility. Gastrocnemius: Normal compressibility. Great saphenous vein: Normal compressibility at the saphenofemoral junction. Contralateral common femoral vein: Normal compressibility. Procedure Note Wilbur Keenan MBBS - 06/02/2024 US LOWER EXTREMITY VEINS DUPLEX (LEFT) Referring clinician's provided indication for this examination in Epic:Left Leg Pain TECHNIQUE: Lower extremity venous ultrasound with color and spectralDoppler. COMPARISON: FINDINGS: Exam Quality: Technically adequate exam demonstrates: Left lower extremity: Common femoral vein: Normal compressibility and flow characteristics. Femoral vein: Normal compressibility and flow characteristics. Proximal profunda femoral vein: Normal compressibility. Popliteal vein: Normal compressibility and flow characteristics. Posterior tibial veins: Normal compressibility. Peroneal veins: Normal compressibility. Gastrocnemius: Normal compressibility. Great saphenous vein: Normal compressibility at the saphenofemoraljunction. Contralateral common femoral vein: Normal compressibility. IMPRESSION: * No evidence of deep or superficial venous thrombosis in the visualizedveins of the left lower extremity. Gabi Plasencia ENVIRONMENTAL HEALTH AND SAFETY LEADER CV US VASCULAR Ce l Result * (ABNORMAL) Comprehensive metabolic panel (06/02/2024 10:01 AM EDT) SODIUM 141 133 - 146 mmol/L [facility] POTASSIUM 4.2 3.3 - 5.1 mmol/L [facility] CHLORIDE 105 96 - 108 mmol/L [facility] CO2 26 21 - 35 mmol/L [facility] BUN 13 6 - 19 mg/dL [facility] CREATININE 0.90 0.5 - 1.5 mg/dL [facility] GLUCOSE 123(H) 70 - 99 mg/dL [facility] ALBUMIN 4.3 3.9 - 4.8 g/dL [facility] TOTAL PROTEIN 7.3 6.5 - 8.0 g/dL [facility] CALCIUM 9.9 8.4 - 10.3 mg/dL [facility] ALKALINE PHOSPHATASE 128(H) 39 - 117 U/L [facility] TOTAL BILIRUBIN 0.5 0.0 - 1.2 mg/dL [facility] AST 24 0 - 37 U/L [facility] ALT 36 0 - 40 U/L [facility] GLOBULIN 3.0 1 - 4.8 g/dL [facility] EGFR 68 >59 mL/min/1.7 3m2 [facility] Comment:Estimated glomerular filtration rate calculated using the CKD-EPI refit equation. ANION GAP 14 10 - 20 mmol/L [facility] Blood 06/02/2024 10:0 1 AM EDT 06/02/2024 10:09 AM EDT Gabi [facility] LAB BLOOD ORDERABLES Final Result [address] [address] * TSH with reflex (06/02/2024 10:01 AM EDT) TSH 1.37 0.27 - 4.20 uIU/mL [facility] Blood 06/02/2024 10:0 1 AM EDT 06/02/2024 10:09 AM EDT [facility] Final Result Performing Organization Address City/[facility]/ZIP Co de Phone Number [address] [address] * 25-OH vitamin D (06/02/2024 10:01 AM EDT) 25 OH VIT D (TOTAL) 48 30 - 60 ng/mL [facility] Blood 06/02/2024 10:0 1 AM EDT 06/02/2024 10:09 AM EDT [facility] Final Result Performing Organization Address City/[facility]/ZIP Co de Phone Number [address] [address] * C-peptide (06/02/2024 10:01 AM EDT) C-PEPTIDE 4.4 1.1 - 4.4 ng/mL [facility] Comment: (NOTE) ADDITIONAL INFORMATION Reference interval applies to fasting patients. Blood 06/02/2024 10:0 1 AM EDT 06/02/2024 10:09 AM EDT Gabi Plasencia [facility] LAB BLOOD ORDERABLES Final Result [facility] [address] [place] [address] * (ABNORMAL) CBC (06/02/2024 10:01 AM EDT) WBC 12.59(H) 4.00 - 11.00 K/uL [facility] RBC 4.68 4.00 - 5.20 M/uL [facility] HGB 14.6 12.0 - 16.0 g/dL [facility] HCT 43.9 36.0 - 46.0 % [facility] PLT 259 150 - 450 K/uL [facility] MCV 93.8 80.0 - 100.0 fL [facility] MCH 31.2(H) 27.0 - 31.0 pg [facility] MCHC 33.3 32.0 - 36.0 g/dL [facility] RDW 14.6(H) 11.5 - 14.5 % [facility] MPV 11.8 8.4 - 12.0 fL [facility] NRBC 0.00 0.00 /100 WBCs [facility] ABSOLUTE NRBC 0.00 0.00 K/uL [facility] Blood 06/02/2024 10:0 1 AM EDT 06/02/2024 10:09 AM EDT [facility] Final Result Performing Organization Address City/[facility]/ZIP Co de Phone Number [address] [address] * (ABNORMAL) Hemoglobin A1c (06/02/2024 10:01 AM EDT) HEMOGLOBIN A1C 5.9(H) 4.3 - 5.8 % [facility] Blood 06/02/2024 10:0 1 AM EDT 06/02/2024 10:09 AM EDT Gabi [facility] LAB BLOOD ORDERABLES Final Result [address] [address] * Vitamin B12 (06/02/2024 10:01 AM EDT) Pathologist [facility] VITAMIN B12 347 232 - 1,245 pg/mL [facility] Blood 06/02/2024 10:0 1 AM EDT 06/02/2024 10:09 AM EDT [facility] LAB BLOOD ORDERABLES Final Result [address] [address] * (ABNORMAL) Lipid panel (06/02/2024 10:01 AM EDT) HDL 49 mg/dL [facility] Comment: Interpretation <40 mg/dL: Low HDL cholesterol (major risk factor for CHD) Greater than or equal to 60 mg/dL: High HDL cholesterol ( negative risk factor for CHD) HDL - cholesterol is affected by a number of factors, e.g. smoking, excerise, hormones, sex and age. CHOLESTEROL 128 0 - 240 mg/dL [facility] TRIGLYCERIDES 128 30 - 160 mg/dL [facility] LDL 53 50 - 129 mg/dL [facility] Comment: LDL levels in terms of risk for coronary heart disease: <100 mg/dL: Optimal 100-129 mg/dL: Near or above optimal 130-159 mg/dL: Borderline high 160-189 mg/dL: High >190 mg/dL: Very High CARDIAC RISK RATIO 2.6(L) 3.3 - 4.4 [facility] Blood 06/02/2024 10:0 1 AM EDT 06/02/2024 10:10 AM EDT Gabi Plasencia CNP LAB BLOOD ORDERABLES Final Result Performing Organization Address City/[facility]/ZIP Co de Phone Number [address] [address] * COLONOSCOPY FOR RESULT ENTRY ONLY (03/17/2024) Colonoscopy 10 yr recall Jennifer Olsen MD HEALTH MAINTENANCE Final Result * LDCT PROCEDURE FOR RESULT ENTRY ONLY (04/19/2023 3:36 PM EST) Mercy Davis MD HEALTH MAINTENANCE Final Res ult * DXA Screening (04/09/2023 10:31 AM EST) Anatomical Region Laterality Modality Bone Density Bone Density Gabi Plasencia CNP IMG BD BONE DENSITY DEXA Final Result * Hepatitis C antibody, qualitative (09/12/2019 8:21 AM EDT) HCV NON-REACTIV E NON-REACTI VE [facility] Blood 09/12/2019 8:21 AM EDT 09/12/2019 8:25 AM EDT Kashmir Riggins MD LAB BLOOD ORDERABLES Final Resul t [address] [address] from Last 3 Months or Most Recently Relevant to Health Maintenance Insurance [employer]AC[employer] Member Subscriber Plan / Payer (Ef fective 2018-Present) Name:Barby Simpson Relation to Subscriber:Self Name:Barby Simpson Payer ID:Not on file Type:Medicare Address: [place] [id number] [employer] [place] [employer] H[employer] REPLACEMENT [employer] [place] [employer] REPLACEMENT Care Teams Panel Sewer Relationship Specialty Start Date End Date Gabi Plasencia CNP [address] [place] [address], [address] [place] [address] PCP - General Family Medicine 09/27/22 Teddy Kebede MD Obstetrics and Gynecology 12/03/19 Mamadou Springer MD [address] [place] [address] Dr Crandall [address] [place] [address] [facility] 06/23/20 Phill Pulido MD [address] [place] [address] Urology 10/12/20 Patel Galvan PA [address] [place] [address] [place] [address] Physician Network Operations Project Manager Dermatology 01/23/24 Emily Becker NP [address] [place] [address] [place] [address] Nurse Practitioner Pulmonary Disease 01/23/24 Marvel Levine MD [address] [place] [address] [address] [place] [address] Gastroenterology 01/23/24 Additional Source Comments The information contained in this document represents components of the legal health record. It is not the complete legal health record.[facility]
--- OUTSIDE RECORDS SUMMARY | 2024-09-01 15:21 | XMS_ITS | Data Portability ---
Author Organization [facility]ONICA [facility] [address] Address [address] [place] [address] Assessment No assessment recorded. Plan of Treatment Reminders Order Date Submit Date Provider Last Modified By Organization Details Last Modified Time Details Appointments None recorded. Lab None recorded. Referral None recorded. Procedures None recorded. Surgeries None recorded. Imaging None recorded. Medication Orders Augmentin 875 mg-125 mg tablet 2022 023 [id number], [address] [place], [address], 13:53:26 Patient TargetsNo targets recorded. Patient Instructions Encounter Date Encounter Id Patient Instructions Last Modified By Organization Details Last Modified Time 03/07/2022 [id number] tooth and gum pain: care instructions [email or web address] Not available 03/07/2022 13:53:41 Reason for Referral None Reported. Problems Name Problem SNOMED Code Status Onset Date Resolution Date Notes Provider Name and Address Organization Details Recorded Time Tuberculosi s 16695249 Completed 196902/12/1969 CHENG us PA - [facility] 13:15:24 Hyperlipide tyrone 05055081 Active 2022 CHENG us, PA - [facility] 13:13:20 Hypertensiv e disorder 73307690 Active 2022 CHENG us, PA - [facility] 13:13:44 Chronic obstructive pulmonary disease 50283866 Active 2022 CHENG us PA - [facility] 13:13:57 Asthma 644074074 Active 2022 CHENG us, PA - [facility] 3 13:14:04 Malignant neoplasm of urinary bladder 269197799 Active 2022 CHENGJULITA CLARK null, PA - [facility] 3 13:14:37 Peripheral vascular disease 317926517 Active 2022 CHENGJULITA CLARK null, PA - [facility] 3 13:14:50 Arthritis 7906726 Active 2022 CHENG CLARK null, PA - [facility] 3 13:14:55 Problem Notes None recorded. Procedures Surgical History [...] Name and Address Organization Details Recorded Time 634846 doxycycli ne Not available rash Not available Not available 03/07/2022 3640 RxNorm CHENG us, PA - [facility] 3 13:09:50 940957 erythromy augustine medicatio n rash Not available Not available 03/07/2022 4053 RxNorm CHENG DANGELOEY null, PA - [facility] 3 13:10:00 918279 Bactrim medicatio n rash Not available Not available 03/07/2022 23402 9 RxNorm CHENG CLARK null, PA - [facility] 3 13:10:06 724022 lisinopri l medicatio n other Not available Not available 03/07/2022 02046 RxNorm Back pain CHENG CLARK null, PA - [facility] 3 13:10:23 926039 Celebrex medicatio n other Not available Not available 03/07/2022 14411 7 RxNorm vagin al bleed ing CHENG CLARK null, PA - [facility] 3 13:10:41 760903 fentanyl medicatio n nausea Not available Not available 03/07/2022 4337 RxNorm CHENG CLARK null, PA - [facility] 3 13:10:49 430649 oxycodone medicatio n vomiting Not available Not available 03/07/2022 7804 RxNorm CHENG CLARK null, PA - [facility] 3 13:10:56 980821 honey bee venom medicatio n swelling wheezing Not available Not available Not available 03/07/2022 17992 7 RxNorm CHENG CLARK null, PA - [facility] 3 13:11:38 487239 Iodinated contrast media (substanc e) medicatio n rash Not available Not available 03/07/2022 60502 2004 SNOMED IVP dye CHENG CLARK null, PA - [facility] 3 13:12:10 640608 influenza virus vaccine, specific Not available wheezing Not available Not available 03/07/2022 07713 UNK [facility]ENG CLARK null, [facility] - [facility] [...] Last Updated DateTime 162.56 cm 31.6 kg/m2 41691 g 18 /min 98 % 98 % 57 /min 97.7 [degF] 144/83 mm[Hg] CHENG [employer] 13:19:13 Social History Question Answer Notes LastModified by [employer] Details LastModified Time Tobacco Smoking Status Current Every Day Smoker states she quit one week ago VERONICA Hannon [employer] 03/07/2022 13:16:05 How Much Tobacco Do You Smoke? 1 PPD [email or web address] Information not available 03/07/2022 Have You Recently Traveled Abroad? No [email or web address] Information not available 03/07/2022 Sex: Unknown Functional Status Question Answer Note LastModified by [employer] Details LastModified Time Do you use any illicit or recreational drugs? No [email or web address] Information not available 03/07/2022 Do you or have you ever used any other forms of tobacco or nicotine? No [email or web address] Information not available 03/07/2022 What is your level of alcohol consumption? None [email or web address] Information not available 03/07/2022 Mental Status None recorded. Family History Relationship Description Onset Age of this Age Resolved Age Notes LastModified by Organization Details LastModified Time Father No current problems or disability [email or web address] Not available 03/07 13:14:42 Mother No current problems or disability Not available 03/07 13:14:42 Medical History No medical history recorded. Gynecological HistoryNo gynecological history recorded. Obstetrics History GPAL:G 0 P 0 0 0 0 Past Encounters Encounter ID Performer Location Encounter Start Date Encounter Closed Date Diagnosis/Indication Diagnosis SNOMED-CT Code Diagnosis ICD10 Code Diagnosis Note [id number] [address] [place] [address] 07/29/2016 12:54:00 07/29/2016 14:05:27 [id number] [address] [place] [address] 12/03/2016 17:29:38 12/03/2016 18:17:30 [id number] [address] [place] [address] 10/14/2015 16:58:58 10/14/2015 17:35:12 [id number] [address] [place] [address] 01/18/2018 15:15:21 01/18/2018 16:22:10 [id number] [address] [place] [address] 11/14/2016 18:30:39 11/14/2016 19:15:48 [id number] [address] [place] [address] 11/25/2016 12:38:26 11/25/2016 13:20:32 [id number] [address] [place] [address] 04/10/2018 13:29:03 04/10/2018 14:26:08 [id number] [address] [place] [address] 11/14/2019 18:51:13 11/14/2019 19:56:47 [id number] [address] [place] [address] 07/18/2016 08:38:29 07/18/2016 09:45:33 [id number] [address] [place] [address] 07/15/2021 17:49:42 07/15/2021 19:43:51 [id number] [address] [place] [address] 11/20/2017 14:31:15 11/20/2017 17:24:50 [id number] [address] [place] [address] 06/20/2016 18:29:51 06/20/2016 19:42:33 [id number] [address] [place] [address] 04/24/2018 09:56:37 04/24/2018 10:32:59 [id number] [address] [place] [address] 12/02/2021 13:07:16 12/02/2021 15:17:01 [id number] [address] [place] [address] 04/03/2015 10:57:23 04/03/2015 12:32:36 [id number] [address] [place] [address] 07/18/2018 18:08:14 07/18/2018 18:57:09 [id number] [address] [place] [address] 12/20/2014 13:42:57 12/20/2014 14:47:10 [id number] Bernard Harvey MD [address] [place] [address] 03/07/2022 12:23:43 03/07/2022 14:06:03 Dental abscess [id number] K04.7 Pain where tooth pulled with swelling. Needs dental follow up. Health Concerns Section Related Observation LastModified by Organization Detai ls LastModified Time None Recorded Concern Status LastModified by Organization Details LastModified Time None Recorded Advance Directives Directive None Recorded Payers Insurance Date Sequence Insurance Name Policy Number Policy Coe Covered Member ID Coe Member ID Guarantor Name 03/30/2022 1 [facility] - MEDICARE ADVANTAGE PLAN (MEDICARE REPLACEMENT HMO) [id number] Barby Simpson [id number] Barby Garcia Calvin 03/07/2022 [employer] - SPECIALITY CLAIMS (MEDICARE DME REGION A) Barby Garcia Calvin [id number] Barby Garcia Calvin Notes Date Note Type Note Provider Name and Address Organization Details Recorded Time 03/07/2022 text/html Had tooth pulled , an was put on Amoxicillin pre and post op. Follow up wt Dentist Sunday and restarted Amoxicillin which is not making any difference. Pain worsening, facial pain on the left Bernard Harvey MD [facility] [place], [address], [place] - [facility] 03/07/2022 13:57:22 OBGyn Episode No OBEpisode recorded.
== END 2024-09-01 16:21 | disposition home or self-care (01) ==
PROVIDERS: PCP Nurse Practitioner Family; Visit Provider Physician Assistant Medical
DX: R05.8 Other specified cough (principal); R09.81 Nasal congestion

== ENCOUNTER → 2024-09-01 14:30 | Outpatient (BNVA) | payer MEDICARE, SELFPAY | PROVIDERS: PCP Nurse Practitioner Family; Visit Provider Physician Assistant Medical | DX: R05.8 Other specified cough (principal); R09.81 Nasal congestion | CPT/HCPCS: 99212 ==

== ENCOUNTER 2024-09-19 14:46 | Outpatient (REF) | payer MEDICARE, SELFPAY ==
[2024-09-20 12:49] LABS: Bacterial Vaginosis PCR NEGATIVE (Negative); Candida Group PCR NOT DETECTED (Not Detect); Candida glab krusei PCR NOT DETECTED (Not Detect); Trichomonas vaginalis PCR NOT DETECTED (Not Detect)
== END 2024-09-19 14:47 | disposition home or self-care (01) ==
LOC: HO.LAB 14:46
PROVIDERS: PCP Nurse Practitioner Family; Visit Provider Physician Assistant
DX: N76.0 Acute vaginitis (principal); F17.210 Nicotine dependence, cigarettes, uncomplicated
CPT/HCPCS: 81515; 99212

== ENCOUNTER 2024-09-19 14:46 | Outpatient (AMB) | payer MEDICARE, SELFPAY ==
--- OUTSIDE RECORDS SUMMARY | 2024-09-19 14:49 | XMS_ITS | Clinical Summary ---
Author Organization [address] [place] [address] [place] [phone] Phone Care Team Providers Care Completions Manager Name Role Phone Andresshirley Gabi Gant NP [...] TABLET BY MOUTH EVERY DAY 1 Active albuterol-budes onide 90-80 mcg/actuation HFA aerosol [...] TOPICALLY TWICE DAILY TO TRUNK 3 Active rosuvastatin (CRESTOR) 40 mg tablet TAKE ONE TABLET BY MOUTH EVERY DAY 90 tablet 1 5 Active valsartan (DIOVAN) 160 mg tablet TAKE ONE TABLET BY MOUTH TWICE A DAY 180 tablet 1 5 Active Active Problems Problem Noted Date [...] aspirin and statin as prescribed. Bladder cancer ([facility] V24, [facility] V28) 2020 Overview (11/08/2023): Being followed by [facility] urologist Dr. Sai Castellanos, s/p transurethral resection, papillary urothelial carcinoma COPD (chronic obstructive pu lmonary disease) ([facility] V24, [facility] V28) 03/01/2020 Dizziness 03/01/2020 Overview (11/08/2023): [...] care. Osteopenia 03/01/2020 Vitamin D deficiency 03/01/2020 Immunizations Name Administration Dates Next Due Pfizer SARS-CoV-2 COVID-19, mRNA, LNP-S, preservative free 06/08/2020,05/18/2020 Surgical History Surgery Date Site/Laterality Comments BLADDER SURGERY PROCEDURE: HISTORICAL BLADDER SURGERY CHOLECYSTECTOMY PROCEDURE: HISTORICAL CHOLECYSTECTOMY Medical History Medical History Date Comments Dizziness 03/01/2020 DX:Dizziness COPD (chronic obstructive pu lmonary disease) ([facility] V24, [facility] V28) 03/01/2020 DX:COPD (chronic o bstructive pulmonary disease) ([facility]) Bladder cancer ([facility] V24, [facility] V28) 03/01/2020 DX:Bladder cancer (HCC); COM MENT: Being followed by [facility] urologist Dr. Sai Castellanos, s/p transurethral [...] 52 03/17/2024 12:54 PM EST Temperature 37.3 C (99.1 F) 03/17/2024 12:34 PM EST Respiratory Rate 20 03/17/2024 12:54 PM EST [...] Description 11/17/2024 9:15 AM EDT Ancillary Procedure [facility] [address] [facility] [address] [place] [phone] 11/20/2024 10:50 AM EDT Office Visit [facility] - [facility] [address] [facility] [address] [place] [phone] Mamadou Springer MD [address] [place] [address] 01/02/2025 10:30 AM EST Office Visit Vascular Surgery - [place] [address] [place] [phone] Ladarius Muro MD [address] [address] Health Maintenance Due Date Last Done Comments Breast Cancer Screening 1950 Diabetes: Annual Foot Exam 1960 Diabetes: Annual Retina Eye Exam 1960 Zoster Vaccines (1 of 2) 1969 Hepatitis B Vaccines (2 of 3 - 19+ 3-dose series) 04/18/2010 03/21/2010 RSV Immunization Adult Patients (1 - Risk 60-74 years 1-dose series) 2010 Medicare Annual Wellness Visit 01/21/2022 Osteoporosis Screening (Bone Density Screening) 01/21/2022 Social Influencers of Health Screening 01/21/2022 Diabetes: Annual GFR (Glomerular Filtration Rate) 01/02/2023 01/02/2022, 01/02/2022, 03/16/2021, Additional history exists Hypertension/CHF/CAD Annual BMP Blood Test 01/02/2023 01/02/2022, 01/02/2022, 03/16/2021, Additional history exists Depression Screening 02/13/2024 Diabetes: Annual Urine Albumin-Creatinine Ratio (uACR) 03/17/2024 Diabetes: Blood Sugar Control Test (HGBA1C) 03/17/2024 01/02/2022 COVID-19 Vaccine (6 - Pfizer risk 2023- season) 2024 12/28/2023, 05/08/2022, 12/05/2020, Additional history exists Influenza Vaccine (#1) 2024 Falls Risk Assessment 03/17/2025 03/17/2024 Lung [...] the time of screening in one year. LUNG RADS: Lung-RADS 2: BENIGN S Modifier (Significant or Potentially Significant Findings): None present No suspicious nonpulmonary findings. RECOMMENDATIONS: [address] low dose [address] -------- FINAL REPORT -------- Dictated By: Srinivas Devine Dictated Date: 04/22/2024 09:37 ET Assigned Physician: Srinivas Devine Reviewed and Electronically Signed By: Srinivas Devine Signed Date: 04/22/2024 09:50 ET Workstation ID: [id number] Transcribed By: Self Edit Transcribed Date: 04/22/2024 09:37 ET Narrative 04/22/2024 9:50 AM EDT EXAMINATION: CT CHEST WITHOUT CONTRAST LUNG CANCER SCREENING, LOW DOSE CLINICAL INFORMATION: Lung cancer screening. Current smoker COMPARISON: Portions of previous 04/19/2023 TECHNIQUE: Multidetector CT. Examination of the chest. Examination of the chest without IV contrast. Reformatting in the coronal and sagittal planes. Device: [employer] VCT DLP: 174 mGy-cm CTDI: 4.83 Dose optimization was performed including the use of low-dose iterative reconstruction technique with automatic exposure control based on patient size. Type of contrast: None Volume of IV contrast: None Volume of contrast discarded: 0 mL FINDINGS: LUNG: No abnormality of the trachea or mainstem bronchi. No focal pneumonia. LUNG NODULES: There are no suspicious nodules [...] a normal variant aberrant right subclavian artery. PLEURA: There is no pleural fluid or pneumothorax AXILLA/CHEST WALL: There are no enlarged axillary lymph nodes. No chest wall mass demonstrated VISUALIZED UPPER ABDOMEN: No suspicious abnormality on limited assessment of the [...] in the coronal and sagittal planes. Device: Ellipticpeed VCT DLP: 174 mGy-cm CTDI: 4.83 Dose [...] Signed Date: 04/22/2024 09:50 ET Workstation ID: [id number] Transcribed By: Self Edit Transcribed Date: 04/22/2024 09:37 ET Mercy Davis MD [facility] [place] CT PROCEDURES Final Result * COLONOSCOPY Anesthesia - MAC; [facility] ENDOSCOPY (03/17/2024 12:33 PM EST) Anatomical Region Laterality Modality Endoscopy 03/17/2024 12:1 0 PM EST Impressions 03/17/2024 12:35 PM EST - Hemorrhoids found on perianal exam. - One 7 mm polyp in the sigmoid colon, removed with a cold snare. Resected and retrieved. - The examination was otherwise normal on direct and retroflexion views. Recommendation: - - Discharge patient to home. - High fiber diet. - Continue present medications. - Await pathology results. - Repeat colonoscopy for surveillance based on pathology results. Narrative 03/17/2024 12:35 PM EST [facility] GI Patient Name: Barby Simpson Procedure Date: 03/17/2024 12:10 PM Date of : 1950 Age: 73 Gender: Female Note Status: Finalized Attending MD: Greg Anaya DO, [id number] Procedure Date No Time: 03/17/2024 Procedure: Colonoscopy Indications: Screening for colorectal malignant neoplasm Providers: Greg Anaya DO Referring MD: Gabi Plasencia NP Medicines: Monitored Anesthesia Care Complications: No immediate complications. Estimated blood loss: Minimal. Estimated Blood Loss: Estimated blood loss was minimal. Procedure: Pre-Anesthesia Assessment: - - Prior to the procedure, a History and Physical was performed, and patient medications and allergies were reviewed. The patient is competent. The risks and benefits of the procedure and the sedation options and risks were discussed with the patient. All questions were answered and informed consent was obtained. Patient identification and proposed procedure were verified by the physician, the nurse, the anesthesiologist, the oil dipper and the aerial survey technician in the pre-procedure area in the endoscopy suite. Mental Status Examination: alert and oriented. Airway Examination: normal oropharyngeal airway and neck mobility. Respiratory Examination: clear to auscultation. CV Examination: normal. Prophylactic Antibiotics: The patient does not require prophylactic antibiotics. Prior Anticoagulants: The patient has taken no anticoagulant or antiplatelet agents. ASA Grade Assessment: II - A patient with severe systemic disease. After reviewing the risks and benefits, the patient was deemed in satisfactory condition to undergo the procedure. The anesthesia plan was to use monitored anesthesia care (MAC). Immediately prior to administration of medications, the patient was re-assessed for adequacy to receive sedatives. The heart rate, respiratory rate, oxygen saturations, blood pressure, adequacy of pulmonary ventilation, and response to care were monitored throughout the procedure. The physical status of the patient was re-assessed after the procedure. After I obtained informed consent, the scope was passed under direct vision. Throughout the procedure, the patient's blood pressure, pulse, and oxygen [...] found in the sigmoid colon. The polyp was sessile. The polyp was removed with a cold snare. Resection and retrieval were complete. Estimated blood loss was minimal. The exam was otherwise without abnormality on direct and retroflexion views. Procedure Code(s): --- Professional --- 64347, Colonoscopy, flexible; with removal of tumor(s), polyp(s), or other lesion(s) by snare technique Diagnosis Code(s): --- Professional --- Z12.11, Encounter for screening for malignant neoplasm of colon K64.9, Unspecified hemorrhoids D12.5, Benign neoplasm of sigmoid colon CPT copyright 2020 [employer]. All rights reserved. The codes documented in this report are preliminary and upon park keeper review may be revised to meet current compliance requirements. GREG Anaya DO 03/17/2024 12:35:25 PM This report has been signed electronically.Greg Anaya DO Number of Addenda: 0 Note Initiated On: 03/17/2024 12:10 PM Scope Withdrawal Time: 0 hours 8 minutes 21 seconds Scope In: 12:20:23 PM Scope Out: 12:32:43 PM Endoscopy Department at [facility] - [address] [place] [phone] Procedure Note Greg Anaya DO - 03/17/2024 [facility] GI Patient Name: Barby Simpson Procedure Date: 03/17/2024 12:10 PM Date of : 1950 Age: 73 Gender: Female Note Status: Finalized Attending MD: Greg Anaya DO, [id number] Procedure Date No Time: 03/17/2024 Procedure: Colonoscopy [...] the physician, the nurse, the anesthesiologist, the oil dipper and thetechnician in the pre-procedure area in [...] retroflexion views. Procedure Code(s): --- Professional --- 21317, Colonoscopy, flexible; with removal of tumor(s), polyp(s), or other lesion(s) by snare technique Diagnosis Code(s): --- Professional --- Z12.11, Encounter for screening for malignantneoplasm of colon K64.9, Unspecified hemorrhoids D12.5, Benign neoplasm of sigmoid colon CPT copyright 2020 [employer]. All rights reserved. The codes documented in this report are preliminary and upon park keeper reviewmay be revised to meet current compliance requirements. GREG Anaya DO 03/17/2024 12:35:25 PM This report has been signed electronically.Greg Anaya DO Number of Addenda: 0 Note Initiated On: 03/17/2024 12:10 PM Scope Withdrawal Time: 0 hours 8 minutes 21 seconds Scope In: 12:20:23 PM Scope Out: 12:32:43 PM Endoscopy Department at [address] [phone] IMPRESSION: - Hemorrhoids found on perianal exam. - One 7 mm polyp in the sigmoid colon, removed witha cold snare. Resected and retrieved. - The examination was otherwise normal on directand retroflexion views. Recommendation: - - Discharge patient to home. - High fiber diet. - Continue present medications. - Await pathology results. - Repeat colonoscopy for surveillance based on pathology results. Result [facility] Greg Anaya DO GI~PROCEDURE ORDERABLES Final Re sult * Annual BMP Blood Test (01/02/2022) Pathologist [facility] Annual BMP Blood Test Abstracted Historical Provider HEALTH MAINTENANCE Final Result * Hemoglobin A1c (01/02/2022) Pathologist [facility] Hemoglobin A1C 0.0 % Comment:No Interpretation Blood Venous blood specimen / Unknown Historical Provider LAB BLOOD ORDERABLES Ce l Result * Lipid panel (06/07/2021) LDL/HDL Ratio 0 Comment:No Interpretation Triglycerides 0 mg/dL Comment:No Interpretation Cholesterol 0 mg/dL Comment:No Interpretation HDL 0 mg/dL Comment:No Interpretation LDL Cholesterol 0 mg/dL Comment:No Interpretation Blood Venous blood specimen / Unknown us Historical Provider LAB BLOOD ORDERABLES Ce l Result from Last 3 Months or Most Recently Relevant to Health Maintenance Insurance [employer] Care Teams Completions Manager Relationship Specialty Start Date End Date Gabi Plasencia NP [address] [place] [id number] PCP - General 10/26/22
--- OUTSIDE RECORDS SUMMARY | 2024-09-19 14:49 | XMS_ITS | Clinical Summary ---
Author Organization Located Within [facility] Address [address] [place] [id number] Phone Care Team Providers Care Glazier Artist Name Role Phone Teddy Kebede MD Unavailable Mamadou Springer MD Unavailable [phone] Phill Pulido MD Unavailable Gabi Plasencia [facility] Primary Care Provid er Patel Galvan Unavailable [phone] Emily Becker NP Unavailable Marvel Levine MD Unavailable Allergies Active Allergy [...] Active Problems Problem Noted Date Diagnosed Date Mass of lower outer quadrant of right breast Candidal intertrigo 06/30/2024 Assessment & Plan (09/09/2024 1:06 PM EDT): Reports itching and rash in abdominal and breast folds. - Rx provided for nystatin, prefers powder to cream. Bradycardia 2024 Assessment & Plan (2024 7:55 [...] 7:41 AM EDT): Recent ED visit at [facility] c/o dizziness. Head CT and chest x-ray [...] patient will schedule an appointment with her torque tester to discuss changes to her antihypertensive regimen. [...] vitamin B12 level 06/02/2024 Assessment & Plan (09/09/2024 1:06 PM EDT): Recent CBC neg for anemia but B12 level sub-optimal <400. She will consider starting a B12 supplement OTC. Unclear if at all contributory to her recent dizziness, weakness and fatigue - all improved with d/c metformin. Assessment & Plan (2024 7:48 AM EDT): [...] the time. She will follow up with [facility] for this treatment. Assessment [...] 30.9 in adult 11/29/2022 Assessment & Plan (09/09/2024 1:07 PM EDT): Weight stable, BMI 30.86. Continue efforts re: healthy, balanced diet and regular exercise. Assessment & Plan (02/18/2023 9:47 PM EST): [...] 2 diabetes mellitus 01/09/2022 Assessment & Plan (09/09/2024 1:01 PM EDT): Stable, controlled T2DM, A1c 5.9. Previously diet controlled, started metformin in Feb 2024 due to A1c up to 7.0, stopped last month d/t headache, dizziness, and bowel irregularities which have all resolved with medication d/c. - A1c has improved but this was likely due to metformin. Medication options were discussed but ultimately deferred in favor of continued blood sugar monitoring. - Continue dietary efforts, limit simple carbs and avoid concentrated sweets. Assessment & Plan (2024 7:57 AM EDT): [...] Overview (06/27/2020): Seen on 2020 screening LDCT [facility] Multiple nodules of lung 06/27/2020 Overview (06/27/2020): Stable on 2020 LDCT [facility]. Assessment & Plan (01/23/2024 1:02 PM EST): Most recent LDCT screening reviewed (04/19/2023): LungRads2. Stable small pulmonary nodules bilaterally. Repeat screening recommended in 1 year. Assessment & Plan (08/01/2023 6:32 PM EDT): Most recent LDCT screening reviewed (04/19/2023): LungRads2. Stable small pulmonary nodules bilaterally. Repeat screening recommended in 1 year. Osteopenia 03/01/2020 Overview (11/29/2022): DXA 01/2020 [place] Assessment & Plan (01/23/2024 12:57 PM EST): [...] Hx osteopenia, has DXA done 01/2020 at [facility]. Discussed repeat bone density scan, pt in agreement. Continue regular weightbearing activity, good dietary intake of calcium and vitamin d supplements. Assessment & Plan (12/20/2022 9:05 PM EST): Per DXA 01/2020 [place]. Continue regular weightbearing activity. Malignant neoplasm of urinary bladder 03/01/2020 Overview (11/29/2022): Dr. Phill Pulido, cystoscopy clear March 2021 Being followed by [facility] urologist Dr. Sai Castellanos, s/p [...] records not available for review. Followed by [facility] urology (Dr Pulido). Chronic obstructive pulmonary disease 03/01/2020 11/29/2022 Overview (08/01/2023): >>OVERVIEW FOR PULMONARY EMPHYSEMA WRITTEN ON 06/27/2020 7:53 PM BY VICK ROY CNP Seen on 2020 LDCT [facility] Assessment & Plan (01/23/2024 1:01 PM EST): COPD w/ asthma overlap. Does have some chronic mild SWARTZ but denies any recent changes in her activity tolerance. Followed by [facility] pulmonology, she does report completing updated LFT's [...] not needed her rescue inhaler. Followed by [facility] pulmonology. Assessment & Plan (08/01/2023 6:16 PM [...] with routine medical care. Assessment & Plan (09/09/2024 1:05 PM EDT): Stable, BP at goal <130/80. Continues on valsartan, diltiazem and metoprolol. Dizziness and weakness have resolved with d/c metformin. - Followed by [facility] cardiology. Assessment & Plan (2024 7:52 AM EDT): Stable, BP at goal <130/80. Continues on valsartan, diltiazem and metoprolol. Mildly bradycardic today and c/o dizziness. - Medication doses were last adjusted about 6 months ago. Followed by [facility] cardiology. - If no improvement with d/c [...] Managed on valsartan and diltiazem. Followed by [facility] cardiology Assessment & Plan (01/09/2022 8:56 PM [...] Encounters Date Type Department Care Team Description 09/19/[address] [place] [address] Gabi Plasencia CNP PA 09/18/2024 Orders Only [address] [place] [address] Gabi Plasencia CNP Mass of lower outer quadrant of right breast 09/09/[address] [place] [address] Lucho Mccormick RN Results 08/21/2024 Orders Only [address] [place] [address] Provider, MD Jennifer Mass of lower outer quadrant of right breast (Primary Dx) 06/30/2024 11:30 AM EDT Office Visit [address] [place] [address] [place] [address] Gabi Plasencia CNP Type 2 diabetes mellitus without complication, without long-term current use of insulin (Primary Dx); Low vitamin B12 level; Candidal intertrigo; Class 1 obesity due to excess calories with serious comorbidity and body mass index (BMI) of 30.0 to 30.9 in adult; Essential hypertension from Last 3 Months Immunizations Immunization Administration [...] your housing situation today? I have siri sing 01/23/2024 How many times have you move [...] EST Office Visit [facility] [address] [place] [address] [place] [address] Gabi Plasencia, ALIZA [address] [facility], [address] [place] [address] [email or web address] Health Maintenance Due Date Last Done Comments ZOSTER VACCINES (1 of 2) 1969 COLOGUARD 06/04/1995 FIT TEST 06/04/1995 FOBT 06/04/1995 SIGMOIDOSCOPY 06/04/1995 VIRTUAL COLONOSCOPY 06/04/1995 RSV VACCINE (1 - Risk 60-74 years 1-dose series) 2010 DIABETIC EYE EXAM 02/27/2024 COVID-19 VACCINE ( season) 2024 12/28/2023, 05/08/2022, 12/05/2020, Additional history exists HEMOGLOBIN A1C 12/02/2024 06/02/2024, 12/0 04/2023, 01/11/2023, Additional history exists BLOOD PRESSURE 12/31/2024 06/30/2024 DEPRESSION SCREENING 01/22/2025 01/23/2024 FOLLOW UP BONE DENSITY TESTING 04/09/2025 04/09/2023, 02/05/2020, 01/01/2017 LUNG CANCER SCREENING (LDCT Only) 04/21/2025 04/21/2024, 04/19/2023, 04/17/2022, Additional history exists CREATININE LEVEL 06/02/2025 06/02/2024, 04/2023, 01/11/2023, Additional history exists POTASSIUM LEVEL 06/02/2025 06/02/2024, 12/0 04/2023, 01/11/2023, Additional history exists SMOKING Hx and SMOKELESS TOBACCO SCREENING 2025 2024 MAMMOGRAM 08/20/2026 08/20/2024, 1202/2023, 07/24/2023, Additional history exists Adult Td,Tdap Booster [...] Procedure Name Priority Date/Time Associated Diagnosis Comments BI LONG-TERM BIOPSY OF BREAST (RIGHT) Routine 09/18/2024 3:07 PM EDT Mass of lower outer quadrant of right breast HM MAMMOGRAPHY Routine 08/20/2024 1:34 PM EDT HEMOGLOBIN A1C Routine 06/02/2024 10:01 AM EDT Type 2 diabetes mellitus with hyperglycemia, without long-term current use of insulin COMPREHENSIVE METABOLIC PANEL Routine 06/02/2024 10:01 AM EDT Primary hypertension Mixed hyperlipidemia Prediabetes HM COLONOSCOPY FOR RESULT ENTRY ONLY Routine 03/17/2024 HM LDCT PROCEDURE FOR RESULT ENTRY ONLY Routine 04/19/2023 3:36 PM EST BD DXA SCREENING Routine 04/09/2023 10:3 1 AM EST Osteopenia, unspecified location HEPATITIS C ANTIBODY, QUALITATIVE Routine 09/12/2019 8:21 AM EDT Exposure to blood or body fluid from Last 3 Months or Most Recently Relevant to Health Maintenance Results * LONG-TERM Biopsy of Breast (Right) (09/18/2024 3:07 PM EDT) Anatomical Region Laterality Modality Breast Right, Breast Bilateral Right B reast Procedure Gabi Plasencia CNP IMG BI IRP GUIDED ADELITA BUCHANAN PROC Final Result * MAMMOGRAPHY FOR RESULT ENTRY ONLY (08/20/2024 1:34 PM EDT) Historical Provider HEALTH MAINTENANCE Edited Result - Final * (ABNORMAL) Comprehensive metabolic panel (06/02/2024 10:01 AM EDT) SODIUM 141 133 - 146 mmol/L [facility] POTASSIUM 4.2 3.3 - 5.1 mmol/L [facility] CHLORIDE 105 96 - 108 mmol/L [facility] CO2 26 21 - 35 mmol/L [facility] BUN 13 6 - 19 mg/dL [facility] CREATININE 0.90 0.5 - 1.5 mg/dL [facility] GLUCOSE 123(H) 70 - 99 mg/dL [facility] ALBUMIN 4.3 3.9 - 4.8 g/dL [facility] TOTAL PROTEIN 7.3 6.5 - 8.0 g/dL [facility] CALCIUM 9.9 8.4 - 10.3 mg/dL [facility] ALKALINE PHOSPHATASE 128(H) 39 - 117 U/L [facility] TOTAL BILIRUBIN 0.5 0.0 - 1.2 mg/dL [facility] AST 24 0 - 37 U/L [facility] ALT 36 0 - 40 U/L [facility] GLOBULIN 3.0 1 - 4.8 g/dL [facility] EGFR 68 >59 mL/min/1.7 3m2 [facility] Comment:Estimated glomerular filtration rate calculated using the CKD-EPI refit equation. ANION GAP 14 10 - 20 mmol/L [facility] Blood 06/02/2024 10:0 1 AM EDT 06/02/2024 10:09 AM EDT Gabi Gant [facility] LAB BLOOD ORDERABLES Final Result Performing Organization Address City/[facility]/ZIP Co de Phone Number [address] [address] * (ABNORMAL) Hemoglobin A1c (06/02/2024 10:01 AM EDT) HEMOGLOBIN A1C 5.9(H) 4.3 - 5.8 % [facility] Blood 06/02/2024 10:0 1 AM EDT 06/02/2024 10:09 AM EDT Gabi [facility] LAB BLOOD ORDERABLES Final Result [address] [address] * COLONOSCOPY FOR RESULT ENTRY ONLY (03/17/2024) Colonoscopy 10 yr recall us Jennifer Olsen MD HEALTH MAINTENANCE Final Result * LDCT PROCEDURE FOR RESULT ENTRY ONLY (04/19/2023 3:36 PM EST) us Mercy Davis MD HEALTH MAINTENANCE Final Res ult * DXA Screening (04/09/2023 10:31 AM EST) Anatomical Region Laterality Modality Bone Density Bone Density us Gabi Plasencia SCREED PERSON IMG BD BONE DENSITY DEXA Final Result * Hepatitis C antibody, qualitative (09/12/2019 8:21 AM EDT) HCV NON-REACTIV E NON-REACTI VE [facility] Blood 09/12/2019 8:21 AM EDT 09/12/2019 8:25 AM EDT us Kashmir Riggins MD LAB BLOOD ORDERABLES Final Resul t [facility] [address] [place] [address] from Last 3 Months or Most Recently Relevant to Health Maintenance Insurance [employer] HMO REPLACEMENT MEDICARE HMO REPLACEMENT MEDICARE HMO REPLACEMENT MEDICARE HMO REPLACEMENT MEDICARE HMO REPLACEMENT [employer] [place] [employer] H[employer] REPLACEMENT Care Teams Glazier Artist Relationship Specialty Start Date End Date Gabi Plasencia CNP [address] [place] [address], [address] [place] [address] [email or web address] PCP - General Family Medicine 09/27/22 Teddy Kebede MD Obstetrics and Gynecology 12/03/19 Mamadou Springer MD [address] [place] [address] [place] [address] Teacher Of The Emotionally Disturbed Cardiology 06/23/20 Phill Pulido MD [address] [place] [address] Urology 10/12/20 Patel Galvan PA [address] [place] [address] [place] [address] Physician [place] Operator Dermatology 01/23/24 Emily Becker NP [address] [place] [address] [place] [address] Nurse Practitioner Pulmonary Disease 01/23/24 Marvel Levine MD [address] [place] [address] Gastroenterology 01/23/24 Additional Source Comments The information contained in this document represents components of the legal health record. It is not the complete legal health record.Located Within [facility]
--- OUTSIDE RECORDS SUMMARY | 2024-09-19 14:49 | XMS_ITS | Patient Health Record ---
Author Organization [facility] [place] Address [address] [place] [address] Care Team Providers Care Diesel Motor Mechanic Name Role Phone Cole Yanes MD Primary Care Provider Nancy Keane Unavailable [phone] Allergies Allergen (clinical drug ingredient) Drug/Non Drug [...] Date [employer] [place] Medicare Advantage [facility] [address] [facility] [place] [address] [phone] Barby Simpson Self - patient is the [...]
[2024-09-19 14:58] VITALS: BP 134/72; PULSE 66; TEMP 36.8; O2SAT 97; BMI 30.7
--- NOTE | 2024-09-19 14:58 | AM.OFFWIN_ITS ---
Intake Vital Signs 09/19/24 14:58 Height 5 ft 4 in Weight 179 lb BMI 30.7 BP 134/72 Blood Pressure Location Rt brachial Position Sitting Pulse 66 Pulse Source Pulse Oximeter Temp 98.2 F Temp Source Oral Pulse Oximetry (%) 97 Oxygen Delivery Method Room Air Intake Visit Reasons: EP Yeast infection? Patient Tobacco Use Status: Current everyday Tobacco user Pensions Retirement Plan Specialist Required: No Is last menstrual period known: No Post menopausal: Yes Patient : No Allergies bee pollen (BEE STINGS) Allergy (Severe, Verified 09/19/24 15:07) ANAPHYLAXIS influenza virus vaccine, specific (Influenza Virus Vacc,Specific) Allergy (Severe, Verified 09/19/24 15:07) DIFFICULTY BREATHING celecoxib (Celebrex) Allergy (Intermediate, Verified 09/19/24 15:07) vaginal bleeding doxycycline (DOXYCYCLINE) Allergy (Intermediate, Verified 09/19/24 15:07) RASH erythromycin base (ERYTHROMYCIN BASE) Allergy (Intermediate, Verified 09/19/24 15:07) RASH Iodinated Contrast Media (IV DYE, IODINE CONTAINING) Allergy (Intermediate, Verified 09/19/24 15:07) RASH lisinopril (LISINOPRIL) Allergy (Intermediate, Verified 09/19/24 15:07) HIVES pentazocine (From Talwin) Allergy (Intermediate, Verified 09/19/24 15:07) Hallucinations sulfamethoxazole (From BACTRIM) Allergy (Intermediate, Verified 09/19/24 15:07) RASH trimethoprim (From BACTRIM) Allergy (Intermediate, Verified 09/19/24 15:07) RASH fentanyl (FENTANYL) Adverse Reaction (Intermediate, Verified 09/19/24 15:07) NAUSEA & VOMITING naproxen (Naprosyn) Adverse Reaction (Intermediate, Verified 09/19/24 15:07) Gastrointestinal Upset oxycodone (Percocet) Adverse Reaction (Intermediate, Verified 09/19/24 15:07) Gastrointestinal Upset Do you need a note to return to daycare/school/sports/work: No HPI HPI Comments History of Present Illness Details This is a 74-year-old female presenting for evaluation of vaginal discharge and irritation. Patient was seen for management of bronchitis approximately 2 weeks ago when was placed on 7 days of Augmentin. Patient states approximately 4 days ago she developed vaginal itching and a white vaginal discharge. Patient used Monistat 3 day OTC and states that her discharge has improved however she still has significant vaginal itching. She denies having any fevers, chills, abdominal pain, dysuria or urinary frequency. [facility] Medical History COVID-19 vaccine series completed Skin cancer Lumbar disc herniation Hx of compression fracture of spine Positive PPD, treated Kidney stone Lesion of urinary bladder Blood clot in vein COPD (chronic obstructive pulmonary disease) Asthma High cholesterol Hypertension Surgical History Hx of dilation and curettage H/O colonoscopy Hx of cataract extraction Hx of cystoscopy Hx of cholecystectomy Social History Are you a primary managed care specialist to a significant other at home: No Do you presently have visiting nurse or other home services: No Patient Tobacco Use Status: Current everyday Tobacco user Tobacco use type: Cigarette Cigarette Packs Per Day: 0.5 Cigarettes Per Day: 10.0 Years Smoked: 35 Patient : No Review of Systems Const All systems reviewed & are unremarkable except as noted in HPI and below Denies chills, Denies fatigue and Denies fever(s) GI Denies abdominal pain and Denies nausea Reports as per HPI, Denies dysuria, Reports vaginal discharge and Reports vaginal pruritus Musc Reports no additional complaints Skin/Breast Reports system reviewed and no additional complaints, except as documented Neuro Reports no additional complaints Psych Reports no additional complaints Endo Denies fatigue Robbin/Lymph Reports no additional complaints Aller/Immun Reports no additional complaints Physical Exam Vital Signs: Last Vital Signs Temp 98.2 F 09/19/24 14:58 Pulse 66 09/19/24 14:58 BP 134/72 09/19/24 14:58 Pulse Ox 97 09/19/24 14:58 Oxygen Delivery Method Room Air 09/19/24 14:58 BMI result Body Mass Index 30.7 Const General: cooperative, healthy appearing, comfortable, no acute distress, well developed, alert, awake and Physically active; No acute distress or ill appearing Nutritional Appearance: well nourished Orientation/consciousness: patient oriented x3 Limitations: no limitations GI Palpation (GI): Soft to palpation, nontender and no guarding General: Yes bladder normal to palpation and Yes no CVA tenderness External Female Exam: No normal external appearance (There is erythema and excoriation of the external labia), erythema, externally tender, No external swelling and other (White opaque scant vaginal discharge; speculum exam is deferred) Bimanual exam- vagina & uterus: bladder normal to palpation Back/Spine/Pelvis Back: no CVA tenderness Neuro General: patient oriented x3 Psych Appearance: grossly normal Mental Status: mental status grossly normal Insight: Good insight present (Psych) Judgement: Good judgement present (Psych) Assessment & Plan Assessment & Plan (1) Vaginitis: Comment: Patient is well-appearing, afebrile without abdominal pain. Bacterial vaginosis panel is submitted. Patient will be discharged home with Diflucan. Code(s): N76.0 - Acute vaginitis Qualifiers: Chronicity: acute Qualified Code(s): N76.0 - Acute vaginitis Plan: Diflucan 200 mg x 1. Patient is advised that she may continue to have symptoms for up to 3 days. Orders: Orders Bacterial Vaginosis Panel Today N76.0 - Acute vaginitis Medications: New fluconazole (Diflucan) 200 mg (2 x 100 mg) PO ONCE 2 tabs 0RF Coding Level of Care Code Est Pt Level 3 (47662) Diagnoses Acute vaginitis N76.0 Chronicity: acute Time Spent (min) 20
== END 2024-09-19 15:54 | disposition home or self-care (01) ==
PROVIDERS: PCP Nurse Practitioner Family; Visit Provider Physician Assistant
DX: N76.0 Acute vaginitis (principal)

== ENCOUNTER 2024-12-03 10:47 | Outpatient (AMB) | payer MEDICARE, SELFPAY ==
--- NOTE | 2024-12-03 11:03 | MHC.OFFVIS ---
Intake Visit Reasons: cysto Intake Note: Patient is Present for Cystoscopy Urology Med: None Blood Thinner: Aspirin Finance And Administration Manager Required: No Accompanied by: Self / Same As Patient Allergies bee pollen (BEE STINGS) Allergy (Severe, Verified 12/03/24 11:04) ANAPHYLAXIS influenza virus vaccine, specific (Influenza Virus Vacc,Specific) Allergy (Severe, Verified 12/03/24 11:04) DIFFICULTY BREATHING celecoxib (Celebrex) Allergy (Intermediate, Verified 12/03/24 11:04) vaginal bleeding doxycycline (DOXYCYCLINE) Allergy (Intermediate, Verified 12/03/24 11:04) RASH erythromycin base (ERYTHROMYCIN BASE) Allergy (Intermediate, Verified 12/03/24 11:04) RASH Iodinated Contrast Media (IV DYE, IODINE CONTAINING) Allergy (Intermediate, Verified 12/03/24 11:04) RASH lisinopril (LISINOPRIL) Allergy (Intermediate, Verified 12/03/24 11:04) HIVES pentazocine (From Talwin) Allergy (Intermediate, Verified 12/03/24 11:04) Hallucinations sulfamethoxazole (From BACTRIM) Allergy (Intermediate, Verified 12/03/24 11:04) RASH trimethoprim (From BACTRIM) Allergy (Intermediate, Verified 12/03/24 11:04) RASH fentanyl (FENTANYL) Adverse Reaction (Intermediate, Verified 12/03/24 11:04) NAUSEA & VOMITING naproxen (Naprosyn) Adverse Reaction (Intermediate, Verified 12/03/24 11:04) Gastrointestinal Upset oxycodone (Percocet) Adverse Reaction (Intermediate, Verified 12/03/24 11:04) Gastrointestinal Upset HPI Comments Details: Barby is a very pleasant female. She is a patient of Dr. Yanes. 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 Will have 5 radiation treatments Bladder with changes expected after immunotherapy Bladder cancer low-grade noninvasive June 2019, December 2019, December 2020, October 2022 Diagnosis June 2019 Bladder interventions - TURBT August 2019 low-grade noninvasive, TURBT Dec 2019 low-grade noninvasive, 01/02 low-grade TA, 11/04 low grade with [facility] Longstanding smoking history 35 pack-years Cystoscopy - 06/02 NAD, 6 recurrent lesion, 2 NAD, 5 NAD, 10/03 NAD, 01/03 Cytology 03/04 NAD, 06/02 atypical, 04/05 NAD, 10/05 NAD Adjuvant therapy - 02/01 6 week gemcitabine, 08/03 3 week, 01/03 3 week, 08/05 3 week boost mitomycin with cytarabine PFSH Medical History COVID-19 vaccine series completed Skin cancer Lumbar disc herniation Hx of compression fracture of spine Positive PPD, treated Kidney stone Lesion of urinary bladder Blood clot in vein COPD (chronic obstructive pulmonary disease) Asthma High cholesterol Hypertension Surgical History Hx of dilation and curettage H/O colonoscopy Hx of cataract extraction Hx of cystoscopy Hx of cholecystectomy Social History Are you a primary aged or disabled care worker to a significant other at home: No Do you presently have visiting nurse or other home services: No Patient Tobacco Use Status: Current everyday Tobacco user Tobacco use type: Cigarette Cigarette Packs Per Day: 0.5 Cigarettes Per Day: 10.0 Years Smoked: 35 Review of Systems Const Denies chills and Denies fever(s) Card Reports no additional complaints and Denies syncope Resp Denies cough GI Denies abdominal pain and Denies heartburn Reports as per HPI and Denies change in libido Neuro Denies syncope Psych Denies change in libido Endo Denies change in libido Physical Exam Const General: cooperative, healthy appearing, comfortable and no acute distress Orientation/consciousness: patient oriented x3 HEENT Face and sinus: Yes normal facial exam Mouth: moist mucous membranes Neck Neck: Yes normal visual inspection, Yes full ROM and Yes trachea midline Chest Chest palpation & inspection: normal inspection of the chest Resp Effort & Inspection: normal respiratory effort, able to speak in complete sentences and no respiratory distress GI Inspection: Yes normal to inspection Back/Spine/Pelvis Cervical Spine: normal cervical lordosis Thoracic/Lumbar Spine: thoracic and lumbar spine normal to inspection Skin General skin exam: no rashes or lesions noted Neuro General: patient oriented x3, gait normal, tone normal and moves all extremities Extrem General: Yes normal to inspection and Yes capillary refill normal Office Procedures Cystoscopy Consent Discussed risk and benefit or proposed procedure with the patient. Information consent for procedure given to the patient. Discussed technical aspects, risks, benefits and alternatives in full. Addressed all of the patient's questions and concerns regarding the procedure. The patient demonstrated knowledge and understanding. They wish to proceed with this procedure. Preparation The patient was prepped in the usual manner. A manager security and safety was present and in the room. Genitalia was prepped with betadine solution in a sterile manner. Lidocaine Jelly 2% was placed into the urethra and 16Fr flexible Olympus cystoscope was inserted into the meatus after adequate lubrication. Procedure Meatus normal position Urethra normal Bladder examination with retroflexion of cystoscope Bladder Orifices normal shape and position Trigone normal Bladder Capacity Normal Trabeculations grade 1 Cellule Formation yes Diverticulum Formation None Mucosal Erythema mucosal changes consistent with prior immunotherapy Bladder Tumor None [id number] DISPOSABLE SCOPE URO-G FLEXIBLE SCOPE Procedure code (CPT) selection complete Office Meds lidocaine HCl 2 % mucosal jelly in applicator Performing Provider: Phill Pulido MD Performing Location: [facility] Administered by: Carlita Ovalles RN on 12/03/24 11:25 Dose Route Admin Location Dispensed Lot Number Expiration Date NDC Auto Air Conditioning Installer 10 mL intra-urethral 10 mL nitrofurantoin monohydrate/macrocrystals 100 mg capsule Performing Provider: Phill Pluido MD Performing Location: [facility] Administered by: Carlita Ovalles RN on 12/03/24 11:25 Dose Route Admin Location Dispensed Lot Number Expiration Date NDC Auto Air Conditioning Installer 100 mg PO 1 cap Assessment & Plan Assessment & Plan (1) Bladder cancer: Comment: recurrent superficial November 2019, December 2020 Code(s): C67.9 - Malignant neoplasm of bladder, unspecified Category: Medical Qualifiers: Bladder location: unspecified site Qualified Code(s): C67.9 - Malignant neoplasm of bladder, unspecified Plan Six-month follow-up check cystoscopy Orders: Orders AMB Cystoscopy Today C67.9 - Malignant neoplasm of bladder, unspecified Patient Instructions: This note is constructed using voice recognition software. While every effort has been made to ensure accuracy wastewater treatment plant instructor errors may have been included. Imaging studies, laboratory and physical exam results were discussed and reviewed in detail. No major barriers to patient understanding were identified. An opportunity to ask questions regarding the treatment plan was provided. All questions were answered. The patient expressed understanding and agreement with the above treatment plan. The patient is aware they should contact our office by phone for worsening of their current condition or the appearance of new urologic symptoms. Compliance is encouraged with any medications and followup testing that is ordered. It is a privilege to participate in the urologic care of your patient. If you have any questions or concerns regarding treatment for the above conditions, or other urologic issues, please do not hesitate to contact me. The office telephone contact is [phone]. Sincerely, Dr Phill Pulido MD, [facility] - Urology Compassionate Specialist Care for the Genitourinary System Coding Level of Care Code Est Pt Level 3 (14076) Complex EM visit Add On G2211 Diagnoses Bladder cancer C67.9 Bladder location: unspecified site CPT Codes Cystoscopy - CPT: 89044-[id number] ([id number])
--- OUTSIDE RECORDS SUMMARY | 2024-12-03 13:56 | XMS_ITS | Clinical Summary ---
Author Organization [address] [place] [address] [place] [phone] Phone Care Team Providers Care Accounts Receivable Clerk Name Role Phone Gabi Plasencia NP Primary Care Provide r Allergies Active [...] tablet Take 81 mg by mouth daily. 011 Active cholecalciferol (VITAMIN D-3) 25 mcg (1,000 unit) tablet Take 1,000 Units by mouth daily. 018 Active albuterol-budes onide 90-80 mcg/actuation HFA aerosol inhaler Inhale into the lungs. Active nystatin (MYCOSTATIN) cream APPLY TOPICALLY TWICE DAILY TO TRUNK 023 Active rosuvastatin (CRESTOR) 40 mg tablet TAKE ONE TABLET BY MOUTH EVERY DAY 90 tablet 1 025 Active valsartan (DIOVAN) 160 mg tablet TAKE ONE TABLET BY MOUTH TWICE A DAY 180 tablet 1 025 Active metoprolol succinate (TOPROL-XL) 50 mg 24 hr tabletIndicatio ns:Essential hypertension Take 1 tablet (50 mg total) by mouth 1 (one) time each day. Do not crush or chew. 90 each 3 025 2025 Active dilTIAZem CD (CARDIZEM CD) 240 mg 24 hr capsuleIndicati ons:Essential hypertension Take 1 capsule (240 mg total) by mouth 1 (one) time each day. 90 each 3 025 2025 Active dilTIAZem CD (CARDIZEM CD) 240 mg 24 hr capsule Take 240 mg by mouth. 013 2024 Discontinued metoprolol succinate (TOPROL-XL) 50 mg 24 hr tablet TAKE ONE TABLET BY MOUTH EVERY DAY 021 2024 Discontinued(R eorder) polyethylene glycol (Golytely) 236-22.74-6.74 -5.86 gram solution Take 4L by mouth once for one dose. May substitue any PEG. Starting at 6PM the night before your procedure drink 1 8oz glasses at your own pace until you complete half of the gallon. Finish 2nd half of the gallon 5 hours before your procedure. 4000 mL 2024 Discontinued(T herapy completed) bisacodyL (DULCOLAX) 5 mg EC tablet Take 2 tablets by mouth right before beginning bowel prep. See instructions provided by the office 2 tablet 2024 Discontinued(T herapy completed) metFORMIN XR (GLUCOPHAGE-XR) 500 mg 24 hr tablet TAKE 1 TABLET BY MOUTH DAILY WITH DINNER FOR 14 DAYS THEN TAKE 2 TABLETS DAILY WITH DINNER FOR 14 DAYS 025 2024 Discontinued(P rescriber Discontinued) Active Problems Problem Noted Date Diagnosed Date Murmur 11/20/2024 Assessment & Plan (11/20/2024 11:34 AM EDT): The patient was found to have a murmur on the physical examination today. Will order an echocardiogram to rule out any underlying valvular heart disease. Orders: Transthoracic echocardiogram (TTE) complete with PRN contrast, bubble, strain, and 3D order panel; Future perflutren lipid microsphere (DEFINITY) 1.3 mL in sodium chloride 0.9% 8.7 mL injection Renal artery stenosis ([facility]/HCC V24) 11/20/2024 Assessment & Plan (11/20/2024 11:34 AM EDT): The patient has a history of mild bilateral renal artery stenosis. This was noted on the previous renal artery duplex done in August 2023. The patient continues on medical therapy with aspirin and rosuvastatin. The patient's renal function is normal. Her blood pressure is well-controlled. The patient is already being followed by the [facility] vascular surgery service. As such, at this point, we will continue her current medication regimen. Current smoker 11/20/2024 Assessment & Plan (11/20/2024 11:34 AM EDT): The patient has a history of chronic cigarette smoking. During today's visit, we reviewed the consequences of continued smoking including the development of CAD, now development of an VA (which may be fatal), worsening of her known carotid artery stenosis, development of COPD, and development of a malignancy. However, despite these warnings, the patient stated that she is not yet ready to quit smoking. Venous insufficiency 06/29/2021 Bilateral carotid artery disease (CMS/HCC V24) 0 07/08/2020 Overview (11/08/2023): Last Assessment & Plan: Patient has a history of bilateral carotid artery stenosis. She continues to follow with vascular surgery service and is scheduled for repeat carotid artery duplex prior to her next appointment with vascular surgery in December. She will continue on aspirin and statin as prescribed. Assessment & Plan (11/20/2024 11:34 AM EDT): The patient has a history of bilateral renal artery stenosis. She is already on medical therapy with aspirin and rosuvastatin. The patient is followed by the [facility] vascular surgery service. Bladder cancer ([facility] V24, [facility] V28) 2020 Overview (11/08/2023): Being followed by [facility] urologist Dr. Sai Castellanos, s/p transurethral resection, papillary urothelial carcinoma COPD (chronic obstructive pu lmonary disease) ([facility] V24, [facility] V28) 03/01/2020 Dizziness 03/01/2020 Overview [...] with routine medical care. Assessment & Plan (11/20/2024 11:34 AM EDT): The patient has a history of arterial hypertension. The patient's blood pressure today was noted to be well controlled. We'll continue the current antihypertensive medication regimen. Orders: ECG 12 lead metoprolol succinate (TOPROL-XL) 50 mg 24 hr tablet; Take 1 tablet (50 mg total) by mouth 1 (one) time each day. Do not crush or chew. dilTIAZem CD (CARDIZEM CD) 240 mg 24 hr capsule; Take 1 capsule (240 mg total) by mouth 1 (one) time each day. Hematuria 03/01/2020 Low back pain 03/01/2020 Mild [...] with routine medical care. Assessment & Plan (11/20/2024 11:34 AM EDT): The patient has a history of hyperlipidemia. She is currently on rosuvastatin 40 mg orally daily. Her LDL target is 70 or below given her history of carotid artery stenosis. Last lipid panel showed an LDL of 53. Therefore, we will continue her current medication regimen. Osteopenia 03/01/2020 Vitamin D deficiency 03/01/2020 Resolved Problems Problem Noted Date Diagnosed Date Resolved Date Dyspnea 06/28/2022 11/20/2024 Overview (11/08/2023): Last Assessment & Plan: The [...] patient for a pharmacological nuclear stress test. Encounters Date Type Department Care Team Description 11/20/2024 10:50 AM EDT Office Visit [facility] [address] [facility] [address] [place] [address] Marlo Garzon MD Essential hypertension (Primary Dx); Murmur; Bilateral carotid artery stenosis; Renal artery stenosis ([facility] V24); Current smoker; Mixed hyperlipidemia from Last 3 Months Immunizations Immunization Administration Dates Next Due Pfizer SARS-CoV-2 COVID-19, mRNA, LNP-S, preservative free 06/08/2020,05/18/2020 Surgical History Surgery Date Site/Laterality Comments BLADDER SURGERY PROCEDURE: HISTORICAL BLADDER SURGERY CHOLECYSTECTOMY PROCEDURE: HISTORICAL CHOLECYSTECTOMY Medical History Medical History Date Comments Dizziness 03/01/2020 DX:Dizziness COPD (chronic obstructive pu lmonary disease) ([facility] V24, [facility] V28) 03/01/2020 DX:COPD (chronic o bstructive pulmonary disease) (HCC) Bladder cancer ([facility] V24, [facility] V28) 03/01/2020 DX:Bladder cancer (HCC); COM MENT: Being followed by [facility] urologist Dr. Sai Castellanos, s/p [...] Safety Answer Date Record ed Physical Abuse Unrecognized value 03/17/2024 Verbal Abuse Unrecognized value 03/17/2024 Comments No Sex and Gender Information Value Date Recorded Sex Assigned at Female 03/17/2024 11:08 AM EST Legal Sex Female 11:26 AM EST Gender Identity Female 03/17/2024 11:08 AM EST Sexual Orientation Straight 03/17/2024 11 :08 AM EST Obstetrics History Last Filed Vital Signs Vital Sign Reading Time Taken Comments Blood Pressure 136/80 11/20/2024 10:38 AM EDT Pulse 62 11/20/2024 10:38 AM EDT Temperature 37.3 C (99.1 F) 03/17/2024 12:34 PM EST Respiratory Rate 20 03/17/2024 12:54 PM EST Oxygen Saturation 99% 11/20/2024 10:38 AM EDT Inhaled Oxygen Concentration - - Weight 82.1 kg (181 lb) 11/20/2024 10:38 AM EDT Height 162.6 cm (5' 4 ) 11/20/2024 10:38 AM EDT Body Mass Index 31.07 11/20/2024 10:38 AM EDT Plan of Treatment Upcoming Encounters Date Type Department Care Team (Late st Contact Info) Description 12/24/2024 2:15 PM EST Ancillary Procedure [facility] [address] [phone] 01/02/2025 10:30 AM EST Office Visit [facility] [place] [address] [phone] Ladarius Muro MD [address] [place] [phone] 03/24/2025 12:30 PM EST Ancillary Procedure [facility] [address] [phone] Health Maintenance Due Date Last Done Comments Breast Cancer Screening 1950 Diabetes: Annual Foot Exam 1960 Diabetes: Annual Retina Eye Exam 1960 Zoster Vaccines (1 of 2) 1969 RSV Immunization Adult Patients (1 - Risk 50-74 years 1-dose series) 2000 Hepatitis B Vaccines (2 of 3 - 19+ 3-dose series) 04/18/2010 03/21/2010 Medicare Annual Wellness Visit 01/21/2022 Osteoporosis Screening (Bone Density Screening) 01/21/2022 Social Influencers of Health Screening 01/21/2022 Depression Screening 02/13/2024 COVID-19 Vaccine (6 - Pfizer risk 2023- season) 2024 12/28/2023, 05/08/2022, 12/05/2020, Additional history exists Influenza Vaccine (#1) 2024 Diabetes: Annual Urine Albumin-Creatinine Ratio (uACR) 11/20/2024 Diabetes: Blood Sugar Control Test (HGBA1C) 11/20/2024 01/02/2022 Falls Risk Assessment 03/17/2025 03/17/2024 Lung Cancer Screening (Low Dose CT) 04/21/2025 04/21/2024, 04/20/2023, 04/18/2022, Additional history exists Diabetes: Annual GFR (Glomerular Filtration Rate) 06/02/2025 06/02/2024, 01/02/2022, 01/02/2022, Additional history exists Hypertension/CHF/CAD Annual BMP Blood Test 06/02/2025 06/02/2024, 01/02/2022, 01/02/2022, Additional history exists Cholesterol Screening (Lipid Panel) [...] Procedure Name Priority Date/Time Associated Diagnosis Comments ECG 12-LEAD Routine 11/20/2024 10:44 AM EDT Essential hypertension CT LUNG SCREENING Routine 04/21/2024 2:2 0 PM EDT Encounter for screening for malignant neoplasm of respiratory organs Nicotine dependence, cigarettes, uncomplicated COLONOSCOPY Routine 03/17/2024 12:33 PM EST Special screening for malignant neoplasms, colon HM ANNUAL BMP BLOOD TEST Routine 01/02/2022 HEMOGLOBIN A1C Routine 01/02/2022 LIPID PANEL Routine 06/07/2021 from Last 3 Months or Most Recently Relevant to Health Maintenance Results * ECG 12 lead (11/20/2024 10:44 AM EDT) Ventricular Rate ECG 61 BPM GEMUSE Atrial Rate 61 BPM GEMUSE QRS Duration 98 ms GEMUSE Q-T Interval 468 ms GEMUSE QTc 471 ms GEMUSE R Wells -114 degrees GEMUSE T Wells 123 degrees GEMUSE ECG Interpretation Normal sinus rhythm with sinus arrhythmia Right superior axis deviation Nonspecific T wave abnormality Abnormal ECG Confirmed by MARLO GARZON ([id number]) on 11/20/2024 11:32:34 AM GEMUSE 11/20/2024 10:4 4 AM EDT 11/20/2024 11:32 AM EDT Marlo Garzon MD ECG ORDERABLES Final Result GEMUSE * CT Lung Screening (04/21/2024 2:20 PM [...] Signed Date: 04/22/2024 09:50 ET Workstation ID: [id number] Transcribed By: Self Edit Transcribed Date: 04/22/2024 09:37 ET Narrative 04/22/2024 9:50 AM EDT EXAMINATION: CT CHEST WITHOUT CONTRAST LUNG CANCER SCREENING, LOW DOSE CLINICAL INFORMATION: Lung cancer screening. Current smoker COMPARISON: Portions of previous 04/19/2023 TECHNIQUE: Multidetector CT. Examination of the chest. Examination of the chest without IV contrast. Reformatting in the coronal and sagittal planes. Device: Stamps[employer]Studio Whale VCT DLP: 174 mGy-cm CTDI: 4.83 Dose [...] in the coronal and sagittal planes. Device: DriverSide VCT DLP: 174 mGy-cm CTDI: 4.83 Dose [...] Signed Date: 04/22/2024 09:50 ET Workstation ID: [id number] Transcribed By: Self Edit Transcribed Date: 04/22/2024 09:37 ET us Mercy Davis MD IM CT PROCEDURES Final Result * COLONOSCOPY Anesthesia - MAC; [facility] ENDOSCOPY (03/17/2024 12:33 PM EST) Anatomical Region [...] pathology results. Narrative 03/17/2024 12:35 PM EST [facility] GI Patient Name: Carol Valladares Procedure Date: 03/17/2024 12:10 PM Date of : 1950 Age: 73 Gender: Female Note Status: Finalized Attending MD: Greg Anaya DO, [id number] Procedure Date No Time: 03/17/2024 Procedure: Colonoscopy [...] the physician, the nurse, the anesthesiologist, the executive director of marketing and the general service technician in the pre-procedure area in the [...] retroflexion views. Procedure Code(s): --- Professional --- 81092, Colonoscopy, flexible; with removal of tumor(s), polyp(s), or other lesion(s) by snare technique Diagnosis Code(s): --- Professional --- Z12.11, Encounter for screening for malignant neoplasm of colon K64.9, Unspecified hemorrhoids D12.5, Benign neoplasm of sigmoid colon CPT copyright 2020 [employer]. All rights reserved. The codes documented in this report are preliminary and upon composition mixer review may be revised to meet current compliance requirements. GREG Anaya, 03/17/2024 12:35:25 PM This report has been signed electronically.Greg Anaya DO Number of Addenda: 0 Note Initiated On: 03/17/2024 12:10 PM Scope Withdrawal Time: 0 hours 8 minutes 21 seconds Scope In: 12:20:23 PM Scope Out: 12:32:43 PM Endoscopy Department at [facility] - [address] [place] [phone] Procedure Note Grge Anaya DO - 03/17/2024 [facility] GI Patient Name: Carol Valladares Procedure Date: 03/17/2024 12:10 PM Date of : 1950 Age: 73 Gender: Female Note Status: Finalized Attending MD: Greg Anaya DO, [id number] Procedure Date No Time: 03/17/2024 Procedure: Colonoscopy [...] the physician, the nurse, the anesthesiologist, the executive director of marketing and thetechnician in the pre-procedure area in [...] retroflexion views. Procedure Code(s): --- Professional --- 88323, Colonoscopy, flexible; with removal of tumor(s), polyp(s), or other lesion(s) by snare technique Diagnosis Code(s): --- Professional --- Z12.11, Encounter for screening for malignantneoplasm of colon K64.9, Unspecified hemorrhoids D12.5, Benign neoplasm of sigmoid colon CPT copyright 2020 [employer]. All rights reserved. The codes documented in this report are preliminary and upon composition mixer reviewmay be revised to meet current compliance requirements. GREG Anaya DO 03/17/2024 12:35:25 PM This report has been signed electronically.Greg Anaya DO Number of Addenda: 0 Note Initiated On: 03/17/2024 12:10 PM Scope Withdrawal Time: 0 hours 8 minutes 21 seconds Scope In: 12:20:23 PM Scope Out: 12:32:43 PM Endoscopy Department at [facility] - [address] [place] [phone] IMPRESSION: - Hemorrhoids found on perianal exam. [...] sult * Annual BMP Blood Test (01/02/2022) Annual [...] [employer] [employer] Care Teams Accounts Receivable Clerk Relationship Specialty Start Date End Date Gabi Plasencia NP PCP - General 10/26/22
--- OUTSIDE RECORDS SUMMARY | 2024-12-03 13:57 | XMS_ITS | Patient Health Record ---
[facility] [place] Address [address] [address] Care Team Providers Care Supervisor Anodizing Name Role Phone Marissa Garcia Primary Care Provider Nancy Keane Unavailable [phone] Allergies Allergen (clinical drug ingredient) Drug/Non Drug [...] other tobacco user? No Plan Of Treatment Next Appt Details Provider Name:Nancy Garcia Darcy lamont, 12/23/2024 09:30:00 AM, [address] [place], [address], Insurance Providers Payer Name Payer Address Payer Phone Subscriber Number Group Number Insured Name Patient Relationship to Insured Coverage Start Date Coverage End Date [employer] [place] [employer] [address] [place] [address] [id number] Barby Simpson Self - patient is the [...]
--- OUTSIDE RECORDS SUMMARY | 2024-12-03 13:57 | XMS_ITS ---
Author Organization [address] [place] [address] [place] [phone] Phone Care Team Providers Care [employer] Crm Developer Name Role Phone Gabi Plasencia HUMAN RESOURCES OPERATIONS SPECIALIST Primary Care Provide r Active Problems Problem [...] 0.9% 8.7 mL injection Renal artery stenosis ([facility] V24) 11/20/2024 Assessment & Plan (11/20/2024 11:34 AM EDT): The patient has a history of mild bilateral renal artery stenosis. This was noted on the previous renal artery duplex done in August 2023. The patient continues on medical therapy with aspirin and rosuvastatin. The patient's renal function is normal. Her blood pressure is well-controlled. The patient is already being followed by the [place] vascular surgery service. As such, at this point, we will continue her current medication regimen. Current smoker 11/20/2024 Assessment & Plan (11/20/2024 11:34 AM EDT): The patient has a history of chronic cigarette smoking. During today's visit, we reviewed the consequences of continued smoking including the development of CAD, now development of an PA (which may be fatal), worsening of her known carotid artery stenosis, development of COPD, and development of a malignancy. However, despite these warnings, the patient stated that she is not yet ready to quit smoking. Venous insufficiency 06/29/2021 Bilateral carotid artery disease ([facility] V24) 0 07/08/2020 Overview (11/08/2023): Last Assessment [...] rosuvastatin. The patient is followed by the [place] vascular surgery service. Bladder cancer ([facility] V24, [facility] V28) 2020 Overview (11/08/2023): Being followed by [facility] urologist Dr. Sai Castellanos, s/p transurethral resection, papillary urothelial carcinoma COPD (chronic obstructive pu lmonary disease) ([facility] V24, [facility] V28) 03/01/2020 Dizziness 03/01/2020 Overview [...] regimen. Osteopenia 03/01/2020 Vitamin D deficiency 03/01/2020 Current Treatment and Therapy Plans No current plan information found. Past Treatment and Therapy Plans No past plan information found. Lifetime Dose Tracking * Chemical Lifetime Dose Automatic Entry Manual Entr y Radiation (DLP) 173.71 mGy-cm 173.71 mGy-cm 0 mGy-cm CTDIvol 4.83 mGy 4.83 mGy 0 mGy Resolved Problems Problem Noted Date Diagnosed Date [...]
== END 2024-12-03 11:37 | disposition home or self-care (01) ==
LOC: HO.HUSH 10:48
PROVIDERS: PCP Nurse Practitioner Family; Visit Provider Urology
DX: C67.9 Malignant neoplasm of bladder, unspecified (principal)
CPT/HCPCS: 52000; 99213

== ENCOUNTER → 2024-12-03 10:47 | Outpatient (BNVA) | payer MEDICARE, SELFPAY | PROVIDERS: PCP Nurse Practitioner Family; Visit Provider Urology | DX: C67.9 Malignant neoplasm of bladder, unspecified (principal) | CPT/HCPCS: 52000; 99212 ==